=== PATIENT | male | born 1965 | race Caucasian/White ===

== ENCOUNTER 2021-12-15 07:32 | Outpatient (REF) | payer OTHER, SELFPAY ==
[2021-12-15 11:31] LABS: MANUAL DIFF FLAG NO
[2021-12-15 11:46] LABS: Basophils Absolute Auto 0.1 X10*3/uL (0.0-0.2); Eosinophils Absolute Auto 0.3 X10*3/uL (0.0-0.4); Eosinophils Percent Auto 4.2 % (0-4); Hematocrit 42.1 % (42.0-52.0); Hemoglobin 13.8 g/dl (14.0-18.0); Imm Gran Abs Auto 0.07 X10*3/uL (0.00-0.03); Lymphocytes Absolute Auto 1.3 X10*3/uL (1.2-4.9); Lymphocytes Percent Auto 19.3 % (20-40); Mean Corpuscular HGB Conc 32.8 g/dl (31.0-36.0); Mean Corpuscular Hemoglobin 32.1 pg (27.0-33.0); Mean Corpuscular Volume 97.9 fL (80.0-98.0); Mean Platelet Volume 10.5 fL (9.4-12.4); Monocytes Absolute Auto 0.6 X10*3/uL (0.1-1.2); Monocytes Percent Auto 8.4 % (2-11); Neutrophils Absolute Auto 4.5 x10*3/uL (2.0-8.3); Neutrophils Percent Auto 66.1 % (45-73); Platelet Count 187 X10*3/uL (160-400); White Blood Count 6.9 X10*3/uL (4.8-10.8)
[2021-12-15 12:06] LABS: Appearance Urine TURBID; Color Urine YELLOW; Glucose Urine UA NEG (NEG); Leukocyte Esterase Urine NEG (NEG); Nitrite Urine NEG (NEG); PH 5.5 (5.0-8.0); Specific Gravity - Urine >= 1.030 (1.005-1.025); Urine Blood NEG (NEG); Urine Ketones NEG (NEG); Urine Protein NEG (NEG-TRACE)
[2021-12-15 12:07] LABS: Cholesterol 152 mg/dL; HDL Cholesterol 33 mg/dL; LDL Cholesterol Calculated 88 mg/dl; Rheumatoid Factor < 15.0 IU/mL (<15.0); Triglycerides 159 mg/dL; Uric Acid 6.5 mg/dL (3.4-7.0)
[2021-12-15 12:24] LABS: Prostate Specific Antigen Scr 0.15 ng/mL (<0.05-4.0)
[2021-12-15 12:39] LABS: Creatinine Urine 136.04 mg/dL; Microalbum/Creatinine Ratio Ur 7.3 ug/mg cr
[2021-12-15 12:47] LABS: Erythrocyte Sedimentation Rate 17 MM/HR (0-15)
[2021-12-15 17:08] LABS: Alanine Aminotransferase 15 U/L (0-40); Alkaline Phosphatase 58 U/L (39-117); Anion Gap 15 (12-20); Aspartate Amino Transferase 15 U/L (5-37); Bilirubin Total 0.4 mg/dL (0.0-1.0); Blood Urea Nitrogen 16 mg/dL (9-16); Calcium 8.9 mg/dL (8.4-10.2); Carbon Dioxide 22 mmol/L (22-29); Chloride 110 mmol/L (96-108); Estimated Glomerular Filt Rate > 60; Glucose Fasting 100 mg/dL (60-99); Potassium 4.5 mmol/L (3.3-5.1); Sodium 142 mmol/L (135-145); Total Protein 6.4 g/dL (6.5-8.0)
[2021-12-17 13:03] LABS: Cyclic Citrullinated Peptide <16 UNITS
[2021-12-17 14:22] LABS: CRP High Sensitivity 8.2 mg/L
[2021-12-18 21:57] LABS: Anti Nuclear Antibody Screen POSITIVE (NEGATIVE)
== END 2021-12-15 07:33 | disposition home or self-care (01) ==
LOC: HO.WFDLDS 07:32
PROVIDERS: Visit Provider Family Medicine
DX: Z00.00 Encounter for general adult medical examination without abnormal findings (principal); Z12.5 Encounter for screening for malignant neoplasm of prostate; M19.90 Unspecified osteoarthritis, unspecified site; I10 Essential (primary) hypertension
CPT/HCPCS: 36415; 80053; 80061; 81003; 82043; 84153; 84443; 84550; 85025; 85652; 86038; 86039; 86141; 86200; 86431

== ENCOUNTER 2022-01-26 09:08 | Outpatient (REF) | payer OTHER, SELFPAY ==
--- NOTE | ~2022-01-26 | XR_ITS ---
EXAMINATION: XR ANKLE, RIGHT XR FOOT, RIGHT CLINICAL INFORMATION: Pain. COMPARISON: None TECHNIQUE: AP, lateral, and mortise views of the right ankle. AP, lateral, and oblique views of the right foot. FINDINGS: Bony alignment and mineralization are normal. No fracture, dislocation or right ankle joint effusion is seen. Boehler's angle is normal. There is a moderately large plantar calcaneal spur. No abnormal bony erosive change is seen. There is no focal soft tissue swelling, gas or foreign body noted. XR/XR ankle RT 2V IMPRESSION: 1. No right ankle fracture, dislocation or joint effusion is seen. 2. There is a moderately large right calcaneal plantar spur.
--- NOTE | ~2022-01-26 | XR_ITS ---
EXAMINATION: XR ANKLE, LEFT XR FOOT, LEFT CLINICAL INFORMATION: Pain. COMPARISON: None TECHNIQUE: AP, lateral, and mortise views of the left ankle. AP, lateral, and oblique views of the left foot. FINDINGS: Bony alignment and mineralization are normal. No acute fracture or dislocation is seen. There is an old, healed fracture with bony remodeling noted of the distal left fibular shaft.. Alignment is anatomic. Joint spaces are maintained. There is no right ankle joint effusion. Boehler's angle is normal. There is a small plantar calcaneal spur. No focal soft tissue swelling, gas or foreign body is seen. XR/XR ankle LT 2V IMPRESSION: 1. No fracture, dislocation or left ankle joint effusion is seen. 2. There is a small left calcaneal plantar spur.
--- NOTE | ~2022-01-26 | XR_ITS ---
EXAMINATION: XR ANKLE, RIGHT XR FOOT, RIGHT CLINICAL INFORMATION: Pain. COMPARISON: None TECHNIQUE: AP, lateral, and mortise views of the right ankle. AP, lateral, and oblique views of the right foot. FINDINGS: Bony alignment and mineralization are normal. No fracture, dislocation or right ankle joint effusion is seen. Boehler's angle is normal. There is a moderately large plantar calcaneal spur. No abnormal bony erosive change is seen. There is no focal soft tissue swelling, gas or foreign body noted. XR/XR foot RT min 3V IMPRESSION: 1. No right ankle fracture, dislocation or joint effusion is seen. 2. There is a moderately large right calcaneal plantar spur.
--- NOTE | ~2022-01-26 | XR_ITS ---
EXAMINATION: XR WRIST, RIGHT XR HAND, RIGHT CLINICAL INFORMATION: Pain. COMPARISON: None TECHNIQUE: PA, lateral, and oblique views of the right wrist and PA, lateral, and oblique views of the right hand FINDINGS: RIGHT WRIST: There is bony demineralization. The bones and soft tissues are otherwise normal. No fracture. Alignment is anatomic. Joint spaces are maintained. No erosions or soft tissue calcifications. RIGHT HAND: There is bony demineralization. The bones and soft tissues are normal. No acute fracture or dislocation is seen. There is an old, healed, mildly angulated fracture of seen of the proximal shaft of the fourth distal phalanx.. Alignment is anatomic. Joint spaces are maintained. No erosions or soft tissue calcifications. XR/XR hand wrist RT IMPRESSION: There is bony demineralization. Otherwise, unremarkable right hand and wrist, without unusual degenerative change or acute traumatic finding. EXAMINATION: XR WRIST, LEFT XR HAND, LEFT CLINICAL INFORMATION: Pain. COMPARISON: None TECHNIQUE: PA, lateral, and oblique views of the left wrist and PA, lateral, and oblique views of the left hand FINDINGS: LEFT WRIST: There is mild bony demineralization. The bones and soft tissues are otherwise normal. No fracture. Alignment is anatomic. Joint spaces are maintained. No erosions or soft tissue calcifications. LEFT HAND: There is mild bony demineralization. The bones and soft tissues are normal. No fracture. Alignment is anatomic. Joint spaces are maintained. No erosions or soft tissue calcifications. IMPRESSION: There is mild bony demineralization. Otherwise, unremarkable left hand and wrist.
--- NOTE | ~2022-01-26 | XR_ITS ---
EXAMINATION: XR WRIST, RIGHT XR HAND, RIGHT CLINICAL INFORMATION: Pain. COMPARISON: None TECHNIQUE: PA, lateral, and oblique views of the right wrist and PA, lateral, and oblique views of the right hand FINDINGS: RIGHT WRIST: There is bony demineralization. The bones and soft tissues are otherwise normal. No fracture. Alignment is anatomic. Joint spaces are maintained. No erosions or soft tissue calcifications. RIGHT HAND: There is bony demineralization. The bones and soft tissues are normal. No acute fracture or dislocation is seen. There is an old, healed, mildly angulated fracture of seen of the proximal shaft of the fourth distal phalanx.. Alignment is anatomic. Joint spaces are maintained. No erosions or soft tissue calcifications. XR/XR hand wrist LT IMPRESSION: There is bony demineralization. Otherwise, unremarkable right hand and wrist, without unusual degenerative change or acute traumatic finding. EXAMINATION: XR WRIST, LEFT XR HAND, LEFT CLINICAL INFORMATION: Pain. COMPARISON: None TECHNIQUE: PA, lateral, and oblique views of the left wrist and PA, lateral, and oblique views of the left hand FINDINGS: LEFT WRIST: There is mild bony demineralization. The bones and soft tissues are otherwise normal. No fracture. Alignment is anatomic. Joint spaces are maintained. No erosions or soft tissue calcifications. LEFT HAND: There is mild bony demineralization. The bones and soft tissues are normal. No fracture. Alignment is anatomic. Joint spaces are maintained. No erosions or soft tissue calcifications. IMPRESSION: There is mild bony demineralization. Otherwise, unremarkable left hand and wrist.
--- NOTE | ~2022-01-26 | XR_ITS ---
EXAMINATION: XR ANKLE, LEFT XR FOOT, LEFT CLINICAL INFORMATION: Pain. COMPARISON: None TECHNIQUE: AP, lateral, and mortise views of the left ankle. AP, lateral, and oblique views of the left foot. FINDINGS: Bony alignment and mineralization are normal. No acute fracture or dislocation is seen. There is an old, healed fracture with bony remodeling noted of the distal left fibular shaft.. Alignment is anatomic. Joint spaces are maintained. There is no right ankle joint effusion. Boehler's angle is normal. There is a small plantar calcaneal spur. No focal soft tissue swelling, gas or foreign body is seen. XR/XR foot LT min 3V IMPRESSION: 1. No fracture, dislocation or left ankle joint effusion is seen. 2. There is a small left calcaneal plantar spur.
== END 2022-01-26 09:09 | disposition home or self-care (01) ==
LOC: HO.XRAY 09:08
PROVIDERS: PCP Family Medicine; Visit Provider Student in an Organized Health Care Education/Training Program
DX: M25.541 Pain in joints of right hand (principal); M25.542 Pain in joints of left hand; M25.572 Pain in left ankle and joints of left foot; M25.571 Pain in right ankle and joints of right foot; M10.9 Gout, unspecified; R76.8 Other specified abnormal immunological findings in serum; R73.9 Hyperglycemia, unspecified; E66.01 Morbid (severe) obesity due to excess calories; Z79.899 Other long term (current) drug therapy; Z79.52 Long term (current) use of systemic steroids
CPT/HCPCS: 73110; 73130; 73600; 73630; 99202

== ENCOUNTER 2022-01-26 10:27 | Outpatient (REF) | payer OTHER, SELFPAY ==
[2022-01-26 14:15] LABS: MANUAL DIFF FLAG NO
[2022-01-26 14:23] LABS: Basophils Absolute Auto 0.1 X10*3/uL (0.0-0.2); Basophils Percent Auto 1.2 % (0-2); Eosinophils Absolute Auto 0.2 X10*3/uL (0.0-0.4); Hematocrit 44.8 % (42.0-52.0); Hemoglobin 15.1 g/dl (14.0-18.0); Imm Gran Abs Auto 0.18 X10*3/uL (0.00-0.03); Imm Gran Pct Auto 1.7 % (0.0-0.4); Lymphocytes Absolute Auto 1.8 X10*3/uL (1.2-4.9); Lymphocytes Percent Auto 16.6 % (20-40); Mean Corpuscular HGB Conc 33.7 g/dl (31.0-36.0); Mean Corpuscular Hemoglobin 32.7 pg (27.0-33.0); Mean Platelet Volume 10.1 fL (9.4-12.4); Monocytes Percent Auto 9.1 % (2-11); Neutrophils Absolute Auto 7.4 x10*3/uL (2.0-8.3); Neutrophils Percent Auto 69.4 % (45-73); Platelet Count 223 X10*3/uL (160-400); Red Blood Count 4.62 X10*6/uL (4.60-5.80); Red Cell Distribution Width 15.2 % (11.0-16.0); White Blood Count 10.7 X10*3/uL (4.8-10.8)
[2022-01-26 14:51] LABS: Alanine Aminotransferase 57 U/L (0-40); Albumin Level 4.1 g/dL (3.5-5.0); Alkaline Phosphatase 61 U/L (39-117); Anion Gap 15 (12-20); Aspartate Amino Transferase 46 U/L (5-37); Bilirubin Total 0.4 mg/dL (0.0-1.0); Blood Urea Nitrogen 21 mg/dL (9-16); C Reactive Protein 0.14 mg/dL (< or = 0.50); Calcium 9.1 mg/dL (8.4-10.2); Carbon Dioxide 22 mmol/L (22-29); Chloride 108 mmol/L (96-108); Estimated Glomerular Filt Rate > 60; Glucose Random 116 mg/dL (60-115); Potassium 4.2 mmol/L (3.3-5.1); Sodium 141 mmol/L (135-145); Total Protein 6.9 g/dL (6.5-8.0); Uric Acid 6.1 mg/dL (3.4-7.0)
[2022-01-26 15:00] LABS: Erythrocyte Sedimentation Rate 4 MM/HR (0-15)
[2022-01-26 16:54] LABS: Estimated Average Glucose 111 mg/dL; Hemoglobin A1c % 5.5 %
[2022-01-27 12:47] LABS: Anti-Centromere B Antibodies <1.0 NEG AI (<1.0 NEG); Scleroderma 70 Antibody <1.0 NEG AI (<1.0 NEG)
[2022-01-30 21:27] LABS: HLA B27 Negative (Negative)
== END 2022-01-26 10:28 | disposition home or self-care (01) ==
LOC: HO.WFDLDS 10:27
PROVIDERS: Visit Provider Student in an Organized Health Care Education/Training Program
DX: M10.9 Gout, unspecified (principal); M25.541 Pain in joints of right hand; R76.8 Other specified abnormal immunological findings in serum; R73.9 Hyperglycemia, unspecified
CPT/HCPCS: 36415; 80053; 83036; 84550; 85025; 85652; 86038; 86140; 86235; 86812

== ENCOUNTER 2022-01-29 08:07 | Outpatient (REF) | payer OTHER, SELFPAY ==
[2022-01-29 11:32] LABS: MANUAL DIFF FLAG NO
[2022-01-29 11:45] LABS: Basophils Absolute Auto 0.2 X10*3/uL (0.0-0.2); Basophils Percent Auto 1.1 % (0-2); Eosinophils Absolute Auto 0.4 X10*3/uL (0.0-0.4); Eosinophils Percent Auto 2.6 % (0-4); Hematocrit 44.7 % (42.0-52.0); Hemoglobin 14.8 g/dl (14.0-18.0); Imm Gran Abs Auto 0.17 X10*3/uL (0.00-0.03); Imm Gran Pct Auto 1.3 % (0.0-0.4); Lymphocytes Absolute Auto 2.2 X10*3/uL (1.2-4.9); Lymphocytes Percent Auto 16.4 % (20-40); Mean Corpuscular HGB Conc 33.1 g/dl (31.0-36.0); Mean Corpuscular Hemoglobin 32.3 pg (27.0-33.0); Mean Corpuscular Volume 97.6 fL (80.0-98.0); Mean Platelet Volume 10.1 fL (9.4-12.4); Monocytes Absolute Auto 1.2 X10*3/uL (0.1-1.2); Monocytes Percent Auto 9.2 % (2-11); Neutrophils Absolute Auto 9.3 x10*3/uL (2.0-8.3); Neutrophils Percent Auto 69.4 % (45-73); Platelet Count 239 X10*3/uL (160-400); Red Blood Count 4.58 X10*6/uL (4.60-5.80); Red Cell Distribution Width 15.7 % (11.0-16.0); White Blood Count 13.5 X10*3/uL (4.8-10.8)
== END 2022-01-29 08:08 | disposition home or self-care (01) ==
LOC: HO.WFDLDS 08:07
PROVIDERS: Visit Provider Nurse Practitioner Family
DX: Z01.818 Encounter for other preprocedural examination (principal); I48.91 Unspecified atrial fibrillation; I42.9 Cardiomyopathy, unspecified
CPT/HCPCS: 36415; 85025

== ENCOUNTER 2022-03-08 08:04 | Outpatient (REF) | payer OTHER, SELFPAY ==
[2022-03-08 11:25] LABS: MANUAL DIFF FLAG NO
[2022-03-08 11:50] LABS: Basophils Absolute Auto 0.1 X10*3/uL (0.0-0.2); Basophils Percent Auto 1.2 % (0-2); Eosinophils Absolute Auto 0.2 X10*3/uL (0.0-0.4); Hematocrit 42.9 % (42.0-52.0); Hemoglobin 14.3 g/dl (14.0-18.0); Imm Gran Abs Auto 0.04 X10*3/uL (0.00-0.03); Imm Gran Pct Auto 0.6 % (0.0-0.4); Lymphocytes Absolute Auto 1.2 X10*3/uL (1.2-4.9); Lymphocytes Percent Auto 18.4 % (20-40); Mean Corpuscular HGB Conc 33.3 g/dl (31.0-36.0); Mean Corpuscular Hemoglobin 32.9 pg (27.0-33.0); Mean Corpuscular Volume 98.8 fL (80.0-98.0); Mean Platelet Volume 10.1 fL (9.4-12.4); Monocytes Absolute Auto 0.8 X10*3/uL (0.1-1.2); Monocytes Percent Auto 12.4 % (2-11); Neutrophils Absolute Auto 4.3 x10*3/uL (2.0-8.3); Neutrophils Percent Auto 64.4 % (45-73); Platelet Count 163 X10*3/uL (160-400); Red Blood Count 4.34 X10*6/uL (4.60-5.80); Red Cell Distribution Width 15.1 % (11.0-16.0); White Blood Count 6.6 X10*3/uL (4.8-10.8)
[2022-03-08 12:25] LABS: Erythrocyte Sedimentation Rate 7 MM/HR (0-15)
[2022-03-08 12:30] LABS: Alanine Aminotransferase 22 U/L (0-40); Albumin Level 4.3 g/dL (3.5-5.0); Alkaline Phosphatase 58 U/L (39-117); Anion Gap 17 (12-20); Aspartate Amino Transferase 22 U/L (5-37); Bilirubin Total 0.7 mg/dL (0.0-1.0); Blood Urea Nitrogen 17 mg/dL (9-16); C Reactive Protein 0.51 mg/dL (< or = 0.50); Calcium 9.2 mg/dL (8.4-10.2); Carbon Dioxide 23 mmol/L (22-29); Chloride 107 mmol/L (96-108); Estimated Glomerular Filt Rate > 60; Glucose Random 92 mg/dL (60-115); Potassium 4.3 mmol/L (3.3-5.1); Sodium 143 mmol/L (135-145); Total Protein 6.8 g/dL (6.5-8.0); Uric Acid 6.4 mg/dL (3.4-7.0)
[2022-03-12 13:51] LABS: Liver Kidney Microsomal Ab <=20.0 U (<=20.0); Smooth Muscle Antibody 27 U (<20)
[2022-03-12 14:32] LABS: Mitochondrial Antibodies NEGATIVE (NEGATIVE)
== END 2022-03-08 08:05 | disposition home or self-care (01) ==
LOC: HO.WFDLDS 08:04
PROVIDERS: Visit Provider Student in an Organized Health Care Education/Training Program
DX: M25.571 Pain in right ankle and joints of right foot (principal); R76.8 Other specified abnormal immunological findings in serum
CPT/HCPCS: 36415; 80053; 84550; 85025; 85652; 86015; 86140; 86255; 86256; 86376

== ENCOUNTER → 2022-03-09 07:44 | Outpatient (BNVA) | payer OTHER, SELFPAY | PROVIDERS: PCP Family Medicine; Visit Provider Student in an Organized Health Care Education/Training Program | DX: M1A.09X0 Idiopathic chronic gout, multiple sites, without tophus (tophi) (principal); R76.8 Other specified abnormal immunological findings in serum | CPT/HCPCS: 99212 ==

== ENCOUNTER → 2022-03-17 08:00 | Outpatient (BNVA) | payer OTHER, SELFPAY | PROVIDERS: PCP Family Medicine; Visit Provider Physician Assistant | DX: M1A.09X0 Idiopathic chronic gout, multiple sites, without tophus (tophi) (principal) | CPT/HCPCS: 99202 ==

== ENCOUNTER 2022-03-24 09:13 | Outpatient (REF) | payer OTHER, SELFPAY ==
[2022-03-24 12:38] LABS: Estimated Average Glucose 111 mg/dL; Hemoglobin A1c % 5.5 %
[2022-03-24 12:47] LABS: Lipase 40 U/L (8-78)
[2022-03-25 10:22] LABS: HBS Num1 2.18 mIU/mL (0-7.99); HBc Num1 0.06 S/CO (0.00-0.79); HBsAGNum1 0.19 S/CO (0.00-0.99); Hepatitis B Core Antibody Nonreactive (Nonreactive); Hepatitis B Surface Antigen Negative (Negative); ~Hepatitis B Surface Antibody NONREACTIVE (Nonreactive); ~Hepatitis C Antibody Nonreactive (Nonreactive)
[2022-03-26 07:30] LABS: Hepatitis A Antibody IgM 0.47 Index (0-0.79); ~Hepatitis A Antibody IgM Nonreactive (Nonreactive)
[2022-03-30 22:57] LABS: Soluble Liver Ag Autoantibody <20.1 U (0.0-20.0)
[2022-03-31 17:03] LABS: FIB-ALT 21 U/L (9-46); FIB-Alpha-2-Macroglobulin 168 mg/dL (106-279); FIB-Apolipoprotein A1 156 mg/dL (94-176); FIB-GGT 33 U/L (3-85); FIB-Haptoglobin 86 mg/dL (43-212); FIB-Total Bilirubin 0.5 mg/dL (0.2-1.2); Liver Fibrosis Score 0.23; Liver Fibrosis Stage F0-F1; Nec Inflam Act Grade A0; Nec Inflam Act Score 0.08
== END 2022-03-24 09:14 | disposition home or self-care (01) ==
LOC: HO.WFDLDS 09:13
PROVIDERS: Visit Provider Physician Assistant
DX: R79.89 Other specified abnormal findings of blood chemistry (principal); B19.20 Unspecified viral hepatitis C without hepatic coma; M10.9 Gout, unspecified; R74.01 Elevation of levels of liver transaminase levels; R76.8 Other specified abnormal immunological findings in serum; E66.9 Obesity, unspecified
CPT/HCPCS: 36415; 81596; 83036; 83520; 83690; 86704; 86706; 86709; 86803; 87340; 99202

== ENCOUNTER 2022-03-31 08:03 | Outpatient (REF) | payer OTHER, SELFPAY ==
--- NOTE | ~2022-03-31 | US_ITS ---
EXAMINATION: US ABDOMEN LIMITED CLINICAL INFORMATION: Elevation of levels of liver transaminase levels. COMPARISON: None TECHNIQUE: Real-time imaging of the right upper quadrant abdominal viscera. FINDINGS: PANCREAS: Largely obscured by overlapping bowel gas. LIVER: Normal. The liver is normal in size. The liver contour is normal. Parenchymal echogenicity is normal. No focal hepatic lesion. There is no intrahepatic biliary duct dilatation seen. GALLBLADDER: There is ringdown artifact, consistent adenomyosis. The gallbladder is physiologically distended without evidence of stones, sludge, polyps, wall thickening or pericholecystic fluid. COMMON BILE DUCT: Normal in caliber measuring 0.3 cm in diameter. RIGHT KIDNEY: Normal. No hydronephrosis. No renal calculi or focal parenchymal lesions. The kidney measures 11.4 cm in maximum dimension. FREE FLUID: None. US/US abdomen limited IMPRESSION: 1. Unremarkable ultrasound appearance of the liver. 2. There is gallbladder ringdown artifact, consistent with adenomyosis. 3. Technically limited ultrasound examination of the pancreas.
== END 2022-03-31 08:04 | disposition home or self-care (01) ==
LOC: HO.US 08:03
PROVIDERS: Visit Provider Student in an Organized Health Care Education/Training Program
DX: R74.01 Elevation of levels of liver transaminase levels (principal); R76.8 Other specified abnormal immunological findings in serum
CPT/HCPCS: 76705

== ENCOUNTER → 2022-04-06 08:13 | Outpatient (BNVA) | payer OTHER, SELFPAY | PROVIDERS: PCP Family Medicine; Referring Provider Family Medicine; Visit Provider Physician Assistant | DX: R74.01 Elevation of levels of liver transaminase levels (principal); I48.91 Unspecified atrial fibrillation | CPT/HCPCS: 99212 ==

== ENCOUNTER 2022-04-29 14:28 | Outpatient (REF) | payer OTHER, SELFPAY ==
[2022-04-29 15:06] LABS: MANUAL DIFF FLAG NO
[2022-04-29 15:11] LABS: Basophils Absolute Auto 0.1 X10*3/uL (0.0-0.2); Basophils Percent Auto 1.6 % (0-2); Eosinophils Absolute Auto 0.3 X10*3/uL (0.0-0.4); Eosinophils Percent Auto 3.5 % (0-4); Hematocrit 47.9 % (42.0-52.0); Hemoglobin 16.1 g/dl (14.0-18.0); Imm Gran Abs Auto 0.05 X10*3/uL (0.00-0.03); Imm Gran Pct Auto 0.6 % (0.0-0.4); Lymphocytes Absolute Auto 1.9 X10*3/uL (1.2-4.9); Lymphocytes Percent Auto 22.9 % (20-40); Mean Corpuscular HGB Conc 33.6 g/dl (31.0-36.0); Mean Corpuscular Hemoglobin 33.2 pg (27.0-33.0); Mean Corpuscular Volume 98.8 fL (80.0-98.0); Mean Platelet Volume 10.4 fL (9.4-12.4); Monocytes Absolute Auto 0.8 X10*3/uL (0.1-1.2); Neutrophils Percent Auto 61.4 % (45-73); Platelet Count 189 X10*3/uL (160-400); Red Blood Count 4.85 X10*6/uL (4.60-5.80); Red Cell Distribution Width 13.9 % (11.0-16.0); White Blood Count 8.2 X10*3/uL (4.8-10.8)
[2022-04-29 15:49] LABS: Erythrocyte Sedimentation Rate 5 MM/HR (0-15)
[2022-04-29 16:25] LABS: Appearance Urine Clear; Color Urine Yellow; Glucose Urine UA >=1000 mg/dL (Negative); Leukocyte Esterase Urine Negative (Negative); Nitrite Urine Negative (Negative); Specific Gravity - Urine >= 1.030 (1.005-1.025); UMIC TRIGGER UA YES; Urine Blood Negative (Negative); Urine Ketones Negative (Negative); Urine Protein Negative (Neg-Trace)
[2022-04-29 16:33] LABS: Bacteria Urine None Seen (None Seen); Hyaline Casts Urine 0-2 /LPF (0-2); RBC Urine 0-2 /HPF (0-2); Squamous Epithelial Cell Urine 0-2 /HPF (0-2); WBC Urine 0-5 /HPF (0-5)
[2022-04-29 16:38] LABS: Alanine Aminotransferase 24 U/L (0-40); Albumin Level 4.7 g/dL (3.5-5.0); Alkaline Phosphatase 68 U/L (39-117); Anion Gap 13 (12-20); Aspartate Amino Transferase 23 U/L (5-37); Bilirubin Total 0.5 mg/dL (0.0-1.0); Blood Urea Nitrogen 19 mg/dL (9-16); Calcium 9.8 mg/dL (8.4-10.2); Carbon Dioxide 27 mmol/L (22-29); Chloride 108 mmol/L (96-108); Estimated Glomerular Filt Rate > 60; Glucose Random 84 mg/dL (60-115); Potassium 4.1 mmol/L (3.3-5.1); Sodium 144 mmol/L (135-145); Total Protein 7.5 g/dL (6.5-8.0); Uric Acid 4.9 mg/dL (3.4-7.0)
[2022-04-29 18:26] LABS: Creatinine Urine 132.08 mg/dL; Total Protein Urine Random < 7 mg/dL (<12)
[2022-04-30 10:59] LABS: Complement C3 139 mg/dL (82-185)
[2022-05-01 01:49] LABS: Thyroglobulin Antibodies <1 IU/mL (< or = 1); Thyroid Peroxidase Antibodies 1 IU/mL (<9)
[2022-05-03 13:38] LABS: Anti DNA DS Antibody 1 IU/mL; Antibody to SS-A Antigen <1.0 NEG AI (<1.0 NEG); Antibody to SS-B Antigen <1.0 NEG AI (<1.0 NEG); SM/Ribonucleoprotein Ab <1.0 NEG AI (<1.0 NEG); Smith Protein <1.0 NEG AI (<1.0 NEG)
[2022-05-03 15:09] LABS: Anti Nuclear Antibody Screen POSITIVE (NEGATIVE)
[2022-05-04 22:58] LABS: Angiotensin Converting Enzyme 34 U/L (9-67)
== END 2022-04-29 14:29 | disposition home or self-care (01) ==
LOC: HO.LAB 14:28
PROVIDERS: Visit Provider Student in an Organized Health Care Education/Training Program
DX: I48.91 Unspecified atrial fibrillation (principal); I50.9 Heart failure, unspecified; M10.9 Gout, unspecified; R76.8 Other specified abnormal immunological findings in serum
CPT/HCPCS: 36415; 80053; 81001; 82164; 84156; 84550; 85025; 85652; 86038; 86039; 86140; 86160; 86225; 86235; 86376; 86800; 93005; 99202

== ENCOUNTER 2022-05-04 08:48 | Outpatient (REF) | payer OTHER, SELFPAY ==
--- NOTE | ~2022-05-04 | XR_ITS ---
EXAMINATION: XR SHOULDER, LEFT CLINICAL INFORMATION: Pain left shoulder. COMPARISON: None TECHNIQUE: Left shoulder is imaged in 3 views. FINDINGS: No fracture, dislocation, or destructive process. There are mild degenerative changes glenohumeral joint with mild joint narrowing and small spur inferior medial humeral head. There is mild spurring at the greater tuberosity. The acromioclavicular alignment is normal. Axial view suggests some small calcification adjacent to anterior greater tuberosity, possibly related to the subscapularis. No visible calcific tendinosis superior lateral rotator cuff. XR/XR shoulder LT min 2V IMPRESSION: 1. Mild degenerative changes glenohumeral joint. 2. Small calcification adjacent to anterior greater tuberosity, possibly related to subscapularis.
== END 2022-05-04 08:49 | disposition home or self-care (01) ==
LOC: HO.HOSX 08:48
PROVIDERS: Visit Provider Physician Assistant
DX: S43.005D Unspecified dislocation of left shoulder joint, subsequent encounter (principal); M19.012 Primary osteoarthritis, left shoulder; M25.312 Other instability, left shoulder; Z79.01 Long term (current) use of anticoagulants; X58.XXXD Exposure to other specified factors, subsequent encounter
CPT/HCPCS: 73030; 99202

== ENCOUNTER → 2022-05-07 07:42 | Outpatient (BNVA) | payer OTHER, SELFPAY | PROVIDERS: PCP Family Medicine; Visit Provider Student in an Organized Health Care Education/Training Program | DX: M1A.09X0 Idiopathic chronic gout, multiple sites, without tophus (tophi) (principal); R76.8 Other specified abnormal immunological findings in serum; Z79.899 Other long term (current) drug therapy | CPT/HCPCS: 99212 ==

== ENCOUNTER → 2022-05-14 07:08 | Outpatient (REF) | payer OTHER, SELFPAY | LOC: HO.CARD 07:08 | PROVIDERS: PCP Family Medicine; Visit Provider Internal Medicine Cardiovascular Disease | DX: I48.19 Other persistent atrial fibrillation (principal) | CPT/HCPCS: 93306; Q9957 ==

== ENCOUNTER 2022-05-21 14:09 | Outpatient (REF) | payer OTHER, SELFPAY ==
--- NOTE | ~2022-05-21 | FL_ITS ---
EXAMINATION: XR ARTHROGRAM SHOULDER, LEFT CLINICAL INFORMATION: Left shoulder injury COMPARISON: Previous x-ray 05/04/2022 TECHNIQUE: Procedure and risks and benefits including bleeding and infection were discussed with the patient and informed consent was obtained. The left shoulder was prepped and draped in the usual sterile fashion. The skin and soft tissues were anesthetized with 1% lidocaine plain. Using fluoroscopic guidance and a 22-gauge needle, access to the left shoulder joint was obtained. 1 to 2 mL of Omnipaque 300 was injected fluoroscopically confirming adequate placement in the joint space. Subsequently, a mixture of dilute gadolinium was injected pre-MRI. FINDINGS: Contrast is seen in the joint space. FLUOROSCOPY TIME: 0.7 minutes DOSE AREA PRODUCT: 5.4 lozano per centimeter squared. 1 saved fluoroscopic image. FL/FL arthrogram shoulder LT IMPRESSION: Left shoulder pre-MRI arthrogram.
--- NOTE | ~2022-05-21 | MR_ITS ---
EXAMINATION: MR SHOULDER WITH CONTRAST, LEFT CLINICAL INFORMATION: Left shoulder pain. COMPARISON: Radiographs 05/04/2022. TECHNIQUE: MRI of the shoulder was performed following the intra-articular administration of a dilute gadolinium-containing solution (arthrogram) on a high-field scanner. FINDINGS: ROTATOR CUFF: Chronic-appearing complete supraspinatus tendon tear with retraction to the level of the humeral head apex. Partial tearing of the anteriormost infraspinatus tendon insertion. There is subscapularis tendinopathy with ill-defined tearing at the superiormost tendon insertion. Mild supraspinatus muscle atrophy. BICEPS: Ill-defined longitudinal partial tearing of the biceps tendon which is slightly subluxed out of the bicipital groove, draped over the lesser tuberosity superficial to the torn subscapularis insertion. CORACOACROMIAL ARCH: The undersurface of the acromion is curved with prominent subacromial spurring. Mild acromioclavicular osteoarthritis. Contrast extends from the joint, through the supraspinatus tendon tear, and into the acromioclavicular joint. LABRUM/CAPSULE: Probable ill-defined undersurface tearing of the posterior glenoid labral junction. Probable remote, partially healed osseous Bankart at the anterior inferior glenoid rim with chronic labral tear. GLENOHUMERAL JOINT/MARROW: Chronic Hill-Sachs deformity of the posterolateral humeral head with secondary degenerative change. Osteophytes along the humeral head and neck junction and the greater tuberosity anteriorly. The humeral head is slightly subluxed posteriorly with cartilage thinning and osteophyte formation of the posterior glenoid rim. MR/MR shoulder LT w con IMPRESSION: 1. Chronic-appearing complete supraspinatus tendon tear with retraction and mild muscle atrophy. 2. Partial tearing of the anteriormost infraspinatus tendon insertion. 3. Subscapularis tendinopathy with ill-defined partial tearing at the superiormost tendon insertion. 4. Ill-defined longitudinal partial tearing of the biceps tendon which is slightly subluxed out of the bicipital groove. 5. Prominent subacromial spur. 6. Suspect remote anterior inferior shoulder dislocation with Hill-Sachs deformity and partially healed osseous Bankart. Mild acromioclavicular and glenohumeral osteoarthritis.
== END 2022-05-21 14:10 | disposition home or self-care (01) ==
LOC: HO.XRAY 14:09
PROVIDERS: PCP Family Medicine; Visit Provider Physician Assistant
DX: S43.005A Unspecified dislocation of left shoulder joint, initial encounter (principal); X58.XXXA Exposure to other specified factors, initial encounter; Y93.9 Activity, unspecified; Y92.9 Unspecified place or not applicable; Y99.9 Unspecified external cause status
CPT/HCPCS: 23350; 73040; 73222

== ENCOUNTER → 2022-06-01 08:01 | Outpatient (BNVA) | payer OTHER, SELFPAY | PROVIDERS: PCP Family Medicine; Visit Provider Physician Assistant | DX: M25.312 Other instability, left shoulder (principal); M19.012 Primary osteoarthritis, left shoulder | CPT/HCPCS: 99212 ==

== ENCOUNTER → 2022-06-14 10:11 | Outpatient (BNVA) | payer OTHER, SELFPAY | PROVIDERS: PCP Family Medicine; Visit Provider Orthopaedic Surgery | DX: I48.91 Unspecified atrial fibrillation (principal); I50.20 Unspecified systolic (congestive) heart failure; M19.012 Primary osteoarthritis, left shoulder; M25.312 Other instability, left shoulder; Z79.01 Long term (current) use of anticoagulants; Z79.899 Other long term (current) drug therapy | CPT/HCPCS: 93005; 99212 ==

== ENCOUNTER 2022-06-16 12:41 | Day surgery (SDC) | payer OTHER, SELFPAY ==
[2022-06-09 20:08] VITALS: BMI 41.3
--- NOTE | 2022-06-15 08:21 | P.CONAN_ITS ---
HPI - Anesthesia Eval Consult details Narrative: 57yo M for Cardioversion Xarelto for afib [facility] Active Problems Active Problems: All Active Problems (Updated 05/07/22 @ 08:20 by Gail Noyola MD) Gout (Acute) Arthritis of left glenohumeral joint (Acute) Instability of left shoulder joint (Acute) CHF (congestive heart failure) (Acute) Obesity (Acute) Transaminitis (Acute) Hyperglycemia (Acute) KATHERINE positive (Acute) Normal routine physical examination (Acute) Dyspnea (Acute) Dislocation of left shoulder joint (Acute) Hypertension (Acute) Atrial fibrillation (Acute) Arthritis (Acute) Laboratory exam ordered as part of routine general medical examination (Acute) Past Medical History Medical History CHF (congestive heart failure) Elevated liver enzymes Gout Persistent atrial fibrillation Sleep apnea Testicular cancer Family History Family History Mother CVD (cardiovascular disease) Father CVD (cardiovascular disease) Surgical History Surgical History History of orchiectomy, unilateral Hx of colonoscopy Social History Social History Household Members Other:: Same partner- 17 years- Housing: House Alcohol intake: current Alcohol intake frequency: a few times a month Alcohol type: hard liquor Patient Tobacco Use Status: Former Tobacco user e-Cigarette/Vaping Use: Never Used Second Hand Smoke Exposure: No service: No Current occupational status: unemployed and disabled 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 Current occupational exposures/hazards: No Cognitive needs: No Hearing needs: No Vision needs: No Meds Allergies Allergy/AdvReac Type Severity Reaction Status Date / Time No Known Allergies Allergy Verified 06/14/22 13:45 Home Medications Medication Instructions Recorded Confirmed Last Taken Type rivaroxaban 20 mg tablet (Xarelto) 20 mg PO DAILY 12/11/21 06/14/22 Unknown History rosuvastatin 10 mg tablet 10 mg PO DAILY 12/11/21 06/14/22 Unknown History dapagliflozin 10 mg tablet 10 mg PO DAILY 01/22/22 06/14/22 Unknown History (Farxiga) amiodarone 200 mg tablet 400 mg PO DAILY 06/09/22 06/14/22 Unknown History torsemide 20 mg tablet 20 mg PO DAILY Systemic Signs And 06/14/22 06/14/22 Unknown History Symptoms Exam Exam Date and Time: June 15, 2022 0821 Height,Weight and Vital Signs: Height 5 ft 9 in Weight 127.006 kg Pertinent Lab Results Pertinent Lab Results: Laboratory Tests 04/29/22 04/29/22 15:02 15:02 WBC 8.2 Hgb 16.1 Hct 47.9 Plt Count 189 Sodium 144 Potassium 4.1 Chloride 108 Carbon Dioxide 27 BUN 19 H Creatinine 0.97 Narrative Narrative: EKG 05/2022 atrial fibrillation with incomplete right bundle-branch block with nonspecific ST T wave changes with mild QTC prolongation ECHO 04/2022 Conclusions: - Normal left ventricular cavity size.? There is mildly increased left ventricular wall thickness.? The left ventricular systolic? function is moderately decreased.? The visually estimated? ejection fraction is between 30-35%. ? - Mildly increased right ventricular cavity size.? There is mild to moderately decreased right ventricular systolic function. ? ? - Moderately elevated right atrial pressure. ? - There is mild dilatation of the ascending aorta measuring 3.90 cm.? ? Assessment and Plan Assessment Anesthesia Assessment: Chart Reviewed
[2022-06-16] VITALS (9 sets, daily range): BP systolic 101–156; BP diastolic 62–110; PULSE 53–99; RESP 18–99; TEMP 36.1–36.6; O2SAT 94–98
--- NOTE | 2022-06-16 12:40 | MHC.SHP ---
Pre-Procedural Eval Section A Date of Service: 06/16/22 The patient is an INPATIENT: No Changes since office visit: Yes Patient answered all questions; No Cold of Flu in the past 2 weeks, No New Medical Problems and No Changes in Medication The History & Physical has been completed within 30 days and I have reviewed it.: Yes Section B Chief Complaint: afib Allergies: Allergies Allergy/AdvReac Type Severity Reaction Status Date / Time No Known Allergies Allergy Verified 06/14/22 13:45 Plan I have reviewed the history and physical and performed a pertinent physical examination on my patient. No changes have occurred unless specified. Time Spent With Patient Time: Total time managing care of this patient today ____ minutes.
[2022-06-16] MEDS: Lactated Ringers 1,000 ML 50 ML IVCONT (13:16)
--- NOTE | 2022-06-16 14:34 | P.CONAN_ITS ---
[facility] Active Problems Active Problems: All Active Problems (Updated 05/07/22 @ 08:20 by Gail Noyola MD) Gout (Acute) Arthritis of left glenohumeral joint (Acute) Instability of left shoulder joint (Acute) CHF (congestive heart failure) (Acute) Obesity (Acute) Transaminitis (Acute) Hyperglycemia (Acute) KATHERINE positive (Acute) Normal routine physical examination (Acute) Dyspnea (Acute) Dislocation of left shoulder joint (Acute) Hypertension (Acute) Atrial fibrillation (Acute) Arthritis (Acute) Laboratory exam ordered as part of routine general medical examination (Acute) Past Medical History Medical History CHF (congestive heart failure) Elevated liver enzymes Gout Persistent atrial fibrillation Sleep apnea Testicular cancer Family History Family History Mother CVD (cardiovascular disease) Father CVD (cardiovascular disease) Family history of problems with anesthesia: No Surgical History Surgical History History of orchiectomy, unilateral Hx of colonoscopy History of Problems with Anesthesia: No Social History Social History Household Members Other:: Same partner- 17 years- Housing: House Alcohol intake: current Alcohol intake frequency: a few times a month Alcohol type: hard liquor Patient Tobacco Use Status: Former Tobacco user Smoked in Last 30 Days: No e-Cigarette/Vaping Use: Never Used Second Hand Smoke Exposure: No Use of substances other than those prescribed or required for medical reasons: Yes Substance Use Frequency: Monthly Are you DNR?: No Advance Directives: No Advance Directives Information Provided: Yes Advance Directives on File: No Recently lost weight without trying: No Nutrition Risks: No Nutritional Risk Poor oral hygiene: No service: No Current occupational status: unemployed and disabled 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 Current occupational exposures/hazards: No Cognitive needs: No Hearing needs: No Vision needs: No Meds Allergies Allergy/AdvReac Type Severity Reaction Status Date / Time No Known Allergies Allergy Verified 06/14/22 13:45 Active Medications: Current Medications Lactated Ringer's (Lr) 1,000 mls @ 50 mls/hr IVCONT .Q20H NORA Last Admin: 06/16/22 13:16 Dose: 50 mls/hr Sodium Chloride (0.9 % Sodium Chloride Flush 3 Ml Syringe) 3 ml IVFLUSH QSHIFT [facility] Home Medications Medication Instructions Recorded Confirmed Last Taken Type rivaroxaban 20 mg tablet (Xarelto) 20 mg PO DAILY 12/11/21 06/14/22 06/16/22 History rosuvastatin 10 mg tablet 10 mg PO DAILY 12/11/21 06/14/22 06/15/22 History dapagliflozin 10 mg tablet 10 mg PO DAILY 01/22/22 06/14/22 06/15/22 History (Farxiga) amiodarone 200 mg tablet 400 mg PO DAILY 06/09/22 06/14/22 06/16/22 History torsemide 20 mg tablet 20 mg PO DAILY Systemic Signs And 06/14/22 06/16/22 06/15/22 History Symptoms Exam Exam Date and Time: June 16, 2022 1434 Height,Weight and Vital Signs: Height 5 ft 9 in Weight 127.006 kg Last Vital Signs Temp 97 F 06/16/22 12:53 Pulse 99 06/16/22 12:53 Resp 99 H 06/16/22 12:53 BP 132/81 06/16/22 14:32 Pulse Ox 95 06/16/22 12:53 O2 Del Method 06/16/22 12:53 Airway Mallampati Class: IV TM Dist: >3cm Neck ROM: Full Assessment and Plan Assessment Anesthesia Assessment: Anesthesia Plan Discussed and Chart Reviewed Final Anesthetic Review Family History of Problems with Anesthesia: No History of Problems with Anesthesia: No NPO: Yes ASA Class: III and Emergency Final Preanesthetic Review: No Changes in Pt Med Stat, Meds/Allgs Chart Reviewed, Consent Obtained/Reviewed and Anes Risks/Benef Reviewed Patient Risk: Intermediate Procedure Risk: Intermediate Anesthetic Plan Anesthetic Plan: GA Disposition: Standard PACU
--- NOTE | 2022-06-16 14:48 | ECG_ITS ---
Test Reason : s/p cardioversion Blood Pressure : / mmHG Vent. Rate : 060 BPM Atrial Rate : 060 BPM P-R Int : 214 ms QRS Dur : 120 ms QT Int : 476 ms P-R-T Axes : 025 -18 024 degrees QTc Int : 476 ms Sinus rhythm with 1st degree A-V block Right bundle branch block Inferior infarct , age undetermined T wave abnormality, consider lateral ischemia Abnormal ECG No previous ECGs available Referred By: Erik Molina Electronically Signed By:JASON RYDER
--- NOTE | 2022-06-16 14:48 | HO.CARDIVERS ---
Cardioversion Procedure Note Cardioversion Date of Procedure: Today Ordering Provider: Myself Performing Provider: Myself Indication for Procedure: Symptomatic persistent atrial fibrillation with cardiomyopathy Pre-Op Diagnosis: Same Post-Op Diagnosis: Sinus rhythm Consent: Verbal and Written consent was obtained from the patient before starting and after confirming oral anticoagulation use. The patient was made aware of the risk of synchronized cardioversion including benefits and alternatives Procedure: After consent obtained, cardioversion pads were attached in AP configuration and the patient was sedated by the anesthesia team. Once adequate sedation achieved, patient was delivered 200 joules of biphasic synchronized energy x2. After 1st attempt patient remained in atrial fibrillation. Complications: None Impression: Successful conversion to sinus rhythm Recommendations: 1. 12 lead EKG 2. Continue amiodarone and full oral anticoagulation 3. Follow up in the clinic after Holter monitor and limited echocardiogram
== END 2022-06-16 16:01 | disposition home or self-care (01) ==
PROVIDERS: PCP Family Medicine; Visit Provider Internal Medicine Cardiovascular Disease
PROC: 5A2204Z Restoration of Cardiac Rhythm, Single (ICD-10-PCS; principal; 2022-06-16 14:30)
DX: I48.19 Other persistent atrial fibrillation (principal); I42.9 Cardiomyopathy, unspecified; I50.9 Heart failure, unspecified; Z79.51 Long term (current) use of inhaled steroids; Z79.899 Other long term (current) drug therapy
CPT/HCPCS: 92960; 93005

== ENCOUNTER → 2022-06-28 10:29 | Outpatient (REF) | payer OTHER, SELFPAY ==
--- NOTE | 2022-06-28 10:33 | HM_ITS ---
Conclusion: 1. Patient was monitored for total period of 2 days and 20 hours 2. Baseline was normal sinus with average heart of 53 beats per minute with frequent sinus bradycardia 75% time heart rate below 60 beats per minute 3. No significant pauses noted 4. Very rare PACs noted 5. No episodes of atrial fibrillation 6. No patient reported symptoms MTDD
--- NOTE | 2022-06-28 10:33 | CA_ITS ---
Transthoracic Echocardiogram Limited w Contrast Patient (Last, First, Middle): Inder Roberts, Gender: Male Date of : 1965 Age: 57 Procedure Date: 06/28/2022 Procedure Type: Transthoracic Echocardiogram Limited w Contrast Location: OP Height: 175.26 cm Weight: 127.01 kg BSA: 2.38 m2 Heart Rate: bpm BP: 133 / 80 mmHg Hotel Breakfast Attendant: MARIIA Referring MD: Erik Molina MD Hematologist Oncologist: Erik Molina MD Symptoms: I42.9 - Cardiomyopathy, unspecified Study Quality: Adequate ECG Rhythm: Sinus Conclusions: - Low normal LV systolic function with LVEF of 50-55% with grade 1 diastolic dysfunction Findings Left Ventricle Normal left ventricular cavity size. There is mildly increased left ventricular wall thickness. The left ventricular systolic function is low normal. The visually estimated ejection fraction is between 50-55%. Spectral Doppler is indicative of an impaired relaxation filling pattern. E/E prime ratio is <8, consistent with normal filling pressures. Right Ventricle There is normal right ventricular systolic function. Prior Study Comparison Significant changes compared to prior study. LV systolic function is improved it is Measurements 2D Linear Measurements IVSd: 1.21 0.6-0.9/0.6-1.0 cm LVIDd: 5.12 3.9-5.3/4.2-5.9 cm LVIDd Index: 2.15 2.4-3.2/2.2-3.1 cm/m2 LVIDs: 3.76 2.0-3.6 cm LVPWd: 1.21 0.7-1.1 cm LV Mass: 306.22 67-162/88-224 g LV Mass Index: 128.66 43-95/49-115 g/m2 LVOT Diam: 2.10 3.0+(-)1.3 cm 2D Systolic Function EF 4C: 52.80 >55% EF 2C: 55.70 >55% EF BiP: 54.80 >55% Mitral Valve MV Pk E: 0.51 MV PK A: 0.64 MV Decel Time: 348.00 E/A: 0.80 E'Lateral: 8.27 E'Medial: 6.31 E/E' Med: 8.00 E/E' Lat: 6.10 PHT: 102.00 MVA PHT: 2.16 Decel [place]: 1.45 LVOT LVOT Pk Eduardo: 0.91 LVOT Mn Eduardo: 0.62 LVOT VTI: 0.22 LVOT Pk Grad: 3.00 LVOT Mn Grad: 2.00 LVOT Diam: 2.10 LVOT Area: 3.46 Diastolic Function MV Pk E: 0.51 MV Pk A: 0.64 E/A: 0.80 E'Medial: 6.31 E/E' Med: 8.00 E' Laterial: 8.27 E/E' Lat: 6.10 Tricuspid Valve TR Pk Eduardo: 2.47 TR Pk Grad: 24.00 Updated in Other Vendor System with Status of Final Erik Molina MD electronically signed on 06/28/2022 3:02:07 PM with status of Final
== END ==
LOC: HO.CARD 10:29
PROVIDERS: PCP Family Medicine; Visit Provider Internal Medicine Cardiovascular Disease
DX: I48.91 Unspecified atrial fibrillation (principal); I42.9 Cardiomyopathy, unspecified; I50.9 Heart failure, unspecified
CPT/HCPCS: 93242; 93308; Q9957

== ENCOUNTER 2022-08-02 11:24 | Outpatient (REF) | payer OTHER, SELFPAY ==
[2022-08-02 13:45] LABS: MANUAL DIFF FLAG NO
[2022-08-02 14:05] LABS: Basophils Absolute Auto 0.1 X10*3/uL (0.0-0.2); Basophils Percent Auto 1.5 % (0-2); Eosinophils Absolute Auto 0.3 X10*3/uL (0.0-0.4); Eosinophils Percent Auto 3.7 % (0-4); Hemoglobin 15.4 g/dl (14.0-18.0); Imm Gran Abs Auto 0.05 X10*3/uL (0.00-0.03); Imm Gran Pct Auto 0.7 % (0.0-0.4); Lymphocytes Absolute Auto 1.7 X10*3/uL (1.2-4.9); Lymphocytes Percent Auto 23.6 % (20-40); Mean Corpuscular HGB Conc 33.5 g/dl (31.0-36.0); Mean Corpuscular Hemoglobin 32.7 pg (27.0-33.0); Mean Corpuscular Volume 97.7 fL (80.0-98.0); Mean Platelet Volume 10.6 fL (9.4-12.4); Monocytes Absolute Auto 0.9 X10*3/uL (0.1-1.2); Monocytes Percent Auto 12.8 % (2-11); Neutrophils Absolute Auto 4.2 x10*3/uL (2.0-8.3); Neutrophils Percent Auto 57.7 % (45-73); Platelet Count 192 X10*3/uL (160-400); Red Blood Count 4.71 X10*6/uL (4.60-5.80); Red Cell Distribution Width 14.4 % (11.0-16.0); White Blood Count 7.3 X10*3/uL (4.8-10.8)
[2022-08-02 14:32] LABS: Alanine Aminotransferase 23 U/L (0-40); Albumin Level 4.2 g/dL (3.5-5.0); Alkaline Phosphatase 61 U/L (39-117); Anion Gap 12 (12-20); Aspartate Amino Transferase 19 U/L (5-37); Bilirubin Total 0.6 mg/dL (0.0-1.0); Blood Urea Nitrogen 20 mg/dL (9-16); Calcium 9.2 mg/dL (8.4-10.2); Carbon Dioxide 26 mmol/L (22-29); Chloride 109 mmol/L (96-108); Cholesterol 173 mg/dL; Estimated Glomerular Filt Rate > 60; Glucose Fasting 88 mg/dL (60-99); Glucose Random 89 mg/dL (60-115); HDL Cholesterol 50 mg/dL; LDL Cholesterol Calculated 90 mg/dl; Potassium 4.4 mmol/L (3.3-5.1); Sodium 143 mmol/L (135-145); Total Protein 6.8 g/dL (6.5-8.0); Triglycerides 166 mg/dL; Uric Acid 4.2 mg/dL (3.4-7.0)
[2022-08-02 14:35] LABS: B Type Natriuretic Peptide 61 pg/mL (<100)
[2022-08-02 14:53] LABS: TSH reflex Free T4 8.68 uIU/mL (0.32-4.0)
[2022-08-02 15:31] LABS: Free T4 (Free Thyroxine) 0.74 ng/dL (0.71-1.85)
== END 2022-08-02 11:25 | disposition home or self-care (01) ==
LOC: HO.WFDLDS 11:24
PROVIDERS: Family Medicine; Visit Provider Student in an Organized Health Care Education/Training Program
DX: Z00.00 Encounter for general adult medical examination without abnormal findings (principal); M10.9 Gout, unspecified; I50.9 Heart failure, unspecified
CPT/HCPCS: 36415; 80053; 80061; 83880; 84439; 84443; 84550; 85025

== ENCOUNTER → 2022-08-05 07:42 | Outpatient (BNVA) | payer OTHER, SELFPAY | PROVIDERS: PCP Family Medicine; Visit Provider Student in an Organized Health Care Education/Training Program | DX: M1A.09X0 Idiopathic chronic gout, multiple sites, without tophus (tophi) (principal); R76.8 Other specified abnormal immunological findings in serum | CPT/HCPCS: 99212 ==

== ENCOUNTER 2022-08-27 07:20 | Outpatient (REF) | payer OTHER, SELFPAY ==
[2022-08-27 11:47] LABS: MANUAL DIFF FLAG NO
[2022-08-27 11:57] LABS: Basophils Absolute Auto 0.1 X10*3/uL (0.0-0.2); Basophils Percent Auto 1.3 % (0-2); Eosinophils Absolute Auto 0.3 X10*3/uL (0.0-0.4); Eosinophils Percent Auto 4.1 % (0-4); Hematocrit 46.2 % (42.0-52.0); Hemoglobin 15.4 g/dl (14.0-18.0); Imm Gran Abs Auto 0.03 X10*3/uL (0.00-0.03); Imm Gran Pct Auto 0.5 % (0.0-0.4); Lymphocytes Absolute Auto 1.5 X10*3/uL (1.2-4.9); Lymphocytes Percent Auto 23.7 % (20-40); Mean Corpuscular HGB Conc 33.3 g/dl (31.0-36.0); Mean Corpuscular Hemoglobin 32.9 pg (27.0-33.0); Mean Corpuscular Volume 98.7 fL (80.0-98.0); Mean Platelet Volume 9.7 fL (9.4-12.4); Monocytes Absolute Auto 0.7 X10*3/uL (0.1-1.2); Monocytes Percent Auto 11.3 % (2-11); Neutrophils Absolute Auto 3.7 x10*3/uL (2.0-8.3); Neutrophils Percent Auto 59.1 % (45-73); Platelet Count 156 X10*3/uL (160-400); Red Blood Count 4.68 X10*6/uL (4.60-5.80); Red Cell Distribution Width 14.7 % (11.0-16.0); White Blood Count 6.2 X10*3/uL (4.8-10.8)
[2022-08-27 12:34] LABS: Alanine Aminotransferase 24 U/L (0-40); Albumin Level 4.3 g/dL (3.5-5.0); Alkaline Phosphatase 61 U/L (39-117); Anion Gap 14 (12-20); Aspartate Amino Transferase 19 U/L (5-37); Bilirubin Total 0.7 mg/dL (0.0-1.0); Blood Urea Nitrogen 15 mg/dL (9-16); Calcium 9.2 mg/dL (8.4-10.2); Carbon Dioxide 26 mmol/L (22-29); Chloride 106 mmol/L (96-108); Estimated Glomerular Filt Rate > 60; Glucose Random 85 mg/dL (60-115); Potassium 4.2 mmol/L (3.3-5.1); Sodium 142 mmol/L (135-145); Total Protein 6.8 g/dL (6.5-8.0)
[2022-08-27 12:39] LABS: Free T4 (Free Thyroxine) 0.78 ng/dL (0.71-1.85); Thyroid Stimulating Hormone 8.62 uIU/mL (0.32-4.0)
[2022-08-29 10:14] LABS: Triiodothyronine T3 Total 94 ng/dL (76-181)
== END 2022-08-27 07:21 | disposition home or self-care (01) ==
LOC: HO.WFDLDS 07:20
PROVIDERS: Visit Provider Family Medicine
DX: Z00.00 Encounter for general adult medical examination without abnormal findings (principal); R74.01 Elevation of levels of liver transaminase levels; E03.9 Hypothyroidism, unspecified
CPT/HCPCS: 36415; 80053; 84439; 84443; 84480; 85025

== ENCOUNTER → 2022-09-13 09:59 | Outpatient (BNVA) | payer OTHER, SELFPAY | PROVIDERS: PCP Family Medicine; Visit Provider Orthopaedic Surgery | DX: M19.012 Primary osteoarthritis, left shoulder (principal); M25.312 Other instability, left shoulder | CPT/HCPCS: 99212 ==

== ENCOUNTER → 2022-10-05 08:09 | Outpatient (BNVA) | payer OTHER, SELFPAY | PROVIDERS: PCP Family Medicine; Visit Provider Physician Assistant | DX: R74.01 Elevation of levels of liver transaminase levels (principal) | CPT/HCPCS: 99212 ==

== ENCOUNTER 2022-10-13 09:00 | Outpatient (RCR) | payer OTHER, SELFPAY ==
--- NOTE | 2022-09-15 10:25 | MHC.PT.EP ---
[facility] [place] Office [place] Office [place] Office [address] Lauren Brewer [address] [phone] F: [phone] F: [phone] F: [phone] F: [phone] Physical Therapy Plan of Care Date of Evaluation: Date of Surgery: NA Diagnosis: Assessment: Pt IS 57 YO M REFERRED TO PT FROM DR ENCISO WITH L SHOULDER INSTABILITY. Pt WITH SIGNIF MRI FINDINGS (SEE REPORT) WITH TEARS SUPRASPINATUS, INFRASPINATUS, SUBSCAPULARIS, HILL SACH'S LESION, PARTIALLY HEALED [place], BICEPS TEAR WITH SUBLUXATION FROM GROOVE. SURPRISINGLY, THIS Pt PRESENTS WITHOUT SIGNIF PAIN AT REST (SOME DISCOMFORT END RANGES OF SHLDER MOTION) HAS LIMITED END RANGES OF SHOULDER MOTION (BUT MOTION HE HAS IS FUNCTIONAL). Pt WITH LIMITED RC STRENGTH BUT HAS BEEN FUNCTIONAL WITH HIS SHLDER. HAS BEEN REFERRED FOR STABILIZATION PER DR ENCISO. WILL START WITH GENTLE ISOMETRICS AND PROGRESS WITH SCAPULAR STABILIZATION ALSO. SIGNIF ED TO Pt TO WORK IN PANFREE RANGES AND STOP IF GETS SENSATION OF DISLOCATION. WILL BENEFIT FROM PT 1X/WK FOR HOME PROGRAM BEING MINDFUL TO NOT AGGRAVATE SHLDER ISSUES Frequency and Duration: The patient will be seen 1X/WK X 4 WKS Short Term Goals: 1. INCREASED AWARENESS POSTURE AND SHLDER CARE 2. NO EPISODES OF SHLDER DISLOCATION Fdc Goals: 1. I HEP WITH DC EX PLAN 2. I KT KNOWLEDGE (TO BE DONE WITH ASSIST) Treatment Plan: Modalities to reduce pain, spasms and effusion. Manual therapy to restore motion and function. Therapeutic exercise to improve strength and flexibility. Neuromuscular re-education for posture and balance. Therapeutic activities to return to functional activities of daily living. Electronically signed by: FRANSISCO NICHOLS PT Please sign and return to therapist. Thank you for your referral.
--- NOTE | 2022-12-08 10:33 | MHC.PT.DC ---
[facility] [place] Office [place] Office [place] Office [address] Lauren Brewer [address] [phone] F: [phone] F: [phone] F: [phone] F: [phone] Physical Therapy Discharge Report Diagnosis: L SHOULDER INSTABILITY (SEE MRI REPORT..MULTIPLE TEARS) Date of Surgery: NA Date of Evaluation: 09/15/22 Date of Discharge: 12/08/22 Treatments to Date: 5 Cancellations to Date: No Shows to Date: Discharge Status: Achieved Goals Improved Function Independent with HEP Discharge Summary: GOOD PERF EXS AND STRETCHES. HAS MET PT GOALS (ALTHOUGH NOT USING KT) Electronically signed by: FRANSISCO NICHOLS PT Please sign and return to therapist. Thank you for your referral.
== END 2022-12-08 10:33 | disposition home or self-care (01) ==
LOC: HO.PTWFD 09:00
PROVIDERS: PCP Family Medicine; Visit Provider Orthopaedic Surgery
DX: M25.312 Other instability, left shoulder (principal)
CPT/HCPCS: 97110; 97140; 97162; 97535

== ENCOUNTER 2022-10-14 15:46 | Emergency (ER) | payer OTHER, SELFPAY ==
--- NOTE | ~2022-10-14 | XR_ITS ---
EXAMINATION: XR LUMBOSACRAL SPINE CLINICAL INFORMATION: Rule out fracture. COMPARISON: None available. TECHNIQUE: Three views of the lumbosacral spine. FINDINGS: No evidence of acute compression deformity or traumatic subluxation. Moderate intervertebral disc height loss and facet arthropathy at L4-S1 leading to some degree of neural foraminal encroachment. SI joints are symmetric. Scattered atherosclerotic disease of the abdominal aorta that measures up to 3.8 cm on AP dimensions in the sagittal plane. Moderate amount of stool in the rectum. XR/XR lumbar spine 2-3V IMPRESSION: 1. No acute compression deformity or traumatic subluxation. 2. Moderate lumbar spondylosis at L4-S1. If indicated, correlation with an MR of the lumbar spine could be obtained. 3. Fusiform aneurysm of the abdominal aorta measuring up to 3.8 cm. Based on published guidelines in J Am Elvis Radiol 2013; 10(10):789-794 and J Vasc Surg. 2018; 67:2-77, the recommendation for an abdominal aortic aneurysm with diameter 3.5-3.9 cm is follow-up every 2 years.
[2022-10-14 15:54] VITALS: BP 125/70; PULSE 55; O2SAT 99
[2022-10-14 16:00] VITALS: BP 139/76; PULSE 52; RESP 16; TEMP 36; O2SAT 98; BMI 41.9
--- NOTE | 2022-10-14 17:27 | ED_ITS ---
HPI - Back Pain/Injury General Chief Complaint: Back Pain/Injury Stated Complaint: lower back pain Time Seen by Provider: 10/14/22 16:09 History of Present Illness HPI Narrative: Patient complains of pain to both sides of the back which is severe with movement comfortable laying at rest which began when he lifted a heavy trailer hitch this morning and immediately felt a clicking in sharp pain, pain does not radiate there is no numbness weakness or tingling there is no muscle weakness no loss of sensation no change to bowel or bladder no incontinence no dysuria Related Data Home Medications Medication Instructions Recorded Confirmed rivaroxaban 20 mg tablet (Xarelto) 20 mg PO DAILY 12/11/21 10/07/22 rosuvastatin 10 mg tablet 10 mg PO DAILY 12/11/21 10/07/22 dapagliflozin 10 mg tablet 10 mg PO DAILY 01/22/22 10/07/22 (Farxiga) torsemide 20 mg tablet 20 mg PO DAILY Systemic Signs And 06/14/22 10/07/22 Symptoms amiodarone 200 mg tablet 200 mg PO DAILY 07/05/22 10/07/22 allopurinol 100 mg tablet 100 mg PO DAILY 08/05/22 10/07/22 Previous Rx's Medication Instructions Recorded metoprolol tartrate 100 mg tablet 100 mg PO BID 90 days #180 tabs 05/10/22 colchicine 0.6 mg tablet 0.6 mg PO DAILY #120 tabs 08/05/22 levothyroxine 50 mcg tablet 50 mcg PO DAILY 30 days #30 tabs 09/01/22 acetaminophen 500 mg tablet 1,000 mg PO QID PRN pain #30 tabs 10/14/22 cyclobenzaprine 10 mg tablet 10 mg PO TID PRN muscle spasm #10 10/14/22 tabs oxycodone 5 mg tablet 5 mg PO Q6H PRN pain #20 tabs 10/14/22 Allergies Allergy/AdvReac Type Severity Reaction Status Date / Time No Known Allergies Allergy Verified 10/05/22 08:10 PENDING SALE TO [facility] Past Medical History Source: nursing notes reviewed Medical History CHF (congestive heart failure) Elevated liver enzymes Gout Persistent atrial fibrillation Sleep apnea Testicular cancer Surgical History History of orchiectomy, unilateral Hx of colonoscopy Family History Family History Mother CVD (cardiovascular disease) Father CVD (cardiovascular disease) Social History Social History Household Members Other:: Same partner- 17 years- Housing: House Alcohol intake: current Alcohol intake frequency: a few times a month Alcohol type: hard liquor Patient Tobacco Use Status: Former Tobacco user e-Cigarette/Vaping Use: Never Used Second Hand Smoke Exposure: No service: No Current occupational status: unemployed and disabled 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 Current occupational exposures/hazards: No Cognitive needs: No Hearing needs: No Vision needs: No Physical Exam Vital Signs: Vital Signs: Last Vital Signs Temp 96.8 F 10/14/22 16:00 Pulse 52 10/14/22 16:00 Resp 16 10/14/22 16:00 BP 139/76 10/14/22 16:00 Pulse Ox 98 10/14/22 16:00 O2 Del Method Room Air 10/14/22 16:00 BMI result Body Mass Index 41.9 general appearance uncomfortable but no acute distress Head normocephalic atraumatic Neck is supple nontender Chest wall nontender Respiratory no distress Abdomen soft nontender The back had bilateral lower lumbar tenderness included midline, there is no focal bony tenderness, skin of the back is normal no deformities Extremities full range of motion x4 Skin no rash Neuro no focal motor sensory deficits, motor is 5/5 x4, sensation in extremities intact and symmetrical Course Course Course Narrative: patient responded well to pain medicine was easily able to ambulate with minimal discomfort and was discharged Incidental finding on lumbar spine x-ray showed an aneurysm of the abdominal aorta measuring 3.8 cm which he is advised needs to be followed with his doctor for monitoring for growth He is also advised x-ray may not be the best measurement of this aneurysm so he may need other imaging from his doctor to make sure they have an accurate size of the aneurysm Patient with musculoskeletal back pain no abdominal pain, no chest pain no tearing pain no weakness no incontinence was discharged Medications Administered Discontinued Medications Generic Name Dose Route Start Last Admin Trade Name Freq PRN Reason Stop Dose Admin Acetaminophen 975 mg 10/14/22 17:12 10/14/22 17:49 Acetaminophen 325 Mg Tablet PO 10/14/22 17:13 975 mg ONCE ONE Administration Cyclobenzaprine HCl 10 mg 10/14/22 17:12 10/14/22 17:50 Cyclobenzaprine Hcl 10 Mg Tablet PO 10/14/22 17:13 10 mg ONCE ONE Administration Oxycodone HCl 10 mg 10/14/22 17:12 10/14/22 17:49 Oxycodone Hcl Immed Release 5 Mg Tablet PO 10/14/22 17:13 10 mg ONCE ONE Administration Oxycodone HCl 5 mg 10/14/22 18:14 10/14/22 18:25 Oxycodone Hcl Immed Release 5 Mg Tablet PO 10/14/22 18:15 5 mg ONCE ONE Administration Discharge Plan Discharge Clinical Impression: Low back strain, Abdominal aneurysm Patient Disposition: Home, Self-Care Additional Instructions: x-ray did not show any broken bone and no acute emergency, but it did show an enlarged aneurysm of the abdomen which will need to be monitored and more cor rectly measured so follow with her doctor who may order ultrasound or CT or other imaging to get an accurate measurements, and then decide on intervals for monitoring for growth of the aneurysm Use medications as directed for the pain Return any time for weakness incontinence chest pain abdominal pain any worse condition or any concerns Follow with primary doctor for further evaluation of back pain if needed or possible physical therapy Prescriptions: New acetaminophen 500 mg tablet 1,000 mg PO QID PRN (Reason: pain) Qty: 30 0RF cyclobenzaprine 10 mg tablet 10 mg PO TID PRN (Reason: muscle spasm) Qty: 10 0RF oxycodone 5 mg tablet 5 mg PO Q6H PRN (Reason: pain) Qty: 20 0RF Rx Instructions: Partial Fill upon patient request. No Action amiodarone 200 mg tablet 200 mg PO DAILY Xarelto 20 mg tablet 20 mg PO DAILY Rx Instructions: must administer with evening meal rosuvastatin 10 mg tablet 10 mg PO DAILY Farxiga 10 mg tablet 10 mg PO DAILY levothyroxine 50 mcg tablet 50 mcg PO DAILY 30 Days Qty: 30 2RF metoprolol tartrate 100 mg tablet 100 mg PO BID 90 Days Qty: 180 3RF allopurinol 100 mg tablet 100 mg PO DAILY colchicine 0.6 mg tablet 0.6 mg PO DAILY Qty: 120 0RF torsemide 20 mg tablet 20 mg PO DAILY Interventions: ED Discharge Assessment Last Done: 10/14/22 20:04 Discharge Date/Time: 10/14/22 20:04
[2022-10-14] MEDS: Acetaminophen 325 MG TABLET 975 MG PO (17:49)
[2022-10-14] MEDS: oxyCODONE HCl Immed Release 5 MG TABLET 10 MG PO (17:49)
[2022-10-14] MEDS: Cyclobenzaprine HCl 10 MG TABLET PO (17:50)
[2022-10-14] MEDS: oxyCODONE HCl Immed Release 5 MG TABLET PO (18:25)
== END 2022-10-14 20:04 | disposition home or self-care (01) ==
PROVIDERS: Emergency Provider Emergency Medicine Emergency Medical Services
DX: M54.50 Low back pain, unspecified (principal); I71.40 Abdominal aortic aneurysm, without rupture, unspecified; Z79.899 Other long term (current) drug therapy
CPT/HCPCS: 72100; 99283

== ENCOUNTER 2022-10-19 08:53 | Outpatient (REF) | payer OTHER, SELFPAY ==
[2022-10-19 11:10] LABS: MANUAL DIFF FLAG NO
[2022-10-19 11:40] LABS: Basophils Absolute Auto 0.1 X10*3/uL (0.0-0.2); Basophils Percent Auto 1.3 % (0-2); Eosinophils Percent Auto 12.4 % (0-4); Hematocrit 48.1 % (42.0-52.0); Hemoglobin 16.1 g/dl (14.0-18.0); Imm Gran Abs Auto 0.05 X10*3/uL (0.00-0.03); Imm Gran Pct Auto 0.6 % (0.0-0.4); Lymphocytes Absolute Auto 1.2 X10*3/uL (1.2-4.9); Lymphocytes Percent Auto 14.8 % (20-40); Mean Corpuscular HGB Conc 33.5 g/dl (31.0-36.0); Mean Corpuscular Hemoglobin 32.9 pg (27.0-33.0); Mean Corpuscular Volume 98.4 fL (80.0-98.0); Mean Platelet Volume 10.3 fL (9.4-12.4); Monocytes Absolute Auto 0.7 X10*3/uL (0.1-1.2); Monocytes Percent Auto 8.1 % (2-11); Neutrophils Absolute Auto 5.2 x10*3/uL (2.0-8.3); Neutrophils Percent Auto 62.8 % (45-73); Platelet Count 183 X10*3/uL (160-400); Red Blood Count 4.89 X10*6/uL (4.60-5.80); Red Cell Distribution Width 14.6 % (11.0-16.0); White Blood Count 8.3 X10*3/uL (4.8-10.8)
[2022-10-19 12:29] LABS: Free T4 (Free Thyroxine) 0.95 ng/dL (0.71-1.85); Thyroid Stimulating Hormone 5.66 uIU/mL (0.32-4.0)
[2022-10-19 12:42] LABS: Anion Gap 18 (12-20); Blood Urea Nitrogen 21 mg/dL (9-16); Calcium 9.5 mg/dL (8.4-10.2); Carbon Dioxide 20 mmol/L (22-29); Chloride 107 mmol/L (96-108); Estimated Glomerular Filt Rate > 60; Glucose Random 148 mg/dL (60-115); Potassium 4.1 mmol/L (3.3-5.1); Sodium 141 mmol/L (135-145)
[2022-10-21 05:13] LABS: Triiodothyronine T3 Total 92 ng/dL (76-181)
== END 2022-10-19 08:54 | disposition home or self-care (01) ==
LOC: HO.WFDLDS 08:53
PROVIDERS: Physician Assistant; Visit Provider Family Medicine
DX: Z00.00 Encounter for general adult medical examination without abnormal findings (principal); E03.9 Hypothyroidism, unspecified; R74.01 Elevation of levels of liver transaminase levels
CPT/HCPCS: 36415; 80048; 84439; 84443; 84480; 85025

== ENCOUNTER 2022-10-25 09:02 | Outpatient (REF) | payer OTHER, SELFPAY ==
--- NOTE | ~2022-10-25 | US_ITS ---
EXAMINATION: US RETROPERITONEAL LIMITED (AORTA) CLINICAL INFORMATION: Abdominal aortic aneurysm, without rupture, unspecified. Incidental finding on lumbar plain film. COMPARISON: X-ray lumbar spine 10/14/2022. TECHNIQUE: [place]-scale, color Doppler and spectral Doppler evaluation of the abdominal aorta. Technically difficult study secondary to body habitus. FINDINGS: Visualization is not optimal. The measurements of the aorta in maximum AP and transverse dimensions respectively are as follows: Proximal: Unable to see because of shadowing bowel gas. Mid: 2.3 x 2.6 cm as measured by the technologist. I believe the diameter could be larger closer to 4 cm. Distal: 2.5 x 2.4 cm. PSV: 69.5 cm/s. The measurements of the common iliac arteries in maximum AP and TRV dimensions are as follows: Right: AP: 1.9 cm. TRV: 1.6 cm. Left: AP: 1.5 cm. TRV: 1.8 cm. US/US aorta IMPRESSION: The proximal abdominal aorta is not seen because of shadowing bowel gas. The mid abdominal aorta may be dilated close to 4 cm however visualization is not optimal and CT scan of the abdomen and pelvis is recommended for further evaluation. A noncontrast scan would suffice to simply obtain the diameter of the aorta. If more detail is desired, recommend contrast enhancement.
== END 2022-10-25 09:03 | disposition home or self-care (01) ==
LOC: HO.US 09:02
PROVIDERS: PCP Family Medicine; Visit Provider Family Medicine
DX: I71.40 Abdominal aortic aneurysm, without rupture, unspecified (principal)
CPT/HCPCS: 76775

== ENCOUNTER 2022-11-30 09:45 | Outpatient (REF) | payer MEDICARE, MEDICAID, OTHER, SELFPAY ==
--- NOTE | ~2022-11-30 | CT_ITS ---
EXAMINATION: CT ABDOMEN WITHOUT CONTRAST CLINICAL INFORMATION: Abdominal aortic aneurysm COMPARISON: 10/25/2022 TECHNIQUE: Contiguous axial thin section helical images of the abdomen were performed without contrast. The data set was reformatted in the coronal and sagittal planes and reviewed on an independent workstation. This CT examination was performed using dose optimization techniques as appropriate, variously including the following: *Automated exposure control *Adjustment of mA and/or kV according to patient size (this includes techniques or standardized protocols for targeted exams where dose is matched to indication/reason for exam; i.e. extremities or head) *Use of iterative reconstruction technique DLP: 660 mGy-cm FINDINGS: LUNG BASES: Within normal limits LIVER, GALLBLADDER, BILIARY TREE: Changes of diffuse hepatic steatosis. No gross abnormality. No biliary ductal dilatation. No gallstones or acute inflammatory changes. PANCREAS: Within normal limits SPLEEN: Within normal limits ADRENAL GLANDS AND KIDNEYS: No hydronephrosis. Minor perinephric stranding. There is a subtle proximal 12 mm decreased attenuation within the right midpole cortex parapelvic location uncertain significance on this nonenhanced study. No adrenal lesion. BOWEL LOOPS: No gross abnormality. No mesenteric lesion. Normal appendix. LYMPH NODES: Normal. VASCULAR: There is generalized atherosclerotic changes. There is a focal eccentric aneurysm possibly saccular subtype measuring up to 3.2 cm infrarenal aorta. No other focal abnormality. BONES: Mild compression fracture of the superior endplate of L3 of uncertain chronicity. CT/CT abdomen wo IV con IMPRESSION: 3.2 cm infrarenal abdominal aortic aneurysm. This patient has an AAA which is, or may be in the future, at risk for rupture. [facility] has a program to monitor these patients, following them yearly. When and if the AAA reaches 5 cm, these can be electively treated by an interventional radiologist with a stent graft. To arrange for a consultation please call . Nonspecific low-attenuation focus right kidney which warrants elective ultrasound for further assessment. Fleischner guidelines were followed.
== END 2022-11-30 09:46 | disposition home or self-care (01) ==
LOC: HO.CT 09:45
PROVIDERS: PCP Family Medicine; Visit Provider Family Medicine
DX: I71.40 Abdominal aortic aneurysm, without rupture, unspecified (principal)
CPT/HCPCS: 74150

== ENCOUNTER 2023-01-18 10:09 | Outpatient (REF) | payer MEDICARE, MEDICAID, OTHER, SELFPAY ==
--- NOTE | ~2023-01-18 | US_ITS ---
EXAMINATION: US RETROPERITONEAL LIMITED (RENAL ONLY) CLINICAL INFORMATION: Abnormal radiologic findings on diagnostic imaging. Proximal 12 mm decreased attenuation lesion within the right kidney mid pole cortex, parapelvic location, uncertain significance, seen on CT scan incidentally. COMPARISON: CT of abdomen 11/30/2022. Limited abdominal ultrasound 03/31/2022. TECHNIQUE: Real-time imaging of the kidneys. FINDINGS: RIGHT KIDNEY: 11.9 x 6.5 x 6.4 cm (SAG x AP x TRV). The kidney is normal in size, contour, and echogenicity. Renal cortical thickness is normal. No renal calculi or hydronephrosis. Medial midpole cyst with thin septations measures 1.8 x 1.4 x 1.4 cm. LEFT KIDNEY: 12.9 x 6.0 x 5.7 cm (SAG x AP x TRV). The kidney is normal in size, contour, and echogenicity. Renal cortical thickness is normal. No calculi or focal parenchymal lesions. No hydronephrosis. US/US renal BI IMPRESSION: Complex midpole right renal cyst. Bosniak type II.
== END 2023-01-18 10:10 | disposition home or self-care (01) ==
LOC: HO.US 10:09
PROVIDERS: Visit Provider Family Medicine
DX: R93.429 Abnormal radiologic findings on diagnostic imaging of unspecified kidney (principal)
CPT/HCPCS: 76775

== ENCOUNTER 2023-01-21 10:34 | Outpatient (AMB) | payer MEDICARE, OTHER, SELFPAY ==
[2023-01-21 10:36] VITALS: BP 128/70; PULSE 54; O2SAT 98; BMI 41.9
--- NOTE | 2023-01-21 10:36 | A.OFFPC_ITS ---
Vital Signs 01/21/23 10:36 Height 5 ft 9 in Weight 284 lb BMI 41.9 BP 128/70 Blood Pressure Location Lt brachial Position Sitting Pulse 54 Pulse Source Pulse Oximeter Pulse Oximetry (%) 98 Oxygen Delivery Method Room Air Intake Visit Reasons: f/u HLD Intake Note: Patient is here to follow up regarding HLD. He is also here to follow up on ultrasound. Residential Pest Control Technician Required: No Accompanied by: Self / Same As Patient Allergies No Known Allergies Allergy (Verified 01/21/23 10:42) Medication List - Last Reconciled 01/21/23 by Gatito Magdaleno MD acetaminophen 1,000 mg (2 x 500 mg) PO QID PRN allopurinol 200 mg (2 x 100 mg) PO DAILY amiodarone 200 mg PO DAILY cetirizine (All Day Allergy (cetirizine)) 10 mg PO DAILY PRN 90 days colchicine (gout) 0.6 mg PO DAILY cyclobenzaprine 10 mg PO TID PRN dapagliflozin propanediol (Farxiga) 10 mg PO DAILY levothyroxine 75 mcg PO DAILY 30 days metoprolol tartrate 100 mg PO BID 90 days oxycodone 5 mg PO Q6H PRN rivaroxaban (Xarelto) 20 mg PO QPM rosuvastatin 10 mg PO DAILY torsemide 20 mg PO DAILY Tobacco use date assessed: 01/21/23 HPI f/u HLD HPI Details 57 y/o male presents to f/u HLD, elevated fasting blood sugars, hypothyroidism and AAA. No recent labs to review. Aorta Ultrasound 10/25/22 mentioned proximal abdominal aorta was not seen due to shadowing bowel gas. CT scan of abdomen/pelvis recommended for further evaluation. CT scan 11/30/22 showed a 3.2 cm infrarenal AAA. Also showed nonspecific low-attenuation focus R kidney which warrants elective ultrasound. Renal ultrasound 01/18/23 showed a complex midpole R renal cyst bosniak type II. HPI Comments History of Present Illness Details Documentation assistance for Gatito Magdaleno MD, was provided by Cayden Green,? It Trainer on 01/21/2023 11:12 AM RHODA. Gurvinder, Dr. Magdaleno, have read, observed, and verified documentation.? [facility] Medical History CHF (congestive heart failure) Elevated liver enzymes Gout Persistent atrial fibrillation Sleep apnea Testicular cancer Surgical History History of orchiectomy, unilateral Hx of colonoscopy Family History Mother CVD (cardiovascular disease) Father CVD (cardiovascular disease) Social History Household Members Other:: Same partner- 17 years- Housing: House Alcohol intake: current Alcohol intake frequency: a few times a month Alcohol type: hard liquor Patient Tobacco Use Status: Former Tobacco user e-Cigarette/Vaping Use: Never Used Second Hand Smoke Exposure: No service: No Current occupational status: unemployed and disabled 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 Al Hassan, Marlys Crocker, Jose Black and colleagues, with an educational craig from [employer]. Review of Systems Const Denies chills, Denies fatigue, Denies fever(s), Denies headache(s) and Denies weakness ENT Denies dizziness and Denies headache(s) Card Denies dyspnea Resp Denies cough, Denies dyspnea, Denies wheezing and Denies other (shortness of breath) Musc Denies numbness and Denies tingling Neuro Denies dizziness, Denies headache(s), Denies numbness, Denies tingling and Denies weakness Psych Denies anxiety and Denies depression Endo Denies fatigue Aller/Immun Denies wheezing Physical exam (Primary Care) Vital Signs: Last Vital Signs Pulse 54 01/21/23 10:36 BP 128/70 01/21/23 10:36 Pulse Ox 98 01/21/23 10:36 Oxygen Delivery Method Room Air 01/21/23 10:36 BMI result Body Mass Index 41.9 Tobacco/Smoking Status: Tobacco use Status Tobacco use date assessed 01/21/23 01/21/23 10:43 Patient Tobacco Use Status Former Tobacco user 09/01/23 10:36 e-Cigarette/Vaping Use Never Used 01/21/23 10:36 Thrive Assessment: Date of Thrive Assessment Date Thrive assessed 12/11/21 01/21/23 10:36 Const General: well developed; No acute distress Nutritional Appearance: well nourished and obese morbidly obese Orientation/consciousness: patient oriented x3 HENNC Head: Yes normocephalic and Yes atraumatic Eyes General: appearance normal, both eyes and all related structures Pupils: Equal, round and reactive pupils present EOM: EOMs intact bilaterally Resp Effort & Inspection: normal respiratory effort Auscultation: clear to auscultation bilaterally Cardio Rate: regular rate Rhythm: abnormal rhythm and abnormal rhythm irregularly irregular Heart sounds: S1 normal heart sound present, S2 normal heart sound present, no gallops, no murmurs and no rubs Neuro General: patient oriented x3 and gait normal Cranial nerves: Yes Equal, round and reactive pupils present Psych Affect: normal affect Assessment and Plan Assessment & Plan (1) AAA (abdominal aortic aneurysm): Code(s): I71.40 - Abdominal aortic aneurysm, without rupture, unspecified Plan: CT scan shows aortic diameter at 3.5 cm Will repeat this in 6-12 months If he has significant expansion will refer (2) Renal cyst: Code(s): N28.1 - Cyst of kidney, acquired Plan: Read as Bosniak II cyst No follow-up required (3) Hyperlipidemia: Code(s): E78.5 - Hyperlipidemia, unspecified Plan: Patient will get lipids drawn today with direct LDL (4) Atrial fibrillation: Code(s): I48.91 - Unspecified atrial fibrillation Plan: Follow-up with Cardiology as recommended Orders: Orders LDL Cholesterol Direct Today E78.5 - Hyperlipidemia, unspecified Coding Level of Care Code Est Pt Level 4 (31497) Diagnoses AAA (abdominal aortic aneurysm) I71.40 Renal cyst N28.1 Hyperlipidemia E78.5 Atrial fibrillation I48.91
== END 2023-01-21 11:27 | disposition home or self-care (01) ==
PROVIDERS: Visit Provider Family Medicine
DX: I71.40 Abdominal aortic aneurysm, without rupture, unspecified (principal); N28.1 Cyst of kidney, acquired; E78.5 Hyperlipidemia, unspecified; I48.91 Unspecified atrial fibrillation
CPT/HCPCS: 99214

== ENCOUNTER 2023-01-21 11:29 | Outpatient (REF) | payer MEDICARE, MEDICAID, OTHER, SELFPAY ==
[2023-01-21 14:53] LABS: Alanine Aminotransferase 30 U/L (0-40); Albumin Level 4.4 g/dL (3.5-5.0); Alkaline Phosphatase 68 U/L (39-117); Anion Gap 15 (12-20); Aspartate Amino Transferase 26 U/L (5-37); Bilirubin Total 0.5 mg/dL (0.0-1.0); Blood Urea Nitrogen 17 mg/dL (9-16); Calcium 10.1 mg/dL (8.4-10.2); Carbon Dioxide 22 mmol/L (22-29); Chloride 107 mmol/L (96-108); Cholesterol 182 mg/dL (<200); Estimated Glomerular Filt Rate > 60; Glucose Random 91 mg/dL (60-115); HDL Cholesterol 51 mg/dL (>40); LDL Cholesterol Calculated 90 mg/dL (<100); Potassium 4.2 mmol/L (3.3-5.1); Sodium 140 mmol/L (135-145); Total Protein 7.6 g/dL (6.5-8.0); Triglycerides 205 mg/dL (<150)
[2023-01-21 15:01] LABS: Prostate Specific Antigen Scr 0.12 ng/mL (<0.05-4.0)
[2023-01-21 15:09] LABS: Estimated Average Glucose 103 mg/dL; Hemoglobin A1c % 5.2 % (<6.0)
[2023-01-23 02:38] LABS: LDL Cholesterol Direct 109 mg/dL (<100)
== END 2023-01-21 11:30 | disposition home or self-care (01) ==
LOC: HO.WFDLDS 11:29
PROVIDERS: Visit Provider Family Medicine
DX: Z00.00 Encounter for general adult medical examination without abnormal findings (principal); Z12.5 Encounter for screening for malignant neoplasm of prostate; E78.5 Hyperlipidemia, unspecified; R73.9 Hyperglycemia, unspecified
CPT/HCPCS: 36415; 80053; 80061; 83036; 83721; 84153

== ENCOUNTER 2023-02-03 07:34 | Outpatient (AMB) | payer MEDICARE, MEDICAID, SELFPAY ==
[2023-02-03 07:35] VITALS: BP 140/80; PULSE 59; TEMP 36.2; O2SAT 98; BMI 42.5
--- NOTE | 2023-02-03 07:35 | A.OFFVIS_ITS ---
Intake Vital Signs 02/03/23 07:35 Height 5 ft 9 in Weight 288 lb 2.307 oz BMI 42.5 BP 140/80 H Blood Pressure Location Rt brachial Position Sitting Pulse 59 Pulse Source Pulse Oximeter Temp 97.2 F Temp Source Skin Pulse Oximetry (%) 98 Oxygen Delivery Method Room Air Intake Visit Reasons: Gout Intake Note: Patient here for gout follow up. Courseware Developer Required: No Accompanied by: Self / Same As Patient Allergies No Known Allergies Allergy (Verified 02/03/23 07:42) Medication List - Last Reconciled 02/03/23 by Gail Noyola MD acetaminophen 1,000 mg (2 x 500 mg) PO QID PRN allopurinol 200 mg (2 x 100 mg) PO DAILY amiodarone 200 mg PO DAILY cetirizine (All Day Allergy (cetirizine)) 10 mg PO DAILY PRN 90 days colchicine (gout) 0.6 mg PO DAILY dapagliflozin propanediol (Farxiga) 10 mg PO DAILY levothyroxine 75 mcg PO DAILY 30 days metoprolol tartrate 100 mg PO BID 90 days rivaroxaban (Xarelto) 20 mg PO QPM rosuvastatin 10 mg PO DAILY torsemide 20 mg PO DAILY HPI HPI Comments History of Present Illness Details 57-year-old male with gout presents for follow-up. Doing well overall. No gout flares. He is taking the allopurinol 200 mg daily and colchicine 0.6 mg daily. States that he is feeling very well overall with no gout flare. Denies any swollen or tender joints. Except for 2 months ago when he injured his back when he was lifting something heavy onto the back of his truck. Initial history: 56-year-old male with hypertension, morbid obesity, obstructive sleep apnea, dyslipidemia, AFib on Xarelto comes for evaluation of multiple swollen and painful joints. The Condition started about 8 weeks ago when he woke up with severe pain and swelling of his right elbow, right wrist, left wrist, both ankles and both feet. He went to the emergency room and received steroid taper with some improvement however the pain persistent so he went to see his PCP who prescribed a prednisone taper starting at 30 mg a day. He states that the pain and swelling has significantly improved now. He mentions having a similar episode about a year ago with bilateral ankle and feet swelling and pain, he could not walk. He had to use crutches. Patient states that over the last few years he has had similar episodes usually affecting his right foot, that he would attribute it to gout and it would respond to ibuprofen in a few days. he cut down beer drinking and now those episodes are not as frequent. He was never formally diagnosed with gout and was never started on any gout treatment. Denies kidney stones, denies family histo ry of gout. He denies blood or frothy urine. Denies Raynaud's. [facility] Medical History Persistent atrial fibrillation Elevated liver enzymes Gout Testicular cancer CHF (congestive heart failure) Sleep apnea Surgical History History of orchiectomy, unilateral Hx of colonoscopy Family History Mother CVD (cardiovascular disease) Father CVD (cardiovascular disease) Social History Household Members Other:: Same partner- 17 years- Housing: House Alcohol intake: current Alcohol intake frequency: a few times a month Alcohol type: hard liquor Patient Tobacco Use Status: Former Tobacco user e-Cigarette/Vaping Use: Never Used Second Hand Smoke Exposure: No service: No Current occupational status: unemployed and disabled 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 Current occupational exposures/hazards: No Cognitive needs: No Hearing needs: No Vision needs: No Review of Systems Musc Denies arthralgias and Denies joint swelling Physical Exam Vital Signs: Last Vital Signs Temp 97.2 F 02/03/23 07:35 Pulse 59 02/03/23 07:35 BP 140/80 H 02/03/23 07:35 Pulse Ox 98 02/03/23 07:35 Oxygen Delivery Method Room Air 02/03/23 07:35 BMI result Body Mass Index 42.5 Const General: cooperative, healthy appearing and comfortable Nutritional Appearance: obese morbidly obese Orientation/consciousness: patient oriented x3 Limitations: no limitations HEENT Other: Moist, no oral ulcers Head: Yes normocephalic and Yes atraumatic Resp Effort & Inspection: normal respiratory effort and able to speak in complete sentences Auscultation: clear to auscultation bilaterally GI Inspection: No distended Palpation (GI): Soft to palpation and nontender Auscultation: normal bowel sounds Skin General skin exam: no rashes or lesions noted Neuro General: patient oriented x3 Extrem Other: Normal nailfold capillaroscopy No synovitis today Assessment & Plan Assessment & Plan (1) Gout: Comment: Allopurinol 200 mg qd started 02/2022 Colchicine 0.6 mg bid started 02/2022, reduced to 0.6 qd 08/12, DC 01/2023 Code(s): M10.9 - Gout, unspecified Qualifiers: Gout site: multiple sites Gout etiology: idiopathic Chronicity: chronic Presence of tophus: without tophus Qualified Code(s): M1A.09X0 - Idiopathic chronic gout, multiple sites, without tophus (tophi) Plan: 57-year-old male with gout presents for follow-up. ? Gout diagnosis was based on ( episodic severe inflammatory arthritis symptoms usually affecting his feet, hands that would respond to ibuprofen or prednisone) uric acid level during flare was 6.4.? Unfortunately he never had any joint arthrocentesis when in a flare. Patient is on torsemide for his CHF. Which can also be a precipitating medication however, I am unable to discontinue would at this point due to history of CHF. Patient has no gout flares on allopurinol 200 mg daily and colchicine 0.6 mg daily. He has had no gout flare for the last 9 months or so. Will DC colchicine Continue allopurinol 200 mg daily. Repeat uric acid level before next visit in 6 months (2) KATHERINE positive: Code(s): R76.8 - Other specified abnormal immunological findings in serum Plan: Low titer positive ASMA, patient was evaluated by Gastroenterology and deemed to have mild fatty liver. Plan I spent 26 minutes reviewing patient's chart, evaluating patient, ordering diagnostic workup, counseling patient and documenting in the chart Orders: Orders Basic Metabolic Panel 6 Months M10.9 - Gout, unspecified Uric Acid 6 Months M10.9 - Gout, unspecified Medications: Discontinued colchicine (gout) Discontinued Reason: Duplicate 0.6 mg PO DAILY 120 tabs 0RF Coding Level of Care Code Est Pt Level 4 (67817) Diagnoses Idiopathic chronic gout of multiple sites without tophus M1A.09X0 Gout site: multiple sites Gout etiology: idiopathic Chronicity: chronic Presence of tophus: without tophus KATHERINE positive R76.8
== END 2023-02-03 07:55 | disposition home or self-care (01) ==
PROVIDERS: PCP Family Medicine; Visit Provider Student in an Organized Health Care Education/Training Program
DX: M1A.09X0 Idiopathic chronic gout, multiple sites, without tophus (tophi) (principal); R76.8 Other specified abnormal immunological findings in serum
CPT/HCPCS: 99214

== ENCOUNTER → 2023-02-03 07:34 | Outpatient (BNVA) | payer MEDICARE, OTHER, SELFPAY | PROVIDERS: PCP Family Medicine; Visit Provider Student in an Organized Health Care Education/Training Program | DX: M1A.09X0 Idiopathic chronic gout, multiple sites, without tophus (tophi) (principal); R76.8 Other specified abnormal immunological findings in serum | CPT/HCPCS: 99212 ==

== ENCOUNTER 2023-03-25 13:24 | Outpatient (AMB) | payer MEDICARE, MEDICAID, SELFPAY ==
--- NOTE | 2023-03-25 13:19 | A.OFFPC_ITS ---
Intake Visit Reasons: f/u hyperlipidemia and labs, Immigration Services Officer Required: No Allergies No Known Allergies Allergy (Verified 03/25/23 13:22) Tobacco use date assessed: 01/21/23 HPI f/u hyperlipidemia and labs, HPI Details 57 y/o male presents to f/u HLD and labs . Labs were drawn 01/21/23. Reviewed labs with pt. Triglycerides 205. TC 182. LDL direct 109. HDL 51. He is on rosuvastatin 10mg daily. [facility] Medical History Persistent atrial fibrillation Elevated liver enzymes Gout Testicular cancer CHF (congestive heart failure) Sleep apnea Surgical History History of orchiectomy, unilateral Hx of colonoscopy Family History Mother CVD (cardiovascular disease) Father CVD (cardiovascular disease) Social History Household Members Other:: Same partner- 17 years- Housing: House Alcohol intake: current Alcohol intake frequency: a few times a month Alcohol type: hard liquor Patient Tobacco Use Status: Former Tobacco user e-Cigarette/Vaping Use: Never Used Second Hand Smoke Exposure: No service: No Current occupational status: unemployed and disabled 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 Al Hassan, Marlys Crocker, Jose Black and colleagues, with an educational craig from [employer]. Review of Systems Const Denies chills, Denies fatigue, Denies fever(s), Denies headache(s) and Denies weakness ENT Denies dizziness and Denies headache(s) Card Denies dyspnea Resp Denies cough, Denies dyspnea, Denies wheezing and Denies other (shortness of breath) Musc Denies numbness and Denies tingling Neuro Denies dizziness, Denies headache(s), Denies numbness, Denies tingling and Denies weakness Psych Denies anxiety and Denies depression Endo Denies fatigue Aller/Immun Denies wheezing Physical exam (Primary Care) Tobacco/Smoking Status: Tobacco use Status Tobacco use date assessed 01/21/23 03/25/23 13:23 Patient Tobacco Use Status Former Tobacco user 03/25/23 13:23 e-Cigarette/Vaping Use Never Used 03/25/23 13:23 Thrive Assessment: Date of Thrive Assessment Date Thrive assessed 12/11/21 03/25/23 13:23 Telehealth Telehealth Location of provider rendering services: practice address Location of patient: address on file Patient Identification confirmed using: Name, : Yes Telehealth method: voice only Patient verbally consented to treatment: Yes Patient verbally consented to billing insurance company: Yes Patient informed of any privacy concerns related to visit: Yes Minutes spent on Phone/Video with Pt.: 7 Assessment and Plan Assessment & Plan (1) Hyperlipidemia: Code(s): E78.5 - Hyperlipidemia, unspecified Plan: LDL?cholesterol?109. Patient?has?a?history?of?cardiomyopathy Will?try?to?get?his?LDL?closer?to?70 Increasing?rosuvastatin?which?he?has?been?tolerating?well (2) Screening for prostate cancer: Code(s): Z12.5 - Encounter for screening for malignant neoplasm of prostate Plan: PSA?is?within?normal?limits (3) Hypothyroidism: Code(s): E03.9 - Hypothyroidism, unspecified Plan: TSH?had?been?elevated?and?has?been?trending?towards?normal Will?recheck?this. Orders: Orders Comprehensive [place]. Panel Fast Today E78.5 - Hyperlipidemia, unspecified, Z00.00 - Encounter for general adult medical examination without abnormal findings Free T4 (Free Thyroxine) Today E03.9 - Hypothyroidism, unspecified Lipid Panel Today E78.5 - Hyperlipidemia, unspecified, Z00.00 - Encounter for general adult medical examination without abnormal findings Triiodothyronine T3 Total Today E03.9 - Hypothyroidism, unspecified Thyroid Stimulating Hormone Today E03.9 - Hypothyroidism, unspecified Medications: Changed From rosuvastatin 10 mg PO DAILY 90 days 90 tabs 2RF To rosuvastatin 20 mg PO DAILY 90 tabs 2RF 90 days Coding Level of Care Code Tele Est Pt Level 2 (40733) Diagnoses Hyperlipidemia E78.5 Screening for prostate cancer Z12.5 Hypothyroidism E03.9
== END 2023-03-29 16:36 | disposition home or self-care (01) ==
LOC: HO.HMGFM 13:24
PROVIDERS: PCP Family Medicine; Visit Provider Family Medicine
DX: E78.5 Hyperlipidemia, unspecified (principal); Z12.5 Encounter for screening for malignant neoplasm of prostate; E03.9 Hypothyroidism, unspecified
CPT/HCPCS: 99212

== ENCOUNTER 2023-06-17 08:15 | Outpatient (REF) | payer MEDICARE, MEDICAID, SELFPAY ==
[2023-06-17 12:33] LABS: Uric Acid 4.2 mg/dL (3.4-7.0)
[2023-06-17 12:50] LABS: Alanine Aminotransferase 30 U/L (0-40); Albumin Level 4.3 g/dL (3.5-5.0); Alkaline Phosphatase 59 U/L (39-117); Anion Gap 13 (12-20); Aspartate Amino Transferase 24 U/L (5-37); Bilirubin Total 0.6 mg/dL (0.0-1.0); Blood Urea Nitrogen 14 mg/dL (9-16); Calcium 9.5 mg/dL (8.4-10.2); Carbon Dioxide 27 mmol/L (22-29); Chloride 107 mmol/L (96-108); Cholesterol 157 mg/dL (<200); Estimated Glomerular Filt Rate > 60; Glucose Fasting 102 mg/dL (60-99); Glucose Random 101 mg/dL (60-115); HDL Cholesterol 51 mg/dL (>40); LDL Cholesterol Calculated 79 mg/dL (<100); Potassium 4.1 mmol/L (3.3-5.1); Sodium 143 mmol/L (135-145); Total Protein 7.5 g/dL (6.5-8.0); Triglycerides 139 mg/dL (<150)
[2023-06-17 12:57] LABS: Free T4 (Free Thyroxine) 0.99 ng/dL (0.71-1.85); Thyroid Stimulating Hormone 3.26 uIU/mL (0.32-4.0)
[2023-06-18 18:19] LABS: Triiodothyronine T3 Total 81 ng/dL (76-181)
== END 2023-06-17 08:16 | disposition home or self-care (01) ==
LOC: HO.WFDLDS 08:15
PROVIDERS: Referring Provider Student in an Organized Health Care Education/Training Program; Visit Provider Family Medicine
DX: Z00.00 Encounter for general adult medical examination without abnormal findings (principal); E03.9 Hypothyroidism, unspecified; E78.5 Hyperlipidemia, unspecified; M10.9 Gout, unspecified
CPT/HCPCS: 36415; 80048; 80053; 80061; 84439; 84443; 84480; 84550

== ENCOUNTER 2023-06-24 08:34 | Outpatient (AMB) | payer MEDICARE, MEDICAID, SELFPAY ==
[2023-06-24 08:43] VITALS: BP 130/78; PULSE 52; O2SAT 96; BMI 42.2
--- NOTE | 2023-06-24 08:43 | MHC.PC.OV ---
Vital Signs 06/24/23 08:43 Height 5 ft 9 in Weight 286 lb BMI 42.2 BP 130/78 Blood Pressure Location Lt brachial Position Sitting Pulse 52 Pulse Source Pulse Oximeter Pulse Oximetry (%) 96 Oxygen Delivery Method Room Air Intake Visit Reasons: follow-up hyperlipidemia and hypothyroidism Intake Note: Patient is here to follow up on hyperlipidemia and hypothyroidism. Allergies No Known Allergies Allergy (Verified 06/24/23 08:46) Tobacco use date assessed: 06/24/23 Dental Screening Dental Screen Date: 06/24/23 Did you have a dental visit in the last 12 months?: No Did you have a dental problem in the last 6 months where you did not have access to dental care?: No Was dental information given to patient?: Patient has dentist HPI follow-up hyperlipidemia and hypothyroidism HPI Details 58 y/o male presents to f/u hyperlipidemia and hypothyroidism. Increased his rosuvastatin from 10mg daily to 20mg daily. Pt has hx of cardiomyopathy. Labs were drawn 06/17/23. Reviewed labs with pt. Triglycerides improved from 205 to 139. TC 157. LDL improved from 90 to 79. HDL 51. TSH 3.26. He is on levothyroxine 75mcg daily. [facility] Medical History Persistent atrial fibrillation Elevated liver enzymes Gout Testicular cancer CHF (congestive heart failure) Sleep apnea Surgical History History of orchiectomy, unilateral Hx of colonoscopy Family History Mother CVD (cardiovascular disease) Father CVD (cardiovascular disease) Social History Household Members Other:: Same partner- 17 years- Housing: House Alcohol intake: current Alcohol intake frequency: a few times a month Alcohol type: hard liquor Patient Tobacco Use Status: Former Tobacco user e-Cigarette/Vaping Use: Never Used Second Hand Smoke Exposure: No service: No Current occupational status: unemployed and disabled 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 Al Hassan, Marlys Crocker, Jose Black and colleagues, with an educational craig from [employer]. Physical exam (Primary Care) Vital Signs: Last Vital Signs Pulse 52 06/24/23 08:43 BP 130/78 06/24/23 08:43 Pulse Ox 96 06/24/23 08:43 Oxygen Delivery Method Room Air 06/24/23 08:43 BMI result Body Mass Index 42.2 Tobacco/Smoking Status: Tobacco use Status Tobacco use date assessed 06/24/23 06/24/23 08:50 Patient Tobacco Use Status Former Tobacco user 06/24/23 08:50 e-Cigarette/Vaping Use Never Used 06/24/23 08:50 Thrive Assessment: Date of Thrive Assessment Date Thrive assessed 12/11/21 06/24/23 08:50 Assessment and Plan Assessment & Plan (1) Hyperlipidemia: Code(s): E78.5 - Hyperlipidemia, unspecified Plan: LDL?cholesterol?much?improved?and?nearly?at?70?which?is?goal?for?patient?with?coronary?artery?disease. Continue?rosuvastatin?20?mg?daily?and?work?at?a?diet?low?in?saturated?fats?and?cholesterol Strongly?encouraged?patient?to?lose?weight?via?diet?as?he?has?difficulty?exercising?at?present (2) Hypertension: Code(s): I10 - Essential (primary) hypertension Plan: Blood?pressure?is?essentially?at?goal?of?less?than?130/80?for?patient?with?CAD Continue?current?medication?regimen Encouraged?weight?loss (3) Chest pain: Code(s): R07.9 - Chest pain, unspecified Plan: Patient?had?an?episode?of?substernal?chest?pain?about?3?weeks?ago,?which?began?when?he?woke?up?and?lasted?most?of?the?day. EKG?shows?sinus?bradycardia?with?an?incomplete?right?bundle?branch?block,?appears?to?have?an?old?inferior?infarct?and?has?anterolateral?T-wave?changes/ischemia. He?has?had?no?chest?pain?since?that?episode. Encouraged?him?to?go?to?the?emergency?department?if?he?is?having?chest?pain?lasting?longer?than?few?minutes. Referred?him?back?to?Cardiology (4) CAD (coronary artery disease): Code(s): I25.10 - Atherosclerotic heart disease of [place] coronary artery without angina pectoris Plan: As?above (5) Sleep apnea: Code(s): G47.30 - Sleep apnea, unspecified Plan: Patient?uses?his?CPAP. Encouraged?CPAP?use?and?to?stay?off?of?his?back?pain Orders: Orders AMB EKG-In Office Today R07.9 - Chest pain, unspecified Referrals Cardiology Referral I25.10 - Atherosclerotic heart disease of [place] coronary artery without angina pectoris, I42.9 - Cardiomyopathy, unspecified, I48.91 - Unspecified atrial fibrillation, I50.9 - Heart failure, unspecified Coding Level of Care Code Est Pt Level 4 (72944) Diagnoses Hyperlipidemia E78.5 Hypertension I10 Chest pain R07.9 CAD (coronary artery disease) I25.10 Sleep apnea G47.30
== END 2023-06-24 09:54 | disposition home or self-care (01) ==
PROVIDERS: PCP Family Medicine; Visit Provider Family Medicine
DX: E78.5 Hyperlipidemia, unspecified (principal); I10 Essential (primary) hypertension; R07.9 Chest pain, unspecified; I25.10 Atherosclerotic heart disease of native coronary artery without angina pectoris; G47.30 Sleep apnea, unspecified
CPT/HCPCS: 93000; 99214

== ENCOUNTER 2023-07-22 07:40 | Outpatient (REF) | payer MEDICARE, MEDICAID, SELFPAY ==
--- NOTE | ~2023-07-22 | US_ITS ---
EXAMINATION: US RETROPERITONEAL LIMITED (AORTA) CLINICAL INFORMATION: Abdominal aortic aneurysm, without rupture, unspecified. COMPARISON: Ultrasound aorta 10/25/2022. CT scan of the abdomen dated November 30, 2022. TECHNIQUE: [place]-scale, color Doppler and spectral Doppler evaluation of the abdominal aorta. FINDINGS: The study is limited by patient body habitus. The measurements of the aorta in maximum AP and transverse dimensions respectively are as follows: Proximal: 3.4 x 3.0 cm. Mid: 3.3 x 2.7 cm. Distal: Possibly measures 5.2 x 2.0 cm, according to the technologist. On CT scan from November 30, 2022 the distal abdominal aorta measured approximately 3.6 x 2.9 cm, by my measurements. PSV: 99 cm/s. The measurements of the common iliac arteries in maximum AP and TRV dimensions are as follows: Right Common Iliac Artery: 1.6 x 2.2 cm. Left Common Iliac Artery: 1.7 x 1.5 cm. US/US aorta IMPRESSION: Limited by patient body habitus. The distal abdominal aorta may possibly measure 5.2 x 2.0 cm, according to the technologist. On CT scan from November 30, 2022 the distal abdominal aorta measured approximately 3.6 x 2.9 cm. If the current finding is accurate, it would represent a significant increase in size over the prior [address] scan and possible vascular surgical consultation.
== END 2023-07-22 07:41 | disposition home or self-care (01) ==
LOC: HO.US 07:40
PROVIDERS: PCP Family Medicine; Visit Provider Family Medicine
DX: I71.40 Abdominal aortic aneurysm, without rupture, unspecified (principal)
CPT/HCPCS: 76775

== ENCOUNTER 2023-07-28 12:26 | Outpatient (AMB) | payer MEDICARE, MEDICAID, SELFPAY ==
[2023-07-28 12:31] VITALS: BP 120/80; PULSE 53; BMI 43.3
--- NOTE | 2023-07-28 12:31 | MHC.OFFVIS ---
Intake Vital Signs 07/28/23 12:31 Height 5 ft 9 in Weight 293 lb 3.437 oz BMI 43.3 BP 120/80 Blood Pressure Location Lt brachial Position Sitting Pulse 53 Intake Visit Reasons: ref pcp/ Intake Note: Overdue follow-up with ekg feeling ok did having some heart burn for about a week in [employer] Rep[employer]r Required: No Allergies No Known Allergies Allergy (Verified 06/24/23 08:46) Medication List - Last Reconciled 07/28/23 by Erik Molina MD allopurinol 200 mg (2 x 100 mg) PO DAILY amiodarone 200 mg PO DAILY cetirizine (All Day Allergy (cetirizine)) 10 mg PO DAILY PRN 90 days colchicine 0.6 mg PO DAILY levothyroxine 75 mcg PO DAILY 30 days metoprolol tartrate 100 mg PO BID 90 days rivaroxaban (Xarelto) 20 mg PO QPM rosuvastatin 20 mg PO DAILY 90 days HPI HPI Comments History of Present Illness Details Inder comes for follow-up after a long gap. He had a cardioversion last year and then subsequently had a follow-up Holter and an echocardiogram but did not have any clinical follow-up. He was referred here again for follow-up of his cardiovascular disease. He continues to have exertional shortness of breath. However over the last month or so he has also had some retrosternal chest tightness usually on waking up in the morning. Symptoms then subsided after some time. He has not had any significant exertional chest pain. Uses CPAP regularly. Denies any orthopnea, PND, leg edema. No lightheadedness, syncope. No bleeding issues or neurologic events. Remains on amiodarone at this point time. [facility] Medical History (Updated 07/28/23 @ 12:55 by Erik Molina MD) Paroxysmal atrial fibrillation Atrial fibrillation Sleep apnea Persistent atrial fibrillation Elevated liver enzymes Gout Testicular cancer CHF (congestive heart failure) Surgical History History of orchiectomy, unilateral Hx of colonoscopy Family History Mother CVD (cardiovascular disease) Father CVD (cardiovascular disease) Social History Household Members Other:: Same partner- 17 years- Housing: House Alcohol intake: current Alcohol intake frequency: a few times a month Alcohol type: hard liquor Patient Tobacco Use Status: Former Tobacco user e-Cigarette/Vaping Use: Never Used Second Hand Smoke Exposure: No service: No Current occupational status: unemployed and disabled 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 Current occupational exposures/hazards: No Cognitive needs: No Hearing needs: No Vision needs: No Review of Systems Const Denies chills, Denies fatigue, Denies fever(s), Denies frequent falls, Denies weakness, Denies weight gain and Denies weight loss ENT Denies dizziness Card Denies chest pain, Denies leg edema, Denies lightheadedness, Denies palpitations, Denies dyspnea, Denies dyspnea on exertion, Denies orthopnea and Denies other (loss of consciousness) Resp Denies cough, Denies dyspnea and Denies dyspnea on exertion GI Denies hematochezia and Denies change in stool character Musc Denies abnormal gait, Denies muscle weakness, Denies numbness, Denies radiating pain into limb and Denies tingling Neuro Denies Abnormal speech present, Denies abnormal gait, Denies dizziness, Denies frequent falls, Denies numbness, Denies tingling and Denies weakness Endo Denies fatigue and Denies palpitations Physical Exam Vital Signs: Last Vital Signs Pulse 53 07/28/23 12:31 BP 120/80 07/28/23 12:31 BMI result Body Mass Index 43.3 Const General: cooperative, comfortable, no acute distress, alert and awake Nutritional Appearance: obese morbidly obese Orientation/consciousness: patient oriented x3 Limitations: no limitations HEENT Head: Yes normocephalic and Yes atraumatic Neck Neck: Yes trachea midline, Yes supple and Yes no JVD Chest Chest palpation & inspection: normal inspection of the chest Resp Effort & Inspection: normal respiratory effort Auscultation: clear to auscultation bilaterally Cardio Jugular venous distension: no JVD Palpation: normal PMI Rate: bradycardic Rhythm: regular rhythm Heart sounds: S1 normal heart sound present, S2 normal heart sound present, no click, no gallops, no murmurs and no rubs GI Inspection: Yes obesity Auscultation: normal bowel sounds Skin General skin exam: no rashes or lesions noted Neuro General: patient oriented x3 and no focal motor deficits Speech: No Abnormal speech present Extrem General: Yes no clubbing, cyanosis or edema Office Procedures EKG Details: EKG shows sinus bradycardia with mild QT prolongation with incomplete right bundle-branch block with T-wave inversion anterior leads [id number], Complete Assessment & Plan Assessment & Plan (1) Paroxysmal atrial fibrillation: Code(s): I48.0 - Paroxysmal atrial fibrillation Plan: Patient with atrial fibrillation status post cardioversion and remains on amiodarone therapy since last year with no follow-up. Holter monitor last year had shown normal sinus rhythm. His LV systolic function improved. He is definitely benefitting from rhythm control approach will continue pursue rhythm control approach. Continue amiodarone therapy for now. Will check for amiodarone toxicity. Will follow up with Holter monitor as he is having some mild intermittent symptoms. I think he will benefit if he remains in sinus rhythm from ablated therapy. Will obtain echocardiogram to assess LV systolic and diastolic function biatrial chamber size. Continue CPAP therapy. Continue aggressive management of hypertension which is currently well optimized. He is strongly encouraged to continue to participate in aggressive weight loss program which should help with reduction in recurrence of atrial fibrillation. He is having recent episodes of chest tightness which are atypical for myocardial ischemia although he has diffuse atherosclerotic disease. Will suggest exercise myocardial perfusion imaging to evaluate as this may guide further antiarrhythmic drug therapy as well. Given his sinus bradycardia will reduce his metoprolol to 50 mg b.i.d.. (2) CHF (congestive heart failure): Code(s): I50.9 - Heart failure, unspecified Plan: Prior history of congestive heart failure, clinically appears to be euvolemic and well compensated with improved LV systolic function. Currently not on diuretic regimen. Continue aggressive rhythm control approach. He is clinically appearing to be euvolemic and well compensated does not require any further diuretic therapy. Continue CPAP therapy. Continue aggressive blood pressure control and current neurohormonal modulation metoprolol. Follow-up echocardiogram in near future. Avoidance of cardiotoxic agent such as alcohol was discussed. Will follow up in the clinic in 6 weeks time, sooner p.r.n.. Thank you for allowing me to partake in his care Orders: Orders Basic Metabolic Panel Today I48.0 - Paroxysmal atrial fibrillation Complete Blood Count no Diff Today I48.0 - Paroxysmal atrial fibrillation Liver Panel Today I48.0 - Paroxysmal atrial fibrillation TSH reflex Free T4 Today I48.0 - Paroxysmal atrial fibrillation XR chest 2V Today I48.0 - Paroxysmal atrial fibrillation CA stress test Today I25.10 - Atherosclerotic heart disease of [place] coronary artery without angina pectoris NM cardiolite stress test 2 Weeks I25.10 - Atherosclerotic heart disease of [place] coronary artery without angina pectoris, R07.9 - Chest pain, unspecified B Type Natriuretic Peptide Today I48.0 - Paroxysmal atrial fibrillation CA echo transthoracic complete Today I50.9 - Heart failure, unspecified Coding Level of Care Code Est Pt Level 4 (15277) Diagnoses Paroxysmal atrial fibrillation I48.0 CHF (congestive heart failure) I50.9 CPT Codes EKG - CPT: 37781-[id number], Complete ([id number])
== END 2023-07-28 12:56 | disposition home or self-care (01) ==
PROVIDERS: PCP Family Medicine; Visit Provider Internal Medicine Cardiovascular Disease
DX: I48.0 Paroxysmal atrial fibrillation (principal); I50.9 Heart failure, unspecified
CPT/HCPCS: 93010; 99214

== ENCOUNTER 2023-07-28 12:26 | Outpatient (REF) | payer MEDICARE, MEDICAID, SELFPAY ==
--- NOTE | ~2023-07-28 | XR_ITS ---
EXAMINATION: XR CHEST CLINICAL INFORMATION: Paroxysmal atrial fibrillation. COMPARISON: None available. TECHNIQUE: 2 views of the chest were obtained. FINDINGS: The lungs are well expanded. Linear atelectasis versus scarring in the lower lobes. No pleural effusion. Cardiac silhouette is prominent. XR/XR chest 2V IMPRESSION: No acute abnormality.
[2023-07-28 14:25] LABS: Hematocrit 44.6 % (42.0-52.0); Hemoglobin 15.3 g/dl (14.0-18.0); Mean Corpuscular HGB Conc 34.3 g/dl (31.0-36.0); Mean Corpuscular Volume 99.1 fL (80.0-98.0); Mean Platelet Volume 10.6 fL (9.4-12.4); Platelet Count 173 X10*3/uL (160-400); Red Cell Distribution Width 15.2 % (11.0-16.0); White Blood Count 6.8 X10*3/uL (4.8-10.8)
[2023-07-28 15:03] LABS: B Type Natriuretic Peptide 50 pg/mL (<100)
[2023-07-28 15:13] LABS: Alanine Aminotransferase 29 U/L (0-40); Albumin Level 4.4 g/dL (3.5-5.0); Alkaline Phosphatase 59 U/L (39-117); Anion Gap 12 (12-20); Aspartate Amino Transferase 22 U/L (5-37); Bilirubin Direct 0.2 mg/dL (0.0-0.5); Bilirubin Total 0.5 mg/dL (0.0-1.0); Blood Urea Nitrogen 18 mg/dL (9-16); Calcium 9.5 mg/dL (8.4-10.2); Carbon Dioxide 25 mmol/L (22-29); Chloride 108 mmol/L (96-108); Estimated Glomerular Filt Rate > 60; Glucose Random 86 mg/dL (60-115); Potassium 3.9 mmol/L (3.3-5.1); Sodium 141 mmol/L (135-145); Total Protein 7.4 g/dL (6.5-8.0)
[2023-07-28 15:20] LABS: TSH reflex Free T4 4.33 uIU/mL (0.32-4.0)
[2023-07-28 16:50] LABS: Free T4 (Free Thyroxine) 0.91 ng/dL (0.71-1.85)
== END 2023-07-28 12:27 | disposition home or self-care (01) ==
LOC: HO.XRAY 12:26
PROVIDERS: PCP Family Medicine; Visit Provider Internal Medicine Cardiovascular Disease
DX: I11.0 Hypertensive heart disease with heart failure (principal); I48.0 Paroxysmal atrial fibrillation; I50.9 Heart failure, unspecified; I25.10 Atherosclerotic heart disease of native coronary artery without angina pectoris; I45.19 Other right bundle-branch block; R94.31 Abnormal electrocardiogram [ECG] [EKG]; Z98.890 Other specified postprocedural states
CPT/HCPCS: 36415; 71046; 80048; 80076; 83880; 84439; 84443; 85027; 93005; 99212

== ENCOUNTER 2023-08-04 07:55 | Outpatient (AMB) | payer MEDICARE, MEDICAID, SELFPAY ==
[2023-08-04 08:11] VITALS: BP 134/68; PULSE 60; O2SAT 96; BMI 43.4
--- NOTE | 2023-08-04 08:11 | A.OFFVIS_ITS ---
Intake Vital Signs 08/04/23 08:11 Height 5 ft 9 in Weight 293 lb 10.491 oz BMI 43.4 BP 134/68 Blood Pressure Location Rt brachial Position Sitting Pulse 60 Pulse Source Pulse Oximeter Pulse Oximetry (%) 96 Oxygen Delivery Method Room Air Intake Visit Reasons: Gout Intake Note: Patient last seen 02/03/23 presents today for follow up and test results. Reports joint pain in different areas, most bothersome is his knees. Pain is worse since stopping colchicine. 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: No Accompanied by: Self / Same As Patient Allergies No Known Allergies Allergy (Verified 08/04/23 08:15) Medication List - Last Reconciled 08/04/23 by Gail Noyola MD allopurinol 200 mg (2 x 100 mg) PO DAILY amiodarone 200 mg PO DAILY cetirizine (All Day Allergy (cetirizine)) 10 mg PO DAILY PRN 90 days colchicine 0.6 mg PO DAILY dapagliflozin propanediol 10 mg PO DAILY levothyroxine 75 mcg PO DAILY 30 days metoprolol tartrate 50 mg (1/2 x 100 mg) PO BID 90 days rivaroxaban (Xarelto) 20 mg PO QPM rosuvastatin 20 mg PO DAILY 90 days HPI HPI Comments History of Present Illness Details 58-year-old male with gout presents for follow-up. On allopurinol 200 mg daily. Last visit, colchicine was discontinued. A few weeks after, he started having pain in multiple joints including toes, ankles, knees, he had plenty of colchicine left at home, he started taking it once daily. With resolution of his joint pains. Still he ran out 2 weeks ago. He is now having bilateral knee pain, worse on the right. Initial history: 56-year-old male with hypertension, morbid obesity, obstructive sleep apnea, dyslipidemia, AFib on Xarelto comes for evaluation of multiple swollen and painful joints. The Condition started about 8 weeks ago when he woke up with severe pain and swelling of his right elbow, right wrist, left wrist, both ankles and both feet. He went to the emergency room and received steroid taper with some improvement however the pain persistent so he went to see his PCP who prescribed a prednisone taper starting at 30 mg a day. He states that the pain and swelling has significantly improved now. He mentions having a similar episode about a year ago with bilateral ankle and feet swelling and pain, he could not walk. He had to use crutches. Patient states that over the last few years he has had similar episodes usually affecting his right foot, that he would attribute it to gout and it would respond to ibuprofen in a few days. he cut down beer drinking and now those episodes are not as frequent. He was never formally diagnosed with gout and was never started on any gout treatment. Denies kidney stones, denies family history of gout. He denies blood or frothy urine. Denies Raynaud's. [facility] Medical History Paroxysmal atrial fibrillation Atrial fibrillation Sleep apnea Persistent atrial fibrillation Elevated liver enzymes Gout Testicular cancer CHF (congestive heart failure) Surgical History History of orchiectomy, unilateral Hx of colonoscopy Family History Mother CVD (cardiovascular disease) Father CVD (cardiovascular disease) Social History Household Members Other:: Same partner- 17 years- Housing: House Alcohol intake: current Alcohol intake frequency: a few times a month Alcohol type: hard liquor Patient Tobacco Use Status: Former Tobacco user e-Cigarette/Vaping Use: Never Used Second Hand Smoke Exposure: No service: No Current occupational status: unemployed and disabled 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 Current occupational exposures/hazards: No Cognitive needs: No Hearing needs: No Vision needs: No Review of Systems Musc Reports arthralgias, Reports joint swelling and Reports stiffness Physical Exam Vital Signs: Last Vital Signs Pulse 60 08/04/23 08:11 BP 134/68 08/04/23 08:11 Pulse Ox 96 08/04/23 08:11 Oxygen Delivery Method Room Air 08/04/23 08:11 BMI result Body Mass Index 43.4 Const General: cooperative, healthy appearing and comfortable Nutritional Appearance: obese morbidly obese Orientation/consciousness: patient oriented x3 Limitations: no limitations HEENT Other: Moist, no oral ulcers Head: Yes normocephalic and Yes atraumatic Resp Effort & Inspection: normal respiratory effort and able to speak in complete sentences Skin General skin exam: no rashes or lesions noted Neuro General: patient oriented x3 Extrem Other: Right knee swelling, warmth and pain with flexion and extension Assessment & Plan Assessment & Plan (1) Gout: Comment: Allopurinol 200 mg qd started 02/2022 Colchicine 0.6 mg bid started 02/2022, reduced to 0.6 qd 08/12, DC 01/2023, recurrent joint swelling, restarted 07/2023 Code(s): M10.9 - Gout, unspecified Qualifiers: Gout site: multiple sites Gout etiology: idiopathic Chronicity: chronic Presence of tophus: without tophus Qualified Code(s): M1A.09X0 - Idiopathic chronic gout, multiple sites, without tophus (tophi) Plan: 58-year-old male with gout presents for follow-up. ? Gout diagnosis was based on ( episodic severe inflammatory arthritis symptoms usually affecting his feet, hands that would respond to ibuprofen or prednisone) uric acid level during flare was 6.4.? Colchicine was discontinued last visit, with resultant multiple joint pain and swelling. Patient has been taking colchicine 0.6 mg daily since then. With resolution of joint pain and swelling. He ran out of colchicine for the last 2- 3 weeks. On exam today he has right knee swelling. Restart colchicine. Take 2 tabs daily for 1 week then remain on 1 tab daily. Continue with allopurinol 200 mg daily Labs before next visit in 4 months (2) KATHERINE positive: Code(s): R76.8 - Other specified abnormal immunological findings in serum Plan: Low titer positive ASMA, patient was evaluated by Gastroenterology and deemed to have mild fatty liver. Plan I spent 26 minutes reviewing patient's chart, evaluating patient, ordering diagnostic workup, counseling patient and documenting in the chart Orders: Orders Comprehensive Met. Panel 4 Months M10.9 - Gout, unspecified Complete Blood Count Auto Diff 4 Months M10.9 - Gout, unspecified Uric Acid 4 Months M10.9 - Gout, unspecified Medications: Changed From colchicine 0.6 mg PO DAILY To colchicine Take 2 tabs daily for 1 week then remain on 1 tab daily 97 caps 1RF Refilled allopurinol 200 mg (2 x 100 mg) PO DAILY 180 tabs 1RF M1A.09X0 - Idiopathic chronic gout, multiple sites, without tophus (tophi) Coding Level of Care Code Est Pt Level 4 (03094) Diagnoses Idiopathic chronic gout of multiple sites without tophus M1A.09X0 Gout site: multiple sites Gout etiology: idiopathic Chronicity: chronic Presence of tophus: without tophus KATHERINE positive R76.8
== END 2023-08-04 09:18 | disposition home or self-care (01) ==
PROVIDERS: PCP Family Medicine; Visit Provider Student in an Organized Health Care Education/Training Program
DX: M1A.09X0 Idiopathic chronic gout, multiple sites, without tophus (tophi) (principal); R76.8 Other specified abnormal immunological findings in serum
CPT/HCPCS: 99214

== ENCOUNTER → 2023-08-04 07:55 | Outpatient (BNVA) | payer MEDICARE, MEDICAID, SELFPAY | PROVIDERS: PCP Family Medicine; Visit Provider Student in an Organized Health Care Education/Training Program | DX: M1A.09X0 Idiopathic chronic gout, multiple sites, without tophus (tophi) (principal); R76.8 Other specified abnormal immunological findings in serum; M25.562 Pain in left knee; M25.561 Pain in right knee; Z79.899 Other long term (current) drug therapy | CPT/HCPCS: 99212 ==

== ENCOUNTER 2023-08-12 08:34 | Outpatient (AMB) | payer MEDICARE, MEDICAID, SELFPAY ==
--- NOTE | 2023-08-12 08:49 | A.OFFPC_ITS ---
Vital Signs 08/12/23 08:50 Height 5 ft 9 in Weight 245 lb BMI 36.2 BP 130/74 Blood Pressure Location Lt brachial Position Sitting Pulse 54 Pulse Source Pulse Oximeter Pulse Oximetry (%) 95 Oxygen Delivery Method Room Air Intake Visit Reasons: f/u hypertension Intake Note: Patient is here to follow up on hypertension today. Allergies No Known Allergies Allergy (Verified 08/12/23 08:51) Tobacco use date assessed: 08/12/23 HPI f/u hypertension 2 HPI Details 58 y/o male presents to f/u hypertension . Blood pressure today 130/74. He is on metoprolol 50mg b.i.d. Hx of AAA, paroxysmal AFib, CAD. [facility] Medical History Paroxysmal atrial fibrillation Atrial fibrillation Sleep apnea Persistent atrial fibrillation Elevated liver enzymes Gout Testicular cancer CHF (congestive heart failure) Surgical History History of orchiectomy, unilateral Hx of colonoscopy Family History Mother CVD (cardiovascular disease) Father CVD (cardiovascular disease) Social History Household Members Other:: Same partner- 17 years- Housing: House Alcohol intake: current Alcohol intake frequency: a few times a month Alcohol type: hard liquor Patient Tobacco Use Status: Former Tobacco user e-Cigarette/Vaping Use: Never Used Second Hand Smoke Exposure: No service: No Current occupational status: unemployed and disabled 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 1. Little interest or pleasure in doing things: not at all 2. Feeling down, depressed, or hopeless: not at all 3. Trouble falling or staying asleep, or sleeping too much: not at all 4. Feeling tired or having little energy: not at all 5. Poor appetite or overeating: not at all 6. Feeling bad about yourself - or that you are a failure or have let yourself or your family down: not at all 7. Trouble concentrating on things, such as reading the newspaper or watching television: not at all 8. Moving or speaking so slowly that other people could have noticed. Or the opposite - being so fidgety or restless that you have been moving around a lot more than usual: not at all 9. Thoughts that you would be better off or of hurting yourself in some way: not at all Total score: 0 Depression Screening Interpretation: Negative Depression Screening Done: Yes Source: Developed by Drs. Al Hassan, Marlys Crocker, Jose Black and colleagues, with an educational craig from [employer]. Thrive Questionnaire Date Thrive assessed: 08/12/23 I am a: Patient What is your living situation today?: I have a steady place to live Within the past 12 months, did the food you bought not last and you didn't have the money to get more?: Never true Within the past 12 months, did you worry whether your food would run out before you got money to buy more?: Never true Do you have trouble paying for medicines?: No Do you have trouble getting transportation to medical appointments?: No Do you have trouble paying your heating and electricity bill?: No Do you have trouble taking care of your child, family member or friend?: No Do you have trouble with day-to-day activities such as bathing, preparing meals, shopping, managing finances, etc.?: No Are you currently unemployed and looking for a job?: No Are you interested in more education?: No THRIVE Score: 0 AUDIT C Alcohol Use Questionnaire (AUDIT-C) 1. How often do you have a drink containing alcohol?: 2-3 times a week 2. How many drinks containing alcohol do you have on a typical day when you are drinking?: 1 or 2 3. How often do you have six or more drinks on one occasion?: Never Total Score: 3 PASQUALE-7 AMB Questionnaire PASQUALE-7 Date PASQUALE - 7 assessed: 08/12/23 Feeling nervous, anxious, or on edge: 0 = Not at all Not being able to stop or control worryin = Not at all Worrying too much about different things: 0 = Not at all Trouble relaxin = Not at all Being so restless that it is hard to sit still: 0 = Not at all Becoming easily annoyed or irritable: 0 = Not at all Feeling afraid as if something awful might happen: 0 = Not at all Total PASQUALE-7 score (0-4 normal; 5-9 mild; 10-14 moderate; 15-21 severe): 0 Source: Developed by Drs. Al Hassan, Marlys Crocker, Jose Black and colleagues, with an educational craig from [employer]. Review of Systems Const Denies chills, Denies fatigue, Denies fever(s), Denies headache(s) and Denies weakness ENT Denies dizziness and Denies headache(s) Card Denies chest pain, Denies lightheadedness, Denies dyspnea and Denies other (Palpitations) Resp Denies cough, Denies dyspnea, Denies wheezing and Denies other ( shortness of breath) Musc Denies numbness and Denies tingling Neuro Denies dizziness, Denies headache(s), Denies numbness, Denies tingling, Denies paresthesias and Denies weakness Psych Denies anxiety and Denies depression Endo Denies fatigue Aller/Immun Denies wheezing Physical exam (Primary Care) Vital Signs: Last Vital Signs Pulse 54 08/12/23 08:50 BP 130/74 08/12/23 08:50 Pulse Ox 95 08/12/23 08:50 Oxygen Delivery Method Room Air 08/12/23 08:50 BMI result Body Mass Index 36.2 Tobacco/Smoking Status: Tobacco use Status Tobacco use date assessed 08/12/23 08/12/23 08:51 Patient Tobacco Use Status Former Tobacco user 08/12/23 08:51 e-Cigarette/Vaping Use Never Used 08/12/23 08:51 PHQ-9: PHQ-9 Score PHQ-9: Total score 0 08/12/23 09:31 Depression Screening Interpretation: Negative Thrive Assessment: Date of Thrive Assessment Date Thrive assessed 08/12/23 08/12/23 08:56 Const General: no acute distress and well developed Nutritional Appearance: well nourished Orientation/consciousness: patient oriented x3 HENMT Head: Yes normocephalic and Yes atraumatic Eyes General: appearance normal, both eyes and all related structures Pupils: Equal, round and reactive pupils present EOM: EOMs intact bilaterally Resp Effort & Inspection: normal respiratory effort Auscultation: clear to auscultation bilaterally Cardio Rate: regular rate Rhythm: regular rhythm Heart sounds: S1 normal heart sound present, S2 normal heart sound present, no gallops, no murmurs and no rubs Neuro General: patient oriented x3 and gait normal Cranial nerves: Yes Equal, round and reactive pupils present Psych Affect: normal affect Assessment and Plan Assessment & Plan (1) Hypertension: Code(s): I10 - Essential (primary) hypertension Plan: Blood?pressure?shows?fair?control; goal?is?less?than?130/80. Patient?has?significantly?large?distal?aorta?and?is?referred?to?vascular?surgery . Adding?a?small?dose?of?lisinopril?to?keep?blood?pressures?well?controlled Encouraged?weight?loss?through?diet?and?exercise?as?tolerated Watch?salt?and?sodium (2) AAA (abdominal aortic aneurysm): Code(s): I71.40 - Abdominal aortic aneurysm, without rupture, unspecified Plan: Significantly?enlarged?aortic?aneurysm?and?he?has?been?referred?to?vascular?surg ian.??Appointment in?a?few?weeks. (3) Paroxysmal atrial fibrillation: Code(s): I48.0 - Paroxysmal atrial fibrillation Plan: Stable Continue?Xarelto Follow-up?with?Cardiology?as?recommended (4) Coronary artery disease: Code(s): I25.10 - Atherosclerotic heart disease of [place] coronary artery without angina pectoris Plan: Stable Follow-up?with?Cardiology?as?recommended Has?upcoming?echocardiogram?and?nuclear?stress?test Medications: New lisinopril 5 mg PO DAILY 90 tabs 1RF 90 days Coding Level of Care Code Est Pt Level 4 (62733) Diagnoses Hypertension I10 AAA (abdominal aortic aneurysm) I71.40 Paroxysmal atrial fibrillation I48.0 Coronary artery disease I25.10
[2023-08-12 08:50] VITALS: BP 130/74; PULSE 54; O2SAT 95; BMI 36.2
== END 2023-08-12 09:42 | disposition home or self-care (01) ==
PROVIDERS: PCP Family Medicine; Visit Provider Family Medicine
DX: I10 Essential (primary) hypertension (principal); I71.40 Abdominal aortic aneurysm, without rupture, unspecified; I48.0 Paroxysmal atrial fibrillation; I25.10 Atherosclerotic heart disease of native coronary artery without angina pectoris
CPT/HCPCS: 99214

== ENCOUNTER 2023-08-30 14:47 | Outpatient (AMB) | payer MEDICARE, MEDICAID, SELFPAY ==
--- NOTE | 2023-08-30 14:48 | A.OFFVIS_ITS ---
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 Pt states he is feeling okay. He states he will get sore and have some abdominal pressure occasionally. 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 Is a morbidly obese gentleman with a BMI of nearly 42.1 and he is a nonsmoker nondiabetic. This was incidentally originally found upon workup for some back pain. At that time he had a CT scan back in November of 2022 where it was 3.6 cm. On repeat ultrasound office in on 07/22/2023 was discovered to be 5.2 cm. There was concern as this was a significant jump up in size. Now presents to us for vascular evaluation. Of note he is completely asymptomatic and denies any significant abdominal pain. [facility], [facility] Medical History Paroxysmal atrial fibrillation Atrial fibrillation Sleep apnea Persistent atrial fibrillation Elevated liver enzymes Gout Testicular cancer CHF (congestive heart failure) Surgical History History of orchiectomy, unilateral Hx of colonoscopy Family History Mother CVD (cardiovascular disease) Father CVD (cardiovascular disease) Social History Household Members Other:: Same partner- 17 years- Housing: House Alcohol intake: current Alcohol intake frequency: a few times a month Alcohol type: hard liquor Patient Tobacco Use Status: Former Tobacco user e-Cigarette/Vaping Use: Never Used Second Hand Smoke Exposure: No service: No Current occupational status: unemployed and disabled 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 Current occupational exposures/hazards: No Cognitive needs: No Hearing needs: No Vision needs: No Review of Systems Const All systems reviewed & are unremarkable except as noted in HPI and below Reports no additional complaints ENT Reports Normal hearing present Card Denies chest pain, Denies chest pain at rest, Denies chest pain with activity and Denies pedal edema Resp Denies cough GI Denies abdominal pain Musc Denies abnormal gait, Denies muscle cramps and Denies radiating pain into limb Skin/Breast Denies skin ulcer and Denies wounds Neuro Reports Normal hearing present and Denies abnormal gait Psych Reports no additional complaints Physical Exam Vital Signs: BMI result Body Mass Index 42.1 Const General: cooperative, healthy appearing and comfortable Orientation/consciousness: oriented to person, oriented to place and oriented to time HEENT Head: Yes normal to inspection Neck Neck: Yes normal visual inspection Carotids: no bruits Chest Chest palpation & inspection: normal inspection of the chest Resp Effort & Inspection: normal respiratory effort and able to speak in complete sentences Auscultation: clear to auscultation bilaterally, no crackles, no rales, no r honchi and no wheezes Cardio Rate: regular rate Rhythm: regular rhythm Heart sounds: S1 normal heart sound present and S2 normal heart sound present Bruits: no carotid bruits Peripheral pulses: Peripheral pulses 2+ throughout GI Inspection: Yes normal to inspection Skin Wounds: no wounds Hair: normal Neuro General: oriented to person, oriented to place and oriented to time Cranial nerves: Yes CN's II-XII intact bilaterally and Yes Normal hearing present Cognition (Neuro): normal cognition Motor exam (neuro): 5/5 motor strength present throughout Extrem Other: venous exam: No significant superficial varicosities or spider telangiectasias, minimal edema General: No clubbing, No cyanosis and No edema Psych Appearance: grossly normal Mental Status: mental status grossly normal Speech and movement: Normal speech and movement present Results Reviewed Results Reviewed: Ultrasound dated 07/22/2023 demonstrates 5.2 cm distal aortic aneurysm. Assessment & Plan Assessment & Plan (1) AAA (abdominal aortic aneurysm): Code(s): I71.40 - Abdominal aortic aneurysm, without rupture, unspecified Qualifiers: Abdominal aorta location: infrarenal aorta Presence of rupture: without rupture Qualified Code(s): I71.43 - Infrarenal abdominal aortic aneurysm, without rupture Plan: In short patient has abdominal no aortic aneurysm. The concern here is the sudden increase in size. Unfortunately it is too different modalities of study from a CT scan to an ultrasound. The ultrasound may be difficult as the the patient is quite obese and has a fair amount of truncal obesity. I have taken the liberty of ordering a CT scan noncontrast to elucidate the true size of this aneurysm. We did discuss routine risk factor modification and the patient will follow up with us after testing. Thank you for allowing us to assist in this patient's care. If there are any questions or concerns please do not hesitate to contact us. Orders: Orders CT abdomen pelvis wo IV con 1 Week I71.43 - Infrarenal abdominal aortic aneurysm, without rupture Coding Level of Care Code Est Pt Level 4 (26323) Diagnoses Infrarenal abdominal aortic aneurysm (AAA) without rupture I71.43 Abdominal aorta location: infrarenal aorta Presence of rupture: without rupture
[2023-08-30 14:50] VITALS: BMI 42.1
== END 2023-08-30 15:14 | disposition home or self-care (01) ==
PROVIDERS: PCP Family Medicine; Visit Provider Surgery Vascular Surgery
DX: I71.43 Infrarenal abdominal aortic aneurysm, without rupture (principal)
CPT/HCPCS: 99214

== ENCOUNTER → 2023-08-30 14:47 | Outpatient (BNVA) | payer MEDICARE, MEDICAID, SELFPAY | PROVIDERS: PCP Family Medicine; Visit Provider Surgery Vascular Surgery | DX: I71.43 Infrarenal abdominal aortic aneurysm, without rupture (principal) | CPT/HCPCS: 99212 ==

== ENCOUNTER → 2023-09-08 08:38 | Outpatient (REF) | payer MEDICARE, MEDICAID, SELFPAY ==
--- NOTE | ~2023-09-08 | NM_ITS ---
Lexiscan Myocardial perfusion study Indication: Chest pain, shortness of breath Technique: The patient was brought in for a Lexiscan perfusion study on 09/08/2023 and was injected 0.4 mg of Lexiscan intravenously. Within a minute of this injection 40 mCi of sestamibi was given intravenously. Images were obtained using the SPECT gamma camera interlaced with the gating device. Images were obtained in supine position. Resting perfusion study was performed on 09/09/2023. Patient was administered 40 mCi of sestamibi intravenously at rest. Images were then obtained in supine position. Images were processed with the software and compared side to side in short axis, horizontal long axis and vertical long axis views. Total DLP 208mGy-cm. Findings: Raw acquisition reviewed. The stress perfusion study showed diminished tracer uptake along the inferior wall including the apex. There is improvement with CT attenuation correction is a distal of diaphragmatic attenuation artifact. Small apical defect still persists. The gated study shows normal LV systolic function with calculated LVEF of 57%. LV cavity is normal in size. The gated study shows normal wall thickening and contraction of segments. Resting study shows diminished tracer uptake along the mildly diminished tracer uptake at the apex and apical part of inferior wall. No significant change with CT attenuation correction. Gating at rest reveals normal wall motion with ejection fraction at 57%. The findings are consistent with reversible; partially reversible inferior perfusion defect, probably from diaphragmatic attenuation artifact. Fixed appearing apical defect which could again be artifactual. NM/NM cardiolite stress test Impression: 1. Myocardial perfusion imaging study shows no definitive evidence of any ischemia or infarction. Suspect artifactual defects along the inferior wall as well as at the apex. 2. Gated LVEF is 57% during stress and rest. 3. Transient ischemic dilatation not present. EKG component of the test reported separately.
--- NOTE | 2023-09-08 08:41 | CA_ITS ---
Acquisition Time: 2023-09-08 09:46:59 Total Exercise Time: 00:04:15 Test Indications: CHEST PAIN, SOB Medications: Protocol: SANJEEV Max HR: 107 BPM 66% of Pred: 161 BPM Max BP: 182/074 mmHG Max Work Load: 6.0 METS Exercise stress test exercise 4 min 15 sec of Sanjeev protocol achieivng 66% MPHR, withmoderate to severe SOB, no chest discomfort, with need to stop due to shortness of breath, with isolated PVCs and ventricular bigeminy, with normotensive response to exercise, without EKG changes from baseline downsloping in leads V5-V6. Test changed to pharmacological stress test with Lexiscan once breathing returned to baseline. Pharmacoligical stress test with Lexiscan injection while sitting and kicking his legs without anginal symptoms, without arrhthymias, with normotensive response to injection, with downsloping in leads 2, 3, and aVF. Nuclear images pending. Test reviewed with Dr. Jewell. . Referred By: Erik Molina Overread By: Charito Martinez
--- NOTE | 2023-09-08 08:41 | CA_ITS ---
Transthoracic Echocardiogram Patient (Last, First, Middle): Inder Roberts, Gender: Male Date of : 1965 Age: 58 Procedure Date: 09/08/2023 Procedure Type: Transthoracic Echocardiogram Location: OP Height: 172.72 cm Weight: 131.54 kg BSA: 2.39 m2 Heart Rate: 53 bpm Leadership Development Manager: MARKUS Referring MD: Erik Molina MD Symptoms: I50.9 - Heart failure, unspecified Study Quality: Adequate w contrast ECG Rhythm: Bradycardia Conclusions: - The left ventricular systolic function is normal. The visually estimated ejection fraction is between 55-60%. - No obvious valvular pathology seen on this study. - There is mild dilatation of the ascending aorta measuring 4.00 cm. Findings Procedure Information Contrast agent, definity, is being given per protocol without apparent complications. The quality of the study was technically difficult. The study quality is limited by patients body habitus. Left Ventricle Normal left ventricular cavity size. There is normal left ventricular wall thickness. The left ventricular systolic function is normal. The visually estimated ejection fraction is between 55-60%. There is no evidence of regional wall motion abnormalities. Evidence suggests grade I (mild) diastolic dysfunction. Right Ventricle Mildly increased right ventricular cavity size. There is normal right ventricular systolic function. Atria Both atria are normal in size. Aortic Valve The aortic valve structure and function is likely normal. There is no aortic valve stenosis. There is no aortic valve regurgitation. Mitral Valve There is mild mitral annular calcification. There is no mitral valve regurgitation. There is no mitral valve stenosis. Pulmonic Valve The pulmonic valve is likely normal. Tricuspid Valve There is no tricuspid valve regurgitation. Tricuspid regurgitation envelope is inadequate for calculation of right ventricular systolic pressure. Great Vessels There is mild dilatation of the ascending aorta measuring 4.00 cm. Venous The inferior vena cava was not well visualized. Pericardium/Pleural There is no evidence of pericardial effusion. Recommendations, Care & Conclusions No obvious valvular pathology seen on this study. Measurements 2D Linear Measurements IVSd: 0.76 0.6-0.9/0.6-1.0 cm LVIDd: 5.89 3.9-5.3/4.2-5.9 cm LVIDd Index: 2.46 2.4-3.2/2.2-3.1 cm/m2 LVIDs: 4.02 2.0-3.6 cm LVPWd: 0.86 0.7-1.1 cm LA Diam: 4.50 2.7-3.8/3.0-4.0 cm LAIDs Index: 1.88 1.5-2.3 cm/m2 LV Mass: 229.41 67-162/88-224 g LV Mass Index: 95.99 43-95/49-115 g/m2 LVOT Diam: 2.50 3.0+(-)1.3 cm 2D Systolic Function EF 4C: 66.90 >55% EF 2C: 59.90 >55% Mitral Valve MV Pk E: 0.49 MV PK A: 0.77 MV Decel Time: 229.00 E/A: 0.60 E'Lateral: 7.94 E'Medial: 4.79 E/E' Med: 10.20 E/E' Lat: 6.10 PHT: 67.00 MVA PHT: 3.28 Decel Williams: 2.13 Aortic Valve AoV Pk Eduardo: 1.37 AoV Pk Grad: 8.00 PIPPA: 4.12 LVOT LVOT Pk Eduardo: 1.19 LVOT Mn Eduardo: 0.72 LVOT VTI: 0.23 LVOT Pk Grad: 6.00 LVOT Mn Grad: 2.00 LVOT Diam: 2.50 LVOT Area: 4.91 Diastolic Function MV Pk E: 0.49 MV Pk A: 0.77 E/A: 0.60 E'Medial: 4.79 E/E' Med: 10.20 E' Laterial: 7.94 E/E' Lat: 6.10 Right Ventricle TAPSE (mm): 23.20 TVS' Eduardo: 12.30 Great Vessels Aorta Sinus of Valsalva: 3.40 2.0-3.5 cm Ao Asc: 4.00 2.1-3.4 cm Pulmonary Veins Pulm Vein S/D 1.80 Pulmonary Valve PV Pk Eduardo: 1.36 Peak PV Grad: 7.00 Updated in Other Vendor System with Status of Final Teddy Jewell MD electronically signed on 09/10/2023 12:05:31 PM with status of Final
== END ==
LOC: HO.CARD 08:38
PROVIDERS: PCP Family Medicine; Visit Provider Internal Medicine Cardiovascular Disease
DX: R07.9 Chest pain, unspecified (principal); I25.10 Atherosclerotic heart disease of native coronary artery without angina pectoris; I50.9 Heart failure, unspecified
CPT/HCPCS: 78452; 93017; 93306; A9500; J0280; J2785; Q9957

== ENCOUNTER → 2023-09-08 08:41 | Outpatient (BNV) | payer MEDICARE, MEDICAID, SELFPAY | PROVIDERS: PCP Family Medicine; Visit Provider Nurse Practitioner | DX: I71.21 Aneurysm of the ascending aorta, without rupture (principal); I34.81 Nonrheumatic mitral (valve) annulus calcification; I50.30 Unspecified diastolic (congestive) heart failure | CPT/HCPCS: 78452; 93016; 93018; 93350; 93352 ==

== ENCOUNTER 2023-09-16 08:33 | Outpatient (AMB) | payer MEDICARE, MEDICAID, SELFPAY ==
--- NOTE | 2023-09-16 08:36 | A.OFFVIS_ITS ---
Vital Signs 09/16/23 08:37 Height 5 ft 9 in Weight 289 lb 3.944 oz BMI 42.7 BP 124/72 Blood Pressure Location Lt brachial Position Sitting Pulse 55 Pulse Source Monitor Intake Visit Reasons: f/u after testing Italian Teacher Required: No Allergies No Known Allergies Allergy (Verified 09/16/23 08:38) Medication List - Last Reconciled 09/16/23 by ADARSH Clark allopurinol 200 mg (2 x 100 mg) PO DAILY amiodarone 200 mg PO DAILY cetirizine (All Day Allergy (cetirizine)) 10 mg PO DAILY PRN 90 days colchicine 0.6 mg PO DAILY colchicine mg PO dapagliflozin propanediol 10 mg PO DAILY levothyroxine 75 mcg PO DAILY 30 days lisinopril 5 mg PO DAILY 90 days metoprolol tartrate 50 mg (1/2 x 100 mg) PO BID 90 days rivaroxaban (Xarelto) 20 mg PO QPM rosuvastatin 20 mg PO DAILY 90 days HPI HPI f/u after testing: Details: Inder is a 58-year-old male with past medical history of morbid obesity, hypertension, hyperlipidemia, mild nonobstructive coronary disease, paroxysmal atrial fibrillation, currently suppressed with amiodarone who reported some chest discomfort last visit and underwent an echocardiogram and nuclear stress test and now presents for follow-up. Today he reports that he recalls having an episode of chest tightness about a week ago that lasted several minutes before resolving. He has no clear exertional symptoms. He does have shortness of breath with activity which is not new. Admits to being mostly sedentary due to orthopedic issues. No concerning heart palpitations, lightheadedness, presyncope, syncope, falls. No PND, orthopnea or edema. No bleeding issues reported. Taking meds as directed. Reports he is on disability but has been able to do his yard work recently. [facility] Medical History Paroxysmal atrial fibrillation Atrial fibrillation Sleep apnea Persistent atrial fibrillation Elevated liver enzymes Gout Testicular cancer CHF (congestive heart failure) Surgical History History of orchiectomy, unilateral Hx of colonoscopy Family History Mother CVD (cardiovascular disease) Father CVD (cardiovascular disease) Social History Household Members Other:: Same partner- 17 years- Housing: House Alcohol intake: current Alcohol intake frequency: a few times a month Alcohol type: hard liquor Patient Tobacco Use Status: Former Tobacco user e-Cigarette/Vaping Use: Never Used Second Hand Smoke Exposure: No service: No Current occupational status: unemployed and disabled 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 Current occupational exposures/hazards: No Cognitive needs: No Hearing needs: No Vision needs: No Review of Systems Const All systems reviewed & are unremarkable except as noted in HPI and below ENT Denies dizziness Card Denies chest pain, Denies chest pain at rest, Denies chest pain with activity, Denies rapid heart rate, Denies pedal edema, Denies edema, Denies leg edema, Denies lightheadedness, Denies palpitations, Denies dyspnea, Denies dyspnea on exertion and Denies orthopnea Resp Denies cough, Denies dyspnea and Denies dyspnea on exertion GI Denies hematochezia and Denies change in stool character Musc Denies abnormal gait, Denies limited range of motion, Denies muscle cramps, Denies muscle weakness, Denies numbness, Denies radiating pain into limb, Denies stiffness and Denies tingling Neuro Denies abnormal gait, Denies dizziness, Denies numbness and Denies tingling Endo Denies palpitations Physical Exam Vital Signs: Last Vital Signs Pulse 55 09/16/23 08:37 BP 124/72 09/16/23 08:37 BMI result Body Mass Index 42.7 Const Other: morbidly obese General: cooperative, healthy appearing, comfortable and no acute distress Orientation/consciousness: patient oriented x3 Neck Neck: Yes normal visual inspection Resp Effort & Inspection: normal respiratory effort Auscultation: clear to auscultation bilaterally, no crackles, no rales, no rhonchi and no wheezes Cardio Jugular venous distension: no JVD Rate: regular rate Rhythm: regular rhythm Heart sounds: S1 normal heart sound present, S2 normal heart sound present, no murmurs and no rubs Neuro General: patient oriented x3 Extrem General: Yes normal to inspection, No no pedal edema and No calf tenderness Psych Appearance: grossly normal Mental Status: mental status grossly normal Speech and movement: Normal speech and movement present Office Procedures EKG Details: Today, read by me, sinus bradycardia, low-voltage QRS, incomplete right bundle branch block, can not exclude possible inferior and anterior infarct, rate 55, QTC 476 milliseconds [id number], Complete Assessment & Plan Assessment & Plan (1) Paroxysmal atrial fibrillation: Code(s): I48.0 - Paroxysmal atrial fibrillation Category: Medical Plan: History of paroxysmal atrial fibrillation. AFib currently suppressed with a miodarone use and on metoprolol for heart rate control. EKG done today showing sinus bradycardia, heart rate 55 QTC 476 millisecond. He has no concerning heart palpitations. It seems he feels something briefly on occasion. He has been on Xarelto for anticoagulation. No bleeding issues reported. Labs done 07/28/2023 showed normal LFTs, TSH 4.33 with normal free T4 0.91. Chest x-ray showed no active disease. Echocardiogram done 09/08/2023 shows EF 55-60%, no valve abnormalities, both atria are normal size. AFib is currently controlled however would like to avoid prolonged use of amiodarone. Will refer him to electrophysiology to evaluate for possible AFib ablation. He is morbidly obese but states that he has not been able to lose weight. He does have known obstructive sleep apnea and reports compliance with his CPAP. Cardiology follow-up in this office 6 months, sooner if needed. (2) Hypertension: Code(s): I10 - Essential (primary) hypertension Category: Medical Plan: Well controlled at present time. No med changes made. (3) Chest discomfort: Code(s): R07.89 - Other chest pain Category: Medical Plan: On last visit he did report some chest discomfort that seem to occur with physical activity. He had previously undergone cardiac catheterization in 2020 showing only minimal luminal irregularities. A nuclear stress test was done on 09/08/2023 showing significant decrease in activity tolerance with exercise only 4 minutes 15 seconds then requiring the use of regadenoson to finish stress portion of test. With nuclear imaging showing no ischemia or infarct. Today he reports having chest tightness about a week ago which occurred randomly and resolved without treatment. He does have chronic shortness of breath with activity which is likely related to his obesity and deconditioning. Reviewed the need for weight loss and he states understanding. He will continue to work on dietary control. He has not on aspirin as he is on Xarelto. He is on rosuvastatin. (4) CHF (congestive heart failure): Code(s): I50.9 - Heart failure, unspecified Category: Medical Plan: Has had Congestive heart failure in the past. No clinical signs of heart failure on examination today recent echo showing normal EF, grade 1 diastolic dysfunction. (5) Coronary artery disease: Code(s): I25.10 - Atherosclerotic heart disease of [place] coronary artery without angina pectoris Category: Medical Plan: As above (6) S/P cardiac cath: Comment: 11/06/2020, left main, lad, left circumflex, RCA, ramus each with minimal luminal irregularities Code(s): Z98.890 - Other specified postprocedural states Category: Medical Plan: Minimal nonobstructive coronary artery disease (7) Sleep apnea: Code(s): G47.30 - Sleep apnea, unspecified Category: Medical Plan: Compliant with CPAP (8) Obesity: Code(s): E66.9 - Obesity, unspecified Category: Medical Plan: As above Plan Time spent on chart review, documentation, interview and assessment Orders: Referrals Cardiac Electrophysiology Referral I48.0 - Paroxysmal atrial fibrillation Coding Level of Care Code Est Pt Level 4 (71778) Diagnoses Paroxysmal atrial fibrillation I48.0 Hypertension I10 Chest discomfort R07.89 CHF (congestive heart failure) I50.9 Coronary artery disease I25.10 S/P cardiac cath Z98.890 Sleep apnea G47.30 Obesity E66.9 CPT Codes EKG - CPT: [id number], Complete ([id number]) Time Spent (min) 30
[2023-09-16 08:37] VITALS: BP 124/72; PULSE 55; BMI 42.7
== END 2023-09-16 09:18 | disposition home or self-care (01) ==
PROVIDERS: PCP Family Medicine; Visit Provider Nurse Practitioner Family
DX: I48.0 Paroxysmal atrial fibrillation (principal); I10 Essential (primary) hypertension; R07.89 Other chest pain; I50.9 Heart failure, unspecified; I25.10 Atherosclerotic heart disease of native coronary artery without angina pectoris; Z98.890 Other specified postprocedural states; G47.30 Sleep apnea, unspecified; E66.9 Obesity, unspecified
CPT/HCPCS: 93010; 99214

== ENCOUNTER → 2023-09-16 08:33 | Outpatient (BNVA) | payer MEDICARE, MEDICAID, SELFPAY | PROVIDERS: PCP Family Medicine; Visit Provider Nurse Practitioner Family | DX: I48.0 Paroxysmal atrial fibrillation (principal); R07.89 Other chest pain; I11.0 Hypertensive heart disease with heart failure; I50.9 Heart failure, unspecified; I25.10 Atherosclerotic heart disease of native coronary artery without angina pectoris; G47.30 Sleep apnea, unspecified; E66.9 Obesity, unspecified; Z79.01 Long term (current) use of anticoagulants; Z79.899 Other long term (current) drug therapy; Z99.89 Dependence on other enabling machines and devices | CPT/HCPCS: 93005; 99212 ==

== ENCOUNTER 2023-10-13 08:56 | Outpatient (REF) | payer MEDICARE, MEDICAID, SELFPAY ==
--- NOTE | ~2023-10-13 | CT_ITS ---
EXAMINATION: CT ABDOMEN AND PELVIS WITHOUT CONTRAST CLINICAL INFORMATION: Infrarenal abdominal aortic aneurysm COMPARISON: 11/30/2025 TECHNIQUE: Multidetector volumetric imaging was performed from the superior aspect of the liver through the pubic symphysis. Sagittal and coronal reformatted images were obtained on the technologist's workstation. This CT examination was performed using dose optimization techniques as appropriate, variously including the following: *Automated exposure control *Adjustment of mA and/or kV according to patient size (this includes techniques or standardized protocols for targeted exams where dose is matched to indication/reason for exam; i.e. extremities or head) *Use of iterative reconstruction technique DLP: 912 mGy-cm FINDINGS: LUNG BASES: There is pleural thickening seen bibasilar. No evidence of nodules or pleural effusion.. LIVER, GALLBLADDER, AND BILIARY TREE: Liver is of low attenuation due to hepatic steatosis. The gallbladder is unremarkable with no evidence of radiopaque gallstones, gallbladder wall thickening, or obvious pericholecystic inflammatory changes. PANCREAS: Unremarkable. SPLEEN: Unremarkable. ADRENAL GLANDS: Unremarkable. KIDNEYS AND URETERS: The kidneys are normal in size, shape, and attenuation. No hydronephrosis, hydroureter, or calculi seen. No perinephric stranding. BLADDER: Unremarkable. GASTROINTESTINAL TRACT: The small and large bowel are unremarkable. The appendix is unremarkable. ABDOMINAL WALL: No significant hernia is appreciated. LYMPH NODES: Normal. VASCULAR: Perirenal abdominal aorta measured 3.0 x 2.8 cm mildly prominent PELVIC VISCERA: Unremarkable. OSSEOUS STRUCTURES: There is compression deformity of L3 vertebral body, without retropulsion of fragments. CT/CT abdomen pelvis wo IV con IMPRESSION: 1. Mild dilatation of infrarenal abdominal aorta. 2. Hepatic steatosis. 3. Compression deformity of L3 vertebral body. Fleischner guidelines were followed.
== END 2023-10-13 08:57 | disposition home or self-care (01) ==
LOC: HO.CT 08:56
PROVIDERS: PCP Family Medicine; Visit Provider Surgery Vascular Surgery
DX: I71.43 Infrarenal abdominal aortic aneurysm, without rupture (principal)
CPT/HCPCS: 74176

== ENCOUNTER 2023-10-28 10:50 | Outpatient (AMB) | payer MEDICARE, MEDICAID, SELFPAY ==
[2023-10-28 10:55] VITALS: BP 120/64; PULSE 70; O2SAT 94; BMI 41.9
--- NOTE | 2023-10-28 10:55 | A.OFFPC_ITS ---
Vital Signs 10/28/23 10:55 Height 5 ft 9 in Weight 284 lb BMI 41.9 BP 120/64 Blood Pressure Location Lt brachial Position Sitting Pulse 70 Pulse Source Pulse Oximeter Pulse Oximetry (%) 94 Oxygen Delivery Method Room Air Intake Visit Reasons: Extended exam Intake Note: Patient is here for extended exam today. He states his specialists appointments were moved, but will see vascular surgery in a nweek and half. Allergies No Known Allergies Allergy (Verified 10/28/23 10:58) Medication List - Last Reconciled 10/28/23 by Gatito Magdaleno MD allopurinol 200 mg (2 x 100 mg) PO DAILY amiodarone 200 mg PO DAILY cetirizine (All Day Allergy (cetirizine)) 10 mg PO DAILY PRN 90 days colchicine 0.6 mg PO DAILY colchicine mg PO dapagliflozin propanediol 10 mg PO DAILY levothyroxine 75 mcg PO DAILY 30 days lisinopril 5 mg PO DAILY 90 days metoprolol tartrate 50 mg (1/2 x 100 mg) PO BID 90 days rivaroxaban (Xarelto) 20 mg PO QPM rosuvastatin 20 mg PO DAILY 90 days Tobacco use date assessed: 10/28/23 Dental Screening Dental Screen Date: 06/24/23 HPI Extended exam HPI Details Patient?presents?for?CPE Feels?well.??No?new?complaints. Had?CT?to?evaluate?AAA?as?ultrasound?suggested?there?might?be?significant?i ncrease?in?size. Had?added?lisinopril?for?better?blood?pressure?control?and?blood?pressure?today? is?120/64 [facility] Medical History Paroxysmal atrial fibrillation Atrial fibrillation Sleep apnea Persistent atrial fibrillation Elevated liver enzymes Gout Testicular cancer CHF (congestive heart failure) Surgical History History of orchiectomy, unilateral Hx of colonoscopy Family History Mother CVD (cardiovascular disease) Father CVD (cardiovascular disease) Social History Household Members Other:: Same partner- 17 years- Housing: House Alcohol intake: current Alcohol intake frequency: a few times a month Alcohol type: hard liquor Patient Tobacco Use Status: Former Tobacco user e-Cigarette/Vaping Use: Never Used Second Hand Smoke Exposure: No service: No Current occupational status: unemployed and disabled 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 Al Hassan, Marlys Crocker, Jose Black and colleagues, with an educational craig from [employer]. Review of Systems Const Denies chills, Denies fatigue, Denies fever(s), Denies headache(s) and Denies weakness Eyes Denies change in vision ENT Denies dizziness, Denies headache(s), Denies hearing loss, Denies nasal congestion, Denies sinus pain, Denies sinus pressure and Denies sore throat Card Denies chest pain, Denies lightheadedness, Denies dyspnea and Denies other (palpitations) Resp Denies cough, Denies dyspnea and Denies wheezing GI Denies abdominal pain, Denies melena, Denies hematochezia, Denies change in bowel habits, Denies dyspepsia and Denies nausea Denies hematuria and Denies dysuria Musc Denies abnormal gait, Denies myalgias, Denies arthralgias, Denies numbness and Denies tingling Skin/Breast Denies rash, Denies unusual bruising and Denies wounds Neuro Denies abnormal gait, Denies dizziness, Denies headache(s), Denies memory loss, Denies numbness, Denies Sensory deficit (Neuro), Denies tingling and Denies weakness Psych Denies anxiety, Denies depression and Denies memory loss Endo Denies cold intolerance, Denies fatigue, Denies heat intolerance, Denies polydipsia and Denies polyuria Reji/Lymph Denies easy bleeding and Denies easy bruising Aller/Immun Denies wheezing Physical exam (Primary Care) Vital Signs: Last Vital Signs Pulse 70 10/28/23 10:55 BP 120/64 10/28/23 10:55 Pulse Ox 94 10/28/23 10:55 Oxygen Delivery Method Room Air 10/28/23 10:55 BMI result Body Mass Index 41.9 Tobacco/Smoking Status: Tobacco use Status Tobacco use date assessed 10/28/23 10/28/23 11:01 Patient Tobacco Use Status Former Tobacco user 10/28/23 10:56 e-Cigarette/Vaping Use Never Used 10/28/23 10:56 Thrive Assessment: Date of Thrive Assessment Date Thrive assessed 08/12/23 10/28/23 10:56 Const General: no acute distress, well developed, alert and awake Nutritional Appearance: well nourished and obese Orientation/consciousness: patient oriented x3 HENMT Head: Yes normocephalic and Yes atraumatic Ears: hearing grossly normal bilaterally and TM's normal bilaterally General nose exam: Normal external nose present and Normal nares present Mouth: Normal oral and palatal mucosa present and moist mucous membranes Teeth and gingiva: dentition normal Throat: Yes posterior oropharynx normal Eyes Pupils: Equal, round and reactive pupils present and Pupil accommodation reflex normal EOM: EOMs intact bilaterally Neck Neck: Yes normal visual inspection, Yes no lymphadenopathy and Yes trachea midline Thyroid: Thyroid normal Carotids: no bruits Lymphatic: no lymphadenopathy noted Chest Chest palpation & inspection: normal inspection of the chest Resp Effort & Inspection: normal respiratory effort Auscultation: clear to auscultation bilaterally Cardio Rate: regular rate Rhythm: abnormal rhythm irregularly irregular Heart sounds: S1 normal heart sound present, S2 normal heart sound present, no gallops, no murmurs and no rubs Bruits: no abdominal aortic bruits and no carotid bruits GI Palpation (GI): No Abdominal aortic bruit present, Soft to palpation, nontender, No hepatosplenomegaly present and No Rebound tenderness present Auscultation: normal bowel sounds General: Yes no CVA tenderness Back/Spine/Pelvis Back: no CVA tenderness Cervical Spine: cervical ROM normal and No Cervical spine tenderness Thoracic/Lumbar Spine: thoraco-lumbar ROM normal, No pain with thoraco-lumbar ROM, No thoracic spinal tenderness and No lumbar spinal tenderness Skin Lesions: no lesions Rashes: no rashes Trauma: no lacerations or abrasions Wounds: no wounds Nails: normal Neuro General: patient oriented x3, gait normal and CN's II-XI intact bilaterally Cranial nerves: Yes Equal, round and reactive pupils present Cognition (Neuro): normal cognition Gait exam (Neuro): Normal gait present Motor exam (neuro): 5/5 motor strength present throughout Sensory Exam: No Sensory deficit (Neuro) Deep tendon reflexes (DTR's): Right patellar reflex intensity grade: 2+ and Left patellar reflex intensity grade: 2+ Extrem General: Yes normal to inspection and No edema Psych Appearance: grossly normal Affect: normal affect Attitude: cooperative Thought process: Normal thought process present Assessment and Plan Assessment & Plan (1) Normal routine physical examination: Code(s): Z00.00 - Encounter for general adult medical examination without abnormal findings Plan: 58-year-old?male?presents?for?complete?physical?exam Encouraged?healthy?diet?with?active?lifestyle?and?plenty?of?exercise Encouraged?weight?loss (2) Hypertension: Code(s): I10 - Essential (primary) hypertension Plan: Blood?pressure?shows?good?control.??Goal?is?less?than?130/80 Continue?lisinopril (3) AAA (abdominal aortic aneurysm): Code(s): I71.40 - Abdominal aortic aneurysm, without rupture, unspecified Qualifiers: Abdominal aorta location: infrarenal aorta Presence of rupture: without rupture Qualified Code(s): I71.43 - Infrarenal abdominal aortic aneurysm, without rupture Plan: Had?had?some?concern?for?worsening?AAA?based?on?ultrasound?but?his?CT?scan?from? 10/10/2023?does?not?show?any?significant?change?compared?with?CT?scan?from? 023 He?has?follow-up?with?vascular?surgery (4) Hypothyroidism: Code(s): E03.9 - Hypothyroidism, unspecified Plan: He?is?on?levothyroxine?75?mcg Will?recheck?hormone?levels?at?next?visit (5) Paroxysmal atrial fibrillation: Code(s): I48.0 - Paroxysmal atrial fibrillation Plan: He?is?on?Xarelto Stable Follow-up?with?Cardiology?as?recommended (6) Screening for prostate cancer: Code(s): Z12.5 - Encounter for screening for malignant neoplasm of prostate Plan: PSA?was?within?normal?range?at?last?Check?in?2022 (7) Screening for colon cancer: Code(s): Z12.11 - Encounter for screening for malignant neoplasm of colon Plan: Patient?says?he?had?a?colonoscopy?at[facility]about?4?years?ago ?and?was?told?to?follow-up?in?10?years Up-to-date Orders: Orders Lipid Panel Today Z00.00 - Encounter for general adult medical examination without abnormal findings Comprehensive Met. Panel Today Z00.00 - Encounter for general adult medical examination without abnormal findings Free T4 (Free Thyroxine) Today E03.9 - Hypothyroidism, unspecified Thyroid Stimulating Hormone Today E03.9 - Hypothyroidism, unspecified Triiodothyronine T3 Total Today E03.9 - Hypothyroidism, unspecified Coding Level of Care Code Est Pt Prev Care 40-64y(14634) Diagnoses Normal routine physical examination Z00.00 Hypertension I10 Infrarenal abdominal aortic aneurysm (AAA) without rupture I71.43 Abdominal aorta location: infrarenal aorta Presence of rupture: without rupture Hypothyroidism E03.9 Paroxysmal atrial fibrillation I48.0 Screening for prostate cancer Z12.5 Screening for colon cancer Z12.11
== END 2023-10-28 11:26 | disposition home or self-care (01) ==
PROVIDERS: PCP Family Medicine; Visit Provider Family Medicine
DX: Z00.00 Encounter for general adult medical examination without abnormal findings (principal); I71.43 Infrarenal abdominal aortic aneurysm, without rupture; I48.0 Paroxysmal atrial fibrillation; I10 Essential (primary) hypertension; E03.9 Hypothyroidism, unspecified; Z12.5 Encounter for screening for malignant neoplasm of prostate; Z12.11 Encounter for screening for malignant neoplasm of colon
CPT/HCPCS: 99396

== ENCOUNTER 2023-11-08 08:40 | Outpatient (AMB) | payer MEDICARE, MEDICAID, SELFPAY ==
--- NOTE | 2023-11-08 08:54 | A.OFFVIS_ITS ---
Intake Visit Reasons: f/u s/p CTA Abd/pelvis 10/13/23 Intake Note: Patient presents for follow up CTA abd/pelvis performed on 10/13/23. Patient has no complaints. Allergies No Known Allergies Allergy (Verified 11/08/23 08:56) HPI HPI f/u s/p CTA Abd/pelvis 10/13/23: Details: Very pleasant 58-year-old gentleman presents for follow-up regarding abdominal aortic aneurysm. He had a follow-up ultrasound on 07/22/2019 for any reported that it had increased in size. Has had no interval changes. He now presents for CT angiogram confirmation [facility] Medical History Paroxysmal atrial fibrillation Atrial fibrillation Sleep apnea Persistent atrial fibrillation Elevated liver enzymes Gout Testicular cancer CHF (congestive heart failure) Surgical History History of orchiectomy, unilateral Hx of colonoscopy Family History Mother CVD (cardiovascular disease) Father CVD (cardiovascular disease) Social History Household Members Other:: Same partner- 17 years- Housing: House Alcohol intake: current Alcohol intake frequency: a few times a month Alcohol type: hard liquor Patient Tobacco Use Status: Former Tobacco user e-Cigarette/Vaping Use: Never Used Second Hand Smoke Exposure: No service: No Current occupational status: unemployed and disabled 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 Current occupational exposures/hazards: No Cognitive needs: No Hearing needs: No Vision needs: No Review of Systems Const All systems reviewed & are unremarkable except as noted in HPI and below Reports no additional complaints ENT Reports Normal hearing present Card Denies chest pain, Denies chest pain at rest, Denies chest pain with activity and Denies pedal edema Resp Denies cough GI Denies abdominal pain Musc Denies abnormal gait, Denies muscle cramps and Denies radiating pain into limb Skin/Breast Denies skin ulcer and Denies wounds Neuro Reports Normal hearing present and Denies abnormal gait Psych Reports no additional complaints Physical Exam Const General: cooperative, healthy appearing and comfortable Orientation/consciousness: oriented to person, oriented to place and oriented to time HEENT Head: Yes normal to inspection Neck Neck: Yes normal visual inspection Carotids: no bruits Chest Chest palpation & inspection: normal inspection of the chest Resp Effort & Inspection: normal respiratory effort and able to speak in complete sentences Auscultation: clear to auscultation bilaterally, no crackles, no rales, no rhonchi and no wheezes Cardio Rate: regular rate Rhythm: regular rhythm Heart sounds: S1 normal heart sound present and S2 normal heart sound present Bruits: no carotid bruits Peripheral pulses: Peripheral pulses 2+ throughout GI Inspection: Yes normal to inspection Skin Wounds: no wounds Hair: normal Neuro General: oriented to person, oriented to place and oriented to time Cranial nerves: Yes CN's II-XII intact bilaterally and Yes Normal hearing present Cognition (Neuro): normal cognition Motor exam (neuro): 5/5 motor strength present throughout Extrem Other: venous exam: No significant superficial varicosities or spider telangiectasias, minimal edema General: No clubbing, No cyanosis and No edema Psych Appearance: grossly normal Mental Status: mental status grossly normal Speech and movement: Normal speech and movement present Results Reviewed Results Reviewed: CT angiogram dated 10/13/2023 demonstrates aorta measuring 3 cm Assessment & Plan Assessment & Plan (1) AAA (abdominal aortic aneurysm): Code(s): I71.40 - Abdominal aortic aneurysm, without rupture, unspecified Category: Medical Qualifiers: Abdominal aorta location: infrarenal aorta Presence of rupture: without rupture Qualified Code(s): I71.43 - Infrarenal abdominal aortic aneurysm, without rupture Plan: In short his aorta appears to be stable at 3 cm. I do believe that ultrasound was an artifactual read. Would continue routine annual surveillance. Risk factor modification discussed. Orders: Orders US abdominal aortic aneurysm 1 Year I71.43 - Infrarenal abdominal aortic aneurysm, without rupture Coding Level of Care Code Est Pt Level 4 (03860) Diagnoses Infrarenal abdominal aortic aneurysm (AAA) without rupture I71.43 Abdominal aorta location: infrarenal aorta Presence of rupture: without rupture
== END 2023-11-08 09:31 | disposition home or self-care (01) ==
PROVIDERS: PCP Family Medicine; Visit Provider Surgery Vascular Surgery
DX: I71.43 Infrarenal abdominal aortic aneurysm, without rupture (principal)
CPT/HCPCS: 99213

== ENCOUNTER → 2023-11-08 08:40 | Outpatient (BNVA) | payer MEDICARE, MEDICAID, SELFPAY | PROVIDERS: PCP Family Medicine; Visit Provider Surgery Vascular Surgery | DX: I71.43 Infrarenal abdominal aortic aneurysm, without rupture (principal) | CPT/HCPCS: 99212 ==

== ENCOUNTER 2023-11-30 07:41 | Outpatient (REF) | payer MEDICARE, MEDICAID, SELFPAY ==
[2023-11-30 10:52] LABS: MANUAL DIFF FLAG NO
[2023-11-30 11:11] LABS: Basophils Absolute Auto 0.1 X10*3/uL (0.0-0.2); Basophils Percent Auto 1.1 % (0-2); Eosinophils Absolute Auto 0.3 X10*3/uL (0.0-0.4); Eosinophils Percent Auto 4.9 % (0-4); Hematocrit 42.4 % (42.0-52.0); Imm Gran Abs Auto 0.04 X10*3/uL (0.00-0.03); Imm Gran Pct Auto 0.7 % (0.0-0.4); Lymphocytes Absolute Auto 1.1 X10*3/uL (1.2-4.9); Lymphocytes Percent Auto 17.6 % (20-40); Mean Corpuscular Hemoglobin 33.2 pg (27.0-33.0); Mean Corpuscular Volume 100.5 fL (80.0-98.0); Mean Platelet Volume 10.6 fL (9.4-12.4); Monocytes Absolute Auto 0.7 X10*3/uL (0.1-1.2); Monocytes Percent Auto 11.3 % (2-11); Neutrophils Absolute Auto 3.9 x10*3/uL (2.0-8.3); Neutrophils Percent Auto 64.4 % (45-73); Platelet Count 170 X10*3/uL (160-400); Red Blood Count 4.22 X10*6/uL (4.60-5.80); Red Cell Distribution Width 15.6 % (11.0-16.0); White Blood Count 6.1 X10*3/uL (4.8-10.8)
[2023-11-30 11:32] LABS: Alanine Aminotransferase 29 U/L (0-40); Albumin Level 4.1 g/dL (3.5-5.0); Alkaline Phosphatase 59 U/L (39-117); Anion Gap 12 (12-20); Aspartate Amino Transferase 24 U/L (5-37); Bilirubin Total 0.5 mg/dL (0.0-1.0); Blood Urea Nitrogen 13 mg/dL (9-16); Calcium 9.1 mg/dL (8.4-10.2); Carbon Dioxide 25 mmol/L (22-29); Chloride 109 mmol/L (96-108); Estimated Glomerular Filt Rate > 60; Glucose Random 89 mg/dL (60-115); Potassium 3.8 mmol/L (3.3-5.1); Sodium 142 mmol/L (135-145); Total Protein 6.9 g/dL (6.5-8.0); Uric Acid 3.7 mg/dL (3.4-7.0)
[2023-11-30 11:46] LABS: Alanine Aminotransferase 29 U/L (0-40); Albumin Level 4.1 g/dL (3.5-5.0); Alkaline Phosphatase 60 U/L (39-117); Anion Gap 15 (12-20); Aspartate Amino Transferase 24 U/L (5-37); Bilirubin Total 0.5 mg/dL (0.0-1.0); Blood Urea Nitrogen 13 mg/dL (9-16); Calcium 9.2 mg/dL (8.4-10.2); Carbon Dioxide 23 mmol/L (22-29); Chloride 109 mmol/L (96-108); Cholesterol 136 mg/dL (<200); Estimated Glomerular Filt Rate > 60; Free T4 (Free Thyroxine) 1.01 ng/dL (0.71-1.85); Glucose Random 89 mg/dL (60-115); HDL Cholesterol 44 mg/dL (>40); LDL Cholesterol Calculated 71 mg/dL (<100); Potassium 3.7 mmol/L (3.3-5.1); Sodium 143 mmol/L (135-145); Thyroid Stimulating Hormone 2.97 uIU/mL (0.32-4.0); Total Protein 6.9 g/dL (6.5-8.0); Triglycerides 107 mg/dL (<150)
[2023-12-01 20:53] LABS: Triiodothyronine T3 Total 83 ng/dL (76-181)
== END 2023-11-30 07:42 | disposition home or self-care (01) ==
LOC: HO.WFDLDS 07:41
PROVIDERS: Student in an Organized Health Care Education/Training Program; Visit Provider Family Medicine
DX: Z00.00 Encounter for general adult medical examination without abnormal findings (principal); M10.9 Gout, unspecified; E03.9 Hypothyroidism, unspecified
CPT/HCPCS: 36415; 80053; 80061; 84439; 84443; 84480; 84550; 85025

== ENCOUNTER 2023-12-01 07:47 | Outpatient (AMB) | payer MEDICARE, MEDICAID, SELFPAY ==
--- NOTE | 2023-12-01 08:03 | A.OFFVIS_ITS ---
Vital Signs 12/01/23 08:06 Height 5 ft 9 in Weight 276 lb 3.827 oz BMI 40.8 BP 132/80 Blood Pressure Location Lt brachial Position Sitting Pulse 57 Pulse Source Pulse Oximeter Pulse Oximetry (%) 93 Oxygen Delivery Method Room Air Intake Visit Reasons: Gout/CM Intake Note: Patient presents for Gout. Allergies No Known Allergies Allergy (Verified 12/01/23 08:05) Medication List - Last Reconciled 12/01/23 by Gail Noyola MD allopurinol 200 mg (2 x 100 mg) PO DAILY amiodarone 200 mg PO DAILY cetirizine (All Day Allergy (cetirizine)) 10 mg PO DAILY PRN 90 days colchicine 0.6 mg PO DAILY colchicine mg PO dapagliflozin propanediol 10 mg PO DAILY levothyroxine 75 mcg PO DAILY 30 days lisinopril 5 mg PO DAILY 90 days metoprolol tartrate 50 mg (1/2 x 100 mg) PO BID 90 days rivaroxaban (Xarelto) 20 mg PO QPM rosuvastatin 20 mg PO DAILY 90 days HPI Comments Details: 58-year-old male with gout presents for follow-up. On allopurinol 200 mg daily and colchicine 0.6 mg daily. Has been doing quite well overall. No swollen or tender joints. Is able to have full range of motion of his left shoulder. No complaints today Initial history: 56-year-old male with hypertension, morbid obesity, obstructive sleep apnea, dyslipidemia, AFib on Xarelto comes for evaluation of multiple swollen and painful joints. The Condition started about 8 weeks ago when he woke up with severe pain and swelling of his right elbow, right wrist, left wrist, both ankles and both feet. He went to the emergency room and received steroid taper with some improvement however the pain persistent so he went to see his PCP who prescribed a prednisone taper starting at 30 mg a day. He states that the pain and swelling has significantly improved now. He mentions having a similar episode about a year ago with bilateral ankle and feet swelling and pain, he could not walk. He had to use crutches. Patient states that over the last few years he has had similar episodes usually affecting his right foot, that he would attribute it to gout and it would respond to ibuprofen in a few days. he cut down beer drinking and now those episodes are not as frequent. He was never formally diagnosed with gout and was never started on any gout treatment. Denies kidney stones, denies family history of gout. He denies blood or frothy urine. Denies Raynaud's. [facility] Medical History Paroxysmal atrial fibrillation Atrial fibrillation Sleep apnea Persistent atrial fibrillation Elevated liver enzymes Gout Testicular cancer CHF (congestive heart failure) Surgical History History of orchiectomy, unilateral Hx of colonoscopy Family History Mother CVD (cardiovascular disease) Father CVD (cardiovascular disease) Social History Household Members Other:: Same partner- 17 years- Housing: House Alcohol intake: current Alcohol intake frequency: a few times a month Alcohol type: hard liquor Patient Tobacco Use Status: Former Tobacco user e-Cigarette/Vaping Use: Never Used Second Hand Smoke Exposure: No service: No Current occupational status: unemployed and disabled 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 Current occupational exposures/hazards: No Cognitive needs: No Hearing needs: No Vision needs: No Review of Systems Musc Denies arthralgias, Denies joint swelling and Denies stiffness Physical Exam Vital Signs: Last Vital Signs Pulse 57 12/01/23 08:06 BP 132/80 12/01/23 08:06 Pulse Ox 93 12/01/23 08:06 Oxygen Delivery Method Room Air 12/01/23 08:06 BMI result Body Mass Index 40.8 Const General: cooperative, healthy appearing and comfortable Nutritional Appearance: obese morbidly obese Orientation/consciousness: patient oriented x3 Limitations: no limitations HEENT Other: Moist, no oral ulcers Head: Yes normocephalic and Yes atraumatic Resp Effort & Inspection: normal respiratory effort and able to speak in complete sentences Auscultation: rhonchi Skin General skin exam: no rashes or lesions noted Neuro General: patient oriented x3 Extrem Other: No active synovitis today No tophi noted Normal range of motion of shoulders without pain Assessment & Plan Assessment & Plan (1) Gout: Comment: Allopurinol 200 mg qd started 02/2022 Colchicine 0.6 mg bid started 02/2022, reduced to 0.6 qd 08/12, DC 01/2023, recurrent joint swelling, restarted 07/2023( possible mild gout flare-ups triggered by alcohol consumption) Code(s): M10.9 - Gout, unspecified Category: Medical Qualifiers: Gout site: multiple sites Gout etiology: idiopathic Chronicity: chronic Presence of tophus: without tophus Qualified Code(s): M1A.09X0 - Idiopathic chronic gout, multiple sites, without tophus (tophi) Plan: 58-year-old male with gout presents for follow-up. ? Gout diagnosis was based on ( episodic severe inflammatory arthritis symptoms usually affecting his feet, hands that would respond to ibuprofen or prednisone) uric acid level during flare was 6.4.? Today patient is doing quite well with no active synovitis. Uric acid level at target 3.7 mg/dL Continue allopurinol 200 mg daily and colchicine 0.6 mg daily Labs before next visit in 6 months (2) KATHERINE positive: Code(s): R76.8 - Other specified abnormal immunological findings in serum Category: Medical Plan: Low titer positive ASMA, patient was evaluated by Gastroenterology and deemed to have mild fatty liver. Plan I spent 26 minutes reviewing patient's chart, evaluating patient, ordering diagnostic workup, counseling patient and documenting in the chart Orders: Orders Comprehensive Met. Panel 6 Months M1A.09X0 - Idiopathic chronic gout, multiple sites, without tophus (tophi) Uric Acid 6 Months M1A.09X0 - Idiopathic chronic gout, multiple sites, without tophus (tophi) Medications: New colchicine 0.6 mg PO DAILY 90 caps 1RF Coding Level of Care Code Est Pt Level 4 (64932) Diagnoses Idiopathic chronic gout of multiple sites without tophus M1A.09X0 Gout site: multiple sites Gout etiology: idiopathic Chronicity: chronic Presence of tophus: without tophus KATHERINE positive R76.8
[2023-12-01 08:06] VITALS: BP 132/80; PULSE 57; O2SAT 93; BMI 40.8
== END 2023-12-01 08:27 | disposition home or self-care (01) ==
PROVIDERS: PCP Family Medicine; Visit Provider Student in an Organized Health Care Education/Training Program
DX: M1A.09X0 Idiopathic chronic gout, multiple sites, without tophus (tophi) (principal); R76.8 Other specified abnormal immunological findings in serum
CPT/HCPCS: 99214

== ENCOUNTER → 2023-12-01 07:47 | Outpatient (BNVA) | payer MEDICARE, MEDICAID, SELFPAY | PROVIDERS: PCP Family Medicine; Visit Provider Student in an Organized Health Care Education/Training Program | DX: M1A.09X0 Idiopathic chronic gout, multiple sites, without tophus (tophi) (principal); R76.8 Other specified abnormal immunological findings in serum | CPT/HCPCS: 99212 ==

== ENCOUNTER 2024-02-21 07:39 | Outpatient (REF) | payer MEDICARE, MEDICAID, SELFPAY ==
[2024-02-21 11:32] LABS: Alanine Aminotransferase 28 U/L (0-40); Albumin Level 4.5 g/dL (3.5-5.0); Alkaline Phosphatase 58 U/L (39-117); Anion Gap 14 (12-20); Aspartate Amino Transferase 25 U/L (5-37); Bilirubin Total 0.6 mg/dL (0.0-1.0); Blood Urea Nitrogen 21 mg/dL (9-16); Calcium 9.9 mg/dL (8.4-10.2); Carbon Dioxide 26 mmol/L (22-29); Chloride 104 mmol/L (96-108); Estimated Glomerular Filt Rate > 60; Glucose Random 98 mg/dL (60-115); Potassium 3.8 mmol/L (3.3-5.1); Sodium 140 mmol/L (135-145); Total Protein 7.4 g/dL (6.5-8.0)
== END 2024-02-21 07:40 | disposition home or self-care (01) ==
LOC: HO.WFDLDS 07:39
PROVIDERS: Visit Provider Student in an Organized Health Care Education/Training Program
DX: M1A.09X0 Idiopathic chronic gout, multiple sites, without tophus (tophi) (principal)
CPT/HCPCS: 36415; 80053; 84550

== ENCOUNTER 2024-02-24 09:32 | Outpatient (AMB) | payer MEDICARE, MEDICAID, SELFPAY ==
--- NOTE | 2024-02-24 09:50 | A.OFFPC_ITS ---
Vital Signs 02/24/24 09:52 Height 5 ft 9 in Weight 268 lb 4 oz BMI 39.6 BP 110/60 Blood Pressure Location Lt brachial Position Sitting Respiration 12 Pulse 53 Pulse Source Pulse Oximeter Temp 98.0 F Temp Source Oral Pulse Oximetry (%) 97 Oxygen Delivery Method Room Air Intake Visit Reasons: Following up heart issues/abdomen Intake Note: f/u for heart and abd issues Allergies No Known Allergies Allergy (Verified 02/24/24 09:51) Tobacco use date assessed: 10/28/23 Dental Screening Dental Screen Date: 06/24/23 HPI Following up heart issues/abdomen HPI Details 58 y/o male presents to f/u hypertension , hypothyroidism, chronic conditions. Last TSH level checked 11/30/23. TSH had improved from 4.33 to 2.97. He is on levothyroxine 75mcg daily. Blood pressure today 110/60, 53p. He is on lisinopril 5mg, metoprolol 50mg b.i.d. Hx of CAD, paroxysmal AFib, AAA. Notes he plans to see Cardiology at [facility] in March. States he does not feel like he is a good candidate for an ablation for his AFib. Continues taking xarelto, amiodarone 200mg daily as prescribed. AAA and f/u with Dr. Mclain. Appeared to be stable at 3cm and they plan to continue routine annual surveillance. HPI Comments History of Present Illness Details Documentation assistance for Gatito Magdaleno MD, was provided by Cayden Green,? Kiln Placer on 02/24/2024 at 10:38 AM EST. I, Dr. Magdaleno, have read, observed, and verified documentation. [facility] Medical History Paroxysmal atrial fibrillation Atrial fibrillation Sleep apnea Persistent atrial fibrillation Elevated liver enzymes Gout Testicular cancer CHF (congestive heart failure) Surgical History History of orchiectomy, unilateral Hx of colonoscopy Family History Mother CVD (cardiovascular disease) Father CVD (cardiovascular disease) Social History Household Members Other:: Same partner- 17 years- Housing: House Alcohol intake: current Alcohol intake frequency: a few times a month Alcohol t ype: hard liquor Patient Tobacco Use Status: Former Tobacco user e-Cigarette/Vaping Use: Never Used Second Hand Smoke Exposure: No service: No Current occupational status: unemployed and disabled 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 Al Hassan, Marlys Crocker, Jose Black and colleagues, with an educational craig from [employer]. Review of Systems Const Denies chills, Denies fatigue, Denies fever(s), Denies headache(s) and Denies weakness ENT Denies dizziness and Denies headache(s) Card Denies chest pain, Denies lightheadedness, Denies dyspnea and Denies other (Palpitations) Resp Denies cough, Denies dyspnea, Denies wheezing and Denies other ( shortness of breath) Musc Denies numbness and Denies tingling Neuro Denies dizziness, Denies headache(s), Denies numbness, Denies tingling, Denies paresthesias and Denies weakness Psych Denies anxiety and Denies depression Endo Denies fatigue Aller/Immun Denies wheezing Physical exam (Primary Care) Vital Signs: Last Vital Signs Temp 98.0 F 02/24/24 09:52 Pulse 53 02/24/24 09:52 Resp 12 02/24/24 09:52 BP 110/60 02/24/24 09:52 Pulse Ox 97 02/24/24 09:52 Oxygen Delivery Method Room Air 02/24/24 09:52 BMI result Body Mass Index 39.6 Tobacco/Smoking Status: Tobacco use Status Tobacco use date assessed 10/28/23 02/24/24 09:55 Patient Tobacco Use Status Former Tobacco user 02/24/24 09:55 e-Cigarette/Vaping Use Never Used 02/24/24 09:55 Thrive Assessment: Date of Thrive Assessment Date Thrive assessed 08/12/23 02/24/24 09:55 Const General: no acute distress and well developed Nutritional Appearance: well nourished Orientation/consciousness: patient oriented x3 HENMT Head: Yes normocephalic and Yes atraumatic Eyes General: appearance normal, both eyes and all related structures Pupils: Equal, round and reactive pupils present EOM: EOMs intact bilaterally Resp Effort & Inspection: normal respiratory effort Auscultation: clear to auscultation bilaterally Cardio Rate: regular rate Rhythm: regular rhythm Heart sounds: S1 normal heart sound present, S2 normal heart sound present, no gallops, no murmurs and no rubs Neuro General: patient oriented x3 and gait normal Cranial nerves: Yes Equal, round and reactive pupils present Psych Affect: normal affect Coding Level of Care Code Est Pt Level 4 (72519) Diagnoses Hypertension I10 Coronary artery disease I25.10 Hypothyroidism E03.9 Paroxysmal atrial fibrillation I48.0 Infrarenal abdominal aortic aneurysm (AAA) without rupture I71.43 Abdominal aorta location: infrarenal aorta Presence of rupture: without rupture Assessment & Plan Assessment & Plan (1) Hypertension: Code(s): I10 - Essential (primary) hypertension Category: Medical Plan: Blood?pressure?is?well?controlled.??Goal?is?less?than?130/80 Continue?current?medications (2) Coronary artery disease: Code(s): I25.10 - Atherosclerotic heart disease of [place] coronary artery without angina pectoris Category: Medical Plan: Stable Continue?rosuvastatin Maintain?good?blood?pressure?control?as?above Follow-up?with?Cardiology?as?recommended (3) Hypothyroidism: Code(s): E03.9 - Hypothyroidism, unspecified Category: Medical Plan: Last?thyroid?hormone?levels?were?within?normal?range Continue?current?medication He?will?recheck?his?thyroid?hormone?levels?prior?to?next?visit (4) Paroxysmal atrial fibrillation: Code(s): I48.0 - Paroxysmal atrial fibrillation Category: Medical Plan: P atient?is?on?amiodarone?for?rhythm?control?and?metoprolol?for?rate?control.??He? is?on?Xarelto?as?well Currently?appears?in?regular?rhythm?and?rate?is?well?controlled?also. Patient?had?been?sent?to?[facility] ectrophysiology?for?consideration?of?an?ablation?but?he?has?declined?this?and?do es?not?want?to?go?back?to?EP Continue?rhythm?and?rate?control?for?now.??Continue?Xarelto Stable Follow-up?with?Cardiology?as?recommended (5) AAA (abdominal aortic aneurysm): Code(s): I71.40 - Abdominal aortic aneurysm, without rupture, unspecified Category: Medical Qualifiers: Abdominal aorta location: infrarenal aorta Presence of rupture: without rupture Qualified Code(s): I71.43 - Infrarenal abdominal aortic aneurysm, without rupture Plan: AAA?is?stable?at?3?cm?and?he?saw?his?vascular?surgeon,??Rayne Annual?screening Follow-up?with?vascular?surgery?as?recommended Orders: Orders Prostate Specific Antigen Scr Today Z12.5 - Encounter for screening for malignant neoplasm of prostate Comprehensive [place] Log. Panel Fast Today E03.9 - Hypothyroidism, unspecified, Z00.00 - Encounter for general adult medical examination without abnormal findings Thyroid Stimulating Hormone Today E03.9 - Hypothyroidism, unspecified Triiodothyronine T3 Total Today E03.9 - Hypothyroidism, unspecified Free T4 (Free Thyroxine) Today E03.9 - Hypothyroidism, unspecified
[2024-02-24 09:52] VITALS: BP 110/60; PULSE 53; RESP 12; TEMP 36.7; O2SAT 97; BMI 39.6
== END 2024-02-24 10:48 | disposition home or self-care (01) ==
PROVIDERS: PCP Family Medicine; Visit Provider Family Medicine
DX: I10 Essential (primary) hypertension (principal); I48.0 Paroxysmal atrial fibrillation; I71.43 Infrarenal abdominal aortic aneurysm, without rupture; I25.10 Atherosclerotic heart disease of native coronary artery without angina pectoris; E03.9 Hypothyroidism, unspecified

== ENCOUNTER → 2024-02-24 09:32 | Outpatient (BNVA) | payer MEDICARE, MEDICAID, SELFPAY | PROVIDERS: PCP Family Medicine; Visit Provider Family Medicine | DX: I10 Essential (primary) hypertension (principal); I25.10 Atherosclerotic heart disease of native coronary artery without angina pectoris; E03.9 Hypothyroidism, unspecified; I48.0 Paroxysmal atrial fibrillation; I71.43 Infrarenal abdominal aortic aneurysm, without rupture | CPT/HCPCS: 99212 ==

== ENCOUNTER 2024-04-04 08:43 | Outpatient (AMB) | payer MEDICARE, MEDICAID, SELFPAY ==
[2024-04-04 09:03] VITALS: BP 118/60; PULSE 53; BMI 39.4
--- NOTE | 2024-04-04 09:03 | A.OFFVIS_ITS ---
Vital Signs 04/04/24 09:03 Height 5 ft 9 in Weight 266 lb 12.149 oz BMI 39.4 BP 118/60 Blood Pressure Location Lt brachial Position Sitting Pulse 53 Pulse Source Monitor Intake Visit Reasons: 6m follow up Allergies No Known Allergies Allergy (Verified 02/24/24 09:51) Medication List - Last Reconciled 04/04/24 by Erik Molina MD allopurinol 200 mg (2 x 100 mg) PO DAILY amiodarone 200 mg PO DAILY cetirizine (All Day Allergy (cetirizine)) 10 mg PO DAILY PRN 90 days colchicine 0.6 mg PO DAILY colchicine 0.6 mg PO DAILY dapagliflozin propanediol 10 mg PO DAILY 90 days levothyroxine 75 mcg PO DAILY 30 days lisinopril 5 mg PO DAILY 90 days metoprolol tartrate 50 mg (1/2 x 100 mg) PO BID 90 days rivaroxaban (Xarelto) 20 mg PO QPM rosuvastatin 20 mg PO DAILY 90 days HPI Comments Details: Inder comes for follow-up. He did have a EP consultation but said he did not like his consultation. He has not undergone ablation. He remains on amiodarone therapy and comes after a longer gap. His echocardiogram in spring at shown preserved LV ejection fraction with mildly dilated ascending aorta. He also had a myocardial perfusion imaging due to chest tightness which was within normal limits. Uses CPAP regularly. He said he had the best summer more recently. 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 He was working 3 hours a day. He has not had any heart failure symptoms. No bleeding issues or neurologic events. No lightheadedness, syncope. Denies any exertional chest pain. He has lost weight. [facility] Medical History Paroxysmal atrial fibrillation Atrial fibrillation Sleep apnea Persistent atrial fibrillation Elevated liver enzymes Gout Testicular cancer CHF (congestive heart failure) Surgical History History of orchiectomy, unilateral Hx of colonoscopy Family History Mother CVD (cardiovascular disease) Father CVD (cardiovascular disease) Social History Household Members Other:: Same partner- 17 years- Housing: House Alcohol intake: current Alcohol intake frequency: a few times a month Alcohol type: hard liquor Patient Tobacco Use Status: Former Tobacco user e-Cigarette/Vaping Use: Never Used Second Hand Smoke Exposure: No service: No Current occupational status: unemployed and disabled 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 Current occupational exposures/hazards: No Cognitive needs: No Hearing needs: No Vision needs: No Review of Systems Const Denies weakness ENT Denies dizziness Card Denies chest pain, Denies chest pain with activity, Denies syncope, Denies rapid heart rate, Denies pedal edema, Denies edema, Denies leg edema, Denies lightheadedness, Denies palpitations, Denies dyspnea, Denies dyspnea on exertion and Denies orthopnea Resp Denies cough, Denies dyspnea and Denies dyspnea on exertion GI Denies hematochezia and Denies change in stool character Musc Denies abnormal gait, Denies muscle cramps, Denies muscle weakness, Denies numbness, Denies radiating pain into limb and Denies tingling Neuro Denies Abnormal speech present, Denies abnormal gait, Denies dizziness, Denies syncope, Denies numbness, Denies tingling and Denies weakness Endo Denies palpitations Physical Exam Vital Signs: Last Vital Signs Pulse 53 04/04/24 09:03 BP 118/60 04/04/24 09:03 BMI result Body Mass Index 39.4 Const General: cooperative, comfortable, no acute distress, alert and awake Nutritional Appearance: obese morbidly obese Orientation/consciousness: patient oriented x3 Limitations: no limitations HEENT Head: Yes normocephalic and Yes atraumatic Neck Neck: Yes trachea midline, Yes supple and Yes no JVD Chest Chest palpation & inspection: normal inspection of the chest Resp Effort & Inspection: normal respiratory effort Auscultation: clear to auscultation bilaterally Cardio Jugular venous distension: no JVD Palpation: normal PMI Rate: bradycardic Rhythm: regular rhythm Heart sounds: S1 normal heart sound present, S2 normal heart sound present, no click, no gallops, no murmurs and no rubs GI Inspection: Yes obesity Auscultation: normal bowel sounds Skin General skin exam: no rashes or lesions noted Neuro General: patient oriented x3 and no focal motor deficits Speech: No Abnormal speech present Extrem General: Yes no clubbing, cyanosis or edema Office Procedures EKG Details: EKG shows sinus bradycardia with ST T wave changes in the V1 to V3 probably suggestive of RV strain [id number], Complete Assessment & Plan Assessment & Plan (1) Paroxysmal atrial fibrillation: Code(s): I48.0 - Paroxysmal atrial fibrillation Category: Medical Plan: Paroxysmal atrial fibrillation which has remained suppressed on amiodarone therapy. Discussed with him that amiodarone is not a good long-term therapy for him given his age. I strongly recommended him to consider ablation but he wants to defer it at this point time. However at this point time given that he has maintain rhythm and has done well will switch his amiodarone to an alternative agent, class 1 C agent given that he has no significant obstructive CAD or cardiomyopathy at this point time. Will start him on flecainide 150 mg b.i.d. to be started 2 days after stopping his amiodarone. Will follow up with EKG in 1 week's time. Follow up in the clinic in 3 months time. Continue CPAP th erapy. Continue participate in aggressive weight loss program. Consider GLP 1 antagonist in him to help him with weight loss as well as given that he has underlying atherosclerotic disease will help him with reducing atherosclerotic risks. See below. Recommend to continue to participate in regular physical activity. Continue full oral anticoagulation, currently on Xarelto 20 mg daily. Semi annual renal function test should be pursued. (2) CHF (congestive heart failure): Code(s): I50.9 - Heart failure, unspecified Category: Medical Plan: Prior history of congestive heart failure in the setting of atrial fibrillation. Since maintaining rhythm he has done extremely well. Continue rhythm control approach aggressively. See above as management. Continue aggressive blood pressure control which is currently well optimized. Continue metoprolol lisinopril therapy for neurohormonal modulation. Continue Jardiance therapy as well. His overall done well. She needs CPAP therapy. (3) Coronary artery disease: Code(s): I25.10 - Atherosclerotic heart disease of [place] coronary artery without angina pectoris Category: Medical Plan: Nonobstructive CAD as well as abdominal aortic aneurysm. Consider GLP 1 antagonist to help with atherosclerotic disease as well as weight loss. This s hould also help with his overall borderline diabetes status. Continue high- intensity statin therapy. Target goal LDL closer to 60 mg/dL. Continue to participate in physical activity as tolerated. Will follow up in the clinic in 3 months time, sooner p.r.n.. Thank you for allowing me to partake in his care Orders: Orders ECG 3 day holter monitor 6 Weeks I48.0 - Paroxysmal atrial fibrillation Medications: New flecainide Start on 04/07/2024 150 mg PO Q12H 60 tabs 5RF Discontinued amiodarone Discontinued Reason: Doctor's Order 200 mg PO DAILY 90 tabs 1RF Coding Level of Care Code Est Pt Level 4 (95661) Complex EM visit Add On G2211 Diagnoses Paroxysmal atrial fibrillation I48.0 CHF (congestive heart failure) I50.9 Coronary artery disease I25.10 CPT Codes EKG - CPT: [id number]-[id number], Complete ([id number])
== END 2024-04-04 09:26 | disposition home or self-care (01) ==
PROVIDERS: PCP Family Medicine; Visit Provider Internal Medicine Cardiovascular Disease
DX: I48.0 Paroxysmal atrial fibrillation (principal); I50.9 Heart failure, unspecified; I25.10 Atherosclerotic heart disease of native coronary artery without angina pectoris
CPT/HCPCS: 93010; 99214; G2211

== ENCOUNTER → 2024-04-04 08:43 | Outpatient (BNVA) | payer MEDICARE, MEDICAID, SELFPAY | PROVIDERS: PCP Family Medicine; Visit Provider Internal Medicine Cardiovascular Disease | DX: I48.0 Paroxysmal atrial fibrillation (principal); I11.0 Hypertensive heart disease with heart failure; I50.9 Heart failure, unspecified; I25.10 Atherosclerotic heart disease of native coronary artery without angina pectoris | CPT/HCPCS: 93005; 99212 ==

== ENCOUNTER 2024-04-13 09:11 | Outpatient (AMB) | payer MEDICARE, MEDICAID, SELFPAY ==
--- NOTE | 2024-04-13 09:25 | AM.OFFVISNUR ---
Intake Visit Reasons: EKG Allergies No Known Allergies Allergy (Verified 02/24/24 09:51) Nursing Note pt is here for nurse visit with ekg ekg left on providers desk pt has no sysmptoms pt is taking flecainide 150 mg PO 12H Office Procedures EKG [id number], Complete
== END 2024-04-13 10:10 | disposition home or self-care (01) ==
PROVIDERS: PCP Family Medicine; Visit Provider Internal Medicine Cardiovascular Disease
DX: I44.0 Atrioventricular block, first degree (principal); R94.31 Abnormal electrocardiogram [ECG] [EKG]
CPT/HCPCS: 93010

== ENCOUNTER → 2024-04-13 09:11 | Outpatient (BNVA) | payer MEDICARE, MEDICAID, SELFPAY | PROVIDERS: PCP Family Medicine; Visit Provider Internal Medicine Cardiovascular Disease | DX: I44.0 Atrioventricular block, first degree (principal); R94.31 Abnormal electrocardiogram [ECG] [EKG] | CPT/HCPCS: 93005 ==

== ENCOUNTER → 2024-05-11 08:45 | Outpatient (REF) | payer MEDICARE, MEDICAID, SELFPAY | LOC: HO.CARD 08:45 | PROVIDERS: PCP Family Medicine; Visit Provider Internal Medicine Cardiovascular Disease | DX: I48.0 Paroxysmal atrial fibrillation (principal) | CPT/HCPCS: 93242 ==

== ENCOUNTER → 2024-05-11 08:50 | Outpatient (BNV) | payer MEDICARE, MEDICAID, SELFPAY | PROVIDERS: PCP Family Medicine; Visit Provider Internal Medicine Cardiovascular Disease | DX: R00.1 Bradycardia, unspecified (principal) | CPT/HCPCS: 93244 ==

== ENCOUNTER 2024-05-31 09:24 | Outpatient (AMB) | payer MEDICARE, MEDICAID, SELFPAY ==
--- NOTE | 2024-05-31 09:33 | MHC.PC.OV ---
Vital Signs 05/31/24 10:04 Height 5 ft 9 in Weight 168 lb 3 oz BMI 24.8 BP 116/69 Blood Pressure Location Rt brachial Position Sitting Respiration 16 Pulse 59 Pulse Source Pulse Oximeter Temp 98.4 F Temp Source Oral Pulse Oximetry (%) 95 Oxygen Delivery Method Room Air Intake Visit Reasons: 3 month f/u hypertension, chronic conditions Intake Note: patient here for HTN and chronic conditions and c/o shingles Distance Learning Unit Leader Required: No Allergies No Known Allergies Allergy (Verified 05/31/24 10:01) Medication List - Last Reconciled 05/31/24 by Gatito Magdaleno MD allopurinol 200 mg (2 x 100 mg) PO DAILY amiodarone 200 mg PO DAILY colchicine 0.6 mg PO DAILY dapagliflozin propanediol 10 mg PO DAILY 90 days gabapentin 300 mg PO BID 30 days levothyroxine 75 mcg PO DAILY 30 days lidocaine 5% 1 patch topical DAILY 30 days lisinopril 5 mg PO DAILY 90 days metoprolol tartrate 50 mg (1/2 x 100 mg) PO BID 90 days rivaroxaban (Xarelto) 20 mg PO QPM rosuvastatin 20 mg PO DAILY 90 days valacyclovir 500 mg PO Q12H 14 days Tobacco use date assessed: 05/31/24 Dental Screening Dental Screen Date: 05/31/24 Did you have a dental visit in the last 12 months?: Yes Did you have a dental problem in the last 6 months where you did not have access to dental care?: No Was dental information given to patient?: Patient has dentist HPI 3 month f/u hypertension, chronic conditions HPI Details 58 y/o male presents to /[facility] with AAA, chronic conditions. Had followed up with Dr. Molina Cardiology for paroxysmal AFib, CHF, CAD. They had discontinued amiodarone. Started him on flecainide. He continues to / with them. Aortic aneurysm stable at 3cm, followed by Dr. Mclain. Has complaints of ?shingles. Notes he has first noticed symptoms over the weekend. Denies any recent illnesses. HPI Comments History of Present Illness Details Documentation assistance for Gatito Magdaleno MD, was provided by Cayden Green,? Hotel Engineer on 05/31/2024 at 10:36 AM EST. I, Dr. Magdaleno, have read, observed, and verified documentation. ?? PFSH Medical History Paroxysmal atrial fibrillation Atrial fibrillation Sleep apnea Persistent atrial fibrillation Elevated liver enzymes Gout Testicular cancer CHF (congestive heart failure) Surgical History History of orchiectomy, unilateral Hx of colonoscopy Family History Mother CVD (cardiovascular disease) Father CVD (cardiovascular disease) Social History Household Members Other:: Same partner- 17 years- Housing: House Alcohol intake: current Alcohol intake frequency: a few times a month Alcohol type: hard liquor Patient Tobacco Use Status: Former Tobacco user e-Cigarette/Vaping Use: Never Used Second Hand Smoke Exposure: No service: No Current occupational status: unemployed and disabled 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 Al Hassan, Marlys Crocker, Jose Black and colleagues, with an educational craig from [employer]. Review of Systems Const Denies chills, Denies fatigue, Denies fever(s), Denies headache(s) and Denies weakness ENT Denies dizziness and Denies headache(s) Card Denies dyspnea Resp Denies cough, Denies dyspnea, Denies wheezing and Denies other (shortness of breath) Musc Denies numbness and Denies tingling Skin/Breast Reports rash Neuro Denies dizziness, Denies headache(s), Denies numbness, Denies tingling and Denies weakness Psych Denies anxiety and Denies depression Endo Denies fatigue Aller/Immun Denies wheezing Physical exam (Primary Care) Vital Signs: Last Vital Signs Temp 98.4 F 05/31/24 10:04 Pulse 59 05/31/24 10:04 Resp 16 05/31/24 10:04 BP 116/69 05/31/24 10:04 Pulse Ox 95 05/31/24 10:04 Oxygen Delivery Method Room Air 05/31/24 10:04 BMI result Body Mass Index 24.8 Tobacco/Smoking Status: Tobacco use Status Tobacco use date assessed 05/31/24 05/31/24 10:07 Patient Tobacco Use Status Former Tobacco user 05/31/24 09:35 e-Cigarette/Vaping Use Never Used 05/31/24 09:35 Thrive Assessment: Date of Thrive Assessment Date Thrive assessed 08/12/23 05/31/24 09:35 Const General: well developed; No acute distress Nutritional Appearance: well nourished Orientation/consciousness: patient oriented x3 HENMT Head: Yes normocephalic and Yes atraumatic Eyes General: appearance normal, both eyes and all related structures Pupils: Equal, round and reactive pupils present EOM: EOMs intact bilaterally Resp Effort & Inspection: normal respiratory effort Neuro General: patient oriented x3 and gait normal Cranial nerves: Yes Equal, round and reactive pupils present Psych Affect: normal affect Coding Level of Care Code Est Pt Level 4 (54782) Diagnoses Hypertension I10 Coronary artery disease I25.10 Infrarenal abdominal aortic aneurysm (AAA) without rupture I71.43 Abdominal aorta location: infrarenal aorta Presence of rupture: without rupture Hypothyroidism E03.9 Shingles B02.9 Immunization counseling Z71.85 Assessment & Plan Assessment & Plan (1) Hypertension: Code(s): I10 - Essential (primary) hypertension Category: Medical Plan: Blood?pressure?is?controlled.??Goal?is Less?than?130/80 Continue?current?medication?regimen (2) Coronary artery disease: Code(s): I25.10 - Atherosclerotic heart disease of [place] coronary artery without angina pectoris Category: Medical Plan: Stable Follow-up?with?Cardiology?as?recommended (3) AAA (abdominal aortic aneurysm): Code(s): I71.40 - Abdominal aortic aneurysm, without rupture, unspecified Category: Medical Qualifiers: Abdominal aorta location: infrarenal aorta Presence of rupture: without rupture Qualified Code(s): I71.43 - Infrarenal abdominal aortic aneurysm, without rupture Plan: Stable Vascular?surgery?has?ordered?a?follow-up?ultrasound Follow-up?with?vascular?surgery?as?recommended (4) Hypothyroidism: Code(s): E03.9 - Hypothyroidism, unspecified Category: Medical Plan: He?is?taking?levothyroxine?75?mcg?daily?as?prescribed He?will?get?labs?drawn?in?will?follow-up?on?this?at?visit (5) Shingles: Code(s): B02.9 - Zoster without complications Category: Medical Plan: Shingles?eruption?with?vesicular?rash?and?pain?at?left?ribs Will?give?him?a?script?for?valacyclovir,?gabapentin?and?lidocaine?patches. When?rash?completely?resolved,?I?recommended?he?get?his?Shingrix?shots (6) Immunization counseling: Code(s): Z71.85 - Encounter for immunization safety counseling Category: Medical Plan: As?above,?get?his?Shingrix?shot?after?shingles?rash?resolved. Medications: New lidocaine 5% leave on most painful area for up to 12 hrs 1 patch topical DAILY 30 ea 0RF 30 days B02.9 - Zoster without complications valacyclovir 500 mg PO Q12H 28 tabs 0RF 14 days gabapentin 300 mg PO BID 60 caps 0RF 30 days
[2024-05-31 10:04] VITALS: BP 116/69; PULSE 59; RESP 16; TEMP 36.9; O2SAT 95; BMI 24.8
== END 2024-05-31 10:37 | disposition home or self-care (01) ==
LOC: HO.HMCFM 09:24
PROVIDERS: PCP Family Medicine; Visit Provider Family Medicine
DX: I10 Essential (primary) hypertension (principal); I25.10 Atherosclerotic heart disease of native coronary artery without angina pectoris; I71.43 Infrarenal abdominal aortic aneurysm, without rupture; E03.9 Hypothyroidism, unspecified; B02.9 Zoster without complications; Z71.85 Encounter for immunization safety counseling

== ENCOUNTER → 2024-05-31 09:24 | Outpatient (BNVA) | payer MEDICARE, MEDICAID, SELFPAY | PROVIDERS: PCP Family Medicine; Visit Provider Family Medicine | DX: I10 Essential (primary) hypertension (principal); I25.10 Atherosclerotic heart disease of native coronary artery without angina pectoris; I71.43 Infrarenal abdominal aortic aneurysm, without rupture; E03.9 Hypothyroidism, unspecified; B02.9 Zoster without complications; Z71.85 Encounter for immunization safety counseling | CPT/HCPCS: 99212 ==

== ENCOUNTER 2024-07-10 08:58 | Outpatient (AMB) | payer MEDICARE, MEDICAID, SELFPAY ==
--- NOTE | 2024-07-10 09:02 | MHC.OFFVIS ---
Vital Signs 07/10/24 09:03 Height 5 ft 9 in Weight 271 lb 2.697 oz BMI 40.0 BP 140/78 H Blood Pressure Location Lt brachial Position Sitting Pulse 56 Intake Visit Reasons: 3m/holter Intake Note: 3 month follow-up with ekg feeling good Cardiothoracic Physiotherapist Required: No Hydraulic Mechanic: Hydraulic Mechanic Present Accompanied by: Spouse Allergies No Known Allergies Allergy (Verified 05/31/24 10:01) Medication List - Last Reconciled 07/10/24 by Eirk Molina MD allopurinol 200 mg (2 x 100 mg) PO DAILY amiodarone 200 mg PO DAILY colchicine 0.6 mg PO DAILY dapagliflozin propanediol 10 mg PO DAILY 90 days levothyroxine 75 mcg PO DAILY 30 days lidocaine 5% 1 patch topical DAILY 30 days lisinopril 5 mg PO DAILY 90 days metoprolol tartrate 50 mg (1/2 x 100 mg) PO BID 90 days rivaroxaban (Xarelto) 20 mg PO QPM rosuvastatin 20 mg PO DAILY 90 days HPI Comments Details: Inder comes for follow-up. He was switched to flecainide but developed significant dizziness for which the flecainide had to be then stopped. He went back on amiodarone therapy. Has done well on it. Holter monitor done on amiodarone shows predominantly normal sinus rhythm. Patient says breathing has been well. He has been taking all his medications. Denies any prolonged palpitation irregular heartbeat. No bleeding issues or neurologic events. No heart failure symptoms of orthopnea, PND, leg edema. Blood pressures been well controlled. [facility] Medical History Paroxysmal atrial fibrillation Atrial fibrillation Sleep apnea Persistent atrial fibrillation Elevated liver enzymes Gout Testicular cancer CHF (congestive heart failure) Surgical History History of orchiectomy, unilateral Hx of colonoscopy Family History Mother CVD (cardiovascular disease) Father CVD (cardiovascular disease) Social History Household Members Other:: Same partner- 17 years- Housing: House Alcohol intake: current Alcohol intake frequency: a few times a month Alcohol type: hard liquor Patient Tobacco Use Status: Former Tobacco user e-Cigarette/Vaping Use: Never Used Second Hand Smoke Exposure: No service: No Current occupational status: unemployed and disabled 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 Current occupational exposures/hazards: No Cognitive needs: No Hearing needs: No Vision needs: No Review of Systems Const Denies chills, Denies fatigue, Denies fever(s), Denies frequent falls, Denies weakness, Denies weight gain and Denies weight loss ENT Denies dizziness Card Denies chest pain, Denies leg edema, Denies lightheadedness, Denies palpitations, Denies dyspnea, Denies dyspnea on exertion, Denies orthopnea and Denies other (loss of consciousness) Resp Denies cough, Denies dyspnea and Denies dyspnea on exertion GI Denies hematochezia and Denies change in stool character Musc Denies abnormal gait, Denies muscle weakness, Denies numbness, Denies radiating pain into limb and Denies tingling Neuro Denies Abnormal speech present, Denies abnormal gait, Denies dizziness, Denies frequent falls, Denies numbness, Denies tingling and Denies weakness Endo Denies fatigue and Denies palpitations Physical Exam Vital Signs: Last Vital Signs Pulse 56 07/10/24 09:03 BP 140/78 H 07/10/24 09:03 BMI result Body Mass Index 40.0 Const General: cooperative, comfortable, no acute distress, alert and awake Nutritional Appearance: obese morbidly obese Orientation/consciousness: patient oriented x3 Limitations: no limitations HEENT Head: Yes normocephalic and Yes atraumatic Neck Neck: Yes trachea midline, Yes supple and Yes no JVD Chest Chest palpation & inspection: normal inspection of the chest Resp Effort & Inspection: normal respiratory effort Auscultation: clear to auscultation bilaterally Cardio Jugular venous distension: no JVD Palpation: normal PMI Rate: bradycardic Rhythm: regular rhythm Heart sounds: S1 normal heart sound present, S2 normal heart sound present, no click, no gallops, no murmurs and no rubs GI Inspection: Yes obesity Auscultation: normal bowel sounds Skin General skin exam: no rashes or lesions noted Neuro General: patient oriented x3 and no focal motor deficits Speech: No Abnormal speech present Extrem General: Yes no clubbing, cyanosis or edema Office Procedures EKG Details: EKG shows normal sinus rhythm at 56 beats per minute with first-degree AV block with incomplete right bundle-branch block with nonspecific anterior T-wave changes [id number], Complete Assessment & Plan Assessment & Plan (1) Paroxysmal atrial fibrillation: Code(s): I48.0 - Paroxysmal atrial fibrillation Category: Medical Plan: Paroxysmal atrial fibrillation has done extremely well with rhythm control approach. Could not tolerate alternative therapy with flecainide. Discussed about long-term risk of amiodarone and he said he is willing to take that risk of long-term amiodarone therapy. Discussed again the ablation as an option to prevent recurrent atrial fibrillation. However he does not want to consider this at this point in time. Will switch him to Multaq 400 mg b.i.d.. Continue full oral anticoagulation with Xarelto 20 mg daily. Continue CPAP therapy. Continue aggressive blood pressure control. Continue participate in weight loss therapy. Avoidance of stimulants was discussed. Continue with rhythm control approach. (2) Coronary artery disease: Code(s): I25.10 - Atherosclerotic heart disease of [place] coronary artery without angina pectoris Category: Medical Plan: Nonobstructive CAD with vascular disease as well as abdominal aortic aneurysm. Continue aggressive risk factor modification. Continue aggressive risk factor modification. Continue statin therapy with target goal LDL less than 70 mg/dL. Continue full oral anticoagulation with Xarelto and avoid aspirin therapy to reduce bleeding risk. (3) CHF (congestive heart failure): Code(s): I50.9 - Heart failure, unspecified Category: Medical Plan: CHF in the setting of atrial fibrillation. The LV ejection fraction has normalized. Clinically he has done very well with no current diuretic requirement. No signs or symptoms of heart failure. Continue dapagliflozin therapy. Continue aggressive blood pressure control. Continue pursue rhythm control approach as above. Low-salt diet was discussed. Target goal blood pressure less than 130/84. Follow up in the clinic in 3 months time for EKG in 6 months with me. Thank you for allowing me to partake in his care Orders: Orders CA echo transthoracic complete 3 Months I48.0 - Paroxysmal atrial fibrillation Medications: New dronedarone (Multaq) must administer with a meal/food 400 mg PO BID 60 tabs 5RF Coding Level of Care Code Est Pt Level 4 (28244) Complex EM visit Add On G2211 Diagnoses Paroxysmal atrial fibrillation I48.0 Coronary artery disease I25.10 CHF (congestive heart failure) I50.9 CPT Codes EKG - CPT: 31804-[id number], Complete ([id number])
[2024-07-10 09:03] VITALS: BP 140/78; PULSE 56; BMI 40.0
--- OUTSIDE RECORDS SUMMARY | 2024-07-10 09:29 | XMS_ITS | Data Portability ---
Author Organization [facility], , [facility] Address [address] [place] [address] Care Team Providers Care Crew Person Name Role Phone WALDO PANDYA Primary Care Provider SINTIA MARCANO Dry Cleaner Helper [phone] Assessment Encounter Date Assessment Date Assessment LastModified by Organization Details LastModified Time 05/06/2021 05/06/2021 Patient agreed t o this visit via a secure telehealth platform due to the COVID -19 pandemic. Patient understands this is a scheduled visit and the usual procedures with regard to billing and confidentiality apply. Patient was notified that the provider location is [facility] Patient location: home During the visit the patient? s medical history and medical record were reviewed. The patient was notified to call our office for worsening or urgent symptoms. Not available 05/06/2021 15:09:26 Plan of Treatment Reminders Order Date Submit Date Provider Last Modified By Organization Details Last Modified Time Details Appointments None recorded. Lab TSH, serum or plasma 2020 [facility], [address] [place] [address], [address], 12:19:10 BMP, serum or plasma 2020 [facility], [address] [place] [address], [address], 14:13:16 lipid panel, serum 2020 [facility], [address] [place] [address], [address], 14:13:16 CBC 2020 [facility], [address] [facility], [place], [address], 12:48:40 Referral nutritionis t/dietitian referral - A1c 6 2021 [email or web address] Not available 11:36:53 orthopedic surgeon referral 2020 [email or web address] Not available 12:55:17 sleep medicine referral 2020 [facility], [address] [place], [address], 16:06:[address] referral - Worsening SOB. Episodes of apnea during the day. In care w/ cardiology, Dr. Garza. Unable to complete tasks d/t SOB. 2020 CLIVE Hernandez MD, [address] [place], [address], 11:02:56 neurologist referral - Episodes of apnea during day and night. Has [place] and wears CPAP. Daytime episodes occur while patient is focused on tasks, I forget to breath. Hx of childhood epilepsy. 2020 [email or web address] Alondra Valenzuela MD, [address] [place] [address] , [address], [address], 11:32:25 Procedures None recorded. Surgeries None recorded. Imaging None recorded. Medication Orders None recorded. Patient TargetsNo targets recorded. Patient Instructions Encounter Date Encounter Id Patient Instructions Last Modified By Organization Details Last Modified Time 02/26/2021 [id number] complete PFT* - with ABG's [email or web address] Not available 02/26/2021 11:32:20 08/21/2021 [id number] Prostate Cancer Screening using PSA was discussed. The U.S. Preventive Services Task Force advises not to make a PSA test a part of the standard exam for men ages 55-69. Instead they recommend the uncertainties about the test be discussed and ordered only if a patient still wants it. Over their lifetimes as many as 50% or more of men will develop prostate cancer but only 2% of men will of prostate cancer. For men who chose to be screened for prostate cancer if 1000 men are screened with a psa test over a 15 year period there might be 1-2 deaths prevented however 235 men will have a biopsy with risk of infection, bleeding and Pain, 100 men will have their prostate removed by surgery or radiation treatments and 60-70 of those will suffer incontinence or impotence. There is also the risk of anesthesia or radiation complications. For men over 70 prostate cancer screening offered no benefit and risked pain, worry, expense and possibly shorter life expectancy. Not available 08/21/2021 08:31:06 Reason for Referral Sleep Medicine Referral for Obstructive sleep apnea syndrome Referring Physician: Nury Wallace [facility], Encounter Date: 02/26/2021 Weigh Tank Operator Referral for D yspnea Worsening SOB. Episodes of apnea during the day. In care w/ cardiology, Dr. Garza. Unable to complete tasks d/t SOB. Referring Physician: Nury Wallace [facility], Encounter Date: 02/26/2021 Neurologist Referral for Dys pnea Episodes of apnea during day and night. Has [place] and wears CPAP. Daytime episodes occur while patient is focused on tasks, I forget to breath. Hx of childhood epilepsy. Referring Physician: Nury Wallace [facility], Encounter Date: 02/26/2021 Orthopedic Surgeon Referral for Swelling of knee joint Referring Physician: Nury Wallace [facility], Encounter Date: 03/04/2021 Newspaper Deliverer/dietitian Refer ral for Prediabetes A1c 6 Referring Physician: Nury Wallace [facility], Encounter Date: 08/21/2021 Results Created Date Observation Date Name Description Value Unit Range Abnormal Flag Note LastModifiedBy Organization Detail LastModifiedTime 02/27/20 21 02/26/2021 CBC WBC 12.62 K/? ? ?L 4.23-9 .07 high Not Available [address], [address], 02/26/2021 12:48:40 02/27/20 21 02/26/2021 CBC RBC 4.77 M/? ? ?L 4.63-6 .08 Not Available [address], [address], 02/26/2021 12:48:40 02/27/20 21 02/26/2021 CBC HGB 15.0 g/dL 13.7-1 7.5 Not Available [address], [address], 02/26/2021 12:48:40 02/27/20 21 02/26/2021 CBC HCT 46.5 % 40.1-5 1.0 Not Available [address], [address], 02/26/2021 12:48:40 02/27/20 21 02/26/2021 CBC MCV 97.5 fL 79.0-9 2.2 high Not Available [address], [address], 02/26/2021 12:48:40 02/27/20 21 02/26/2021 CBC MCH 31.4 pg 25.7-3 2.2 Not Available [address], [address], 02/26/2021 12:48:40 02/27/20 21 02/26/2021 CBC MCHC 32.3 g/dL 32.3-3 6.5 Not Available [address], [address], 02/26/2021 12:48:40 02/27/20 21 02/26/2021 CBC plt 217 K/? ? ?L 163-33 7 Not Available [address], [address], 02/26/2021 12:48:40 02/27/20 21 02/26/2021 CBC MPV 10.3 fL 9.4-12 .4 Not Available [address], [address], 02/26/2021 12:48:40 02/27/2002/26/2021 CBC neut% 72.1 % 34.0-6 7.9 high Not Available [address], [address], 02/26/2021 12:48:40 02/27/2002/26/2021 CBC neut# 9.10 1.78-5 .38 high Not Available [address], [address], 02/26/2021 12:48:40 02/27/2002/26/2021 CBC lymph % 13.8 % 21.8-5 3.1 low Not Available [address], [address], 02/26/2021 12:48:40 02/27/2002/26/2021 CBC lymph # 1.74 K/? ? ?L 1.32-3 .57 Not Available [address], [address], 02/26/2021 12:48:40 02/27/2002/26/2021 CBC mono% 10.5 % 5.3-12 .2 Not Available [address], [address], 02/26/2021 12:48:40 02/27/2002/26/2021 CBC mono# 1.33 0.30-0 .82 high Not Available [address], [address], 02/26/2021 12:48:40 02/27/20 21 02/26/2021 CBC eo% 2.3 % 0.8-7. 0 Not Available [address], [address], 02/26/2021 12:48:40 02/27/20 21 02/26/2021 CBC eo# 0.29 0.04-0 .54 Not Available [address], [address], 02/26/2021 12:48:40 02/27/20 21 02/26/2021 CBC baso% 0.9 % 0.2-1. 2 Not Available [address], [address], 02/26/2021 12:48:40 02/27/20 21 02/26/2021 CBC baso# 0.11 0.00-0 .08 high Not Available [address], [address], 02/26/2021 12:48:40 02/27/20 21 02/26/2021 CBC RDW-CV 14.4 % 11.6-1 4.4 Not Available [address], [address], 02/26/2021 12:48:40 02/27/20 21 02/26/2021 CBC Ig% 0.400 % 0.000- 1.500 Ig % >0.5 Indic ates possi ble Left Shift Not Available [address], [address], 02/26/2021 12:48:40 02/27/20 21 02/26/2021 CBC Ig# 0.050 0.000- 0.093 Not Available [address], [address], 02/26/2021 12:48:40 02/27/20 21 02/26/2021 CBC NRBC% 0.0 % 0.0-0. 2 Not Available [address], [address], 02/26/2021 12:48:40 02/27/20 21 02/26/2021 CBC NRBC# 0.000 0.000- 0.012 Not Available [address], [address], 02/26/2021 12:48:40 02/27/20 21 02/26/2021 BASIC METAB OLIC PANEL glucose 92 mg/dL 70-100 Not Available [address], [address], 02/26/2021 14:13:16 02/27/20 21 02/26/2021 BASIC METAB OLIC PANEL BUN 16 mg/dL 7-18 Not Available [address], [address], 02/26/2021 14:13:16 02/27/20 21 02/26/2021 BASIC METAB OLIC PANEL creatinine 0.9 mg/dL 0.8-1. 3 Not Available [address], [address], 02/26/2021 14:13:16 02/27/20 21 02/26/2021 BASIC METAB OLIC PANEL B/C 17.8 ratio Not Available [address], [address], 02/26/2021 14:13:16 02/27/20 21 02/26/2021 BASIC METAB OLIC PANEL GFR 92.8 mL/mi n Recom merrill d GFR by the Natio nal Kidne y Found ation >60 mL/mi n/1.7 3m2 - Toshia l <60 mL/mi n/1.7 3m2 - Chron ic Kidne y Disea se <15 mL/mi n/1.7 3m2 - Kidne y Failu re Not Available [address], [address], 02/26/2021 14:13:16 02/27/20 21 02/26/2021 BASIC METAB OLIC PANEL sodium 139 mmol/ L 136-14 5 Not Available [address], [address], 02/26/2021 14:13:16 02/27/20 21 02/26/2021 BASIC METAB OLIC PANEL potassium 4.4 mmol/ L 3.5-5. 1 Not Available [address], [address], 02/26/2021 14:13:16 02/27/2002/26/2021 BASIC METAB OLIC PANEL chloride 102 mmol/ L 96-107 Not Available [address], [address], 02/26/2021 14:13:16 02/27/20 21 02/26/2021 BASIC METAB OLIC PANEL anion gap 12.7 5.0-15 .0 Not Available [address], [address], 02/26/2021 14:13:16 02/27/20 21 02/26/2021 BASIC METAB OLIC PANEL CO2 24 mmol/ L 21-32 Not Available [address], [address], 02/26/2021 14:13:16 02/27/20 21 02/26/2021 BASIC METAB OLIC PANEL calcium 9.3 mg/dL 8.5-10 .3 Not Available [address], [address], 02/26/2021 14:13:16 02/27/20 21 02/26/2021 LIPID PANEL cholesterol 149 mg/dL <200 mg/dl Nilda able 200-2 39 mg/dl Borde rline High >240 mg/dl High Not Available [address], [address], 02/26/2021 14:13:16 02/27/20 21 02/26/2021 LIPID PANEL triglyceride s 126 mg/dL <150 mg/dL Toshia l 150-1 99 mg/dL Borde rline High 200-4 99 mg/dL High >500 mg/dL Very High Not Available [address], [address], 02/26/2021 14:13:16 10/07/02/26/2021 LIPID PANEL direct HDL 40 mg/dL <40 mg/dl - Major Risk for CHD >60 mg/dl - Negat bella Risk for CHD Not Available [address], [address], 02/26/2021 14:13:16 02/27/20 21 02/26/2021 DIREC T LDL direct LDL 86 mg/dL RISK CATEG ORY LDL GOAL _ CHD or CHD Risk Equiv alent s <100 mg/dl (10-y ear risk >20%) 2+ Risk Facto rs <130 mg/dl (10-y ear risk <= 20%) 0-1 Risk Facto r? <160 mg/dl ? Almos t all peopl e with 0-1 risk facto r have a 10 year risk <10%, thus 10 year risk asses ment in peopl e with 0-1 risk facto r is not johnnie jimenez. Not Available [address], [address], 02/26/2021 14:13:17 03/11/20 21 03/11/2021 ARTER IAL BLOOD GAS pH, arterial 7.43 7.35-7 .45 Not Available [facility] [address] [place] [address], [address], 03/11/2021 07:46:45 03/11/20 21 03/11/2021 ARTER IAL BLOOD GAS pCO2, arterial 35.00 mmHg 35.00- 45.00 Not Available [facility] [address] [place] [address], [address], 03/11/2021 07:46:45 03/11/20 21 03/11/2021 ARTER IAL BLOOD GAS pO2, arterial 83.70 mmHg 80.00- 105.00 Not Available [facility] [address] [place], [address], 03/11/2021 07:46:45 03/11/20 21 03/11/2021 ARTER IAL BLOOD GAS HCO3, unspecified 23 mmol/ L 22-26 Not Available [facility] [address] [place] [address], [address], 03/11/2021 07:46:45 03/11/20 21 03/11/2021 ARTER IAL BLOOD GAS base deficit 1.2 mmol/ L 0.0-2. 0 Not Available [facility] [address] [place] [address], [address], 03/11/2021 07:46:45 03/11/20 21 03/11/2021 ARTER IAL BLOOD GAS so2, unspecified 96.40 % 95.00- 98.00 Not Available [facility] [address] [place] [address], [address], 03/11/2021 07:46:45 03/11/20 21 03/11/2021 ARTER IAL BLOOD GAS fo2hb blood gas 95.40 % 94.00- 100.00 Not Available [facility] [address] [place] [address], [address], 03/11/2021 07:46:45 03/11/20 21 03/11/2021 ARTER IAL BLOOD GAS carboxy HGB 0.90 % 0-1.50 Not Available [facility] [address] [place] [address], [address], 03/11/2021 07:46:45 03/11/20 21 03/11/2021 ARTER IAL BLOOD GAS methgb % 0.10 % 0-1.50 Not Available [facility] [address] [place] [address], [address], 03/11/2021 07:46:45 03/11/20 21 03/11/2021 ARTER IAL BLOOD GAS carin's test POSITI VE Not Available [facility] [address] [place], [address], 03/11/2021 07:46:45 03/11/20 21 03/11/2021 ARTER IAL BLOOD GAS ABG site RIGHT RADIAL ARTERY Not Available [facility] [address] [place], [address], 03/11/2021 07:46:45 03/11/20 21 03/11/2021 ARTER IAL BLOOD GAS FiO2 21% FiO2/ L_min Not Available [facility] [address] [place], [address], 03/11/2021 07:46:45 03/11/20 21 03/11/2021 ARTER IAL BLOOD GAS oxygen liters/min RA Not Available [facility] [address] [place], [address], 03/11/2021 07:46:45 03/16/20 21 03/16/2021 TSH TSH 0.98 uIU/m L 0.50-6 .00 The Ameri can Colle ge of Endoc rinol ogy and Ameri can Thyro id Assoc iatio n recom mend goal TSH value s betwe en 0.4-4 .0 mIU/m L. Not Available [address], [address], 03/16/2021 12:19:10 05/07/20 21 05/07/2021 SARS- COV-2 RNA (COVI D-19) , QUALI TATIV E NAAT sarscov2 POSITI VE negati ve abnormal This test has been autho rized by the FDA under an Emerg ency Use Autho rizat ion(E UA) for you by autho rized labs. Not Available [address], [address], 05/07/2021 14:23:28 07/30/19 22 07/29/2021 CBC WBC 7.65 K/? ? ?L 4.23-9 .07 Not Available [address], [address], 07/29/2021 11:16:50 07/30/19 22 07/29/2021 CBC RBC 4.83 M/? ? ?L 4.63-6 .08 Not Available [address], [address], 07/29/2021 11:16:50 07/30/19 22 07/29/2021 CBC HGB 15.1 g/dL 13.7-1 7.5 Not Available [address], [address], 07/29/2021 11:16:50 07/30/19 22 07/29/2021 CBC HCT 45.7 % 40.1-5 1.0 Not Available [address], [address], 07/29/2021 11:16:50 07/30/19 22 07/29/2021 CBC MCV 94.6 fL 79.0-9 2.2 high Not Available [address], [address], 07/29/2021 11:16:50 07/30/19 22 07/29/2021 CBC MCH 31.3 pg 25.7-3 2.2 Not Available [address], [address], 07/29/2021 11:16:50 07/30/19 22 07/29/2021 CBC MCHC 33.0 g/dL 32.3-3 6.5 Not Available [address], [address], 07/29/2021 11:16:50 07/30/19 22 07/29/2021 CBC plt 182 K/? ? ?L 163-33 7 Not Available [address], [address], 07/29/2021 11:16:50 07/30/19 22 07/29/2021 CBC MPV 10.1 fL 9.4-12 .4 Not Available [address], [address], 07/29/2021 11:16:50 07/30/19 22 07/29/2021 CBC neut% 61.5 % 34.0-6 7.9 Not Available [address], [address], 07/29/2021 11:16:50 07/30/19 22 07/29/2021 CBC neut# 4.70 1.78-5 .38 Not Available [address], [address], 07/29/2021 11:16:50 07/30/19 22 07/29/2021 CBC lymph % 22.6 % 21.8-5 3.1 Not Available [address], [address], 07/29/2021 11:16:50 07/30/19 22 07/29/2021 CBC lymph # 1.73 K/? ? ?L 1.32-3 .57 Not Available [address], [address], 07/29/2021 11:16:50 07/30/19 22 07/29/2021 CBC mono% 9.5 % 5.3-12 .2 Not Available [address], [address], 07/29/2021 11:16:50 07/30/19 22 07/29/2021 CBC mono# 0.73 0.30-0 .82 Not Available [address], [address], 07/29/2021 11:16:50 07/30/19 22 07/29/2021 CBC eo% 4.3 % 0.8-7. 0 Not Available [address], [address], 07/29/2021 11:16:50 07/30/19 22 07/29/2021 CBC eo# 0.33 0.04-0 .54 Not Available [address], [address], 07/29/2021 11:16:50 07/30/19 22 07/29/2021 CBC baso% 1.4 % 0.2-1. 2 high Not Available [address], [address], 07/29/2021 11:16:50 07/30/19 22 07/29/2021 CBC baso# 0.11 0.00-0 .08 high Not Available [address], [address], 07/29/2021 11:16:50 07/30/19 22 07/29/2021 CBC RDW-CV 14.4 % 11.6-1 4.4 Not Available [address], [address], 07/29/2021 11:16:50 07/30/19 22 07/29/2021 CBC Ig% 0.700 % 0.000- 1.500 Ig % >0.5 Indic ates possi ble Left Shift Not Available [address], [address], 07/29/2021 11:16:50 07/30/19 22 07/29/2021 CBC Ig# 0.050 0.000- 0.093 Not Available [address], [address], 07/29/2021 11:16:50 07/30/19 22 07/29/2021 CBC NRBC% 0.0 % 0.0-0. 2 Not Available [address], [address], 07/29/2021 11:16:50 07/30/19 22 07/29/2021 CBC NRBC# 0.000 0.000- 0.012 Not Available [address], [address], 07/29/2021 11:16:50 07/30/19 22 07/29/2021 HGB A1C hemoglobin A1C 6.0 % 4.8-6. 0 Goal: <7% in Patie nts with Diabe matt An A1c betwe en 5.7-6 .4% is ident ified as pre-d iabet es and sugge sts risk for progr essio n to diabe matt Two a1c value s of 6.5% or highe r is consi stent with a diagn osis of diabe matt but may need furth er confi rmati on Not Available [address], [address], 07/29/2021 11:52:09 07/30/19 22 07/29/2021 HGB A1C estimated average glucose 125.5 mg/dL Not Available [address], [address], 07/29/2021 11:52:09 07/30/19 22 07/29/2021 LIPID PANEL cholesterol 159 mg/dL <200 mg/dl Nilda able 200-2 39 mg/dl Borde rline High >240 mg/dl High Not Available [address], [address], 07/29/2021 14:35:40 07/30/19 22 07/29/2021 LIPID PANEL triglyceride s 164 mg/dL <150 mg/dL Toshia l 150-1 99 mg/dL Borde rline High 200-4 99 mg/dL High >500 mg/dL Very High Not Available [address], [address], 07/29/2021 14:35:40 07/30/19 22 07/29/2021 LIPID PANEL direct HDL 43 mg/dL <40 mg/dl - Major Risk for CHD >60 mg/dl - Negat bella Risk for CHD Not Available [address] [place], [address], 07/29/2021 14:35:40 07/30/19 22 07/29/2021 LDL - CALCU LATED LDL - calculated 83.2 RISK CATEG ORY LDL GOAL _ CHD or CHD Risk Equiv alent s <100 mg/dl (10-y ear risk >20%) 2+ Risk Facto rs <130 mg/dl (10-y ear risk <= 20%) 0-1 Risk Facto r? <160 mg/dl ? Almos t all peopl e with 0-1 risk facto r have a 10 year risk <10%, thus 10 year risk asses ment in peopl e with 0-1 risk facto r is not neces barbara. Not Available [address], [address], 07/29/2021 14:35:40 07/30/19 22 07/31/2021 NT PROBN P nt probnp 880 pg/mL high For Heart Failu re (HF) diagn osis, refer ence range s in patie nts with dyspn ea are based on You SOLORIO, et al., J Am Elvis Cardi ol. 2018; 71:11 91-12 00. 18-49 years : < or = 300 pg/mL Toshia l, HF unlik rosa > or = 450 pg/mL High proba bilit y of HF 50-75 years : < or = 300 pg/mL Toshia l, HF unlik rosa > or = 900 pg/mL High proba bilit y of HF >75 years : < or = 300 pg/mL Toshia l, HF unlik rosa > or = 1800 pg/mL High proba bilit y of HF For patie nts with coron zaida heart disea se, the optim al risk categ ory cut point s for incid ent HF or CVD (<253 pg/mL men, <372 pg/mL women ) are based on Roxana Choi et al., J Am Elvis Cardi ol. 2007; 50:20 5-14. For patie nts with exist ing HF, the optim al risk categ ory cut point for HF progr essio n (<300 pg/mL ) is based on Lilian HERNANDEZ, et al., Clin Bioch em. 2010; 43:14 05-10 . For addit ional infor prieto carney e refer to http: //[facility] alo elam.que stdia gnost ics.c om/fa q/FAQ (This link is being provi ded for infor demetrice barton/ educuche shultz purpo ses only. ) Not Available [facility] [address], [address], 07/31/2021 01:40:20 07/30/19 22 07/31/2021 COMP. METAB OLIC PANEL glucose 92 mg/dL 70-100 Not Available [address], [address], 07/31/2021 11:38:22 07/30/19 22 07/31/2021 COMP. METAB OLIC PANEL BUN 16 mg/dL 7-18 Not Available [address], [address], 07/31/2021 11:38:22 07/30/19 22 07/31/2021 COMP. METAB OLIC PANEL creatinine 0.9 mg/dL 0.8-1. 3 Not Available [address], [address], 07/31/2021 11:38:22 07/30/19 22 07/31/2021 COMP. METAB OLIC PANEL B/C 17.8 ratio Not Available [address], [address], 07/31/2021 11:38:22 07/30/19 22 07/31/2021 COMP. METAB OLIC PANEL GFR >=60ML /MIN mL/mi n normal >=60m L/min - Toshia l or midly reduc ed <60mL /min- Decre ased kidne y funct ion <15mL /min - Kidne y failu re [facility] calcu lates estim ated Glome rular Filtr ation Rate (eGFR ) using the Chron ic Kidne y Disea se Epide miolo gy Colla borat ion (CKD- EPI) Equat ion (Isai hartmann et. al 2020) as recom merrill d by the Natio nal Kidne y Found ation . eGFR is based on age, serum creat inine , and sex. CKD-E PI does not calcu late eGFR by race, does not apply to child ev (age <18 years ), and shoul d not be used in pregn trevor. Not Available [address], [address], 07/31/2021 11:38:22 07/30/19 22 07/31/2021 COMP. METAB OLIC PANEL sodium 142 mmol/ L 136-14 5 Not Available [address], [address], 07/31/2021 11:38:22 07/30/19 22 07/31/2021 COMP. METAB OLIC PANEL potassium 4.5 mmol/ L 3.5-5. 1 HEMS= Speci men Sligh tly Hemol yzed. Chem Resul ts may be effec mercy. Not Available [address], [address], 07/31/2021 11:38:22 07/30/19 22 07/31/2021 COMP. METAB OLIC PANEL chloride 106 mmol/ L 96-107 Not Available [address], [address], 07/31/2021 11:38:22 07/30/19 22 07/31/2021 COMP. METAB OLIC PANEL anion gap 10.2 5.0-15 .0 Not Available [address], [address], 07/31/2021 11:38:22 07/30/19 22 07/31/2021 COMP. METAB OLIC PANEL CO2 26 mmol/ L 21-32 Not Available [address], [address], 07/31/2021 11:38:22 07/30/19 22 07/31/2021 COMP. METAB OLIC PANEL calcium 9.0 mg/dL 8.5-10 .3 Not Available [address], [address], 07/31/2021 11:38:22 07/30/19 22 07/31/2021 COMP. METAB OLIC PANEL total protein 7.0 g/dL 6.4-8. 2 Not Available [address], [address], 07/31/2021 11:38:22 07/30/19 22 07/31/2021 COMP. METAB OLIC PANEL albumin 3.7 g/dL 3.4-5. 0 Not Available [address], [address], 07/31/2021 11:38:22 07/30/19 22 07/31/2021 COMP. METAB OLIC PANEL globulin 3.3 g/dL Not Available [address], [address], 07/31/2021 11:38:22 07/30/19 22 07/31/2021 COMP. METAB OLIC PANEL A/G 1.1 ratio 0.8-2. 0 Not Available [address], [address], 07/31/2021 11:38:22 07/30/19 22 07/31/2021 COMP. METAB OLIC PANEL total bilirubin 0.60 mg/dL 0.00-1 .00 Not Available [address], [address], 07/31/2021 11:38:22 07/30/19 22 07/31/2021 COMP. METAB OLIC PANEL AST 18 U/L 0-37 Not Available [address], [address], 07/31/2021 11:38:22 07/30/19 22 07/31/2021 COMP. METAB OLIC PANEL ALT 29 U/L 6-63 Not Available [address], [place], [address], 07/31/2021 11:38:22 07/30/19 22 07/31/2021 COMP. METAB OLIC PANEL alk. phos. 71 U/L 50-136 Not Available [address], [place], [address], 07/31/2021 11:38:22 03/04/20 21 03/04/2021 xr knee 4 or more views (left ) This image report has been auto-f inaliz ed and has not been read by a Radiol ogist. Interp retati on has been includ ed in the [facility] er encoun ter note for this date of johanne bender. Final result NURY WALLACE [email or web address] [facility] [address] [facility], [place], [address], 03/04/2021 13:26:08 03/11/20 21 03/11/2021 PFT No observ ation record ed. [email or web address] Not Available 2020 10:23:38 03/11/20 21 03/11/2021 xr chest Pa and later al 2 views HISTOR Y: Shortn ess breath . COMPAR KIT: CT chest 009. FINDIN GS: PA and latera l views of the chest obtain ed. The lungs appear clear. No eviden ce of pleura l effusi ons or pneumo thorax . Great vessel and cardio medias tinal contou rs are stable . Heart size within normal limits . Loss of height of the body of T9 is stable . IMPRES DARRIN: No eviden ce of acute cardio pulmon zaida diseas e. Electr onical ly Signed by: Shaggy Avitia on 2020 8:24 AM Interp reted by: Shaggy Avitia MD Signed by: Shaggy vAitia MD Final result Pt states shortn ess of breath NURY WALLACE [facility] [address], [place], [address], 04/22/2021 12:21:24 03/11/2003/11/2021 pulmo nary funct ion test* No observ ation record ed. [email or web address] Not Available 2020 12:08:50 03/11/2002/26/2021 pulmo nary funct ion test* No observ ation record ed. [email or web address] Not Available 2020 12:08:51 03/12/20 elect rocar diogr am No observ ation record ed. [email or web address] Not Available 2020 12:04:45 05/01/2004/29/2021 trans -thor acic echoc ardio gram (TTE) (PROC ) No observ ation record ed. miguelDarin [facility] [address], [place], [address], 05/03/2021 16:57:11 05/13/20 21 04/29/2021 trans -thor acic echoc ardio gram (TTE) (PROC ) No observ ation record ed. jacqui Amie [facility] Cardiovasla r [facility] [address], [place], [address], 05/14/2021 09:06:00 Result Notes None recorded. Problems Name Problem SNOMED Code Status Onset Date Resolution Date Notes Provider Name and Address Organization Details Recorded Time Obstruct bella sleep apnea syndrome 03196538 Active 2017 severe; AHI 40.5 2017 Aakash Awan MD [address] [place] [address], [address] , [facility] 8 19:02:02 Chronic atrial fibrilla tion 853587505 Active 2018 Aakash Awan MD [address] [place] [address], [address] , [facility] 9 16:33:35 Hyperten sive disorder 14331054 Active 2019 Nury Wallace, [address], [address] , [facility] 0 09:19:05 Diastoli c heart failure 626968352 Active 2019 Nury Wallace, [address], [address] , [facility] 0 09:20:40 Epilepsy 40843121 Active 2020 childhoo d Nury Wallace, [address], [address] , [facility] 1 10:24:46 COVID-19 290676241 Active 202005/05/21 Nury Wallace, [address], [address] , [facility] 1 15:06:45 Prediabe matt 436952107 Active 2021 A1c = 6.[address], LDN [address] [place], [address] , [facility] 2 10:01:32 Body mass index 40+ - severely obese 339360877 Active [address], LDN [address] [place], [address] , [facility] 2 10:01:44 Seminal vesiculi tis 13241368 Active 2008 Not Available [facility] 3 03:10:06 Disorder of male genital organ 52293214 Completed 04/11/2013 Not Available [facility] 3 02:03:54 Cellulit is and abscess of face 375201884 Completed 200604/11/2013 Not Available [facility] 3 02:03:46 Osteoart hritis of knee 283125688 Active 2002 Not Available [facility] 3 03:10:06 Primary malignan t neoplasm of testis 79354507 Active 2002 Not Available [facility] 3 03:10:06 Sensorin eural hearing loss 27056804 Active 2006 Not Available [facility] 3 03:10:06 Impacted cerumen 56667428 Completed 200104/11/2013 Not Available [facility] 3 02:02:11 Acute suppurat bella otitis media without spontane ous rupture of ear drum 96280672 Completed 200104/11/2013 Not Available [facility] 3 02:02:40 Joint pain in ankle and foot Completed 200704/11/2013 Not Available [facility] 3 02:01:25 Localize d, primary osteoart hritis 655111744 Active 2002 Not Available [facility] 3 03:10:06 Psychose xual dysfunct ion associat ed with inhibite d libido 573186322 Active 2005 Not Available [facility] 3 03:10:06 Knee pain Completed 200204/11/2013 Not Available [facility] 3 02:00:41 Acute conjunct ivitis 88500693 Completed 200504/11/2013 Not Available [facility] 3 02:02:28 Elevated blood-pr essure reading without diagnosi s of hyperten darrin 874469734 Completed 200506/21/2019 STANFORD Beavers [address] [place] [address], [address] , [facility] 0 09:18:58 Low back pain 935879747 Active Not Available [facility] 3 03:10:06 Pain in limb 14671991 Completed 200704/11/2013 Not Available [facility] 3 02:00:55 Torsion of testis 27615589 Active Not Available [facility] 3 03:10:06 Problem Notes None recorded. Procedures Surgical History Date Name Laterality Status Provider Name and Address Organization Details Recorded Time prevention-card iovascular risk reduction counseling completed SHAYLA Choudhury [facility] 08/13/2020 11:04:40 1 prevention-sendy al alcohol misuse screening completed SHAYLA Choudhury [facility] 08/13/2020 11:04:40 0 prevention-card iovascular risk reduction counseling completed Lizbeth Richter [facility] 07/11/2019 11:20:40 0 prevention-sendy al alcohol misuse screening completed Lizbeth Richter [facility] 07/11/2019 11:20:40 9 [address]: Therapeutic Exercise completed Sheng Mccarthy, PT [address] [place], [address], [facility] 11/14/2018 07:23:17 9 Treatment and Advice completed Sheng Mccarthy, PT [address] [place], [address], [facility] 11/14/2018 07:06:14 9 81634: Therapeutic Exercise completed Sheng Mccarthy, PT [address] [place], [address], [facility] 11/09/2018 11:06:20 9 Treatment and Advice completed Sheng Mccarthy, PT [address] [place], [address], [facility] 11/09/2018 11:05:58 9 25685: Therapeutic Exercise completed Sheng Mccarthy, PT [address] [place], [address], [facility] 11/02/2018 11:07:46 9 Treatment and Advice completed Sheng Mccarthy, PT [address] [place], [address], [facility] 11/02/2018 11:01:20 9 Physical Activity Counselling completed Sheng Mccarthy, PT [address] [place], [address], [facility] 10/26/2018 10:31:25 9 47089: PT Eval Low Complexity completed Sheng Mccarthy, PT [address] [place], [address], [facility] 10/26/2018 10:31:25 9 Treatment and Advice completed Sheng Mccarthy, PT [address] [place], [address], [facility] 10/26/2018 10:54:22 8 Post hospital/SNF follow-up/Trans itional Care completed Mary Lou Redd [facility] 10/13/2017 15:54:56 Imaging Results Imaging Date Name Status LastModified by Organization Details LastModified Time 03/04/2021 xr knee 4 or more views (left) completed [address] [facility] [address] [place] [address], [address], 03/04/2021 13:26:08 03/11/2021 PFT completed Information no t available 03/11/2021 10:23:38 03/11/2021 xr chest Pa and lateral 2 views completed [email or web address] [facility] [address] [place], [address], 04/22/2021 12:21:24 03/11/2021 pulmonary function test* completed Information not available 03/12/2021 12:08:50 02/26/2021 pulmonary function test* completed Information not available 03/12/2021 12:08:51 03/12/2021 electrocardiogram completed Informa tion not available 03/12/2021 12:04:45 04/29/2021 trans-thoracic echocardiogram (TTE) (PROC) completed [email or web address] [address], [place], [address], 05/03/2021 16:57:11 04/29/2021 trans-thoracic echocardiogram (TTE) (PROC) completed [facility] [address], [place], [address], 05/14/2021 09:06:00 Procedure Notes None recorded. Medical Equipment None Reported. Allergies No known drug allergies Medications Name Sig Start Date Stop Date Status Note LastModified by Organization Details LastModified Time amoxicill in 500 mg capsule 06/29 completed Not Available Not Available Not Available furosemid e 40 mg tablet TAKE 1 TABLET BY MOUTH EVERY DAY 11/15 completed Not Available Not Available Not Available prednison e 10 mg tablet 12/08 completed Not Available Not Available Not Available torsemide 20 mg tablet TAKE 1 TABLET BY MOUTH EVERY DAY 12/08 completed Not Available Not Available Not Available cetirizin e 10 mg tablet TAKE 1 TABLET BY MOUTH EVERY DAY 04/08 completed Not Available Not Available Not Available metoprolo l tartrate 100 mg tablet TAKE 1 TABLET BY MOUTH TWICE DAILY 12/08 completed Not Available Not Available Not Available prednison e 20 mg tablet TAKE 2 TABLETS BY MOUTH EVERY DAY FOR 5 DAYS 02/26 completed Not Available Not Available Not Available acetamino phen 500 mg tablet TAKE 2 TABLETS BY MOUTH 3 TIMES A DAY FOR 10 DAYS NEEDED MODERATE PAIN 02/26 completed Not Available Not Available Not Available amiodaron e 400 mg tablet TAKE 1 TABLET TWICE DAILY FOR 1 WEEK. THEN TAKE 1 DAILY 06/29 completed PATIENT HAS STOPPED Not Available Not Available Not Available cephalexi n 500 mg capsule 06/26 completed Not Available Not Available Not Available metoprolo l tartrate 50 mg tablet take 2 tablets by mouth every 12 hours 09/29 completed Not Available Not Available Not Available Cortispor in 3.5 mg/mL-10, 000 unit/mL-1 % ear solution 07/25 completed Take 3.00 drops 4 times a day Not Available Not Available Not Available Cartia XT 240 mg capsule,e xtended release TK 1 C PO QD 06/29 completed PATIENT HAS STOPPED Not Available Not Available Not Available bisacodyl 5 mg tablet,de layed release TK 4 TS PO 1 TIME THE DAY B PRO WITH 8 OUNCES OF WATER FOR 1 DAY 06/21 completed Not Available Not Available Not Available azelastin e 137 mcg (0.1 %) nasal spray USE 2 SPRAYS IN EACH NOSTRIL DAILY 04/08 completed did not help much - 02/26/21 S Not Available Not Available Not Available albuterol sulfate HFA 90 mcg/actua tion aerosol inhaler INHALE 2 PUFFS BY MOUTH EVERY 4 HOURS 04/08 completed did not help much - 02/26/21 S Not Available Not Available Not Available colchicin e 0.6 mg tablet TK 1 T PO BID FOR 14 DAYS 06/26 completed Not Available Not Available Not Available Percocet 5 mg-325 mg tablet Take 1 tablet every 8 hours by oral route as needed for 7 days. 12/22 completed Not Available Not Available Not Available indometha ricardo ER 75 mg capsule,e xtended release TAKE 1 CAPSULE BY MOUTH ONCE DAILY AFTER A MEAL 02/26 completed Not Available Not Available Not Available cyclobenz aprine 5 mg tablet 10/05 completed PRN- has not taken this in a while Not Available Not Available Not Available rosuvasta tin 10 mg tablet TAKE 1 TABLET BY MOUTH EVERY DAY active Not Available Not Available No t Available Aspir-81 take one tablet daily 09/29 completed Not Available Not Available Not Available GaviLyte- G 236 gram-22.7 4 gram-6.74 gram-5.86 gram oral solution 06/21 completed Not Available Not Available Not Available Xarelto 20 mg tablet TAKE 1 TABLET BY MOUTH EVERY DAY AT 5 PM WITH FOOD 12/08 completed Not Available Not Available Not Available Anoro Ellipta 62.5 mcg-25 mcg/actua tion powder for inhalatio n 08/21 completed Not Available Not Available Not Available Vitals Date Recorded Body height Body mass index (BMI) Body weight Heart rate Systolic blood pressure Diastolic blood pressure Provider Name and Address Organization Details Last Updated DateTime 1 177.8 cm 40.4 kg/m2 817888. 56 g 80 /min 102 mm[Hg] 74 mm[Hg] SHAYLA Choudhury [facility] 09:59:33 Date Recorded Oxygen saturation Oxygen saturation in Arterial blood by Pulse oximetry Provider Name and Address Organization Details Last Updated DateTime 02/26/2021 99 % 99 % STANFORD Beavers [address] [place] [address], [address], [facility] 02/26/2021 10:29:02 Date Recorded Body height Body mass index (BMI) Body weight Heart rate Systolic blood pressure Diastolic blood pressure Provider Name and Address Organization Details Last Updated DateTime 1 177.8 cm 39 kg/m2 839857. 12 g 72 /min 108 mm[Hg] 78 mm[Hg] Mili Buckley [facility] 1 12:04:48 Date Recorded Body height Body mass index (BMI) Body weight Heart rate Systolic blood pressure Diastolic blood pressure Provider Name and Address Organization Details Last Updated DateTime 1 177.8 cm 40.9 kg/m2 990913. 83 g 64 /min 106 mm[Hg] 78 mm[Hg] Miil Buckley [facility] 1 09:00:02 Date Recorded Body height Body temperature Provider N yoli and Address Organization Details Last Updated DateTime 05/06/2021 177.8 cm 98.9 [degF] Mili Buckley [facility] 05/06/2021 14:39:38 Date Recorded Body height Body mass index (BMI) Body weight Heart rate Systolic blood pressure Diastolic blood pressure Provider Name and Address Organization Details Last Updated DateTime 2 177.17 cm 41.5 kg/m2 733476. 01 g 72 /min 122 mm[Hg] 84 mm[Hg] Mili Buckley [facility] 2 10:24:50 Social History Question Answer Notes LastModified by Organization Details LastModified Time Tobacco Smoking Status Never Smoker Rare marijuana Not Available [facility] 10/15/2010 02:07:33 What Is Your Level Of Alcohol Consumption? Moderate 2 Drink 3 Timeds A Week Information not available 08/21/2021 Do You Wear A Helmet When Biking? No Information not available 08/13/2020 What Is Your Level Of Caffeine Consumption? Moderate 2 Cups Daily Information not available 08/21/2021 What Type Of Diet Are You Following? REGULAR Information not available 06/29/2018 Which Illicit Or Recreational Drugs Have You Used? Every Day MJ Information not available 08/21/2021 Do You Or Have You Ever Used E-cigarettes Or Vape? 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 4 [email or web address] Information not available 07/11/2019 Are There Any Guns Present In Your Home? No Information not available 06/29/2018 Do You Use Insect Repellent Routinely? Yes Information not available 08/21/2021 Live Alone Or With Others? With Others Girlfriend Information not available 06/29/2018 Marital Status Single Information not available 04/08/2011 Mosquito Repellent Used Routinely Yes Information not available 06/29/2018 What Was The Date Of Your Most Recent Tobacco Screening? 08/21/2021 Information not available 08/21/2021 How Many Children Do You Have? 0 [email or web address] Information not available 07/11/2019 Do You Use Your Seat Belt Or Car Seat Routinely? Yes Information not available 08/21/2021 Seat Belts Used Routinely No Not [email or web address] Information not available 08/13/2020 Are You Sexually Active? Yes Monogamous evy Information not available 07/25/2008 Smoke Alarm In Home Yes Information not available 06/29/2018 Do You Have Smoke And Carbon Monoxide Detectors In Your Home? Yes Information not available 08/21/2021 Are You Passively Exposed To Smoke? No Information not available 08/21/2021 Do You Or Have You Ever Used Smokeless Tobacco? Never Used Smokeless Tobacco [email or web address] Information not available 07/11/2019 How Much Tobacco Do You Smoke? No [email or web address] Information not available 07/11/2019 What Types Of Sporting Activities Do You Participate In? None Information not available 06/29/2018 General Stress Level Medium Information not available 08/13/2020 Do You Use Any Illicit Or Recreational Drugs? No Information not available 08/21/2021 Do You Use Sunscreen Routinely? Yes Information not available 06/29/2018 How Many Years Have You Smoked Tobacco? 0 Information not available 07/11/2019 Do You Or Have You Ever Used Any Other Forms Of Tobacco Or Nicotine? No Information not available 08/21/2021 How Many Days In The Past Year Have You Consumed 5 Or More Drinks? 0 Information not available 08/21/2021 Sex: Unknown Functional Status Question Answer Note LastModified by Organizat ion Details LastModified Time What is your exercise level? Occasional try to walk and move aroun Information not available 08/21/2021 Mental Status None recorded. Family History Relationship Description Onset Age of this Age Resolved Age Notes LastModified by Organization Details LastModified Time Father Heart disease two mI's and stent in his 60's; 2017 [email or web address] Not available 09/29/2017 15:23:08 Notes:mother-sudden cardiac Father- sudden cardiac Medical History No medical history recorded. Immunizations Vaccine Type Date Status Note Provider Nam e and Address Organization Details Recorded Time Td(adult) unspecified formulation 6 completed Not Available [facility] 04/07/2011 05:21:29 Tdap 9 completed Not Available [facility] 06/09/2019 02:37:59 Td(adult) unspecified formulation 9 completed Marlys weber [facility] 10/05/2018 08:12:21 COVID-19, mRNA, LNP-S, PF, 30 mcg/0.3 mL dose 1 completed SHAYLA Choudhury [facility] 02/26/2021 09:55:38 COVID-19, mRNA, LNP-S, PF, 30 mcg/0.3 mL dose 1 completed HSAYLA Choudhury [facility] 02/26/2021 09:56:01 Past Encounters Encounter ID Performer Location Encounter Start Date Encounter Closed Date Diagnosis/Indication Diagnosis SNOMED-CT Code Diagnosis ICD10 Code Diagnosis Note [id number] [facility] [address] [place] [address] 04/16/2002 10:58:35 06/12/2008 02:02:29 [id number] FP, [facility], [address]ICE [address] [place] [address] 01/15/2003 09:59:23 06/12/2008 02:02:29 [id number] Radiology , [facility] [address] [place] [address] 01/15/2003 10:29:01 06/12/2008 02:02:29 [id number] Radiology , [facility] [address] [place] [address] 01/15/2003 00:00:00 06/12/2008 02:02:29 [id number] FP, [facility], [address] [place] [address] 02/05/2003 13:27:50 02/06/2003 08:08:26 [id number] LAB - [facility] [address] [place] [address] 02/11/2003 08:27:33 02/11/2003 08:27:36 [id number] , [facility], [address] [place] [address] 10/07/2005 14:47:01 06/12/2008 02:02:29 [id number] LAB - [facility] [address] [place] [address] 10/07/2005 15:39:32 10/07/2005 15:39:44 [id number] FP, [facility], [address] [place] [address] 02/03/2006 09:00:30 02/03/2006 13:59:06 [id number] FP, [facility], [address] [place] [address] 02/09/2006 10:00:36 02/10/2006 08:46:13 [id number] FP, [facility], [address] [place] [address] 02/09/2006 10:00:36 02/10/2006 08:46:13 [id number] FP, [facility], [address] [place] [address] 08/10/2006 09:01:47 08/11/2006 12:17:05 [id number] FP, [facility], [address]ICE [address] [place] [address] 04/25/2007 08:43:18 06/12/2008 02:02:29 [id number] FP, [facility], [address] [place] [address] 05/09/2007 14:18:55 06/12/2008 02:02:29 [id number] [facility], OFFICE [address] [facility] [place] [address] 06/28/2007 09:17:18 06/12/2008 02:02:29 [id number] [facility] 70 [facility] BOY [id number] 06/28/2007 09:44:31 06/29/2007 09:24:43 [id number] [facility], OFFICE [address] [facility] [address] 07/25/2008 14:42:45 07/29/2008 15:05:32 [id number] LAB - [facility] 70 [facility] BOY [id number] 07/25/2008 15:46:39 07/25/2008 15:46:47 [id number] [facility], OFFICE [address] [facility] [address] 12/15/2010 11:02:39 12/16/2010 08:57:36 [id number] [facility], OFFICE [address] [facility] [address] 12/21/2010 14:11:01 12/22/2010 13:19:46 [id number] Physical Therapy, [facility] [address] [place] [address] 12/23/2010 11:20:27 12/25/2010 08:01:42 [id number] Physical Therapy, [facility] [address] [place] [address] 12/25/2010 08:14:07 12/25/2010 09:34:56 [id number] Aakash Awan MD [facility], OFFICE [address] [facility] [address] 09/29/2017 14:11:10 09/29/2017 15:30:09 Atrial fibrillation 37894847 I48.91 [id number] MD MARY Pitt [facility], OFFICE [address] [facility] [address] 10/13/2017 15:35:32 10/14/2017 09:10:50 Atrial fibrillation 38458973 I48.91 [id number] MD MARY Pitt [facility], OFFICE [address] [facility] [place] [address] 11/15/2017 14:17:18 11/16/2017 16:35:37 Snoring 13791637 R06.83 Atrial fibrillation 4943 6004 I48.91 [id number] Aakash Awan MD , [facility], [address] [place] [address] 06/29/2018 15:32:22 06/29/2018 17:02:06 Adult health examination 370932071 Z00.00 see Risk Assessment and Lifestyle Change Counseling section above Counseling 603404474 Z71 .9 Depression screening 171 035047 Z13.89 depression screening tool administer ed, entered into emr, scored and discussed, time greater than 7.5 minutes Active or passive immunization 093595780 Z23 Obstructiv e sleep apnea syndrome 78224681 G47.33 Localized, primary osteoarthritis 846972249 M19.91 Primary ma lignant neoplasm of testis 09113264 C62.90 Chronic at rial fibrillation 511436904 I48.2 Osteoarthr itis of knee 316262452 M17.9 [id number] MARU Waldron , [facility], [address] [place] [address] 10/05/2018 07:42:52 10/05/2018 08:26:47 Chronic atrial fibrillation 850044026 I48.2 continue on Xarelto, not missing doses Dislocatio n of shoulder joint 083912557 S43.005A [id number] Sheng Mccarthy , PT Physical Therapy, [facility] [address] [place] [address] 10/26/2018 10:18:22 10/27/2018 08:18:10 Dislocation of shoulder joint 859573586 S43.005D 53 year old {{female m kyara*}} with findings most consistent with {{acute* c hronic rec urrent}} left shoulder dislocatio n on 09/28/2018 . He has appropriat e shoulder stiffness and apprehensi on. He's had 2 subsequent episodes of subluxatio n. He's had one prior dislocatio n in the recent past. X-rays indicate no bony injury to the glenoid with a questionab le Hill-Sachs deformity. We will progress his rehabilita tion slowly and encourage caution over the next few weeks. Patient has significan t functional limitation in their {{activiti es of daily living act ivities of daily living and work capacity* activities of daily living and exercise capacity a ctivities of daily living and recreation }}. Skilled physical therapy is needed to safely and progressiv rosa address impairment s and functional limitation s as outlined below. Patient Goals: Be able to avoid subsequent non-trauma tic dislocatio n. Be able to reach, push, pull, lift and carry with his left arm for ADLs and work without limitation s due to shoulder pain, stiffness or recurrent instabilit y.. Clinical Goals: 1. Demonstrat e symmetric pain free active, passive and resisted motions of the {{neck and upper extremitie s shoulder * elbow, forearm and wrist trun k and lower extremitie s hip knee ankle}}. 2. Demonstrat e sufficient muscular endurance to meet functional demands. Treatment Plan: Patient to return for {{4 6 8* 1 0}} visits over {{4 8 12*} } weeks. We expect significan t change in pain, impairment and function in this time frame. Treatment to Include: Therapeuti c exercise and manual therapy [id number] Sheng Mccarthy , PT Physical Therapy, [facility] [address] [place] [address] 11/02/2018 10:20:32 11/03/2018 08:25:19 Dislocation of shoulder joint 575347799 S43.005D Patient Goals: Be able to avoid subsequent non-trauma tic dislocatio n. Be able to reach, push, pull, lift and carry with his left arm for ADLs and work without limitation s due to shoulder pain, stiffness or recurrent instabilit y.. Clinical Goals: 1. Demonstrat e symmetric pain free active, passive and resisted motions of the {{neck and upper extremitie s shoulder * elbow, forearm and wrist trun k and lower extremitie s hip knee ankle}}. 2. Demonstrat e sufficient muscular endurance to meet functional demands. [id number] MARU Waldron FP, [facility], [address] [place] [address] 11/09/2018 07:50:07 11/09/2018 08:31:02 Dislocation of shoulder joint 544513285 S43.005A resolving- continue PT Screening for malignant neoplasm of colon 479896634 Z12.11 will consult PCP [id number] Sheng Mccarthy , PT Physical Therapy, [facility] [address] [place] [address] 11/09/2018 10:13:22 11/09/2018 11:29:33 Dislocation of shoulder joint 570404354 S43.005D Patient Goals: Be able to avoid subsequent non-trauma tic dislocatio n. Be able to reach, push, pull, lift and carry with his left arm for ADLs and work without limitation s due to shoulder pain, stiffness or recurrent instabilit y.. Clinical Goals: 1. Demonstrat e symmetric pain free active, passive and resisted motions of the {{neck and upper extremitie s shoulder * elbow, forearm and wrist trun k and lower extremitie s hip knee ankle}}. 2. Demonstrat e sufficient muscular endurance to meet functional demands. [id number] Sheng Mccarthy , PT Physical Therapy, [facility] [address] [place] [address] 11/14/2018 06:58:27 11/14/2018 11:41:07 Dislocation of shoulder joint 020656472 S43.005D Patient Goals: Be able to avoid subsequent non-trauma tic dislocatio n. Be able to reach, push, pull, lift and carry with his left arm for ADLs and work without limitation s due to shoulder pain, stiffness or recurrent instabilit y.. Clinical Goals: 1. Demonstrat e symmetric pain free active, passive and resisted motions of the {{neck and upper extremitie s shoulder * elbow, forearm and wrist trun k and lower extremitie s hip knee ankle}}. 2. Demonstrat e sufficient muscular endurance to meet functional demands. [id number] MARU Waldron , [facility], [place] [place] [address] 12/18/2018 16:12:19 12/19/2018 08:07:39 Screening for disorder [id number] Z11.59 Screening for malignant neoplasm of colon 155046322 Z12.11 Referral for a DIRECT booked colonoscop y. This patient is a healthy ASA Class 1 or 2 patient (only mild systemic disease), or a STABLE, well controlled insulin dependent diabetic. They do not have serious cardiac disease ie [place]/angiopl asty within 1 year, symptomati c CHF; renal failure with CKD 4 or 5; take Coumadin, Plavix, Aggrenox, etc. Chronic at rial fibrillation 978241099 I48.2 F/U w/ cardiology Sleep apnea 49670427 G47 .30 Pt to contact insurance company re coverage for cpap machine. Discussed nutrition. Consider nutritioni in future. [id number] STANFORD Beavers, [facility], [address] [place] [address] 06/21/2019 08:50:11 06/21/2019 09:16:12 Chronic atrial fibrillation 956488622 I48.20 Taking Xarelto 20 mg 1 tablet daily. In care with with Amie Carvajal and [facility] , next appt. 10/2019. F/u at upcoming wellness exam. Diastolic heart failure 717595523 I50.30 Recent ECHO on 05/01 showed intact right and left systolic function. EF 60-65%. Right atrial dilation and right ventricle enlargemen t. Grade 1 diastolic dysfunctio n with trace MR. Hypertensive disorder 38 475333 I10 at goal , BP <140/90. Will continue taking Metoprolol Tartrate 100 mg tablet BID. F/u at upcoming wellness exam. Obstructiv e sleep apnea syndrome 98241899 G47.33 Has not picked up CPAP machine yet. In care with [facility]. Advised to f/u wit them VALERY. F/u at upcoming wellness exam. [id number] STANFORD Beavers , [facility], [address] [place] [address] 07/11/2019 10:39:58 07/11/2019 12:07:24 Adult health examination 476059050 Z00.00 Colonoscop y 2018, repeat in 10 yrs. Counseling 033819421 Z71 .9 including cardiovasc ular risk reduction counseling Depression screening 171 829125 Z13.89 depression screening tool administer ed, entered into emr, scored and discussed, time greater than 7.5 minutes Screening for alcohol abuse 129359953 Z13.39 Scored 4. Screening for disorder 550774469 Z11.59 Gout 95789080 M10.9 R big toe. Will switch from NSAID to colchicine 1 tablet twice a day until sxs resolve. Will f/u if sxs persist or worsen. Chronic at rial fibrillation 532218149 I48.20 Taking Xarelto 20 mg 1 tablet daily. In care with with Amie Carvajal [facility] , next appt. 10/2019. F/u at upcoming wellness exam. Diastolic heart failure 722700573 I50.30 Recent ECHO on 05/01 showed intact right and left systolic function. EF 60-65%. Right atrial dilation and right ventricle enlargemen t. Grade 1 diastolic dysfunctio n with trace MR. Hypertensive disorder 38 301459 I10 at goal, BP <140/90. Will continue taking Metoprolol Tartrate 100 mg tablet BID. F/u at upcoming wellness exam. Obstructiv e sleep apnea syndrome 16509789 G47.33 Has not picked up CPAP machine yet. In care with [facility]. Advised to f/u wit them VALERY. 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 CT yealy for 10 yrs - no f/u needed. 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 In care with with Amie Carvajal and [facility] , recent appt. 04/2020 w/ ECHO. next appt. 10/2019. F/u at upcoming wellness exam. Obstructiv e sleep apnea syndrome 17904289 G47.33 Wearing CPAP machine nightly with improvemen t. Active or passive immunization 979985915 Z23 Diastolic heart failure 903371305 I50.30 Recent ECHO on 04/2020 showed minimal change from previous ECHO. EF 55-60%. Mild concentric hypertroph y left ventricula r , mild mitral regurgitat ion, and mild trace tricuspid regurgitat ion. BNP on 06/19 is 989. Hypertensive disorder 38 788346 I10 at goal, BP <130/80. Will continue taking Metoprolol Tartrate 100 mg tablet BID. Rx to pharmacy for BP kit. Advised to check BP 1-2 times a week and record readings to review at upcoming wellness. F/u at upcoming wellness exam. Mixed hyperlipidemia 267 550058 E78.2 ASCVD risk 9.7%, recommenda tion is moderate intensity statin. Patient agrees to plan - will start Rosuvastat in 10 mg 1 tablet daily. Dyspnea 246039339 R06.00 On exertion. Denies chest pain associated . Denies hx of asthma or COPD. Never Smoker. [facility] This PCP left VM at [facility], Dr. Garza's office r/t ordering stress test. This PCP has not heard back. Would also consider PFT. Cough 96930197 R05 At night. Describes PND. PND vs GERD vs CHF. Flonase has not helped in past. Will try OTC allergy medication to see if sxs improve. If no improvemen t would consider treating for GERD. [id number] STANFORD Beavers , [facility], [address] [place] [address] 08/13/2020 11:00:24 08/14/2020 09:27:58 Adult health examination 798270006 Z00.00 Colonoscop y 2018, repeat in 10 yrs. UTD on Td. Counseling 811914314 Z71 .9 including cardivascu lar risk reduction counseling Depression screening 171 719281 Z13.31 depression screening tool administer ed, entered into emr, scored and discussed, time greater than 7.5 minutes Screening for alcohol abuse 608568696 Z13.39 Scored 4. Hypertensive disorder 38 326690 I10 at goal, BP <130/80. Will continue taking Metoprolol Tartrate 100 mg tablet BID. Rx to pharmacy for BP kit. Advised to check BP 1-2 times a week. Agreed to BP clinic w/ f/u. Obstructiv e sleep apnea syndrome 67166676 G47.33 Wearing CPAP machine nightly with improvemen t. Chronic at rial fibrillation 627845234 I48.20 Taking Xarelto 20 mg 1 tablet daily and Metoprolol 100 mg 1 tablet BID. In care with with Amie Carvajal and [facility] , recent appt. 04/2020 w/ ECHO. next appt. 10/2019. F/u at upcoming wellness exam. Active or passive immunization 439021655 Z23 Diastolic heart failure 708019551 I50.30 Recent ECHO on 04/2020 showed minimal change from previous ECHO. EF 55-60%. Mild concentric hypertroph y left ventricula r , mild mitral regurgitat ion, and mild trace tricuspid regurgitat ion. BNP on 06/19 is 989. Mixed hyperlipidemia 267 975674 E78.2 ASCVD risk 9.7%, recommenda tion is moderate intensity statin. Patient agrees to plan - will start Rosuvastat in 10 mg 1 tablet daily. Dyspnea 971589148 R06.00 On exertion. Denies chest pain associated . Denies hx of asthma or COPD. Never Smoker. Will order [facility]. This PCP left VM at [facility], Dr. Garza's office r/t ordering stress test. This PCP has not heard back. Would also consider PFT. Consulted with SE. Cough 27316207 R05 At night. Describes PND. PND vs GERD vs CHF. Flonase has not helped in past. Limited improvemen t from antihistam ine. Will try antihistam ine nasal spreay. If no improvemen t would consider treating for GERD. Dyspnea on exertion 6084 5006 R06.09 Obstructiv e dz va cardiac. In care w/ cardiology - recent stress test abnormal d/t exertional dyspnea, angina equivalent and non-dx ST-T change. This PCP will f/u with cardiology regarding f/u care - cardiac cath or nuclear stress test? Does endorse some cough and wheeze. Will try albuterol and order for PFT. F/u in 4-6 weeks or sooner if sxs worsen. [id number] Marya Diaz , [facility], [address] [place] [address] 02/26/2021 09:39:16 02/27/2021 09:47:54 Obstructive sleep apnea syndrome 64157961 G47.33 Wearing CPAP machine nightly with improvemen t. Dyspnea 372031505 R06.00 Dyspnea/ap neaIn care w/ cardio, Dr. Garza, who recommende d decrease of ETOH and PFTstress test abnormal d/t exertional dyspnea, angina equivalent and non-dx ST-T change.ECH O done 04/2020Had appt. on 10/28, angiogram and right heart catheter plannedDo not have records - patient reports procedures were reassuring No chest pain, arm pain on exertion, palpitatio ns I just forget to breathe. O ccurs 2-3 times a day when focusing on something else.Robyn green often reminds him to breathe. He becomes dizzy. Will order PFT, and STAT referrals to pulm. and neurology. Advised pt. to call 911 if unable to catch breath or if sxs increase in frequency, duration, or severity.F /u in 1 mos. Chronic at rial fibrillation 351707659 I48.20 Taking Xarelto 20 mg 1 tablet daily and Metoprolol 100 mg 1 tablet BID. Still in A fib. In care with with Amie Carvajal and [facility] , recent appt. 04/2020 w/ ECHO. next appt. F/u at upcoming wellness exam. Diastolic heart failure 848976543 I50.30 Recent ECHO on 04/2020 showed minimal change from previous ECHO. EF 55-60%. Mild concentric hypertroph y left ventricula r , mild mitral regurgitat ion, and mild trace tricuspid regurgitat ion. Hypertensive disorder 38 470480 I10 at goal, BP <130/80. Will continue taking Metoprolol Tartrate 100 mg tablet BID. Rx to pharmacy for BP kit. Advised to check BP 1-2 times a week. Agreed to BP clinic w/ f/u. Localized, primary osteoarthritis 096003751 M19.91 Treated for arthritic gout at [facility] in early ight foot.Treat ment for 10 days. 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 CT yearly for 10 yrs - no f/u needed. [id number] [facility]ANF[facility] Beavers [facility] [address] [place] [address] 03/04/2021 11:47:57 03/05/2021 09:09:[address] Hernandez requesting TSH. Central sl eep apnea syndrome 49710689 G47.[address] Hernandez. In care w/ David. PFT ordered. Has f/u in 4-6 weeks. Swelling o f knee joint 015258684 M25.469 Edema and tenderness in lower medial knee. occurred after kneeling to fix car on Tuesday. Worsening. Using crutches. Advised to seek care at [facility] walk-in clinic to expedite and consolidat e care. Patient agrees with plan. [id number] STANFORD Beavers [facility], [address] [place] [address] 04/08/2021 08:44:30 04/23/2021 14:49:13 Obstructive sleep apnea syndrome 62615158 G47.33 Wearing CPAP machine nightly with joeymen t. Recently titrated up. Has f/u w/ sleep medicine in 2021. Central sl eep apnea syndrome 13364377 G47.31 CPAP machine was titrated up, feeling better. Has f/u w/ sleep medicine - May.In care w/ Dr. Clark, EKG showed incomplete bundle branch block. Chest x-ray normal. PFT showed moderate obstructio n.TSH normal.F/u w/ pulm. in April for possible neuromuscu lar testing, sniff test, and chest CT. Hypertensive disorder 38 631473 I10 at goal, BP <130/80. Will continue taking Metoprolol Tartrate 100 mg tablet BID. F/u at wellness.s Diastolic heart failure 140575648 I50.30 Recent ECHO on 04/2020 showed minimal change from previous ECHO. EF 55-60%. Mild concentric hypertroph y left ventricula r , mild mitral regurgitat ion, and mild trace tricuspid regurgitat ion. Chronic at rial fibrillation 601211049 I48.20 Taking Xarelto 20 mg 1 tablet daily and Metoprolol 100 mg 1 tablet BID. Still in A fib. In care with with Amie Carvajal and [facility] , recent appt. 04/2020 w/ ECHO. next appt. F/u at upcoming wellness exam. [id number] STANFORD Beavers, [facility], [address] [place] [address] 05/06/2021 14:35:02 05/18/2021 10:05:53 COVID-19 808279845 U07.1 Rapid test positive on 05/05. Known exposure 1 week ago. Onset of sxs 05/02.Red estion, BLACK, fever, SOB. Known COVID exposure. Advised PCR COVID testing and staying home for 10 days from the onset of sxs and until 24 hours of improved sxs and no fever without use of antipyreti c (regardles s of test result). Reviewed supportive therapy - rest, hydration, eating well, steaming face. Can try Mucinex. OK to use Ibuprofen or Tylenol for pain/fever . F/u if sxs worsen or persist. Pt. agrees to plan. Patient interested in pursuing monoclonal antibody treatment. Patient case sent to nurse triage. Diastolic heart failure 691107825 I50.30 Recent ECHO on 04/2020 showed minimal change from previous ECHO. EF 55-60%. Mild concentric hypertroph y left ventricula r , mild mitral regurgitat ion, and mild trace tricuspid regurgitat ion. Hypertensive disorder 38 298210 I10 at goal, BP <130/80. Will continue taking Metoprolol Tartrate 100 mg tablet BID. F/u at wellness.s Obstructiv e sleep apnea syndrome 20075058 G47.33 Wearing CPAP machine nightly with improvemen t. Recently titrated up. Has f/u w/ sleep medicine in 2021. [id number] STANFORD Beavers, [facility], [address] [place] [address] 08/21/2021 10:08:56 09/01/2021 11:26:52 Adult health examination 253880299 Z00.00 Colonoscop y 2018, repeat in 10 yrs. UTD on Td. Counseling 263097560 Z71 .9 including cardiovasc ular risk reduction counseling Depression screening 171 181100 Z13.31 depression screening tool administer ed, entered into emr, scored and discussed, time greater than 7.5 minutes Screening for alcohol abuse 588369359 Z13.39 Scored 4. Obstructiv e sleep apnea syndrome 79120550 G47.33 Wearing CPAP machine nightly with improvemen t. Recently titrated up. Has f/u w/ sleep medicine soon. Chronic at rial fibrillation 197797960 I48.20 Taking Xarelto 20 mg 1 tablet daily and Metoprolol 100 mg 1 tablet BID. Still in A fib. In care with with Dr. Garza, Amie and [facility] , recent appt. 07/14/2021. COVID-19 888025853 U07.1 Rapid test positive on 05/05/21 Diastolic heart failure 657672438 I50.30 In care w/ / Greg. EF 45-50%. Mild concentric hypertroph y left ventricula r , mild mitral regurgitat ion, and mild trace tricuspid regurgitat ion. Has upcoming ECHO and visit. Epilepsy 91368956 G40.90 9 Childhood. Hypertensive disorder 38 708527 I10 at goal, BP <130/80. Will continue taking Metoprolol Tartrate 100 mg tablet BID. F/u in 3 mos Localized, primary osteoarthritis 309755063 M19.91 Treated for arthritic gout at [facility] in early JanuaryR ight foot. 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 CT yearly for 10 yrs - no f/u needed. Prediabetes 780255514 R7 3.03 A1c 6. Central sl eep apnea syndrome 43642962 G47.31 CPAP machine was titrated up, feeling better. Has f/u w/ sleep medicine - May.In care w/ Dr. Clark, EKG showed incomplete bundle branch block. Chest x-ray normal. PFT showed moderate obstructio n.TSH normal.Had reccent F/u w/ pulm, neuromuscu lar testing, sniff test, and chest CT. Health Concerns Section Related Observation LastModified by Organization Detai ls LastModified Time None Recorded Concern Status LastModified by Organization Details LastModified Time None Recorded Advance Directives Directive None Recorded Payers Encounter Date Sequence Insurance Name Policy Number Policy Bradford Covered Member ID Bradford Member ID Guarantor Name 02/26/2021 1 FORMERLY [facility] - DIRECT CONNECTORCARE TYPE I (HMO) [id number] Inder Aste [id number] Inder Aste 03/04/2021 1 FORMERLY [facility] - DIRECT CONNECTORCARE TYPE I (HMO) [id number] Inder Aste [id number] 1 Inder Aste 04/08/2021 1 FORMERLY [facility] - DIRECT CONNECTORCARE TYPE I (HMO) [id number] Inder Aste [id number] 1 Inder Aste 05/06/2021 1 FORMERLY [facility] - DIRECT CONNECTORCARE TYPE I (HMO) [id number] Inder Aste [id number] 1 Inder Aste 08/21/2021 1 FORMERLY [facility] - DIRECT CONNECTORCARE TYPE I (HMO) [id number] Inder Aste [id number] 1 Inder Aste Notes Date Note Type Note Provider Name and Address Organization Details Recorded Time text/html Patient filed Social security disability on 01/23/21, would like pcp to send a record to [facility].Pt reports his breathing issue is restricting his from getting works done. Hx of epilepsy grew out of it at age 17 or 18 y/o.Does not believe he has had sxs since. Dyspnea/apneaIn care w/ cardio, Dr. Garza, who recommended decrease of ETOH and PFTstress test abnormal d/t exertional dyspnea, angina equivalent and non-dx ST-T change.ECHO done 04/2020Had appt. on 10/28, angiogram and right heart catheter plannedDo not have records - patient reports procedures were reassuringNo chest pain, arm pain on exertion, palpitations I just forget to breathe. Occurs 2-3 times a day when focusing on something else.Girlfriend often reminds him to breathe. He becomes dizzy. Reducing alcohol1-2 shots every few days. Treated for arthritic gout at [facility] in early JanuaryRight foot.Treatment for 10 days. A FibCardioversion in 2018.Taking Xarelto 20 mg 1 tablet daily.In care with with Dr. Garza, Amie and [facility], last appt. 10/28, and recent stress test. Has f/u in 6 mos and in 1 year.Recent ECHO, no real changes.F/u in 6 mos.Denies chest/arm pain on exertion or palpitations. HyperlipidemiaRecently starting Rosuvastatin 10 mg 1 tablet daily.Tolerating medication well. 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 Diastolic CHFRecent ECHO on 04/2020 shows minimal changes from previous ECHO.showed intact right and left systolic function. EF 55-60%. Right atrial dilation and right ventricle enlargement. Mild trace tricuspid regurgitation. has a past medical history of testicular cancer with right radical orchiectomy 1999 for seminoma, and he has been free of that since. CT yearly for 10 yrs - no f/u needed. 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 STANFORD Beavers [address] [place] [address], [phone], [facility] 02/26/2021 10:31:57 1 text/html kneeling under car - TuesdayW up and knee was swollenWorseningPain is moderate.Taking Ibuprofen.Moving worsens sxsUsing crutchesUnstable without crutchesDenies numbness or tingling. STANFORD Beavers [address] [place] [address], [phone], [facility] 03/04/2021 13:08:24 1 text/html F/u today on knee pain and central sleep apnea ETOH: 1 shot every couple of days.CPAP machine was titrated up, feeling better. Has f/u w/ sleep medicine - May.In care w/ Dr. Clark, EKG showed incomplete bundle branch block. Chest x-ray normal. PFT showed moderate obstruction.TSH normal.F/u w/ pulm. in April for possible neuromuscular testing, sniff test, and chest CT. Knee pain has resolved. Suspected gout. Per previous visit:Patient filed Social security disability on 01/23/21, would like pcp to send a record to [facility].Pt reports his breathing issue is restricting his from getting works done. Hx of epilepsy grew out of it at age 17 or 18 y/o.Does not believe he has had sxs since. Dyspnea/apneaIn care w/ cardio, Dr. Garza, who recommended decrease of ETOH and PFTstress test abnormal d/t exertional dyspnea, angina equivalent and non-dx ST-T change.ECHO done 04/2020Had appt. on 10/28, angiogram and right heart catheter plannedDo not have records - patient reports procedures were reassuringNo chest pain, arm pain on exertion, palpitations I just forget to breathe. Occurs 2-3 times a day when focusing on something else.Girlfriend often reminds him to breathe. He becomes dizzy. Reducing alcohol1-2 shots every few days. Treated for arthritic gout at [facility] in early JanuaryRight foot.Treatment for 10 days. A FibCardioversion in 2018.Taking Xarelto 20 mg 1 tablet daily.In care with with Alton Carvajalpden and [facility], last appt. 10/28, and recent stress test. Has f/u in 6 mos and in 1 year.Recent ECHO, no real changes.F/u in 6 mos.Denies chest/arm pain on exertion or palpitations. HyperlipidemiaRecently starting Rosuvastatin 10 mg 1 tablet daily.Tolerating medication well. 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 Diastolic CHFRecent ECHO on 04/2020 shows minimal changes from previous ECHO.showed intact right and left systolic function. EF 55-60%. Right atrial dilation and right ventricle enlargement. Mild trace tricuspid regurgitation. has a past medical history of testicular cancer with right radical orchiectomy 1999 for seminoma, and he has been free of that since. CT yearly for 10 yrs - no f/u needed. 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 STANFORD Beavers [address] [place] [address], [place], [address], [facility] 04/08/2021 09:19:15 1 text/html tested positive for covid yesterday. pt reports he has off and on cough. pt reports he has fever, highest 101 *f yesterday. girlfriend tested neg. Tested positive for COVID by rapid test.Onset of sxs 05/02Mild BLACK, fever on and off, congestion.Fever of 100.1 FBaseline of SOB, may be worsening.CPAP machineDenies cough and chest pain.Eating and drinking OK.Picked up inhaler this morning, has not used STANFORD Beavers [address] [place], [address], [facility] 05/06/2021 15:09:30 2 text/html Risk Assessment and Lifestyle Change Counseling 50-64Reported bypatient.Coronary Artery Disease Risk Assessment:Family History of Coronary Artery Disease;Personal history coronary artery disease Breast Cancer Risk Assessment:No family history of breast cancer; No history of breast cancer or dcis Colon Cancer Risk Assessment:No family history of colon polyps or cancer; No history of adenomatous colon polyps Lung Cancer Risk Assessment:Never smoked; No asbestos exposure Fracture Risk Assessment:No unexplained fracture Cognitive/Behavioral Risk Assessment:No personal history of mental illness; No family history of mental illness Safety Risk Assessment:No evidence of abuse/neglect Diet:Counseled about eating a diet low in trans and saturated fats and high in fiber, fruits and vegetables; Discussed the value of a Mediterranean diet , and eating more fruits and vegetables Exercise counseling:Discussed the importance of daily physical activity; Discussed the importance of weight bearing exercise Safety:Counseled about home safety including use of smoke detectors, CO detectors, keeping home water temperature less than 120; Counseled about use of seat belts 56 y/o male presents for wellness exam. Patient filed Social security disability on 01/23/21, would like pcp to send a record to [facility].Pt reports his breathing issue is restricting his from getting works done. Hx of epilepsy grew out of it at age 17 or 18 y/o.Does not believe he has had sxs since. Reducing alcohol1-2 shots every few days. A FibCardioversion in 2018.Taking Xarelto 20 mg 1 tablet daily.In care with with Amie Carvajal and [facility], last appt. 10/28, and recent stress test. Has f/u in 6 mos and in 1 year.Recent ECHO, no real changes.F/u in 6 mos.Denies chest/arm pain on exertion or palpitations. [id number] 6 [place]/central apneaRecently dx with severe [place] by [facility].Started CPAP machine last year.Improving sleep at night - no longer waking up SOB.Has upcoming appointment for adjustments.In care w/ Dr. Clark, EKG showed incomplete bundle branch block. Chest x-ray normal. PFT showed moderate obstruction. A FibCardioversion in 2018.Taking Xarelto 20 mg 1 tablet daily.In care with with Amei Carvajal and [facility], last appt. 07/14/2021, recent stress test. Has f/u in 6 mos and in 1 year.Recent ECHO, no real changes.F/u in 6 mos.Denies chest/arm pain on exertion or palpitations. HyperlipidemiaRecently starting Rosuvastatin 10 mg 1 tablet daily.Tolerating medication well. 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 Diastolic CHFHas upcoming ECHO. cardiology 07/14 and has f/u visit post ECHO.showed intact right and left systolic function. EF 55-60%. Right atrial dilation and right ventricle enlargement. Mild trace tricuspid regurgitation.F/u in 6 mos. Hx of gout - current flare up.First episode over 10 yrs ago - worsened by ETOH - stopped drinking beerNo flare ups since last summer.Taking ibuprofen 600 mg BID. has a past medical history of testicular cancer with right radical orchiectomy 1999 for seminoma, and he has been free of that since. CT yearly for 10 yrs - no f/u needed. 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 Likes to hike and walk 2-3 times per week.Diet: steaks, hamburgers, fish, chicken, veggies.ETOH: hard alcohol 2-3 times a week. 3 drinks.EOTH: marijuana.Sexual partner: no changeDenies urinary sxs - wakes 1 x at night, no difficulty, pain.Colonoscopy 2018, repeat in 2028. [facility] Beavers [address] [place] [address], [id number], [facility] 08/21/2021 10:55:25
== END 2024-07-10 09:34 | disposition home or self-care (01) ==
PROVIDERS: PCP Family Medicine; Visit Provider Internal Medicine Cardiovascular Disease
DX: I48.0 Paroxysmal atrial fibrillation (principal); I25.10 Atherosclerotic heart disease of native coronary artery without angina pectoris; I50.9 Heart failure, unspecified
CPT/HCPCS: 93010; 99214; G2211

== ENCOUNTER → 2024-07-10 08:58 | Outpatient (BNVA) | payer MEDICARE, MEDICAID, SELFPAY | PROVIDERS: PCP Family Medicine; Visit Provider Internal Medicine Cardiovascular Disease | DX: I48.0 Paroxysmal atrial fibrillation (principal); I50.9 Heart failure, unspecified; I25.10 Atherosclerotic heart disease of native coronary artery without angina pectoris | CPT/HCPCS: 93005; 99212 ==

== ENCOUNTER 2024-08-23 09:03 | Outpatient (AMB) | payer MEDICARE, MEDICAID, SELFPAY ==
--- NOTE | 2024-08-23 09:07 | MHC.OFFVIS ---
Vital Signs 08/23/24 09:16 Height 5 ft 9 in Weight 275 lb 5.718 oz BMI 40.7 BP 130/82 Blood Pressure Location Lt brachial Position Sitting Pulse 51 Pulse Source Pulse Oximeter Pulse Oximetry (%) 98 Oxygen Delivery Method Room Air Intake Visit Reasons: Gout Intake Note: Patient presents today for Gout. Allergies No Known Allergies Allergy (Verified 08/23/24 09:12) Medication List - Last Reconciled 08/23/24 by Kasia Aleman MD allopurinol 200 mg (2 x 100 mg) PO DAILY colchicine 0.6 mg PO DAILY dapagliflozin propanediol 10 mg PO DAILY 90 days dronedarone (Multaq) 400 mg PO BID levothyroxine 75 mcg PO DAILY 30 days lisinopril 5 mg PO DAILY 90 days metoprolol tartrate 50 mg (1/2 x 100 mg) PO BID 90 days rivaroxaban (Xarelto) 20 mg PO QPM rosuvastatin 20 mg PO DAILY 90 days HPI Comments Details: Patient is a 59-year-old male with hypothyroidism, hypertension complicated by coronary artery disease and CHF, hyperlipidemia complicated by AAA, paroxysmal AFib on Eliquis, polyarticular osteoarthritis (especially 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 Noyola. At that time he was following up for his gout. No flares and tolerating his medication well Today patient is here for follow up No flare since last visit Rheumatologic History: Gout Diagnosis was based on episodic severe inflammatory arthritis symptoms usually affecting his feet, hands that would respond to ibuprofen or prednisone. uric acid level during flare was 6.4.? Allopurinol 200 mg qd started 02/2022 Colchicine 0.6 mg bid started 02/2022, reduced to 0.6 qd 08/12, DC 01/2023, recurrent joint swelling, restarted 07/2023( possible mild gout flare-ups triggered by alcohol consumption) His flares usually involve his knees, ankles and feet. Current Rheumatology Medication(s): Allopurinol 200 mg daily Colchicine 0.6 mg daily [facility] Medical History Paroxysmal atrial fibrillation Atrial fibrillation Sleep apnea Persistent atrial fibrillation Elevated liver enzymes Gout Testicular cancer CHF (congestive heart failure) Surgical History History of orchiectomy, unilateral Hx of colonoscopy Family History Mother CVD (cardiovascular disease) Father CVD (cardiovascular disease) Social History Household Members Other:: Same partner- 17 years- Housing: House Alcohol intake: current Alcohol intake frequency: a few times a month Alcohol type: hard liquor Patient Tobacco Use Status: Former Tobacco user e-Cigarette/Vaping Use: Never Used Second Hand Smoke Exposure: No service: No Current occupational status: unemployed and disabled 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 Current occupational exposures/hazards: No Cognitive needs: No Hearing needs: No Vision needs: No Review of Systems Const Details: Review of Systems Constitutional: Denies fever, chills, weight loss ENT: Denies vision changes, eye pain or eye redness, dental caries, dry mouth GI: Denies nausea, vomiting, diarrhea, abdominal pain, change in BM Pulm: Denies SOB, KELLEY, hemoptysis, wheezing Cards: Denies chest pain, palpitations Skin: Denies Raynaud's, rash, nail changes, photosensitivity, CHEMISTRY INTERN: Denies headaches, weakness, paresthesias, recurrent falls MSK: as per HPI All other systems reviewed and are unremarkable except noted above Physical Exam Vital Signs: Last Vital Signs Pulse 51 08/23/24 09:16 BP 130/82 08/23/24 09:16 Pulse Ox 98 08/23/24 09:16 Oxygen Delivery Method Room Air 08/23/24 09:16 BMI result Body Mass Index 40.7 Vital signs reviewed Physical Examination CONSTITUITIONAL Patient alert and cooperative. Well appearing and in no apparent painful distress HEENT Conjunctiva and sclera clear. ?Pupils equal round and reactive to light. ?No lymphadenopathy. ? CHEST/RESPIRATORY SYSTEM Normal respiratory effort and able to speak in complete sentences. ?Clear to auscultation bilaterally. ?No crackles, rales, rhonchi, wheezes heard. CARDIAC SYSTEM Regular rate and rhythm. ?S1 and S2 heard no murmurs. 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 No deformities noted. ?No synovitis noted to the MCPs, PIPs or DIPs. ?No tenderness to palpation of these joints. Wrists: ?Full range of motion at the wrists without pain. ?No tenderness to palpation or synovitis noted to the wrists. Elbows: Full range of motion without pain. No tenderness, weakness, swelling, increased warmth or erythema. Shoulders: Full range of motion without pain. No tenderness, weakness, swelling, increased warmth or erythema. Hips: Full range of motion without pain. Hip bursa: No tenderness to palpation Knees: ?Full range of motion. ?No tenderness, swelling, increased warmth or erythema.?No effusion or crepitations Ankles: Full range of motion. ?No tenderness, swelling, increased warmth or erythema.? Feet: ?Negative squeeze test. ?No tenderness to palpation or swelling of the MTPs. Tender points:?No tenderness to palpation of the bilateral trapezius, supraspinatus, greater trochanters, anterior costochondral junctions, bilateral gluteal areas, bilateral suboccipital muscle insertions SKIN Skin intact without rashes. Results Reviewed Results Reviewed: Laboratory Tests 11/30/23 02/21/24 07:43 07:46 WBC 6.1 RBC 4.22 L Hgb 14.0 Hct 42.4 Plt Count 170 Sodium 140 Potassium 3.8 Chloride 104 Carbon Dioxide 26 BUN 21 H Creatinine 0.95 Uric Acid 4.0 Calcium 9.9 D Total Bilirubin 0.6 AST 25 ALT 28 Alkaline Phosphatase 58 Assessment & Plan Assessment & Plan (1) Gout: Comment: Allopurinol 200 mg qd started 02/2022 Colchicine 0.6 mg bid started 02/2022, reduced to 0.6 qd 08/12, DC 01/2023, recurrent joint swelling, restarted 07/2023( possible mild gout flare-ups triggered by alcohol consumption) Code(s): M10.9 - Gout, unspecified Category: Medical Qualifiers: Chronicity: chronic Gout etiology: idiopathic Gout site: multiple sites Presence of tophus: without tophus Qualified Code(s): M1A.09X0 - Idiopathic chronic gout, multiple sites, without tophus (tophi) Plan: #Gout Patient is a 59 y.o. male with gout here today for follow up. Gout currently in remission on allopurinol 200mg and colchicine Attempts to stop colchicine met with recurrent flares UA goal < 6 Last UA 02/2024 at goal Plan - Allopurinol 200mg daily - Colchicine 0.6mg daily - Labs today: CBC, CMP, ESR, CRP, UA - RTC 6 months - Labs before visit: CBC, CMP, ESR, CRP, UA (2) Encounter for monitoring allopurinol therapy: Code(s): Z51.81 - Encounter for therapeutic drug level monitoring; Z79.899 - Other intermediate (current) drug therapy Plan: #Long-term Current Use of Allopurinol Risks and benefits of allopurinol discussed with patient Benefits include decreased gout flares, remission of gout and reduction of tophi Risks include allopurinol hypersensitivity syndrome which is a severe cutaneous adverse reaction associated with allopurinol use particularly in patients who are HLA [id number] positive, increased transaminases, GI upset including diarrhea, nausea and vomiting, and other dermatologic manifestations. Plan I spent 20 minutes reviewing the record and labs, taking a history, examining the patient, discussing the treatment plan, ordering diagnostic work up and documenting in the medical record Orders: Orders Complete Blood Count Auto Diff 6 Months M1A.09X0 - Idiopathic chronic gout, multiple sites, without tophus (tophi) Comprehensive Met. Panel 6 Months M1A.09X0 - Idiopathic chronic gout, multiple sites, without tophus (tophi) Erythrocyte Sedimentation Rate 6 Months M1A.09X0 - Idiopathic chronic gout, multiple sites, without tophus (tophi) Complete Blood Count Auto Diff Today M1A.09X0 - Idiopathic chronic gout, multiple sites, without tophus (tophi) C Reactive Protein 6 Months M1A.09X0 - Idiopathic chronic gout, multiple sites, without tophus (tophi) Uric Acid 6 Months M1A.09X0 - Idiopathic chronic gout, multiple sites, without tophus (tophi) Comprehensive Met. Panel Today M1A.09X0 - Idiopathic chronic gout, multiple sites, without tophus (tophi) C Reactive Protein Today M1A.09X0 - Idiopathic chronic gout, multiple sites, without tophus (tophi) Erythrocyte Sedimentation Rate Today M1A.09X0 - Idiopathic chronic gout, multiple sites, without tophus (tophi) Uric Acid Today M1A.09X0 - Idiopathic chronic gout, multiple sites, without tophus (tophi) Medications: Refilled colchicine 0.6 mg PO DAILY 90 caps 1RF allopurinol 200 mg (2 x 100 mg) PO DAILY 180 tabs 1RF M1A.09X0 - Idiopathic chronic gout, multiple sites, without tophus (tophi) Coding Level of Care Code Est Pt Level 3 (18588) Complex EM visit Add On G2211 Diagnoses Idiopathic chronic gout of multiple sites without tophus M1A.09X0 Chronicity: chronic Gout etiology: idiopathic Gout site: multiple sites Presence of tophus: without tophus Encounter for monitoring allopurinol therapy Z51.81; Z79.899
[2024-08-23 09:16] VITALS: BP 130/82; PULSE 51; O2SAT 98; BMI 40.7
--- OUTSIDE RECORDS SUMMARY | 2024-08-23 09:17 | XMS_ITS | Data Portability ---
Author Organization [facility], , [facility] Address [address] [place] [address] Care Team Providers Care Neurophysiology Tech Name Role Phone WALDO PANDYA Primary Care Provider SINTIA MARCANO [employer] Assessment Encounter Date Assessment Date Assessment LastModified by Organization Details LastModified Time 05/06/2021 05/06/2021 Patient agreed t o this visit via a secure telehealth platform due to the COVID -19 pandemic. Patient understands this is a scheduled visit and the usual procedures with regard to billing and confidentiality apply. Patient was notified that the provider location is [facility] Patient location: home During the visit the patient? s medical history and medical record were reviewed. The patient was notified to call our office for worsening or urgent symptoms. Not available 05/06/2021 15:09:26 Plan of Treatment Reminders Order Date Submit Date Provider Last Modified By Organization Details Last Modified Time Details Appointments None recorded. Lab TSH, serum or plasma 2020 [facility], [address] [place] [address], [address], 12:19:10 BMP, serum or plasma 2020 [facility], [address] [place] [address], [address], 14:13:16 lipid panel, serum 2020 [facility], [address] [place] [address], [address], 14:13:16 CBC 2020 [facility], [address] [facility], [place], [address], 12:48:40 Referral nutritionis t/dietitian referral - A1c 6 2021 [email or web address] Not available 11:36:53 orthopedic surgeon referral 2020 [email or web address] Not available 12:55:17 sleep medicine referral 2020 [facility], [address] [place], [address], 16:06:[address] referral - Worsening SOB. Episodes of apnea during the day. In care w/ cardiology, Dr. Garza. Unable to complete tasks d/t SOB. 2020 CLIVE Hernandez MD, [address] [place], [address], 11:02:56 neurologist referral - Episodes of apnea during day and night. Has [place] and wears CPAP. Daytime episodes occur while patient is focused on tasks, I forget to breath. Hx of childhood epilepsy. 2020 [email or web address] Alondra Valenzuela MD, [address] [place] [address] , [address], [address], 11:32:25 Procedures None recorded. Surgeries None recorded. Imaging None recorded. Medication Orders None recorded. Patient TargetsNo targets recorded. Patient Instructions Encounter Date Encounter Id Patient Instructions Last Modified By Organization Details Last Modified Time 02/26/2021 [id number] complete PFT* - with ABG's [email or web address] Not available 02/26/2021 11:32:20 08/21/2021 [id number] Prostate Cancer Screening using PSA was discussed. [...] [facility], Encounter Date: 02/26/2021 Batter Out Referral for D yspnea Worsening SOB. Episodes [...] [facility], Encounter Date: 03/04/2021 Gold Prospector/dietitian Refer ral for Prediabetes A1c 6 Referring Physician: Nury Wallace [facility], Encounter Date: 08/21/2021 Results Created Date Observation Date Name Description Value Unit Range Abnormal Flag Note LastModifiedBy Organization Detail LastModifiedTime 02/27/20 21 02/26/2021 CBC WBC 12.62 K/? ? ?L 4.23-9 .07 high Not Available [address], [address], 02/26/2021 12:48:40 02/27/20 21 02/26/2021 CBC RBC 4.77 M/? ? ?L 4.63-6 .08 Not Available [address], [address], 02/26/2021 12:48:40 02/27/20 21 02/26/2021 CBC HGB 15.0 g/dL 13.7-1 7.5 Not Available [address], [address], 02/26/2021 12:48:40 02/27/20 21 02/26/2021 CBC HCT 46.5 % 40.1-5 1.0 Not Available [address], [address], 02/26/2021 12:48:40 02/27/20 21 02/26/2021 CBC MCV 97.5 fL 79.0-9 2.2 high Not Available [address], [address], 02/26/2021 12:48:40 02/27/20 21 02/26/2021 CBC MCH 31.4 pg 25.7-3 2.2 Not Available [address], [address], 02/26/2021 12:48:40 02/27/20 21 02/26/2021 CBC MCHC 32.3 g/dL 32.3-3 6.5 Not Available [address], [address], 02/26/2021 12:48:40 02/27/20 21 02/26/2021 CBC plt 217 K/? ? ?L 163-33 7 Not Available [address], [address], 02/26/2021 12:48:40 02/27/20 21 02/26/2021 CBC MPV 10.3 fL 9.4-12 .4 Not Available [address], [address], 02/26/2021 12:48:40 02/27/2002/26/2021 CBC neut% 72.1 % 34.0-6 7.9 high Not Available [address], [address], 02/26/2021 12:48:40 02/27/2002/26/2021 CBC neut# 9.10 1.78-5 .38 high Not Available [address], [address], 02/26/2021 12:48:40 02/27/2002/26/2021 CBC lymph % 13.8 % 21.8-5 3.1 low Not Available [address], [address], 02/26/2021 12:48:40 02/27/2002/26/2021 CBC lymph # 1.74 K/? ? ?L 1.32-3 .57 Not Available [address], [address], 02/26/2021 12:48:40 02/27/2002/26/2021 CBC mono% 10.5 % 5.3-12 .2 Not Available [address], [address], 02/26/2021 12:48:40 02/27/2002/26/2021 CBC mono# 1.33 0.30-0 .82 high Not Available [address], [address], 02/26/2021 12:48:40 02/27/20 21 02/26/2021 CBC eo% 2.3 % 0.8-7. 0 Not Available [address], [address], 02/26/2021 12:48:40 02/27/20 21 02/26/2021 CBC eo# 0.29 0.04-0 .54 Not Available [address], [address], 02/26/2021 12:48:40 02/27/20 21 02/26/2021 CBC baso% 0.9 % 0.2-1. 2 Not Available [address], [address], 02/26/2021 12:48:40 02/27/20 21 02/26/2021 CBC baso# 0.11 0.00-0 .08 high Not Available [address], [address], 02/26/2021 12:48:40 02/27/20 21 02/26/2021 CBC RDW-CV 14.4 % 11.6-1 4.4 Not Available [address], [address], 02/26/2021 12:48:40 02/27/20 21 02/26/2021 CBC Ig% 0.400 % 0.000- 1.500 Ig % >0.5 Indic ates possi ble Left Shift Not Available [address], [address], 02/26/2021 12:48:40 02/27/20 21 02/26/2021 CBC Ig# 0.050 0.000- 0.093 Not Available [address], [address], 02/26/2021 12:48:40 02/27/20 21 02/26/2021 CBC NRBC% 0.0 % 0.0-0. 2 Not Available [address], [address], 02/26/2021 12:48:40 02/27/20 21 02/26/2021 CBC NRBC# 0.000 0.000- 0.012 Not Available [address], [address], 02/26/2021 12:48:40 02/27/20 21 02/26/2021 BASIC METAB OLIC PANEL glucose 92 mg/dL 70-100 Not Available [address], [address], 02/26/2021 14:13:16 02/27/20 21 02/26/2021 BASIC METAB OLIC PANEL BUN 16 mg/dL 7-18 Not Available [address], [address], 02/26/2021 14:13:16 02/27/20 21 02/26/2021 BASIC METAB OLIC PANEL creatinine 0.9 mg/dL 0.8-1. 3 Not Available [address], [address], 02/26/2021 14:13:16 02/27/20 21 02/26/2021 BASIC METAB OLIC PANEL B/C 17.8 ratio Not Available [address], [address], 02/26/2021 14:13:16 02/27/20 21 02/26/2021 BASIC METAB OLIC PANEL GFR 92.8 mL/mi n Recom merrill d GFR by the Natio nal Kidne y Found ation >60 mL/mi n/1.7 3m2 - Toshia l <60 mL/mi n/1.7 3m2 - Chron ic Kidne y Disea se <15 mL/mi n/1.7 3m2 - Kidne y Failu re Not Available [address], [address], 02/26/2021 14:13:16 02/27/20 21 02/26/2021 BASIC METAB OLIC PANEL sodium 139 mmol/ L 136-14 5 Not Available [address], [address], 02/26/2021 14:13:16 02/27/20 21 02/26/2021 BASIC METAB OLIC PANEL potassium 4.4 mmol/ L 3.5-5. 1 Not Available [address], [address], 02/26/2021 14:13:16 02/27/2002/26/2021 BASIC METAB OLIC PANEL chloride 102 mmol/ L 96-107 Not Available [address], [address], 02/26/2021 14:13:16 02/27/20 21 02/26/2021 BASIC METAB OLIC PANEL anion gap 12.7 5.0-15 .0 Not Available [address], [address], 02/26/2021 14:13:16 02/27/20 21 02/26/2021 BASIC METAB OLIC PANEL CO2 24 mmol/ L 21-32 Not Available [address], [address], 02/26/2021 14:13:16 02/27/20 21 02/26/2021 BASIC METAB OLIC PANEL calcium 9.3 mg/dL 8.5-10 .3 Not Available [address], [address], 02/26/2021 14:13:16 02/27/20 21 02/26/2021 LIPID PANEL cholesterol 149 mg/dL <200 mg/dl Nilda able 200-2 39 mg/dl Borde rline High >240 mg/dl High Not Available [address], [address], 02/26/2021 14:13:16 02/27/20 21 02/26/2021 LIPID PANEL triglyceride s 126 mg/dL <150 mg/dL Toshia l 150-1 99 mg/dL Borde rline High 200-4 99 mg/dL High >500 mg/dL Very High Not Available [address], [address], 02/26/2021 14:13:16 10/07/02/26/2021 LIPID PANEL direct HDL 40 mg/dL <40 mg/dl - Major Risk for CHD >60 mg/dl - Negat bella Risk for CHD Not Available [address], [address], 02/26/2021 14:13:16 02/27/20 21 02/26/2021 DIREC T [...] r is not johnnie jimenez. Not Available [address], [address], 02/26/2021 14:13:17 03/11/20 21 03/11/2021 ARTER IAL BLOOD GAS pH, arterial 7.43 7.35-7 .45 Not Available [facility] [address] [place] [address], [address], 03/11/2021 07:46:45 03/11/20 21 03/11/2021 ARTER IAL BLOOD GAS pCO2, arterial 35.00 mmHg 35.00- 45.00 Not Available [facility] [address] [place] [address], [address], 03/11/2021 07:46:45 03/11/20 21 03/11/2021 ARTER IAL BLOOD GAS pO2, arterial 83.70 mmHg 80.00- 105.00 Not Available [facility] [address] [place], [address], 03/11/2021 07:46:45 03/11/20 21 03/11/2021 ARTER IAL BLOOD GAS HCO3, unspecified 23 mmol/ L 22-26 Not Available [facility] [address] [place] [address], [address], 03/11/2021 07:46:45 03/11/20 21 03/11/2021 ARTER IAL BLOOD GAS base deficit 1.2 mmol/ L 0.0-2. 0 Not Available [facility] [address] [place] [address], [address], 03/11/2021 07:46:45 03/11/20 21 03/11/2021 ARTER IAL BLOOD GAS so2, unspecified 96.40 % 95.00- 98.00 Not Available [facility] [address] [place] [address], [address], 03/11/2021 07:46:45 03/11/20 21 03/11/2021 ARTER IAL BLOOD GAS fo2hb blood gas 95.40 % 94.00- 100.00 Not Available [facility] [address] [place] [address], [address], 03/11/2021 07:46:45 03/11/20 21 03/11/2021 ARTER IAL BLOOD GAS carboxy HGB 0.90 % 0-1.50 Not Available [facility] [address] [place] [address], [address], 03/11/2021 07:46:45 03/11/20 21 03/11/2021 ARTER IAL BLOOD GAS methgb % 0.10 % 0-1.50 Not Available [facility] [address] [place] [address], [address], 03/11/2021 07:46:45 03/11/20 21 03/11/2021 ARTER IAL BLOOD GAS carin's test POSITI VE Not Available [facility] [address] [place], [address], 03/11/2021 07:46:45 03/11/20 21 03/11/2021 ARTER IAL BLOOD GAS ABG site RIGHT RADIAL ARTERY Not Available [facility] [address] [place], [address], 03/11/2021 07:46:45 03/11/20 21 03/11/2021 ARTER IAL BLOOD GAS FiO2 21% FiO2/ L_min Not Available [facility] [address] [place], [address], 03/11/2021 07:46:45 03/11/20 21 03/11/2021 ARTER IAL BLOOD GAS oxygen liters/min RA Not Available [facility] [address] [place], [address], 03/11/2021 07:46:45 03/16/20 21 03/16/2021 TSH TSH 0.98 uIU/m L 0.50-6 .00 The Ameri can Colle ge of Endoc rinol ogy and Ameri can Thyro id Assoc iatio n recom mend goal TSH value s betwe en 0.4-4 .0 mIU/m L. Not Available [address], [address], 03/16/2021 12:19:10 05/07/20 21 05/07/2021 SARS- COV-2 RNA (COVI D-19) , QUALI TATIV E NAAT sarscov2 POSITI VE negati ve abnormal This test has been autho rized by the FDA under an Emerg ency Use Autho rizat ion(E UA) for you by autho rized labs. Not Available [address], [address], 05/07/2021 14:23:28 07/30/19 22 07/29/2021 CBC WBC 7.65 K/? ? ?L 4.23-9 .07 Not Available [address], [address], 07/29/2021 11:16:50 07/30/19 22 07/29/2021 CBC RBC 4.83 M/? ? ?L 4.63-6 .08 Not Available [address], [address], 07/29/2021 11:16:50 07/30/19 22 07/29/2021 CBC HGB 15.1 g/dL 13.7-1 7.5 Not Available [address], [address], 07/29/2021 11:16:50 07/30/19 22 07/29/2021 CBC HCT 45.7 % 40.1-5 1.0 Not Available [address], [address], 07/29/2021 11:16:50 07/30/19 22 07/29/2021 CBC MCV 94.6 fL 79.0-9 2.2 high Not Available [address], [address], 07/29/2021 11:16:50 07/30/19 22 07/29/2021 CBC MCH 31.3 pg 25.7-3 2.2 Not Available [address], [address], 07/29/2021 11:16:50 07/30/19 22 07/29/2021 CBC MCHC 33.0 g/dL 32.3-3 6.5 Not Available [address], [address], 07/29/2021 11:16:50 07/30/19 22 07/29/2021 CBC plt 182 K/? ? ?L 163-33 7 Not Available [address], [address], 07/29/2021 11:16:50 07/30/19 22 07/29/2021 CBC MPV 10.1 fL 9.4-12 .4 Not Available [address], [address], 07/29/2021 11:16:50 07/30/19 22 07/29/2021 CBC neut% 61.5 % 34.0-6 7.9 Not Available [address], [address], 07/29/2021 11:16:50 07/30/19 22 07/29/2021 CBC neut# 4.70 1.78-5 .38 Not Available [address], [address], 07/29/2021 11:16:50 07/30/19 22 07/29/2021 CBC lymph % 22.6 % 21.8-5 3.1 Not Available [address], [address], 07/29/2021 11:16:50 07/30/19 22 07/29/2021 CBC lymph # 1.73 K/? ? ?L 1.32-3 .57 Not Available [address], [address], 07/29/2021 11:16:50 07/30/19 22 07/29/2021 CBC mono% 9.5 % 5.3-12 .2 Not Available [address], [address], 07/29/2021 11:16:50 07/30/19 22 07/29/2021 CBC mono# 0.73 0.30-0 .82 Not Available [address], [address], 07/29/2021 11:16:50 07/30/19 22 07/29/2021 CBC eo% 4.3 % 0.8-7. 0 Not Available [address], [address], 07/29/2021 11:16:50 07/30/19 22 07/29/2021 CBC eo# 0.33 0.04-0 .54 Not Available [address], [address], 07/29/2021 11:16:50 07/30/19 22 07/29/2021 CBC baso% 1.4 % 0.2-1. 2 high Not Available [address], [address], 07/29/2021 11:16:50 07/30/19 22 07/29/2021 CBC baso# 0.11 0.00-0 .08 high Not Available [address], [address], 07/29/2021 11:16:50 07/30/19 22 07/29/2021 CBC RDW-CV 14.4 % 11.6-1 4.4 Not Available [address], [address], 07/29/2021 11:16:50 07/30/19 22 07/29/2021 CBC Ig% 0.700 % 0.000- 1.500 Ig % >0.5 Indic ates possi ble Left Shift Not Available [address], [address], 07/29/2021 11:16:50 07/30/19 22 07/29/2021 CBC Ig# 0.050 0.000- 0.093 Not Available [address], [address], 07/29/2021 11:16:50 07/30/19 22 07/29/2021 CBC NRBC% 0.0 % 0.0-0. 2 Not Available [address], [address], 07/29/2021 11:16:50 07/30/19 22 07/29/2021 CBC NRBC# 0.000 0.000- 0.012 Not Available [address], [address], 07/29/2021 11:16:50 07/30/19 22 07/29/2021 HGB A1C [...] furth er confi rmati on Not Available [address], [address], 07/29/2021 11:52:09 07/30/19 22 07/29/2021 HGB A1C estimated average glucose 125.5 mg/dL Not Available [address], [address], 07/29/2021 11:52:09 07/30/19 22 07/29/2021 LIPID PANEL cholesterol 159 mg/dL <200 mg/dl Nilda able 200-2 39 mg/dl Borde rline High >240 mg/dl High Not Available [address], [address], 07/29/2021 14:35:40 07/30/19 22 07/29/2021 LIPID PANEL triglyceride s 164 mg/dL <150 mg/dL Toshia l 150-1 99 mg/dL Borde rline High 200-4 99 mg/dL High >500 mg/dL Very High Not Available [address], [address], 07/29/2021 14:35:40 07/30/19 22 07/29/2021 LIPID PANEL direct HDL 43 mg/dL <40 mg/dl - Major Risk for CHD >60 mg/dl - Negat bella Risk for CHD Not Available [address] [place], [address], 07/29/2021 14:35:40 07/30/19 22 07/29/2021 LDL - [...] r is not neces barbara. Not Available [address], [address], 07/29/2021 14:35:40 07/30/19 22 07/31/2021 NT PROBN [...] years : < or = 300 pg/mL Otshia l, HF unlik rosa > or = [...] infor prieto carney e refer to http: //[facility] stdia gnost ics.c om/fa q/FAQ (This link is being provi ded for infor demetrice barton/ educuche shultz purpo ses only. ) Not Available [facility] [address], [address], 07/31/2021 01:40:20 07/30/19 22 07/31/2021 COMP. METAB OLIC PANEL glucose 92 mg/dL 70-100 Not Available [address], [address], 07/31/2021 11:38:22 07/30/19 22 07/31/2021 COMP. METAB OLIC PANEL BUN 16 mg/dL 7-18 Not Available [address], [address], 07/31/2021 11:38:22 07/30/19 22 07/31/2021 COMP. METAB OLIC PANEL creatinine 0.9 mg/dL 0.8-1. 3 Not Available [address], [address], 07/31/2021 11:38:22 07/30/19 22 07/31/2021 COMP. METAB OLIC PANEL B/C 17.8 ratio Not Available [address], [address], 07/31/2021 11:38:22 07/30/19 22 07/31/2021 COMP. METAB [...] be used in pregn trevor. Not Available [address], [address], 07/31/2021 11:38:22 07/30/19 22 07/31/2021 COMP. METAB OLIC PANEL sodium 142 mmol/ L 136-14 5 Not Available [address], [address], 07/31/2021 11:38:22 07/30/19 22 07/31/2021 COMP. METAB OLIC PANEL potassium 4.5 mmol/ L 3.5-5. 1 HEMS= Speci men Sligh tly Hemol yzed. Chem Resul ts may be effec mercy. Not Available [address], [address], 07/31/2021 11:38:22 07/30/19 22 07/31/2021 COMP. METAB OLIC PANEL chloride 106 mmol/ L 96-107 Not Available [address], [address], 07/31/2021 11:38:22 07/30/19 22 07/31/2021 COMP. METAB OLIC PANEL anion gap 10.2 5.0-15 .0 Not Available [address], [address], 07/31/2021 11:38:22 07/30/19 22 07/31/2021 COMP. METAB OLIC PANEL CO2 26 mmol/ L 21-32 Not Available [address], [address], 07/31/2021 11:38:22 07/30/19 22 07/31/2021 COMP. METAB OLIC PANEL calcium 9.0 mg/dL 8.5-10 .3 Not Available [address], [address], 07/31/2021 11:38:22 07/30/19 22 07/31/2021 COMP. METAB OLIC PANEL total protein 7.0 g/dL 6.4-8. 2 Not Available [address], [address], 07/31/2021 11:38:22 07/30/19 22 07/31/2021 COMP. METAB OLIC PANEL albumin 3.7 g/dL 3.4-5. 0 Not Available [address], [address], 07/31/2021 11:38:22 07/30/19 22 07/31/2021 COMP. METAB OLIC PANEL globulin 3.3 g/dL Not Available [address], [address], 07/31/2021 11:38:22 07/30/19 22 07/31/2021 COMP. METAB OLIC PANEL A/G 1.1 ratio 0.8-2. 0 Not Available [address], [address], 07/31/2021 11:38:22 07/30/19 22 07/31/2021 COMP. METAB OLIC PANEL total bilirubin 0.60 mg/dL 0.00-1 .00 Not Available [address], [address], 07/31/2021 11:38:22 07/30/19 22 07/31/2021 COMP. METAB OLIC PANEL AST 18 U/L 0-37 Not Available [address], [address], 07/31/2021 11:38:22 07/30/19 22 07/31/2021 COMP. METAB OLIC PANEL ALT 29 U/L 6-63 Not Available [address], [place], [address], 07/31/2021 11:38:22 07/30/19 22 07/31/2021 COMP. METAB OLIC PANEL alk. phos. 71 U/L 50-136 Not Available [address], [place], [address], 07/31/2021 11:38:22 03/04/20 21 03/04/2021 xr knee 4 or more views (left ) This image report has been auto-f inaliz ed and has not been read by a Radiol ogist. Interp retati on has been includ ed in the [facility] encoun ter note for this date of johanne bender. Final result NURY WALLACE [email or web address] [facility] [address] [facility], [place], [address], 03/04/2021 13:26:08 03/11/20 21 03/11/2021 PFT No [...] by: Shaggy Avitia MD Signed by: Shaggy Avitia MD Final result Pt states shortn ess of breath NURY WALLACE blepage [facility] [address], [place], [address], 04/22/2021 12:21:24 03/11/2003/11/2021 pulmo nary funct ion [...] ) No observ ation record ed. miguelDarin [facility] Cardiovascula r [facility] [address], [place], [address], 05/03/2021 16:57:11 05/13/20 21 04/29/2021 trans -thor acic echoc ardio gram (TTE) (PROC ) No observ ation record ed. jacqui Amie [facility] Cardiovasla r [facility] [address], [place], [address], 05/14/2021 09:06:00 Result Notes None recorded. Problems Name Problem SNOMED Code Status Onset Date Resolution Date Notes Provider Name and Address Organization Details Recorded Time Obstruct bella sleep apnea syndrome 10801939 Active 2017 severe; AHI 40.5 2017 Aakash Awan MD [address] [place] [address], [address] , [facility] 19:02:02 Chronic atrial fibrilla tion 932617622 Active 2018 Aakash Awan MD [address] [place] [address], [address] , [facility] 9 16:33:35 Hyperten sive disorder 55279934 Active 2019 Nury Wallace, [address], [address] , [facility] 0 09:19:05 Diastoli c heart failure 431901026 Active 2019 Nury Wallace, [address], [address] , [facility] 0 09:20:40 Epilepsy 85695666 Active 2020 childhoo d Nury Wallace, [address], [address] , [facility] 1 10:24:46 COVID-19 692217190 Active 202005/05/21 Nury Wallace, [address], [address] , [facility] 1 15:06:45 Prediabe matt 665805596 Active 2021 A1c = 6.[address], LDN [address] [place], [address] , [facility] 2 10:01:32 Body mass index 40+ - severely obese 689494138 Active [address], LDN [address] [place], [address] , [facility] 2 10:01:44 Seminal vesiculi tis 87239105 Active 2008 Not Available [facility] 3 03:10:06 Disorder of male genital organ 60397119 Completed 04/11/2013 Not Available [facility] 3 02:03:54 Cellulit is and abscess of face 751308103 Completed 200604/11/2013 Not Available [facility] 3 02:03:46 Osteoart hritis of knee 785410268 Active 2002 Not Available [facility] 3 03:10:06 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 Not Available [facility] 3 03:10:06 Sensorin eural hearing loss 07826337 Active 2006 Not Available [facility] 3 03:10:06 Impacted cerumen 89146494 Completed 200104/11/2013 Not Available [facility] 3 02:02:11 Acute suppurat bella otitis media without spontane ous rupture of ear drum 81554807 Completed 200104/11/2013 Not Available [facility] 3 02:02:40 Joint pain in ankle and foot Completed 200704/11/2013 Not Available [facility] 3 02:01:25 Localize d, primary osteoart hritis 871374518 Active 2002 Not Available [facility] 3 03:10:06 Psychose xual dysfunct ion associat ed with inhibite d libido 430990747 Active 2005 Not Available [facility] 3 03:10:06 Knee pain Completed 200204/11/2013 Not Available [facility] 3 02:00:41 Acute conjunct ivitis 91401761 Completed 200504/11/2013 Not Available [facility] 3 02:02:28 Elevated blood-pr essure reading without diagnosi s of hyperten darrin 751477732 Completed 200506/21/2019 STANFORD Beavers [address] [place] [address], [address] , [facility] 09:18:58 Low back pain 144887443 Active Not Available [facility] 3 03:10:06 Pain in limb 90829095 Completed 200704/11/2013 Not Available [facility] 3 02:00:55 Torsion of testis 57302580 Active Not Available [facility] 3 03:10:06 Problem Notes None recorded. Procedures Surgical History Date Name Laterality Status Provider Name and Address Organization Details Recorded Time prevention-card iovascular risk reduction counseling completed SHAYLA Choudhury [facility] 08/13/2020 11:04:40 1 prevention-sendy al alcohol misuse screening completed SHAYLA Choudhury [facility] 08/13/2020 11:04:40 0 prevention-card iovascular risk reduction counseling completed Lizbeth Richter [facility] 07/11/2019 11:20:40 0 prevention-sendy al alcohol misuse screening completed Lizbeth Richter [facility] 07/11/2019 11:20:40 9 [address]347: Therapeutic Exercise completed Sheng Mccarthy, PT [address] [place], [address], [facility] [place]14[place]2018 07:23:17 9 Treatment and Advice completed Sheng Mccarthy, PT [address] [place], [id number], [facility] [place] 11/14/2018 07:06:14 9 [id number]: Therapeutic Exercise completed Sheng Mccarthy, PT [address] [place], [id number], [facility] [place] 11/09/2018 11:06:20 9 Treatment and Advice completed Sheng Mccarthy, PT [address] [place], [address], [facility] [place] 11/09/2018 11:05:58 9 [id number]: Therapeutic Exercise completed Sheng Mccarthy, PT [address] [place], [address], [facility] [place] 11/02/2018 11:07:46 9 Treatment and Advice completed Sheng Mccarthy, PT [address] [place], [address], [facility] 11/02[place]2018 11:01:20 9 Physical Activity Counselling completed Sheng Mccarthy, PT [address] [place], [address], [facility] 10/26/2018 10:31:25 9 [address]: PT Eval Low Complexity completed Sheng Mccarthy, PT [address] [place], [address], [facility] 10/26/2018 10:31:25 9 Treatment and Advice completed Sheng Mccarthy, PT [address] [place], [address], [facility] 10/26/2018 10:54:22 8 Post hospital/SNF follow-up/Trans itional Care completed Mary Lou Redd [facility] 10/13/2017 15:54:56 Imaging Results Imaging Date Name Status LastModified by Organization Details LastModified Time 03/04/2021 xr knee 4 or more views (left) completed [address] [facility] [address] [place] [address], [address], 03/04/2021 13:26:08 03/11/2021 PFT completed Information no t available 03/11/2021 10:23:38 03/11/2021 xr chest Pa and lateral 2 views completed [email or web address] [address] [place], [address], 04/22/2021 12:21:24 03/11/2021 pulmonary function test* completed Information not available 03/12/2021 12:08:50 02/26/2021 pulmonary function test* completed Information not available 03/12/2021 12:08:51 03/12/2021 electrocardiogram completed Informa tion not available 03/12/2021 12:04:45 04/29/2021 trans-thoracic echocardiogram (TTE) (PROC) completed [facility] [address], [place], [address], 05/03/2021 16:57:11 04/29/2021 trans-thoracic echocardiogram (TTE) (PROC) completed [email or web address] [facility] [address], [place], [address], 05/14/2021 09:06:00 Procedure Notes None recorded. Medical [...] Updated DateTime 1 177.8 cm 40.4 kg/m2 691659. 56 g 80 /min 102 mm[Hg] 74 mm[Hg] SHAYLA Choudhury [facility] 09:59:33 Date Recorded Oxygen saturation Oxygen saturation in Arterial blood by Pulse oximetry Provider Name and Address Organization Details Last Updated DateTime 02/26/2021 99 % 99 % STANFORD Beavers [address] [place] [address], [address], [facility] 02/26/2021 10:29:02 Date Recorded Body height Body mass index (BMI) Body weight Heart rate Systolic blood pressure Diastolic blood pressure Provider Name and Address Organization Details Last Updated DateTime 1 177.8 cm 39 kg/m2 207727. 12 g 72 /min 108 mm[Hg] 78 mm[Hg] Mili Buckley [facility] 1 12:04:48 Date Recorded Body height Body mass index (BMI) Body weight Heart rate Systolic blood pressure Diastolic blood pressure Provider Name and Address Organization Details Last Updated DateTime 1 177.8 cm 40.9 kg/m2 163155. 83 g 64 /min 106 mm[Hg] 78 mm[Hg] Mili Buckley [facility] 1 09:00:02 Date Recorded Body height Body temperature Provider N yoli and Address Organization Details Last Updated DateTime 05/06/2021 177.8 cm 98.9 [degF] Mili Buckley [facility] 05/06/2021 14:39:38 Date Recorded Body height Body mass index (BMI) Body weight Heart rate Systolic blood pressure Diastolic blood pressure Provider Name and Address Organization Details Last Updated DateTime 2 177.17 cm 41.5 kg/m2 923415. 01 g 72 /min 122 mm[Hg] 84 mm[Hg] Mili Buckley [facility] 2 10:24:50 Social History Question Answer Notes LastModified by Organization Details LastModified Time Tobacco Smoking Status Never Smoker Rare marijuana Not Available [facility] 10/15/2010 02:07:33 What Is Your Level Of [...] E-cigarettes Or Vape? 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 4 [email or web address] Information not available 07/11/2019 Are There Any [...] How Many Children Do You Have? 0 [email or web address] Information not available 07/11/2019 Do You Use [...] Used Smokeless Tobacco? Never Used Smokeless Tobacco [email or web address] Information not available 07/11/2019 How Much Tobacco Do You Smoke? No [email or web address] Information not available 07/11/2019 What Types Of Sporting Activities Do You Participate In? None Information not available 06/29/2018 General Stress Level Medium Information not available 08/13/2020 Do You Use Any Illicit Or Recreational Drugs? No Information not available 08/21/2021 Do You Use Sunscreen Routinely? Yes Information not available 06/29/2018 How Many Years Have You Smoked Tobacco? 0 [email or web address] Information not available 07/11/2019 Do You Or [...] Td(adult) unspecified formulation 6 completed Not Available [facility] 04/07/2011 05:21:29 Tdap 9 completed Not Available [facility] 06/09/2019 02:37:59 Td(adult) unspecified formulation 9 completed Marlys weber [facility] 10/05/2018 08:12:21 COVID-19, mRNA, LNP-S, PF, 30 mcg/0.3 mL dose 1 completed SHAYLA Choudhury [facility] 02/26/2021 09:55:38 COVID-19, mRNA, LNP-S, PF, 30 mcg/0.3 mL dose 1 completed SHAYLA Choudhury [facility] 02/26/2021 09:56:01 Past Encounters Encounter ID Performer Location Encounter Start Date Encounter Closed Date Diagnosis/Indication Diagnosis SNOMED-CT Code Diagnosis ICD10 Code Diagnosis Note [id number] [facility], OFFICE [address] [place] [address] 04/16/2002 10:58:35 06/12/2008 02:02:29 [id number] FP, [facility], OFFICE [address] [place] [address] 01/15/2003 09:59:23 06/12/2008 02:02:29 [id number] Radiology , [facility] [address] [place] [address] 01/15/2003 10:29:01 06/12/2008 02:02:29 [id number] Radiology , [facility] [address] [place] [address] 01/15/2003 00:00:00 06/12/2008 02:02:29 [id number] FP, [facility], OFFICE [address] [place] [address] 02/05/2003 13:27:50 02/06/2003 08:08:26 [id number] LAB - [facility] [address] [place] [address] 02/11/2003 08:27:33 02/11/2003 08:27:36 [id number] , [facility], OFFICE [address] [place] [address] 10/07/2005 14:47:01 06/12/2008 02:02:29 [id number] LAB - [facility] [address] [place] [address] 10/07/2005 15:39:32 10/07/2005 15:39:44 [id number] FP, [facility], OFFICE [address] [place] [address] 02/03/2006 09:00:30 02/03/2006 13:59:06 [id number] FP, [facility], OFFICE [address] [place] [address] 02/09/2006 10:00:36 02/10/2006 08:46:13 [id number] FP, [facility], OFFICE [address] [place] [address] 02/09/2006 10:00:36 02/10/2006 08:46:13 [id number] FP, [facility], OFF[address] [place] [address] 08/10/2006 09:01:47 08/11/2006 12:17:05 [id number] FP, [facility], OFFICE [address] [place] [address] 04/25/2007 08:43:18 06/12/2008 02:02:29 [id number] FP, [facility], OFFICE [address] [place] [address] 05/09/2007 14:18:55 06/12/2008 02:02:29 [id number] [facility], OFFICE [address] [facility] [place] [address] 06/28/2007 09:17:18 06/12/2008 02:02:29 [id number] [facility] [address] [facility] [id number] 06/28/2007 09:44:31 06/29/2007 09:24:43 [id number] [facility], OFFICE [address] [facility] [place] [address] 07/25/2008 14:42:45 07/29/2008 15:05:32 [id number] LAB - [facility] 70 [facility] [id number] 07/25/2008 15:46:39 07/25/2008 15:46:47 [id number] [facility], OFFICE [address] [facility] [place] [address] 12/15/2010 11:02:39 12/16/2010 08:57:36 [id number] [facility], OFFICE [address] [facility] [place] [address] 12/21/2010 14:11:01 12/22/2010 13:19:46 [id number] Physical Therapy, [facility] [place] [address] 12/23/2010 11:20:27 12/25/2010 08:01:42 [id number] Physical Therapy, [facility] 70 [place] [address] 12/25/2010 08:14:07 12/25/2010 09:34:56 [id number] Aakash Awan MD [facility], OFFICE [address] [facility] [place] [address] 09/29/2017 14:11:10 09/29/2017 15:30:09 Atrial fibrillation [id number] I48.91 [id number] MD MARY Pitt [facility], OFFICE [address] [facility] [place] [address] 10/13/2017 15:35:32 10/14/2017 09:10:50 Atrial fibrillation [id number] I48.91 [id number] MD MARY Pitt [facility], OFFICE [address] [facility] [place] [address] 11/15/2017 14:17:18 11/16/2017 16:35:37 Snoring 24321656 R06.83 Atrial fibrillation 4943 6004 I48.91 [id number] Aakash Awan MD , [facility], OFFICE [address] [place] [address] 06/29/2018 15:32:22 06/29/2018 17:02:06 Adult health examination 817373251 Z00.00 see Risk Assessment and Lifestyle Change Counseling section above Counseling 077101041 Z71 .9 Depression screening 171 922404 Z13.89 depression screening tool administer ed, entered into emr, scored and discussed, time greater than 7.5 minutes Active or passive immunization 502041952 Z23 Obstructiv e sleep apnea syndrome 56917737 G47.33 Localized, primary osteoarthritis 955854681 M19.91 Primary ma lignant neoplasm of testis 33462425 C62.90 Chronic at rial fibrillation 073357438 I48.2 Osteoarthr itis of knee 643268516 M17.9 [id number] MARU Waldron , [facility], OFFICE [address] [place] [address] 10/05/2018 07:42:52 10/05/2018 08:26:47 Chronic atrial fibrillation 371460032 I48.2 continue on Xarelto, not missing doses Dislocatio n of shoulder joint 314567814 S43.005A [id number] Sheng Mccarthy , PT Physical Therapy, [facility] [address] [place] [address] 10/26/2018 10:18:22 10/27/2018 08:18:10 Dislocation of shoulder joint 453936989 S43.005D 53 year old {{female m kyara*}} [...] Include: Therapeuti c exercise and manual therapy [id number] Sheng Mccarthy , PT Physical Therapy, [facility] [address] [place] [address] 11/02/2018 10:20:32 11/03/2018 08:25:19 Dislocation of shoulder joint 712593096 S43.005D Patient Goals: Be able to avoid [...] sufficient muscular endurance to meet functional demands. [id number] MARU Waldron FP, [facility], OFFICE [address] [place] [address] 11/09/2018 07:50:07 11/09/2018 08:31:02 Dislocation of shoulder joint 104463847 S43.005A resolving- continue PT Screening for malignant neoplasm of colon 318706402 Z12.11 will consult PCP [id number] Sheng Mccarthy , PT Physical Therapy, [facility] [address] [place] [address] 11/09/2018 10:13:22 11/09/2018 11:29:33 Dislocation of shoulder joint 438352675 S43.005D Patient Goals: Be able to avoid [...] sufficient muscular endurance to meet functional demands. [id number] Sheng Mccarthy , PT Physical Therapy, [facility] [address] [place] [address] 11/14/2018 06:58:27 11/14/2018 11:41:07 Dislocation of shoulder joint 717374454 S43.005D Patient Goals: Be able to avoid [...] sufficient muscular endurance to meet functional demands. [id number] MARU Waldron , [facility], OFFICE [address] [place] [address] 12/18/2018 16:12:19 12/19/2018 08:07:39 Screening for disorder 992579570 Z11.59 Screening for malignant neoplasm of colon 726056485 Z12.11 Referral for a DIRECT booked colonoscop y. This patient is a healthy ASA Class 1 or 2 patient (only mild systemic disease), or a STABLE, well controlled insulin dependent diabetic. They do not have serious cardiac disease ie AR/angiopl asty within 1 year, symptomati c CHF; renal failure with CKD 4 or 5; take Coumadin, Plavix, Aggrenox, etc. Chronic at rial fibrillation 871236736 I48.2 F/U w/ cardiology Sleep apnea 70871472 G47 .30 Pt to contact insurance company re coverage for cpap machine. Discussed nutrition. Consider nutritioni in future. [id number] STANFORD Beavers, [facility], OFFICE [address] [place] [address] 06/21/2019 08:50:11 06/21/2019 09:16:12 Chronic atrial fibrillation 599956434 I48.20 Taking Xarelto 20 mg 1 tablet daily. In care with with Amie Carvajal and [facility] , next appt. 10/2019. F/u at upcoming wellness exam. Diastolic heart failure 845186176 I50.30 Recent ECHO on 05/01 showed intact right and left systolic function. EF 60-65%. Right atrial dilation and right ventricle enlargemen t. Grade 1 diastolic dysfunctio n with trace MR. Hypertensive disorder 38 437756 I10 at goal , BP <140/90. Will continue taking Metoprolol Tartrate 100 mg tablet BID. F/u at upcoming wellness exam. Obstructiv e sleep apnea syndrome 50120001 G47.33 Has not picked up CPAP machine yet. In care with [facility]. Advised to f/u wit them VALERY. F/u at upcoming wellness exam. [id number] STANFORD Beavers , [facility], OFFICE [address] [place] [address] 07/11/2019 10:39:58 07/11/2019 12:07:24 Adult health examination 241085713 Z00.00 Colonoscop y 2018, repeat in 10 yrs. Counseling 904166648 Z71 .9 including cardiovasc ular risk reduction counseling Depression screening 171 685614 Z13.89 depression screening tool administer ed, entered into emr, scored and discussed, time greater than 7.5 minutes Screening for alcohol abuse 894150663 Z13.39 Scored 4. Screening for disorder 191116953 Z11.59 Gout 66286863 M10.9 R big toe. Will switch from NSAID to colchicine 1 tablet twice a day until sxs resolve. Will f/u if sxs persist or worsen. Chronic at rial fibrillation 261346763 I48.20 Taking Xarelto 20 mg 1 tablet daily. In care with with Amie Carvajal [facility] , next appt. 10/2019. F/u at upcoming wellness exam. Diastolic heart failure 858676608 I50.30 Recent ECHO on 05/01 showed intact right and left systolic function. EF 60-65%. Right atrial dilation and right ventricle enlargemen t. Grade 1 diastolic dysfunctio n with trace MR. Hypertensive disorder 38 054651 I10 at goal, BP <140/90. Will continue taking Metoprolol Tartrate 100 mg tablet BID. F/u at upcoming wellness exam. Obstructiv e sleep apnea syndrome 75266368 G47.33 Has not picked up CPAP machine yet. In care with [facility]. Advised to f/u wit them VALERY. 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 CT yealy for 10 yrs - no f/u needed. 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 In care with with Amie Carvajal and [facility] , recent appt. 04/2020 w/ ECHO. next appt. 10/2019. F/u at upcoming wellness exam. Obstructiv e sleep apnea syndrome 60104546 G47.33 Wearing CPAP machine nightly with improvemen t. Active or passive immunization 327124408 Z23 Diastolic heart failure 367993951 I50.30 Recent ECHO on 04/2020 showed minimal change from previous ECHO. EF 55-60%. Mild concentric hypertroph y left ventricula r , mild mitral regurgitat ion, and mild trace tricuspid regurgitat ion. BNP on 06/19 is 989. Hypertensive disorder 38 860811 I10 at goal, BP <130/80. Will continue taking Metoprolol Tartrate 100 mg tablet BID. Rx to pharmacy for BP kit. Advised to check BP 1-2 times a week and record readings to review at upcoming wellness. F/u at upcoming wellness exam. Mixed hyperlipidemia 267 721732 E78.2 ASCVD risk 9.7%, recommenda tion is moderate intensity statin. Patient agrees to plan - will start Rosuvastat in 10 mg 1 tablet daily. Dyspnea 192986580 R06.00 On exertion. Denies chest pain associated . Denies hx of asthma or COPD. Never Smoker. Will order stress test to be done at [facility] office. This PCP left VM at [facility], Dr. Gazra's office r/t ordering stress test. This PCP has not heard back. Would also consider PFT. Cough 04115578 R05 At night. Describes PND. PND vs GERD vs CHF. Flonase has not helped in past. Will try OTC allergy medication to see if sxs improve. If no improvemen t would consider treating for GERD. [id number] STANFORD Beavers , [facility], [address] [place] [address] 08/13/2020 11:00:24 08/14/2020 09:27:58 Adult health examination 918361313 Z00.00 Colonoscop y 2018, repeat in 10 yrs. UTD on Td. Counseling 997278567 Z71 .9 including cardivascu lar risk reduction counseling Depression screening 171 261125 Z13.31 depression screening tool administer ed, entered into emr, scored and discussed, time greater than 7.5 minutes Screening for alcohol abuse 277383991 Z13.39 Scored 4. Hypertensive disorder 38 316832 I10 at goal, BP <130/80. Will continue taking Metoprolol Tartrate 100 mg tablet BID. Rx to pharmacy for BP kit. Advised to check BP 1-2 times a week. Agreed to BP clinic w/ f/u. Obstructiv e sleep apnea syndrome 45313149 G47.33 Wearing CPAP machine nightly with improvemen t. Chronic at rial fibrillation 941647008 I48.20 Taking Xarelto 20 mg 1 tablet daily and Metoprolol 100 mg 1 tablet BID. In care with with Amie Carvajal and [facility] , recent appt. 04/2020 w/ ECHO. next appt. 10/2019. F/u at upcoming wellness exam. Active or passive immunization 194520641 Z23 Diastolic heart failure 090801396 I50.30 Recent ECHO on 04/2020 showed minimal change from previous ECHO. EF 55-60%. Mild concentric hypertroph y left ventricula r , mild mitral regurgitat ion, and mild trace tricuspid regurgitat ion. BNP on 06/19 is 989. Mixed hyperlipidemia 267 652528 E78.2 ASCVD risk 9.7%, recommenda tion is moderate intensity statin. Patient agrees to plan - will start Rosuvastat in 10 mg 1 tablet daily. Dyspnea 809118740 R06.00 On exertion. Denies chest pain associated . Denies hx of asthma or COPD. Never Smoker. Will order stress test to be done at [facility] office. This PCP left VM at [facility], Dr. Garza's office r/t ordering stress test. This PCP has not heard back. Would also consider PFT. Consulted with SE. Cough 29106998 R05 At night. Describes PND. PND vs [...] 4-6 weeks or sooner if sxs worsen. [id number] Marya Diaz , [facility], [address] [place] [address] 02/26/2021 09:39:16 02/27/2021 09:47:54 Obstructive sleep apnea syndrome 76753016 G47.33 Wearing CPAP machine nightly with improvemen t. Dyspnea 467975207 R06.00 Dyspnea/ap neaIn care w/ cardio, Dr. [...] in 1 mos. Chronic at rial fibrillation 668552537 I48.20 Taking Xarelto 20 mg 1 tablet daily and Metoprolol 100 mg 1 tablet BID. Still in A fib. In care with with Amie Carvajal and [facility] , recent appt. 04/2020 w/ ECHO. next appt. F/u at upcoming wellness exam. Diastolic heart failure 526594934 I50.30 Recent ECHO on 04/2020 showed minimal change from previous ECHO. EF 55-60%. Mild concentric hypertroph y left ventricula r , mild mitral regurgitat ion, and mild trace tricuspid regurgitat ion. Hypertensive disorder 38 807352 I10 at goal, BP <130/80. Will continue taking Metoprolol Tartrate 100 mg tablet BID. Rx to pharmacy for BP kit. Advised to check BP 1-2 times a week. Agreed to BP clinic w/ f/u. Localized, primary osteoarthritis 191711001 M19.91 Treated for arthritic gout at [facility] in early ight foot.Treat ment for 10 days. 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 CT yearly for 10 yrs - no f/u needed. [id number] [facility] [address] [place] [address] 03/04/2021 11:47:57 03/05/2021 09:09:[address] Hernandez requesting TSH. Central sl eep apnea syndrome 72668521 G47.[address] Hernandez. In care w/ David. PFT ordered. Has f/u in 4-6 weeks. Swelling o f knee joint 210388093 M25.469 Edema and tenderness in lower medial knee. occurred after kneeling to fix car on Tuesday. Worsening. Using crutches. Advised to seek care at [facility] walk-in clinic to expedite and consolidat e care. Patient agrees with plan. [id number] STANFORD Beavers [facility], OFFICE [address] [place] [address] 04/08/2021 08:44:30 04/23/2021 14:49:13 Obstructive sleep apnea syndrome 91043213 G47.33 Wearing CPAP machine nightly with joeymen t. Recently titrated up. Has f/u w/ sleep medicine in 2021. Central sl eep apnea syndrome 25402674 G47.31 CPAP machine was titrated up, feeling better. Has f/u w/ sleep medicine - May.In care w/ Dr. Clark, EKG showed incomplete bundle branch block. Chest x-ray normal. PFT showed moderate obstructio n.TSH normal.F/u w/ pulm. in April for possible neuromuscu lar testing, sniff test, and chest CT. Hypertensive disorder 38 422849 I10 at goal, BP <130/80. Will continue taking Metoprolol Tartrate 100 mg tablet BID. F/u at wellness.s Diastolic heart failure 811803651 I50.30 Recent ECHO on 04/2020 showed minimal change from previous ECHO. EF 55-60%. Mild concentric hypertroph y left ventricula r , mild mitral regurgitat ion, and mild trace tricuspid regurgitat ion. Chronic at rial fibrillation 516982633 I48.20 Taking Xarelto 20 mg 1 tablet daily and Metoprolol 100 mg 1 tablet BID. Still in A fib. In care with with Amie Carvajal and Reji [facility]vin [facility] , recent appt. 04/2020 w/ ECHO. next appt. F/u at upcoming wellness exam. [id number] STANFORD Beavers, [facility], [address] [place] [address] 05/06/2021 14:35:02 05/18/2021 10:05:53 COVID-19 857142850 U07.1 Rapid test positive on 05/05. Known [...] sent to nurse triage. Diastolic heart failure 606411419 I50.30 Recent ECHO on 04/2020 showed minimal change from previous ECHO. EF 55-60%. Mild concentric hypertroph y left ventricula r , mild mitral regurgitat ion, and mild trace tricuspid regurgitat ion. Hypertensive disorder 38 253843 I10 at goal, BP <130/80. Will continue taking Metoprolol Tartrate 100 mg tablet BID. F/u at wellness.s Obstructiv e sleep apnea syndrome 84537187 G47.33 Wearing CPAP machine nightly with improvemen t. Recently titrated up. Has f/u w/ sleep medicine in 2021. [id number] STANFORD Beavers, [facility], [address] [place] [address] 08/21/2021 10:08:56 09/01/2021 11:26:52 Adult health examination 221586042 Z00.00 Colonoscop y 2018, repeat in 10 yrs. UTD on Td. Counseling 018786732 Z71 .9 including cardiovasc ular risk reduction counseling Depression screening 171 704406 Z13.31 depression screening tool administer ed, entered into emr, scored and discussed, time greater than 7.5 minutes Screening for alcohol abuse 964249186 Z13.39 Scored 4. Obstructiv e sleep apnea syndrome 42519049 G47.33 Wearing CPAP machine nightly with improvemen t. Recently titrated up. Has f/u w/ sleep medicine soon. Chronic at rial fibrillation 046018827 I48.20 Taking Xarelto 20 mg 1 tablet daily and Metoprolol 100 mg 1 tablet BID. Still in A fib. In care with with Dr. Garza, Amie and [facility] , recent appt. 07/14/2021. COVID-19 [id number] U07.1 Rapid test positive on 05/05/21 Diastolic heart failure [id number] I50.30 In care w/ / Greg. EF 45-50%. Mild concentric hypertroph y left ventricula r , mild mitral regurgitat ion, and mild trace tricuspid regurgitat ion. Has upcoming ECHO and visit. Epilepsy [id number] G40.90 9 Childhood. Hypertensive disorder [id number] I10 at goal, BP <130/80. Will continue taking Metoprolol Tartrate 100 mg tablet BID. F/u in 3 mos Localized, primary osteoarthritis [id number] M19.91 Treated for arthritic gout at [facility] in early JanuaryR ight foot. 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 CT yearly for 10 yrs - no f/u needed. Prediabetes [id number] R7 3.03 A1c 6. Central sl eep apnea syndrome [id number] G47.31 CPAP machine was titrated up, feeling [...] Bradford Member ID Guarantor Name 02/26/2021 1 [facility] - DIRECT CONNECTORCARE TYPE I (HMO) [id number] Inder Aste [id number] 1 Inder Aste 03/04/2021 1 [facility] - DIRECT CONNECTORCARE TYPE I (HMO) [id number] Inder Aste [id number] 1 Inder Aste 04/08/2021 1 [facility] - DIRECT CONNECTORCARE TYPE I (HMO) [id number] Inder Aste [id number] 1 Inder Aste 05/06/2021 1 [facility] - DIRECT CONNECTORCARE TYPE I (HMO) [id number] Inder Aste [id number] 1 Inder Aste 08/21/2021 1 [facility] - DIRECT CONNECTORCARE TYPE I (HMO) [id number] Inder Aste [id number] 1 Inder Aste Notes Date Note Type Note Provider Name and Address Organization Details Recorded Time text/html Patient filed Social security disability on 01/23/21, would like pcp to send a record to [facility].Pt reports his breathing issue is restricting his [...] few days. Treated for arthritic gout at [facility] in early JanuaryRight foot.Treatment for 10 days. A FibCardioversion in 2018.Taking Xarelto 20 mg 1 tablet daily.In care with with Dr. Garza, Amie and [facility], last appt. 10/28, and recent stress test. Has f/u in 6 mos and in 1 year.Recent ECHO, no real changes.F/u in 6 mos.Denies chest/arm pain on exertion or palpitations. HyperlipidemiaRecently starting Rosuvastatin 10 mg 1 tablet daily.Tolerating medication well. 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 STANFORD Beavers [address] [place] [address], [phone], [facility] 02/26/2021 10:31:57 1 text/html kneeling under car - TuesdayW up and knee was swollenWorseningPain is moderate.Taking Ibuprofen.Moving worsens sxsUsing crutchesUnstable without crutchesDenies numbness or tingling. STANFORD Beavers [address] [place] [address], [phone], [facility] 03/04/2021 13:08:24 1 text/html F/u today on [...] few days. Treated for arthritic gout at [facility] in early JanuaryRight foot.Treatment for 10 days. A FibCardioversion in 2018.Taking Xarelto 20 mg 1 tablet daily.In care with with Alton Carvajalpden and [facility], last appt. 10/28, and recent stress test. Has f/u in 6 mos and in 1 year.Recent ECHO, no real changes.F/u in 6 mos.Denies chest/arm pain on exertion or palpitations. HyperlipidemiaRecently starting Rosuvastatin 10 mg 1 tablet daily.Tolerating medication well. 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 STANFORD Beavers [address] [place] [address], [place], [phone], [facility] 04/08/2021 09:19:15 1 text/html tested positive for [...] morning, has not used STANFORD Beavers [address] [place], [phone], [facility] 05/06/2021 15:09:30 2 text/html Risk Assessment and [...] like pcp to send a record to [facility].Pt reports his breathing issue is restricting his from getting works done. Hx of epilepsy grew out of it at age 17 or 18 y/o.Does not believe he has had sxs since. Reducing alcohol1-2 shots every few days. A FibCardioversion in 2018.Taking Xarelto 20 mg 1 tablet daily.In care with with Amie Carvajal and [facility], last appt. 10/28, and recent stress test. Has f/u in 6 mos and in 1 year.Recent ECHO, no real changes.F/u in 6 mos.Denies chest/arm pain on exertion or palpitations. [id number] 6 CAROLINA/central apneaRecently dx with severe CAROLINA by [facility].Started CPAP machine last year.Improving sleep at night - no longer waking up SOB.Has upcoming appointment for adjustments.In care w/ Dr. Clark, EKG showed incomplete bundle branch block. Chest x-ray normal. PFT showed moderate obstruction. A FibCardioversion in 2018.Taking Xarelto 20 mg 1 tablet daily.In care with with Amie Carvajal and [facility], last appt. 07/14/2021, recent stress test. Has f/u in 6 mos and in 1 year.Recent ECHO, no real changes.F/u in 6 mos.Denies chest/arm pain on exertion or palpitations. HyperlipidemiaRecently starting Rosuvastatin 10 mg 1 tablet daily.Tolerating medication well. 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 STANFORD Beavers [address] [place] [address], [phone], [facility] 08/21/2021 10:55:25
== END 2024-08-23 09:48 | disposition home or self-care (01) ==
PROVIDERS: PCP Family Medicine; Visit Provider Student in an Organized Health Care Education/Training Program
DX: M1A.09X0 Idiopathic chronic gout, multiple sites, without tophus (tophi) (principal); Z51.81 Encounter for therapeutic drug level monitoring; Z79.899 Other long term (current) drug therapy
CPT/HCPCS: 99213; G2211

== ENCOUNTER 2024-08-23 09:44 | Outpatient (REF) | payer MEDICARE, MEDICAID, SELFPAY ==
[2024-08-23 13:22] LABS: MANUAL DIFF FLAG NO
[2024-08-23 13:43] LABS: Basophils Absolute Auto 0.1 X10*3/uL (0.0-0.2); Basophils Percent Auto 1.5 % (0-2); Eosinophils Absolute Auto 0.4 X10*3/uL (0.0-0.4); Eosinophils Percent Auto 5.3 % (0-4); Hematocrit 44.3 % (42.0-52.0); Hemoglobin 15.1 g/dl (14.0-18.0); Imm Gran Abs Auto 0.06 X10*3/uL (0.00-0.03); Imm Gran Pct Auto 0.8 % (0.0-0.4); Lymphocytes Absolute Auto 1.3 X10*3/uL (1.2-4.9); Lymphocytes Percent Auto 17.2 % (20-40); Mean Corpuscular HGB Conc 34.1 g/dl (31.0-36.0); Mean Corpuscular Hemoglobin 34.1 pg (27.0-33.0); Mean Platelet Volume 10.5 fL (9.4-12.4); Monocytes Absolute Auto 0.9 X10*3/uL (0.1-1.2); Monocytes Percent Auto 12.2 % (2-11); Neutrophils Absolute Auto 4.6 x10*3/uL (2.0-8.3); Platelet Count 189 X10*3/uL (160-400); Red Blood Count 4.43 X10*6/uL (4.60-5.80); Red Cell Distribution Width 15.5 % (11.0-16.0); White Blood Count 7.3 X10*3/uL (4.8-10.8)
[2024-08-23 14:01] LABS: Alanine Aminotransferase 55 U/L (0-40); Albumin Level 4.3 g/dL (3.5-5.0); Alkaline Phosphatase 61 U/L (39-117); Anion Gap 10 (12-20); Aspartate Amino Transferase 33 U/L (5-37); Bilirubin Total 0.5 mg/dL (0.0-1.0); Blood Urea Nitrogen 23 mg/dL (9-16); C Reactive Protein 0.37 mg/dL (< or = 0.50); Calcium 9.5 mg/dL (8.4-10.2); Carbon Dioxide 26 mmol/L (22-29); Chloride 112 mmol/L (96-108); Estimated Glomerular Filt Rate > 60; Glucose Random 89 mg/dL (60-115); Potassium 4.7 mmol/L (3.3-5.1); Sodium 143 mmol/L (135-145); Total Protein 6.9 g/dL (6.5-8.0)
[2024-08-23 14:30] LABS: Erythrocyte Sedimentation Rate 6 MM/HR (0-15)
== END 2024-08-23 09:45 | disposition home or self-care (01) ==
LOC: HO.10HDL 09:44
PROVIDERS: Visit Provider Student in an Organized Health Care Education/Training Program
DX: M1A.09X0 Idiopathic chronic gout, multiple sites, without tophus (tophi) (principal)
CPT/HCPCS: 36415; 80053; 84550; 85025; 85652; 86140; 99212

== ENCOUNTER → 2024-09-25 08:40 | Outpatient (REF) | payer MEDICARE, MEDICAID, SELFPAY ==
--- NOTE | 2024-09-25 08:43 | CA_ITS ---
Transthoracic Echocardiogram Patient (Last, First, Middle): Inder Roberts, Gender: Male Date of : 1965 Age: 59 Procedure Date: 09/25/2024 Procedure Type: Transthoracic Echocardiogram Location: OP Height: 175.26 cm Weight: 122.47 kg BSA: 2.35 m2 Heart Rate: bpm BP: 110 / 60 mmHg Pure Culture Operator: SREEKANTH/HERMILO Referring MD: Erik Molina MD Symptoms: I48.0 - Paroxysmal atrial fibrillation Study Quality: Adequate with contrast ECG Rhythm: Sinus Conclusions: - The left ventricular systolic function is normal. The calculated ejection fraction is 57% by biplane method. - No obvious valvular pathology seen on this study. - There is mild dilatation of the ascending aorta measuring 4.00 cm. Findings Procedure Information Contrast agent, definity, is being given per protocol without apparent complications. Left Ventricle Normal left ventricular cavity size. The left ventricular systolic function is normal. The calculated ejection fraction is 57% by biplane method. There is no evidence of regional wall motion abnormalities. Diastolic function is normal for age. There is mild septal asymmetric hypertrophy. Right Ventricle Mildly increased right ventricular cavity size. There is normal right ventricular systolic function. Atria The left atrium is mildly dilated. The right atrium is moderately dilated. Aortic Valve There is a normal trileaflet aortic valve. There is no aortic valve stenosis. There is no aortic valve regurgitation. Mitral Valve The mitral valve appears normal. There is no mitral valve regurgitation. There is no mitral valve stenosis. Pulmonic Valve The pulmonic valve is likely normal. Tricuspid Valve There is trace tricuspid valve regurgitation. There is no evidence of pulmonary hypertension. Great Vessels There is mild dilatation of the ascending aorta measuring 4.00 cm. Venous The inferior vena cava is mildly dilated and collapses greater than 50% with inspiration. Pericardium/Pleural There is no evidence of pericardial effusion. Prior Study Comparison No significant change compared to prior study dated: 09/08/2023. Recommendations, Care & Conclusions No obvious valvular pathology seen on this study. Measurements 2D Linear Measurements IVSd: 1.03 0.6-0.9/0.6-1.0 cm LVIDd: 4.45 3.9-5.3/4.2-5.9 cm LVIDd Index: 1.89 2.4-3.2/2.2-3.1 cm/m2 LVIDs: 3.38 2.0-3.6 cm LVPWd: 0.92 0.7-1.1 cm LV Mass: 180.86 67-162/88-224 g LV Mass Index: 76.96 43-95/49-115 g/m2 LVOT Diam: 2.40 3.0+(-)1.3 cm 2D Systolic Function EF 4C: 51.60 >55% EF 2C: 62.60 >55% EF BiP: 57.30 >55% Mitral Valve MV Pk E: 0.77 MV PK A: 0.93 MV Decel Time: 285.00 E/A: 0.80 E'Lateral: 8.27 E'Medial: 6.85 E/E' Med: 11.20 E/E' Lat: 9.30 PHT: 83.00 MVA PHT: 2.65 Decel Rogers: 2.69 Aortic Valve AoV Pk Eduardo: 1.53 AoV Mn Eduardo: 1.09 AoV VTI: 0.40 AoV Pk Grad: 9.00 Aov Mn Grad: 5.00 PIPPA Cont.VTI: 3.35 LVOT LVOT Pk Eduardo: 1.17 LVOT Mn Eduardo: 0.71 LVOT VTI: 0.30 LVOT Pk Grad: 5.00 LVOT Mn Grad: 2.00 LVOT Diam: 2.40 LVOT Area: 4.52 Diastolic Function MV Pk E: 0.77 MV Pk A: 0.93 E/A: 0.80 E'Medial: 6.85 E/E' Med: 11.20 E' Laterial: 8.27 E/E' Lat: 9.30 Right Ventricle TAPSE (mm): 28.50 TVS' Eduardo: 12.60 Tricuspid Valve TR Pk Eduardo: 2.21 TR Pk Grad: 20.00 RA Press: 8.00 RVSP: 28.00 Great Vessels Aorta Sinus of Valsalva: 3.50 2.0-3.5 cm Ao Asc: 4.00 2.1-3.4 cm Updated in Other Vendor System with Status of Final Teddy Jewell MD electronically signed on 09/27/2024 12:26:57 PM with status of Final
--- OUTSIDE RECORDS SUMMARY | 2024-09-25 09:06 | XMS_ITS | Data Portability ---
Author Organization [facility], , [facility] Address [address] [place] [address] Care Team Providers Care Paint Tester Name Role Phone WALDO PANDYA Primary Care Provider SINTIA MARCANO Destination Coordinator Assessment Encounter Date Assessment Date Assessment LastModified by Organization Details LastModified Time 05/06/2021 05/06/2021 Patient agreed t o this visit via a secure telehealth platform due to the COVID -19 pandemic. Patient understands this is a scheduled visit and the usual procedures with regard to billing and confidentiality apply. Patient was notified that the provider location is [facility] Patient location: home During the visit the patient? s medical history and medical record were reviewed. The patient was notified to call our office for worsening or urgent symptoms. Not available 05/06/2021 15:09:26 Plan of Treatment Reminders Order Date Submit Date Provider Last Modified By Organization Details Last Modified Time Details Appointments None recorded. Lab TSH, serum or plasma 2020 [facility], [address] [place] [address], [address], 12:19:10 BMP, serum or plasma 2020 [facility], [address] [place] [address], [address], 14:13:16 lipid panel, serum 2020 [facility], [address] [place] [address], [address], 14:13:[address] [facility], [address] [facility], [place], [address], 12:48:40 Referral nutritionis t/dietitian referral - A1c 6 2021 [email or web address] Not available 11:36:53 orthopedic surgeon referral 2020 [email or web address] Not available 12:55:17 sleep medicine referral 2020 [facility], [address] [place], [address], 16:06:[address] referral - Worsening SOB. Episodes of apnea during the day. In care w/ cardiology, Dr. Garza. Unable to complete tasks d/t SOB. 2020 CLIVE Hernandez MD, [address] [place], [address], 11:02:56 neurologist referral - Episodes of apnea during day and night. Has [place] and wears CPAP. Daytime episodes occur while patient is focused on tasks, I forget to breath. Hx of childhood epilepsy. 2020 [email or web address] Alondra Valenzuela MD, [address] [place] [address] , [address], [address], 11:32:25 Procedures None recorded. Surgeries None recorded. Imaging None recorded. Medication Orders None recorded. Patient TargetsNo targets recorded. Patient Instructions Encounter Date Encounter Id Patient Instructions Last Modified By Organization Details Last Modified Time 02/26/2021 [id number] complete PFT* - with ABG's ATHENAFAX Not available 02/26/2021 11:32:20 08/21/2021 [id number] Prostate Cancer Screening using PSA was discussed. [...] sleep apnea syndrome Referring Physician: Nury Wallace [facility], Encounter Date: 02/26/2021 Sports Management Professor Referral for D yspnea Worsening SOB. Episodes of apnea during the day. In care w/ cardiology, Dr. Garza. Unable to complete tasks d/t SOB. Referring Physician: Nury Wallace [facility], Encounter Date: 02/26/2021 Neurologist Referral for Dys pnea Episodes of apnea during day and night. Has [place] and wears CPAP. Daytime episodes occur while patient is focused on tasks, I forget to breath. Hx of childhood epilepsy. Referring Physician: Nury Wallace [facility], Encounter Date: 02/26/2021 Orthopedic Surgeon Referral for Swelling of knee joint Referring Physician: Nury Wallace [facility], Encounter Date: 03/04/2021 Rake Operator/dietitian Refer ral for Prediabetes A1c 6 Referring Physician: Nury Wallace [facility], Encounter Date: 08/21/2021 Results Created Date Observation Date Name Description Value Unit Range Abnormal Flag Note LastModifiedBy Organization Detail LastModifiedTime 02/27/20 21 02/26/2021 CBC WBC 12.62 K/? ? ?L 4.23-9 .07 high Not Available [address], [address], 02/26/2021 12:48:40 02/27/20 21 02/26/2021 CBC RBC 4.77 M/? ? ?L 4.63-6 .08 Not Available [address], [address], 02/26/2021 12:48:40 02/27/20 21 02/26/2021 CBC HGB 15.0 g/dL 13.7-1 7.5 Not Available [address], [address], 02/26/2021 12:48:40 02/27/20 21 02/26/2021 CBC HCT 46.5 % 40.1-5 1.0 Not Available [address], [address], 02/26/2021 12:48:40 02/27/20 21 02/26/2021 CBC MCV 97.5 fL 79.0-9 2.2 high Not Available [address], [address], 02/26/2021 12:48:40 02/27/20 21 02/26/2021 CBC MCH 31.4 pg 25.7-3 2.2 Not Available [address], [address], 02/26/2021 12:48:40 02/27/20 21 02/26/2021 CBC MCHC 32.3 g/dL 32.3-3 6.5 Not Available [address], [address], 02/26/2021 12:48:40 02/27/20 21 02/26/2021 CBC plt 217 K/? ? ?L 163-33 7 Not Available [address], [address], 02/26/2021 12:48:40 02/27/20 21 02/26/2021 CBC MPV 10.3 fL 9.4-12 .4 Not Available [address], [address], 02/26/2021 12:48:40 02/27/2002/26/2021 CBC neut% 72.1 % 34.0-6 7.9 high Not Available [address], [address], 02/26/2021 12:48:40 02/27/2002/26/2021 CBC neut# 9.10 1.78-5 .38 high Not Available [address], [address], 02/26/2021 12:48:40 02/27/2002/26/2021 CBC lymph % 13.8 % 21.8-5 3.1 low Not Available [address], [address], 02/26/2021 12:48:40 02/27/2002/26/2021 CBC lymph # 1.74 K/? ? ?L 1.32-3 .57 Not Available [address], [address], 02/26/2021 12:48:40 02/27/2002/26/2021 CBC mono% 10.5 % 5.3-12 .2 Not Available [address], [address], 02/26/2021 12:48:40 02/27/2002/26/2021 CBC mono# 1.33 0.30-0 .82 high Not Available [address], [address], 02/26/2021 12:48:40 02/27/20 21 02/26/2021 CBC eo% 2.3 % 0.8-7. 0 Not Available [address], [address], 02/26/2021 12:48:40 02/27/20 21 02/26/2021 CBC eo# 0.29 0.04-0 .54 Not Available [address], [address], 02/26/2021 12:48:40 02/27/20 21 02/26/2021 CBC baso% 0.9 % 0.2-1. 2 Not Available [address], [address], 02/26/2021 12:48:40 02/27/20 21 02/26/2021 CBC baso# 0.11 0.00-0 .08 high Not Available [address], [address], 02/26/2021 12:48:40 02/27/20 21 02/26/2021 CBC RDW-CV 14.4 % 11.6-1 4.4 Not Available [address], [address], 02/26/2021 12:48:40 02/27/20 21 02/26/2021 CBC Ig% 0.400 % 0.000- 1.500 Ig % >0.5 Indic ates possi ble Left Shift Not Available [address], [address], 02/26/2021 12:48:40 02/27/20 21 02/26/2021 CBC Ig# 0.050 0.000- 0.093 Not Available [address], [address], 02/26/2021 12:48:40 02/27/20 21 02/26/2021 CBC NRBC% 0.0 % 0.0-0. 2 Not Available [address], [address], 02/26/2021 12:48:40 02/27/20 21 02/26/2021 CBC NRBC# 0.000 0.000- 0.012 Not Available [address], [address], 02/26/2021 12:48:40 02/27/20 21 02/26/2021 BASIC METAB OLIC PANEL glucose 92 mg/dL 70-100 Not Available [address], [address], 02/26/2021 14:13:16 02/27/20 21 02/26/2021 BASIC METAB OLIC PANEL BUN 16 mg/dL 7-18 Not Available [address], [address], 02/26/2021 14:13:16 02/27/20 21 02/26/2021 BASIC METAB OLIC PANEL creatinine 0.9 mg/dL 0.8-1. 3 Not Available [address], [address], 02/26/2021 14:13:16 02/27/20 21 02/26/2021 BASIC METAB OLIC PANEL B/C 17.8 ratio Not Available [address], [address], 02/26/2021 14:13:16 02/27/20 21 02/26/2021 BASIC METAB OLIC PANEL GFR 92.8 mL/mi n Recom merrill d GFR by the Natio nal Kidne y Found ation >60 mL/mi n/1.7 3m2 - Toshia l <60 mL/mi n/1.7 3m2 - Chron ic Kidne y Disea se <15 mL/mi n/1.7 3m2 - Kidne y Failu re Not Available [address], [address], 02/26/2021 14:13:16 02/27/20 21 02/26/2021 BASIC METAB OLIC PANEL sodium 139 mmol/ L 136-14 5 Not Available [address], [address], 02/26/2021 14:13:16 02/27/20 21 02/26/2021 BASIC METAB OLIC PANEL potassium 4.4 mmol/ L 3.5-5. 1 Not Available [address], [address], 02/26/2021 14:13:16 02/27/2002/26/2021 BASIC METAB OLIC PANEL chloride 102 mmol/ L 96-107 Not Available [address], [address], 02/26/2021 14:13:16 02/27/20 21 02/26/2021 BASIC METAB OLIC PANEL anion gap 12.7 5.0-15 .0 Not Available [address], [address], 02/26/2021 14:13:16 02/27/20 21 02/26/2021 BASIC METAB OLIC PANEL CO2 24 mmol/ L 21-32 Not Available [address], [address], 02/26/2021 14:13:16 02/27/20 21 02/26/2021 BASIC METAB OLIC PANEL calcium 9.3 mg/dL 8.5-10 .3 Not Available [address], [address], 02/26/2021 14:13:16 02/27/20 21 02/26/2021 LIPID PANEL cholesterol 149 mg/dL <200 mg/dl Nilda able 200-2 39 mg/dl Borde rline High >240 mg/dl High Not Available [address], [address], 02/26/2021 14:13:16 02/27/20 21 02/26/2021 LIPID PANEL triglyceride s 126 mg/dL <150 mg/dL Toshia l 150-1 99 mg/dL Borde rline High 200-4 99 mg/dL High >500 mg/dL Very High Not Available [address], [address], 02/26/2021 14:13:16 10/07/02/26/2021 LIPID PANEL direct HDL 40 mg/dL <40 mg/dl - Major Risk for CHD >60 mg/dl - Negat bella Risk for CHD Not Available [address], [address], 02/26/2021 14:13:16 02/27/20 21 02/26/2021 DIREC T [...] r is not johnnie jimenez. Not Available [address], [address], 02/26/2021 14:13:17 03/11/20 21 03/11/2021 ARTER IAL BLOOD GAS pH, arterial 7.43 7.35-7 .45 Not Available [facility] [address] [place] [address], [address], 03/11/2021 07:46:45 03/11/20 21 03/11/2021 ARTER IAL BLOOD GAS pCO2, arterial 35.00 mmHg 35.00- 45.00 Not Available [facility]) [address] [place] [address], [address], 03/11/2021 07:46:45 03/11/20 21 03/11/2021 ARTER IAL BLOOD GAS pO2, arterial 83.70 mmHg 80.00- 105.00 Not Available [facility]) [address] [place], [address], 03/11/2021 07:46:45 03/11/20 21 03/11/2021 ARTER IAL BLOOD GAS HCO3, unspecified 23 mmol/ L 22-26 Not Available [facility]) [address] [place] [address], [address], 03/11/2021 07:46:45 03/11/20 21 03/11/2021 ARTER IAL BLOOD GAS base deficit 1.2 mmol/ L 0.0-2. 0 Not Available [facility]) [address] [place] [address], [address], 03/11/2021 07:46:45 03/11/20 21 03/11/2021 ARTER IAL BLOOD GAS so2, unspecified 96.40 % 95.00- 98.00 Not Available [facility]) [address] [place] [address], [address], 03/11/2021 07:46:45 03/11/20 21 03/11/2021 ARTER IAL BLOOD GAS fo2hb blood gas 95.40 % 94.00- 100.00 Not Available [facility]) [address] [place] [address], [address], 03/11/2021 07:46:45 03/11/20 21 03/11/2021 ARTER IAL BLOOD GAS carboxy HGB 0.90 % 0-1.50 Not Available [facility]) [address] [place] [address], [address], 03/11/2021 07:46:45 03/11/20 21 03/11/2021 ARTER IAL BLOOD GAS methgb % 0.10 % 0-1.50 Not Available [facility]) [address] [place] [address], [address], 03/11/2021 07:46:45 03/11/20 21 03/11/2021 ARTER IAL BLOOD GAS carin's test POSITI VE Not Available [facility] [address] [place], [address], 03/11/2021 07:46:45 03/11/20 21 03/11/2021 ARTER IAL BLOOD GAS ABG site RIGHT RADIAL ARTERY Not Available [facility] [address] [place], [address], 03/11/2021 07:46:45 03/11/20 21 03/11/2021 ARTER IAL BLOOD GAS FiO2 21% FiO2/ L_min Not Available [facility] [address] [place], [address], 03/11/2021 07:46:45 03/11/20 21 03/11/2021 ARTER IAL BLOOD GAS oxygen liters/min RA Not Available [facility]) [address] [place], [address], 03/11/2021 07:46:45 03/16/20 21 03/16/2021 TSH TSH 0.98 uIU/m L 0.50-6 .00 The Ameri can Colle ge of Endoc rinol ogy and Ameri can Thyro id Assoc iatio n recom mend goal TSH value s betwe en 0.4-4 .0 mIU/m L. Not Available [address], [address], 03/16/2021 12:19:10 05/07/20 21 05/07/2021 SARS- COV-2 RNA (COVI D-19) , QUALI TATIV E NAAT sarscov2 POSITI VE negati ve abnormal This test has been autho rized by the FDA under an Emerg ency Use Autho rizat ion(E UA) for you by autho rized labs. Not Available [address], [address], 05/07/2021 14:23:28 07/30/19 22 07/29/2021 CBC WBC 7.65 K/? ? ?L 4.23-9 .07 Not Available [address], [address], 07/29/2021 11:16:50 07/30/19 22 07/29/2021 CBC RBC 4.83 M/? ? ?L 4.63-6 .08 Not Available [address], [address], 07/29/2021 11:16:50 07/30/19 22 07/29/2021 CBC HGB 15.1 g/dL 13.7-1 7.5 Not Available [address], [address], 07/29/2021 11:16:50 07/30/19 22 07/29/2021 CBC HCT 45.7 % 40.1-5 1.0 Not Available [address], [address], 07/29/2021 11:16:50 07/30/19 22 07/29/2021 CBC MCV 94.6 fL 79.0-9 2.2 high Not Available [address], [address], 07/29/2021 11:16:50 07/30/19 22 07/29/2021 CBC MCH 31.3 pg 25.7-3 2.2 Not Available [address], [address], 07/29/2021 11:16:50 07/30/19 22 07/29/2021 CBC MCHC 33.0 g/dL 32.3-3 6.5 Not Available [address], [address], 07/29/2021 11:16:50 07/30/19 22 07/29/2021 CBC plt 182 K/? ? ?L 163-33 7 Not Available [address], [address], 07/29/2021 11:16:50 07/30/19 22 07/29/2021 CBC MPV 10.1 fL 9.4-12 .4 Not Available [address], [address], 07/29/2021 11:16:50 07/30/19 22 07/29/2021 CBC neut% 61.5 % 34.0-6 7.9 Not Available [address], [address], 07/29/2021 11:16:50 07/30/19 22 07/29/2021 CBC neut# 4.70 1.78-5 .38 Not Available [address], [address], 07/29/2021 11:16:50 07/30/19 22 07/29/2021 CBC lymph % 22.6 % 21.8-5 3.1 Not Available [address], [address], 07/29/2021 11:16:50 07/30/19 22 07/29/2021 CBC lymph # 1.73 K/? ? ?L 1.32-3 .57 Not Available [address], [address], 07/29/2021 11:16:50 07/30/19 22 07/29/2021 CBC mono% 9.5 % 5.3-12 .2 Not Available [address], [address], 07/29/2021 11:16:50 07/30/19 22 07/29/2021 CBC mono# 0.73 0.30-0 .82 Not Available [address], [address], 07/29/2021 11:16:50 07/30/19 22 07/29/2021 CBC eo% 4.3 % 0.8-7. 0 Not Available [address], [address], 07/29/2021 11:16:50 07/30/19 22 07/29/2021 CBC eo# 0.33 0.04-0 .54 Not Available [address], [address], 07/29/2021 11:16:50 07/30/19 22 07/29/2021 CBC baso% 1.4 % 0.2-1. 2 high Not Available [address], [address], 07/29/2021 11:16:50 07/30/19 22 07/29/2021 CBC baso# 0.11 0.00-0 .08 high Not Available [address], [address], 07/29/2021 11:16:50 07/30/19 22 07/29/2021 CBC RDW-CV 14.4 % 11.6-1 4.4 Not Available [address], [address], 07/29/2021 11:16:50 07/30/19 22 07/29/2021 CBC Ig% 0.700 % 0.000- 1.500 Ig % >0.5 Indic ates possi ble Left Shift Not Available [address], [address], 07/29/2021 11:16:50 07/30/19 22 07/29/2021 CBC Ig# 0.050 0.000- 0.093 Not Available [address], [address], 07/29/2021 11:16:50 07/30/19 22 07/29/2021 CBC NRBC% 0.0 % 0.0-0. 2 Not Available [address], [address], 07/29/2021 11:16:50 07/30/19 22 07/29/2021 CBC NRBC# 0.000 0.000- 0.012 Not Available [address], [address], 07/29/2021 11:16:50 07/30/19 22 07/29/2021 HGB A1C [...] furth er confi rmati on Not Available [address], [address], 07/29/2021 11:52:09 07/30/19 22 07/29/2021 HGB A1C estimated average glucose 125.5 mg/dL Not Available [address], [address], 07/29/2021 11:52:09 07/30/19 22 07/29/2021 LIPID PANEL cholesterol 159 mg/dL <200 mg/dl Nilda able 200-2 39 mg/dl Borde rline High >240 mg/dl High Not Available [address], [address], 07/29/2021 14:35:40 07/30/19 22 07/29/2021 LIPID PANEL triglyceride s 164 mg/dL <150 mg/dL Toshia l 150-1 99 mg/dL Borde rline High 200-4 99 mg/dL High >500 mg/dL Very High Not Available [address], [address], 07/29/2021 14:35:40 07/30/19 22 07/29/2021 LIPID PANEL direct HDL 43 mg/dL <40 mg/dl - Major Risk for CHD >60 mg/dl - Negat bella Risk for CHD Not Available [address] [place], [address], 07/29/2021 14:35:40 07/30/19 22 07/29/2021 LDL - [...] r is not neces barbara. Not Available [address], [address], 07/29/2021 14:35:40 07/30/19 22 07/31/2021 NT PROBN [...] 05-10 . For addit ional infor prieto craney e refer to http: //[facility] alo elam.que stdia gnost ics.c om/fa q/FAQ (This link is being provi ded for infor demetrice barton/ educuche shultz purpo ses only. ) Not Available [facility] [address], [address], 07/31/2021 01:40:20 07/30/19 22 07/31/2021 COMP. METAB OLIC PANEL glucose 92 mg/dL 70-100 Not Available [address], [address], 07/31/2021 11:38:22 07/30/19 22 07/31/2021 COMP. METAB OLIC PANEL BUN 16 mg/dL 7-18 Not Available [address], [address], 07/31/2021 11:38:22 07/30/19 22 07/31/2021 COMP. METAB OLIC PANEL creatinine 0.9 mg/dL 0.8-1. 3 Not Available [address], [address], 07/31/2021 11:38:22 07/30/19 22 07/31/2021 COMP. METAB OLIC PANEL B/C 17.8 ratio Not Available [address], [address], 07/31/2021 11:38:22 07/30/19 22 07/31/2021 COMP. METAB [...] be used in pregn trevor. Not Available [address], [address], 07/31/2021 11:38:22 07/30/19 22 07/31/2021 COMP. METAB OLIC PANEL sodium 142 mmol/ L 136-14 5 Not Available [address], [address], 07/31/2021 11:38:22 07/30/19 22 07/31/2021 COMP. METAB OLIC PANEL potassium 4.5 mmol/ L 3.5-5. 1 HEMS= Speci men Sligh tly Hemol yzed. Chem Resul ts may be effec mercy. Not Available [address], [address], 07/31/2021 11:38:22 07/30/19 22 07/31/2021 COMP. METAB OLIC PANEL chloride 106 mmol/ L 96-107 Not Available [address], [address], 07/31/2021 11:38:22 07/30/19 22 07/31/2021 COMP. METAB OLIC PANEL anion gap 10.2 5.0-15 .0 Not Available [address], [address], 07/31/2021 11:38:22 07/30/19 22 07/31/2021 COMP. METAB OLIC PANEL CO2 26 mmol/ L 21-32 Not Available [address], [address], 07/31/2021 11:38:22 07/30/19 22 07/31/2021 COMP. METAB OLIC PANEL calcium 9.0 mg/dL 8.5-10 .3 Not Available [address], [address], 07/31/2021 11:38:22 07/30/19 22 07/31/2021 COMP. METAB OLIC PANEL total protein 7.0 g/dL 6.4-8. 2 Not Available [address], [address], 07/31/2021 11:38:22 07/30/19 22 07/31/2021 COMP. METAB OLIC PANEL albumin 3.7 g/dL 3.4-5. 0 Not Available [address], [address], 07/31/2021 11:38:22 07/30/19 22 07/31/2021 COMP. METAB OLIC PANEL globulin 3.3 g/dL Not Available [address], [address], 07/31/2021 11:38:22 07/30/19 22 07/31/2021 COMP. METAB OLIC PANEL A/G 1.1 ratio 0.8-2. 0 Not Available [address], [address], 07/31/2021 11:38:22 07/30/19 22 07/31/2021 COMP. METAB OLIC PANEL total bilirubin 0.60 mg/dL 0.00-1 .00 Not Available [address], [address], 07/31/2021 11:38:22 07/30/19 22 07/31/2021 COMP. METAB OLIC PANEL AST 18 U/L 0-37 Not Available [address], [address], 07/31/2021 11:38:22 07/30/19 22 07/31/2021 COMP. METAB OLIC PANEL ALT 29 U/L 6-63 Not Available [address], [place], [address], 07/31/2021 11:38:22 07/30/19 22 07/31/2021 COMP. METAB OLIC PANEL alk. phos. 71 U/L 50-136 Not Available [address], [place], [address], 07/31/2021 11:38:22 03/04/20 21 03/04/2021 xr knee 4 or more views (left ) This image report has been auto-f inaliz ed and has not been read by a Radiol ogist. Interp retati on has been includ ed in the [facility] er encoun ter note for this date of johanne bender. Final result NURY WALLACE [email or web address] [facility] [address] [facility], [place], [address], 03/04/2021 13:26:08 03/11/20 21 03/11/2021 PFT No [...] shortn ess of breath NURY WALLACE blepage [facility] [address], [place], [address], 04/22/2021 12:21:24 03/11/2003/11/2021 pulmo nary funct ion [...] ) No observ ation record ed. miguelDarin [facility] Cardiovascula r [facility] [address], [place], [address], 05/03/2021 16:57:11 05/13/20 21 04/29/2021 trans -thor acic echoc ardio gram (TTE) (PROC ) No observ ation record ed. jacqui Amie [facility] Cardiovasla r [facility] [address], [place], [address], 05/14/2021 09:06:00 Result Notes None recorded. Problems Name Problem SNOMED Code Status Onset Date Resolution Date Notes Provider Name and Address Organization Details Recorded Time Obstruct bella sleep apnea syndrome 75780722 Active 2017 severe; AHI 40.5 2017 Aakash Awan MD [address] [place] [address], [phone] , [facility] 8 19:02:02 Chronic atrial fibrilla tion 002551774 Active 2018 Aakash Awan MD [address] [place] [address], [phone] , [facility] 9 16:33:35 Hyperten sive disorder 69244349 Active 2019 Nury Wallace, [address], [address] , [facility] 0 09:19:05 Diastoli c heart failure 479108808 Active 2019 Nury Wallace, [address], [address] , [facility] 0 09:20:40 Epilepsy 25427233 Active 2020 childhoo d Nury Wallace, [address], [address] , [facility] 1 10:24:46 COVID-19 054078000 Active 202005/05/21 Nury Wallace, [address], [address] , [facility] 1 15:06:45 Prediabe matt 648033646 Active 2021 A1c = 6.[address], LDN [address] [place], [address] , [facility] 2 10:01:32 Body mass index 40+ - severely obese 475191982 Active [address], LDN [address] [place], [address] , [facility] 2 10:01:44 Seminal vesiculi tis 34979356 Active 2008 Not Available [facility] 3 03:10:06 Disorder of male genital organ 93474594 Completed 04/11/2013 Not Available [facility] 3 02:03:54 Cellulit is and abscess of face 861246087 Completed 200604/11/2013 Not Available [facility] 3 02:03:46 Osteoart hritis of knee 429683461 Active 2002 Not Available [facility] 3 03:10:06 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 2002 Not Available [facility] 3 03:10:06 Sensorin eural hearing loss 87928993 Active 2006 Not Available [facility] 3 03:10:06 Impacted cerumen 78138845 Completed 200104/11/2013 Not Available [facility] 3 02:02:11 Acute suppurat bella otitis media without spontane ous rupture of ear drum 21754029 Completed 200104/11/2013 Not Available [facility] 3 02:02:40 Joint pain in ankle and foot Completed 200704/11/2013 Not Available [facility] 3 02:01:25 Localize d, primary osteoart hritis 913277790 Active 2002 Not Available [facility] 3 03:10:06 Psychose xual dysfunct ion associat ed with inhibite d libido 415612883 Active 2005 Not Available [facility] 3 03:10:06 Knee pain Completed 200204/11/2013 Not Available [facility] 3 02:00:41 Acute conjunct ivitis 27700224 Completed 200504/11/2013 Not Available [facility] 3 02:02:28 Elevated blood-pr essure reading without diagnosi s of hyperten darrin 734345080 Completed 200506/21/2019 STANFORD Beavers [address] [place] [address], [address] , [facility] 0 09:18:58 Low back pain 712707700 Active Not Available [facility] 3 03:10:06 Pain in limb 37985117 Completed 200704/11/2013 Not Available [facility] 3 02:00:55 Torsion of testis 20450989 Active Not Available [facility] 3 03:10:06 Problem Notes None recorded. Procedures Surgical History Date Name Laterality Status Provider Name and Address Organization Details Recorded Time prevention-card iovascular risk reduction counseling completed SHAYLA Choudhury [facility] 08/13/2020 11:04:40 1 prevention-sendy al alcohol misuse screening completed SHAYLA Choudhury [facility] 08/13/2020 11:04:40 0 prevention-card iovascular risk reduction counseling completed Lizbeth Richter [facility] 07/11/2019 11:20:40 0 prevention-sendy al alcohol misuse screening completed Lizbeth Richter [facility] 07/11/2019 11:20:40 9 54400: Therapeutic Exercise completed Sheng Mccarthy, PT [address] [place], [id number], [facility] [place]/14/2018 07:23:17 9 Treatment and Advice completed Sheng Mccarthy, PT [address] [place], [id number], [facility] - [place] 11/14/2018 07:06:14 9 12716: Therapeutic Exercise completed Sheng Mccarthy, PT [address] [place], [address], [facility] [place] 11/09[place] 11:06:20 9 Treatment and Advice completed Sheng Mccarthy, PT [address] [place], [address], [facility] [place] 11/09/2018 11:05:58 9 45019: Therapeutic Exercise completed Sheng Mccarthy, PT [address] [place], [address], [facility] [place] 11/02/2018 11:07:46 9 Treatment and Advice completed Sheng Mccarthy, PT [address] [place], [address], [facility] [place] 11/02/2018 11:01:20 9 Physical Activity Counselling completed Sheng Mccarthy, PT [address] [place], [address], [facility] [place] 10/26/2018 10:31:25 9 12878: PT Eval Low Complexity completed Sheng Mccarthy, PT [address] [place], [address], [facility] [place] 10/26/2018 10:31:25 9 Treatment and Advice completed Sheng Mccarthy, PT [address] [place], [address], [facility] [place] 10/26/2018 10:54:22 8 Post hospital/SNF follow-up/Trans itional Care completed Mary Lou Redd [facility] 10/13/2017 15:54:56 Imaging Results Imaging Date Name Status LastModified by Organization Details LastModified Time 03/04/2021 xr knee 4 or more views (left) completed [address] [facility] [address] [place] [address], [address], 03/04/2021 13:26:08 03/11/2021 PFT completed Information no t available 03/11/2021 10:23:38 03/11/2021 xr chest Pa and lateral 2 views completed [email or web address] [facility] [address] [place], [address], 04/22/2021 12:21:24 03/11/2021 pulmonary function test* completed Information not available 03/12/2021 12:08:50 02/26/2021 pulmonary function test* completed Information not available 03/12/2021 12:08:51 03/12/2021 electrocardiogram completed Informa tion not available 03/12/2021 12:04:45 04/29/2021 trans-thoracic echocardiogram (TTE) (PROC) completed [facility] [address], [place], [address], 05/03/2021 16:57:11 04/29/2021 trans-thoracic echocardiogram (TTE) (PROC) completed jacqui [facility] [address], [place], [address], 05/14/2021 09:06:00 Procedure Notes None recorded. Medical [...] Updated DateTime 1 177.8 cm 40.4 kg/m2 812161. 56 g 80 /min 102 mm[Hg] 74 mm[Hg] SHAYLA Choudhury [facility] 09:59:33 Date Recorded Oxygen saturation Oxygen saturation in Arterial blood by Pulse oximetry Provider Name and Address Organization Details Last Updated DateTime 02/26/2021 99 % 99 % STANFORD Beavers [address] [place] [address], [address], [facility] 02/26/2021 10:29:02 Date Recorded Body height Body mass index (BMI) Body weight Heart rate Systolic blood pressure Diastolic blood pressure Provider Name and Address Organization Details Last Updated DateTime 1 177.8 cm 39 kg/m2 767651. 12 g 72 /min 108 mm[Hg] 78 mm[Hg] Mili Buckley [facility] 1 12:04:48 Date Recorded Body height Body mass index (BMI) Body weight Heart rate Systolic blood pressure Diastolic blood pressure Provider Name and Address Organization Details Last Updated DateTime 1 177.8 cm 40.9 kg/m2 984559. 83 g 64 /min 106 mm[Hg] 78 mm[Hg] Mili Buckley [facility] 1 09:00:02 Date Recorded Body height Body temperature Provider N yoli and Address Organization Details Last Updated DateTime 05/06/2021 177.8 cm 98.9 [degF] Mili Buckley [facility] 05/06/2021 14:39:38 Date Recorded Body height Body mass index (BMI) Body weight Heart rate Systolic blood pressure Diastolic blood pressure Provider Name and Address Organization Details Last Updated DateTime 2 177.17 cm 41.5 kg/m2 641867. 01 g 72 /min 122 mm[Hg] 84 mm[Hg] Mili Buckley [facility] 2 10:24:50 Social History Question Answer Notes LastModified by Organization Details LastModified Time Tobacco Smoking Status Never Smoker Rare marijuana Not Available [facility] 10/15/2010 02:07:33 What Is Your [...] E-cigarettes Or Vape? 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 4 Information not available 07/11/2019 Are There Any [...] How Many Children Do You Have? 0 [email or web address] Information not available 07/11/2019 Do You Use [...] Used Smokeless Tobacco? Never Used Smokeless Tobacco [email or web address] Information not available 07/11/2019 How Much Tobacco Do You Smoke? No [email or web address] Information not available 07/11/2019 What Types Of Sporting Activities Do You Participate In? None Information not available 06/29/2018 General Stress Level Medium Information not available 08/13/2020 Do You Use Any Illicit Or Recreational Drugs? No Information not available 08/21/2021 Do You Use Sunscreen Routinely? Yes Information not available 06/29/2018 How Many Years Have You Smoked Tobacco? 0 [email or web address] Information not available 07/11/2019 Do You Or [...] Td(adult) unspecified formulation 6 completed Not Available [facility] 04/07/2011 05:21:29 Tdap 9 completed Not Available [facility] hospital 06/09/2019 02:37:59 Td(adult) unspecified formulation 9 completed Marlys weber [facility] 10/05/2018 08:12:21 COVID-19, mRNA, LNP-S, PF, 30 mcg/0.3 mL dose 1 completed SHAYLA Choudhury [facility] 02/26/2021 09:55:38 COVID-19, mRNA, LNP-S, PF, 30 mcg/0.3 mL dose 1 completed SHAYLA Choudhury [facility] 02/26/2021 09:56:01 Past Encounters Encounter ID Performer Location Encounter Start Date Encounter Closed Date Diagnosis/Indication Diagnosis SNOMED-CT Code Diagnosis ICD10 Code Diagnosis Note [id number] Aakash Awan MD , [facility], [address] [place] [address] 04/16/2002 10:58:35 06/12/2008 02:02:29 [id number] Kayla Aguilar NP , [facility], [address] [place] [address] 01/15/2003 09:59:23 06/12/2008 02:02:29 [id number] [facility] RAD[facility] [employer] , [facility] [address] [place] [address] 01/15/2003 10:29:01 06/12/2008 02:02:29 [id number] [facility] RAD[facility] [employer] , [facility] [address] [place] [address] 01/15/2003 00:00:00 06/12/2008 02:02:29 [id number] MD MARY Pitt, [facility], [address] [place] [address] 02/05/2003 13:27:50 02/06/2003 08:08:26 [id number] [facility] - [address] [address] 02/11/2003 08:27:33 02/11/2003 08:27:36 [id number] MD MARY Pitt, [facility], [address] [place] [address] 10/07/2005 14:47:01 06/12/2008 02:02:29 [id number] [facility] - [address] [address] 10/07/2005 15:39:32 10/07/2005 15:39:44 [id number] MARU Stephens, [facility], [address] [place] [address] 02/03/2006 09:00:30 02/03/2006 13:59:06 [id number] MD MARY Pitt, [facility], [address] [place] [address] 02/09/2006 10:00:36 02/10/2006 08:46:13 [id number] MD MARY Pitt, [facility], [address] [place] [address] 02/09/2006 10:00:36 02/10/2006 08:46:13 [id number] MD MARY Pitt, [facility], [address] [place] [address] 08/10/2006 09:01:47 08/11/2006 12:17:05 [id number] MD MARY Pitt, [facility], [address] [place] [address] 04/25/2007 08:43:18 06/12/2008 02:02:29 [id number] MD MARY Pitt, [facility], [address] [place] [address] 05/09/2007 14:18:55 06/12/2008 02:02:29 [id number] An Mcmillan NP , [facility], [address] [place] [address] 06/28/2007 09:17:18 06/12/2008 02:02:29 [id number] [facility] RADIOLOGY [facility] [address] [place] [address] 06/28/2007 09:44:31 06/29/2007 09:24:43 [id number] Aakash Awan MD , [facility], [address] [place] [address] 07/25/2008 14:42:45 07/29/2008 15:05:32 [id number] [facility] - [facility] [address] [place] [address] 07/25/2008 15:46:39 07/25/2008 15:46:47 [id number] Coco Mcbride NP , [facility], [address] [place] [address] 12/15/2010 11:02:39 12/16/2010 08:57:36 [id number] MD MARY Pitt, [facility], [address] [place] [address] 12/21/2010 14:11:01 12/22/2010 13:19:46 [id number] Sheng Mccarthy , PT Physical Therapy, [facility] [address] [place] [address] 12/23/2010 11:20:27 12/25/2010 08:01:42 [id number] Sheng Mccarthy , PT Physical Therapy, [facility] [address] [place] [address] 12/25/2010 08:14:07 12/25/2010 09:34:56 [id number] MD MARY Pitt, [facility], [address] [place] [address] 09/29/2017 14:11:10 09/29/2017 15:30:09 Atrial fibrillation 01163891 I48.91 [id number] Aakash Awan MD , [facility], [address] [place] [address] 10/13/2017 15:35:32 10/14/2017 09:10:50 Atrial fibrillation 78395295 I48.91 [id number] Aakash Awan MD , [facility], [address] [place] [address] 11/15/2017 14:17:18 11/16/2017 16:35:37 Snoring 03001089 R06.83 Atrial fibrillation 4943 6004 I48.91 [id number] Aakash Awan MD , [facility], [address] [place] [address] 06/29/2018 15:32:22 06/29/2018 17:02:06 Adult health examination 129200144 Z00.00 see Risk Assessment and Lifestyle Change Counseling section above Counseling 589295484 Z71 .9 Depression screening 171 493131 Z13.89 depression screening tool administer ed, entered into emr, scored and discussed, time greater than 7.5 minutes Active or passive immunization 763201435 Z23 Obstructiv e sleep apnea syndrome 78211377 G47.33 Localized, primary osteoarthritis 397170295 M19.91 Primary ma lignant neoplasm of testis 21711820 C62.90 Chronic at rial fibrillation 436426397 I48.2 Osteoarthr itis of knee 790027416 M17.9 [id number] Adithya Rodríguez MD , [facility], [address] [place] [address] 10/05/2018 07:42:52 10/05/2018 08:26:47 Chronic atrial fibrillation 582125433 I48.2 continue on Xarelto, not missing doses Dislocatio n of shoulder joint 561817011 S43.005A [id number] Sheng Mccarthy , PT Physical Therapy, [facility] [address] [place] [address] 10/26/2018 10:18:22 10/27/2018 08:18:10 Dislocation of shoulder joint 662651719 S43.005D 53 year old {{female m kyara*}} [...] Include: Therapeuti c exercise and manual therapy [id number] Sheng Mccarthy , PT Physical Therapy, [address] [address] 11/02/2018 10:20:32 11/03/2018 08:25:19 Dislocation of shoulder joint 270929493 S43.005D Patient Goals: Be able to avoid [...] sufficient muscular endurance to meet functional demands. [id number] MARU Waldron , [facility], [address] [place] [address] 11/09/2018 07:50:07 11/09/2018 08:31:02 Dislocation of shoulder joint 461094514 S43.005A resolving- continue PT Screening for malignant neoplasm of colon 389286096 Z12.11 will consult PCP [id number] Sheng Mccarthy , PT Physical Therapy, [facility] [address] [place] [address] 11/09/2018 10:13:22 11/09/2018 11:29:33 Dislocation of shoulder joint 245683056 S43.005D Patient Goals: Be able to avoid [...] sufficient muscular endurance to meet functional demands. [id number] Sheng Mccarthy , PT Physical Therapy, [facility] [address] [place] [address] 11/14/2018 06:58:27 11/14/2018 11:41:07 Dislocation of shoulder joint 959039859 S43.005D Patient Goals: Be able to avoid [...] sufficient muscular endurance to meet functional demands. [id number] Adithya Rodríguez MD , [facility], [address] [place] [address] 12/18/2018 16:12:19 12/19/2018 08:07:39 Screening for disorder 025853614 Z11.59 Screening for malignant neoplasm of colon 876438712 Z12.11 Referral for a DIRECT booked colonoscop y. This patient is a healthy ASA Class 1 or 2 patient (only mild systemic disease), or a STABLE, well controlled insulin dependent diabetic. They do not have serious cardiac disease ie ID/angiopl asty within 1 year, symptomati c CHF; renal failure with CKD 4 or 5; take Coumadin, Plavix, Aggrenox, etc. Chronic at rial fibrillation 488084914 I48.2 F/U w/ cardiology Sleep apnea 04923526 G47 .30 Pt to contact insurance company re coverage for cpap machine. Discussed nutrition. Consider nutritioni st in future. [id number] Adithya Rodríguez MD , [facility], [address] [place] [address] 06/21/2019 08:50:11 06/21/2019 09:16:12 Chronic atrial fibrillation 098923751 I48.20 Taking Xarelto 20 mg 1 tablet daily. In care with [facility] Amie Car[facility]ajal [facility]. F/u at upcoming wellness exam. Diastolic heart failure 893798414 I50.30 Recent ECHO on 05/01 showed intact right and left systolic function. EF 60-65%. Right atrial dilation and right ventricle enlargemen t. Grade 1 diastolic dysfunctio n with trace MR. Hypertensive disorder 38 524132 I10 at goal , BP <140/90. Will continue taking Metoprolol Tartrate 100 mg tablet BID. F/u at upcoming wellness exam. Obstructiv e sleep apnea syndrome 95751437 G47.33 Has not picked up CPAP machine yet. In care with [facility]. Advised to f/u wit them VALERY. F/u at upcoming wellness exam. [id number] Adithya Rodríguez MD , [facility], [address] [place] [address] 07/11/2019 10:39:58 07/11/2019 12:07:24 Adult health examination 639340592 Z00.00 Colonoscop y 2019, repeat in 10 yrs. Counseling 377984505 Z71 .9 [facility] Depression screening 171 575189 Z13.89 depression screening tool administer ed, entered into emr, scored and discussed, time greater than 7.5 minutes Screening for alcohol abuse 271961342 Z13.39 Scored 4. Screening for disorder 127988862 Z11.59 Gout 13639404 M10.9 R big toe. Will switch from NSAID to colchicine 1 tablet twice a day until sxs resolve. Will f/u if sxs persist or worsen. Chronic at rial fibrillation 196226815 I48.20 Taking Xarelto 20 mg 1 tablet daily. In care with with Amie Carvajal [facility] , next appt. 10/2019. F/u at upcoming wellness exam. Diastolic heart failure 956382267 I50.30 Recent ECHO on 05/01 showed intact right and left systolic function. EF 60-65%. Right atrial dilation and right ventricle enlargemen t. Grade 1 diastolic dysfunctio n with trace MR. Hypertensive disorder 38 512210 I10 at goal, BP <140/90. Will continue taking Metoprolol Tartrate 100 mg tablet BID. F/u at upcoming wellness exam. Obstructiv e sleep apnea syndrome 09171151 G47.33 Has not picked up CPAP machine yet. In care with [facility]. Advised to f/u wit them VALERY. 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 CT yealy for 10 yrs - no f/u needed. 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 In care with with Amie Carvajal and [facility] , recent appt. 04/2020 w/ ECHO. next appt. 10/2019. F/u at upcoming wellness exam. Obstructiv e sleep apnea syndrome 25244319 G47.33 Wearing CPAP machine nightly with improvemen t. Active or passive immunization 148097501 Z23 Diastolic heart failure 978996783 I50.30 Recent ECHO on 04/2020 showed minimal change from previous ECHO. EF 55-60%. Mild concentric hypertroph y left ventricula r , mild mitral regurgitat ion, and mild trace tricuspid regurgitat ion. BNP on 06/19 is 989. Hypertensive disorder 38 912023 I10 at goal, BP <130/80. Will continue taking Metoprolol Tartrate 100 mg tablet BID. Rx to pharmacy for BP kit. Advised to check BP 1-2 times a week and record readings to review at upcoming wellness. F/u at upcoming wellness exam. Mixed hyperlipidemia 267 137305 E78.2 ASCVD risk 9.7%, recommenda tion is moderate intensity statin. Patient agrees to plan - will start Rosuvastat in 10 mg 1 tablet daily. Dyspnea 907207991 R06.00 On exertion. Denies chest pain associated . Denies hx of asthma or COPD. Never Smoker. [facility] Garza[facility] r/t ordering stress test. This PCP has not heard back. Would also consider PFT. Cough 61437882 R05 At night. Describes PND. PND vs GERD vs CHF. Flonase has not helped in past. Will try OTC allergy medication to see if sxs improve. If no improvemen t would consider treating for GERD. [id number] Aidthya Rodríguez MD , [facility], [address] [place] [address] 08/13/2020 11:00:24 08/14/2020 09:27:58 Adult health examination 335337843 Z00.00 Colonoscop y 2018, repeat in 10 yrs. UTD on Td. Counseling 120403288 Z71 .9 including cardivascu lar risk reduction counseling Depression screening 171 643026 Z13.31 depression screening tool administer ed, entered into emr, scored and discussed, time greater than 7.5 minutes Screening for alcohol abuse 602774172 Z13.39 Scored 4. Hypertensive disorder 38 762458 I10 at goal, BP <130/80. Will continue taking Metoprolol Tartrate 100 mg tablet BID. Rx to pharmacy for BP kit. Advised to check BP 1-2 times a week. Agreed to BP clinic w/ f/u. Obstructiv e sleep apnea syndrome 01557156 G47.33 Wearing CPAP machine nightly with improvemen t. Chronic at rial fibrillation 058126985 I48.20 Taking Xarelto 20 mg 1 tablet daily and Metoprolol 100 mg 1 tablet BID. In care with with Amie Carvajal and [facility] , recent appt. 04/2020 w/ ECHO. next appt. 10/2019. F/u at upcoming wellness exam. Active or passive immunization 382830502 Z23 Diastolic heart failure 309033123 I50.30 Recent ECHO on 04/2020 showed minimal change from previous ECHO. EF 55-60%. Mild concentric hypertroph y left ventricula r , mild mitral regurgitat ion, and mild trace tricuspid regurgitat ion. BNP on 06/19 is 989. Mixed hyperlipidemia 267 660084 E78.2 ASCVD risk 9.7%, recommenda tion is moderate intensity statin. Patient agrees to plan - will start Rosuvastat in 10 mg 1 tablet daily. Dyspnea 324637555 R06.00 On exertion. Denies chest pain associated . Denies hx of asthma or COPD. Never Smoker. Will order [facility] Garza[facility] office r/t ordering stress test. This PCP has not heard back. Would also consider PFT. Consulted with SE. Cough 45263969 R05 At night. Describes PND. PND vs [...] 4-6 weeks or sooner if sxs worsen. [id number] Adithya Rodríguez MD , [facility], [address] [place] [address] 02/26/2021 09:39:16 02/27/2021 09:47:54 Obstructive sleep apnea syndrome 92141973 G47.33 Wearing CPAP machine nightly with improvemen t. Dyspnea 745352435 R06.00 Dyspnea/ap neaIn care w/ cardio, Dr. [...] in 1 mos. Chronic at rial fibrillation 206025785 I48.20 Taking Xarelto 20 mg 1 tablet daily and Metoprolol 100 mg 1 tablet BID. Still in A fib. In care with with Amie Carvajal and [facility] , recent appt. 04/2020 w/ ECHO. next appt. F/u at upcoming wellness exam. Diastolic heart failure 574272188 I50.30 Recent ECHO on 04/2020 showed minimal change from previous ECHO. EF 55-60%. Mild concentric hypertroph y left ventricula r , mild mitral regurgitat ion, and mild trace tricuspid regurgitat ion. Hypertensive disorder 38 510963 I10 at goal, BP <130/80. Will continue taking Metoprolol Tartrate 100 mg tablet BID. Rx to pharmacy for BP kit. Advised to check BP 1-2 times a week. Agreed to BP clinic w/ f/u. Localized, primary osteoarthritis 746414575 M19.91 [facility] ight foot.Treat ment for 10 days. 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 CT yearly for 10 yrs - no f/u needed. [id number] Adithya Rodríguez MD , [facility], [address] [place] [address] 03/04/2021 11:47:57 03/05/2021 09:09:[address] Hernandez requesting TSH. Central sl eep apnea syndrome 26139241 G47.[address] Hernandez. In care w/ David. PFT ordered. Has f/u in 4-6 weeks. Swelling o f knee joint 061539033 M25.469 Edema and tenderness in lower medial knee. occurred after kneeling to fix car on Tuesday. Worsening. Using crutches. Advised to seek care at [facility] walk-in clinic to expedite and consolidat e care. Patient agrees with plan. [id number] Adithya Rodríguez MD , [facility], [address] [place] [address] 04/08/2021 08:44:30 04/23/2021 14:49:13 Obstructive sleep apnea syndrome 37288001 G47.33 Wearing CPAP machine nightly with improvemen t. Recently titrated up. Has f/u w/ sleep medicine in 2021. Central sl eep apnea syndrome 54983143 G47.31 CPAP machine was titrated up, feeling better. Has f/u w/ sleep medicine - May.In care w/ Dr. Clark, EKG showed incomplete bundle branch block. Chest x-ray normal. PFT showed moderate obstructio n.TSH normal.F/u w/ pulm. in April for possible neuromuscu lar testing, sniff test, and chest CT. Hypertensive disorder 38 698457 I10 at goal, BP <130/80. Will continue taking Metoprolol Tartrate 100 mg tablet BID. F/u at wellness.s Diastolic heart failure 588518214 I50.30 Recent ECHO on 04/2020 showed minimal change from previous ECHO. EF 55-60%. Mild concentric hypertroph y left ventricula r , mild mitral regurgitat ion, and mild trace tricuspid regurgitat ion. Chronic at rial fibrillation 398902428 I48.20 Taking Xarelto 20 mg 1 tablet daily and Metoprolol 100 mg 1 tablet BID. Still in A fib. In care with with Amie Carvajal and Reji Garvin [facility] , recent appt. 04/2020 w/ ECHO. next appt. F/u at upcoming wellness exam. [id number] Adithya Rodríguez MD , [facility], [address] [place] [address] 05/06/2021 14:35:02 05/18/2021 10:05:53 COVID-19 247899832 U07.1 Rapid test positive on 05/05. Known [...] sent to nurse triage. Diastolic heart failure 195422461 I50.30 Recent ECHO on 04/2020 showed minimal change from previous ECHO. EF 55-60%. Mild concentric hypertroph y left ventricula r , mild mitral regurgitat ion, and mild trace tricuspid regurgitat ion. Hypertensive disorder 38 924797 I10 at goal, BP <130/80. Will continue taking Metoprolol Tartrate 100 mg tablet BID. F/u at wellness.s Obstructiv e sleep apnea syndrome 58430563 G47.33 Wearing CPAP machine nightly with improvemen t. Recently titrated up. Has f/u w/ sleep medicine in 2021. [id number] Adithya Rodríguez MD , [facility], [address] [place] [address] 08/21/2021 10:08:56 09/01/2021 11:26:52 Adult health examination 896728590 Z00.00 Colonoscop y 2019, repeat in 10 yrs. UTD on Td. Counseling 107098964 Z71 .9 [facility] Depression screening 171 742321 Z13.31 depression screening tool administer ed, entered into emr, scored and discussed, time greater than 7.5 minutes Screening for alcohol abuse [id number] Z13.39 Scored 4. Obstructiv e sleep apnea syndrome [id number] G47.33 Wearing CPAP machine nightly with joeymen t. Recently titrated up. Has f/u w/ sleep medicine soon. Chronic at rial fibrillation [id number] I48.20 Taking Xarelto 20 mg 1 tablet daily and Metoprolol 100 mg 1 tablet BID. Still in A fib. In care with with Dr. Garza, Amie and [facility] , recent appt. 07/14/2021. COVID-19 [id number] U07.1 Rapid test positive on 05/05/21 Diastolic heart failure [id number] I50.30 In care w/ / Greg. EF 45-50%. Mild concentric hypertroph y left ventricula r , mild mitral regurgitat ion, and mild trace tricuspid regurgitat ion. Has upcoming ECHO and visit. Epilepsy [id number] G40.90 9 Childhood. Hypertensive disorder [id number] I10 at goal, BP <130/80. Will continue taking Metoprolol Tartrate 100 mg tablet BID. F/u in 3 mos Localized, primary osteoarthritis [id number] M19.91 Treated for arthritic gout at [facility] in early JanuaryR ight foot. 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 CT yearly for 10 yrs - no f/u needed. Prediabetes [id number] R7 3.03 A1c 6. Central sl eep apnea syndrome [id number] G47.31 CPAP machine was titrated up, feeling [...] Member ID Guarantor Name 02/26/2021 1 FORMERLY [facility] - DIRECT CONNECTORCARE TYPE I (HMO) [id number] Inder Aste [id number] 1 Inder Aste 03/04/2021 1 FORMERLY [facility] - DIRECT CONNECTORCARE TYPE I (HMO) [id number] Inder Aste [id number] 1 Inder Aste 04/08/2021 1 FORMERLY [facility] - DIRECT CONNECTORCARE TYPE I (HMO) [id number] Inder Aste [id number] 1 Inder Aste 05/06/2021 1 FORMERLY [facility] - DIRECT CONNECTORCARE TYPE I (HMO) [id number] Inder Aste [id number] 1 Inder Aste 08/21/2021 1 FORMERLY [facility] - DIRECT CONNECTORCARE TYPE I (HMO) [id number] Inder Aste [id number] 1 Inder Aste Notes Date Note Type Note Provider Name and Address Organization Details Recorded Time 1 text/html Patient filed Social security disability on [...] few days. Treated for arthritic gout at [facility] in early JanuaryRight foot.Treatment for 10 days. A FibCardioversion in 2018.Taking Xarelto 20 mg 1 tablet daily.In care with with mAie Carvajal and [facility], last appt. 10/28, and recent stress test. Has f/u in 6 mos and in 1 year.Recent ECHO, no real changes.F/u in 6 mos.Denies chest/arm pain on exertion or palpitations. HyperlipidemiaRecently starting Rosuvastatin 10 mg 1 tablet daily.Tolerating medication well. 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 STANFORD Beavers [address] [place], [phone], [facility] [place] 10:31:57 1 text/html kneeling under car - TuesdayWoke up and knee was swollenWorseningPain is moderate.Taking Ibuprofen.Moving worsens sxsUsing crutchesUnstable without crutchesDenies numbness or tingling. STANFORD Beavers [address] [place], [phone], [facility] [place] 03/04/2021 13:08:24 1 text/html F/u [...] few days. Treated for arthritic gout at [facility] in early JanuaryRight foot.Treatment for 10 days. A FibCardioversion in 2018.Taking Xarelto 20 mg 1 tablet daily.In care with with Amie Carvajal and [facility], last appt. 10/28, and recent stress test. Has f/u in 6 mos and in 1 year.Recent ECHO, no real changes.F/u in 6 mos.Denies chest/arm pain on exertion or palpitations. HyperlipidemiaRecently starting Rosuvastatin 10 mg 1 tablet daily.Tolerating medication well. 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 STANFORD Beavers [address] [place], [phone], [facility] [place] 04/08/2021 09:19:15 1 text/html tested [...] morning, has not used STANFORD Beavers [address] [place], [phone], [facility] [place] 05/06/2021 15:09:30 2 text/html Risk [...] daily.In care with with Amie Carvajal and [facility], last appt. 10/28, and recent stress test. Has f/u in 6 mos and in 1 year.Recent ECHO, no real changes.F/u in 6 mos.Denies chest/arm pain on exertion or palpitations. [id number] 6 [place]/central apneaRecently dx with severe [place] by [facility].Started CPAP machine last year.Improving sleep at night - no longer waking up SOB.Has upcoming appointment for adjustments.In care w/ Dr. Clark, EKG showed incomplete bundle branch block. Chest x-ray normal. PFT showed moderate obstruction. A FibCardioversion in 2018.Taking Xarelto 20 mg 1 tablet daily.In care with with Amie Carvajal and [facility], last appt. 07/14/2021, recent stress test. Has f/u in 6 mos and in 1 year.Recent ECHO, no real changes.F/u in 6 mos.Denies chest/arm pain on exertion or palpitations. HyperlipidemiaRecently starting Rosuvastatin 10 mg 1 tablet daily.Tolerating medication well. HTN - at goalRecently at goal at head of integrated media.Taking Metoprolol Tartrate 100 mg tablet BIDDoes not [...] pain.Colonoscopy 2018, repeat in 2028. STANFORD Beavers [address] [place] [address], [phone], [facility] 08/21/2021 10:55:25
== END ==
LOC: HO.CARD 08:40
PROVIDERS: PCP Family Medicine; Visit Provider Internal Medicine Cardiovascular Disease
DX: I48.0 Paroxysmal atrial fibrillation (principal)
CPT/HCPCS: 93306; Q9957

== ENCOUNTER → 2024-09-25 08:43 | Outpatient (BNV) | payer MEDICARE, MEDICAID, SELFPAY | PROVIDERS: PCP Family Medicine; Visit Provider Internal Medicine | DX: I42.2 Other hypertrophic cardiomyopathy (principal); I51.7 Cardiomegaly; I77.810 Thoracic aortic ectasia | CPT/HCPCS: 93306 ==

== ENCOUNTER 2024-10-01 08:40 | Outpatient (REF) | payer MEDICARE, MEDICAID, SELFPAY ==
[2024-10-01 10:41] LABS: Alanine Aminotransferase 37 U/L (0-40); Albumin Level 4.4 g/dL (3.5-5.0); Alkaline Phosphatase 59 U/L (39-117); Anion Gap 13 (12-20); Aspartate Amino Transferase 28 U/L (5-37); Bilirubin Total 0.5 mg/dL (0.0-1.0); Blood Urea Nitrogen 16 mg/dL (9-16); Calcium 9.4 mg/dL (8.4-10.2); Carbon Dioxide 24 mmol/L (22-29); Chloride 109 mmol/L (96-108); Estimated Glomerular Filt Rate > 60; Glucose Fasting 95 mg/dL (60-99); Potassium 4.2 mmol/L (3.3-5.1); Sodium 142 mmol/L (135-145); Total Protein 7.2 g/dL (6.5-8.0)
[2024-10-01 10:54] LABS: Prostate Specific Antigen Scr 0.17 ng/mL (<0.05-4.0)
[2024-10-01 10:58] LABS: Thyroid Stimulating Hormone 4.92 uIU/mL (0.32-4.0)
[2024-10-02 04:29] LABS: Triiodothyronine T3 Total 66 ng/dL (76-181)
== END 2024-10-01 08:41 | disposition home or self-care (01) ==
LOC: HO.LAB 08:40
PROVIDERS: PCP Family Medicine; Visit Provider Family Medicine
DX: Z00.00 Encounter for general adult medical examination without abnormal findings (principal); Z12.5 Encounter for screening for malignant neoplasm of prostate; E03.9 Hypothyroidism, unspecified
CPT/HCPCS: 36415; 80053; 84153; 84439; 84443; 84480

== ENCOUNTER 2024-10-10 10:58 | Outpatient (AMB) | payer MEDICARE, MEDICAID, SELFPAY ==
--- NOTE | 2024-10-10 11:12 | A.OFFPC_ITS ---
Vital Signs 10/10/24 11:17 Height 5 ft 9 in Weight 272 lb 8 oz BMI 40.2 BP 110/68 Blood Pressure Location Lt brachial Position Sitting Respiration 16 Pulse 52 Pulse Source Pulse Oximeter Temp 98.6 F Temp Source Temporal Artery Scan Pulse Oximetry (%) 95 Oxygen Delivery Method Room Air Intake Visit Reasons: f/u hypothyroidism, labs Intake Note: Inder presents in the office today for hypothyroidism and lab review. Allergies No Known Allergies Allergy (Verified 10/10/24 11:14) Medication List - Last Reconciled 10/10/24 by Gatito Magdaleno MD allopurinol 200 mg (2 x 100 mg) PO DAILY colchicine 0.6 mg PO DAILY dapagliflozin propanediol 10 mg PO DAILY 90 days dronedarone (Multaq) 400 mg PO BID levothyroxine 88 mcg PO DAILY 30 days lisinopril 5 mg PO DAILY 90 days metoprolol tartrate 50 mg PO ONCE rivaroxaban (Xarelto) 20 mg PO QPM rosuvastatin 20 mg PO DAILY 90 days Tobacco use date assessed: 10/10/24 Dental Screening Dental Screen Date: 10/10/24 Did you have a dental visit in the last 12 months?: Yes Did you have a dental problem in the last 6 months where you did not have access to dental care?: Yes Was dental information given to patient?: Patient has dentist HPI f/u hypothyroidism, labs HPI Details 59 y/o male presents to f/u HTN, hypothy roidism. Labs drawn 10/01/24. Reviewed labs with pt. TSH 4.92. Free T4 1.00. Total T3 66. Liver enzymes improved. AST 28. ALT 37. BP today 110/68, 52p. He is on lisinopril 5mg, metoprolol 50mg daily. Has been following up with rheumatology, sleep medicine for sleep apnea, gout. [facility] Medical History Paroxysmal atrial fibrillation Atrial fibrillation Sleep apnea Persistent atrial fibrillation Elevated liver enzymes Gout Testicular cancer CHF (congestive heart failure) Surgical History History of orchiectomy, unilateral Hx of colonoscopy Family History Mother CVD (cardiovascular disease) Father CVD (cardiovascular disease) Social History (Updated 10/10/24 @ 11:17 by Jodie Billings MA) Household Members Other:: Same partner- 17 years- Housing: House Alcohol intake: current Alcohol intake frequency: a few times a month Alcohol type: hard liquor Patient Tobacco Use Status: Former Tobacco user e-Cigarette/Vaping Use: Never Used Second Hand Smoke Exposure: No Use of substances other than those prescribed or required for medical reasons: Yes Substance Use Type: Marijuana service: No Current occupational status: unemployed and disabled 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 Al Hassan, Marlys Crocker, Jose Black and colleagues, with an educational craig from [employer]. Review of Systems Const Denies chills, Denies fatigue, Denies fever(s), Denies headache(s) and Denies weakness ENT Denies dizziness and Denies headache(s) Card Denies dyspnea Resp Denies cough, Denies dyspnea, Denies wheezing and Denies other (shortness of breath) Musc Denies numbness and Denies tingling Neuro Denies dizziness, Denies headache(s), Denies numbness, Denies tingling and Denies weakness Psych Denies anxiety and Denies depression Endo Denies fatigue Aller/Immun Denies wheezing Physical exam (Primary Care) Vital Signs: Last Vital Signs Temp 98.6 F 10/10/24 11:17 Pulse 52 10/10/24 11:17 Resp 16 10/10/24 11:17 BP 110/68 10/10/24 11:17 Pulse Ox 95 10/10/24 11:17 Oxygen Delivery Method Room Air 10/10/24 11:17 BMI result Body Mass Index 40.2 Tobacco/Smoking Status: Tobacco use Status Tobacco use date assessed 10/10/24 10/10/24 11:20 Patient Tobacco Use Status Former Tobacco user 10/10/24 11:17 e-Cigarette/Vaping Use Never Used 10/10/24 11:17 Thrive Assessment: Date of Thrive Assessment Date Thrive assessed 08/12/23 10/10/24 11:14 Const General: well developed; No acute distress Nutritional Appearance: well nourished Orientation/consciousness: patient oriented x3 HENMT Head: Yes normocephalic and Yes atraumatic Eyes General: appearance normal, both eyes and all related structures Pupils: Equal, round and reactive pupils present EOM: EOMs intact bilaterally Resp Effort & Inspection: normal respiratory effort Auscultation: clear to auscultation bilaterally Cardio Rate: regular rate Rhythm: regular rhythm Heart sounds: S1 normal heart sound present, S2 normal heart sound present, no gallops, no murmurs and no rubs Neuro General: patient oriented x3 and gait normal Cranial nerves: Yes Equal, round and reactive pupils present Psych Affect: normal affect Coding Level of Care Code Est Pt Level 4 (74309) Diagnoses Hypertension I10 Coronary artery disease I25.10 Hyperlipidemia E78.5 Hypothyroidism E03.9 Idiopathic chronic gout of multiple sites without tophus M1A.09X0 Chronicity: chronic Gout etiology: idiopathic Gout site: multiple sites Presence of tophus: without tophus Sleep apnea G47.30 Assessment & Plan Assessment & Plan (1) Hypertension: Code(s): I10 - Essential (primary) hypertension Category: Medical Plan: Blood?pressure?is?well?controlled.??Goal?is?less?than?130/80 Continue?current?medications (2) Coronary artery disease: Code(s): I25.10 - Atherosclerotic heart disease of [place] coronary artery without angina pectoris Category: Medical Plan: Stable Will?continue?good?blood?pressure?control Continue?rosuvastatin Follow-up?with?Cardiology?as?recommended (3) Hyperlipidemia: Code(s): E78.5 - Hyperlipidemia, unspecified Category: Medical Plan: As?above ,?continue?rosuvastatin (4) Hypothyroidism: Code(s): E03.9 - Hypothyroidism, unspecified Category: Medical Plan: TSH?trends?somewhat?high Will?increase?levothyroxine?slightly?to?88?mcg?daily Recheck?thyroid?hormone?levels?in?2?months (5) Gout: Code(s): M10.9 - Gout, unspecified Category: Medical Qualifiers: Chronicity: chronic Gout etiology: idiopathic Gout site: multiple sites Presence of tophus: without tophus Qualified Code(s): M1A.09X0 - Idiopathic chronic gout, multiple sites, without tophus (tophi) Plan: Now?on?allopurinol?and?he?notes?that?he?has?not?had?flare-up Continue?medication?and?follow-up?with?rheumatology?as?recommended (6) Sleep apnea: Code(s): G47.30 - Sleep apnea, unspecified Category: Medical Plan: Stable?on?CPAP Orders: Orders Free T4 (Free Thyroxine) Today Gatito Magdaleno MD E03.9 - Hypothyroidism, unspecified Thyroid Stimulating Hormone Today Gatito Magdaleno MD E03.9 - Hypothyroidism, unspecified Triiodothyronine T3 Total Today Gatito Magdaleno MD E03.9 - Hypothyroidism, unspecified Comprehensive Met. Panel Today Gatito Magdaleno MD E03.9 - Hypothyroidism, unspecified Medications: Changed From metoprolol tartrate 50 mg (1/2 x 100 mg) PO BID 90 days 90 tabs 1RF I50.9 - Heart failure, unspecified To metoprolol tartrate 50 mg PO ONCE I50.9 - Heart failure, unspecified Erik Molina MD From levothyroxine 75 mcg PO DAILY 30 days 30 tabs 2RF To levothyroxine 88 mcg PO DAILY 30 days 30 tabs 2RF Gatito Magdaleno MD
[2024-10-10 11:17] VITALS: BP 110/68; PULSE 52; RESP 16; TEMP 37; O2SAT 95; BMI 40.2
--- OUTSIDE RECORDS SUMMARY | 2024-10-10 12:22 | XMS_ITS | Data Portability ---
Author Organization [facility], , [facility] Address [address] [place] [address] Care Team Providers Care Inspector Outside Steam Distribution Name Role Phone WALDO PANDYA Primary Care Provider [phone] SINTIA MARCANO Lingo Cleaner Assessment Encounter Date Assessment Date Assessment LastModified by Organization Details LastModified Time 05/06/2021 05/06/2021 Patient agreed t o this visit via a secure telehealth platform due to the COVID -19 pandemic. Patient understands this is a scheduled visit and the usual procedures with regard to billing and confidentiality apply. Patient was notified that the provider location is [facility] [place] [facility] [place] location: [place] During the visit the patient? s medical history and medical record were reviewed. The patient was notified to call our office for worsening or urgent symptoms. Not available 05/06/2021 15:09:26 Plan of Treatment Reminders Order Date Submit Date Provider Last Modified By Organization Details Last Modified Time Details Appointments None recorded. Lab TSH, serum or plasma 2020 [facility], [address] [place] [address], [address], 12:19:10 BMP, serum or plasma 2020 [facility], [address] [place] [address], [address], 14:13:16 lipid panel, serum 2020 [facility], [address] [place] [address], [address], 14:13:[address] [facility], [address] [facility], [place], [address], 12:48:40 Referral nutritionis t/dietitian referral - A1c 6 2021 [email or web address] Not available 11:36:53 orthopedic surgeon referral 2020 [email or web address] Not available 12:55:17 sleep medicine referral 2020 [facility], [address] [place], [address], 16:06:[address] referral - Worsening SOB. Episodes of apnea during the day. In care w/ cardiology, Dr. Garza. Unable to complete tasks d/t SOB. 2020 CLIVE Hernandez MD, [address] [place], [address], 11:02:56 neurologist referral - Episodes of apnea during day and night. Has [place] and wears CPAP. Daytime episodes occur while patient is focused on tasks, I forget to breath. Hx of childhood epilepsy. 2020 [email or web address] Alondra Valenzuela MD, [address] [place] [address] , [address], [address], 11:32:25 Procedures None recorded. Surgeries None recorded. Imaging None recorded. Medication Orders None recorded. Patient TargetsNo targets recorded. Patient Instructions Encounter Date Encounter Id Patient Instructions Last Modified By Organization Details Last Modified Time 02/26/2021 [id number] complete PFT* - with ABG's ATHENAFAX Not available 02/26/2021 11:32:20 08/21/2021 [id number] Prostate Cancer Screening using PSA was discussed. [...] sleep apnea syndrome Referring Physician: Nury Wallace [facility], Encounter Date: 02/26/2021 Center Mgr Referral for D yspnea Worsening SOB. Episodes of apnea during the day. In care w/ cardiology, Dr. Garza. Unable to complete tasks d/t SOB. Referring Physician: Nury Wallace [facility], Encounter Date: 02/26/2021 Neurologist Referral for Dys pnea Episodes of apnea during day and night. Has [place] and wears CPAP. Daytime episodes occur while patient is focused on tasks, I forget to breath. Hx of childhood epilepsy. Referring Physician: Nury Wallace [facility], Encounter Date: 02/26/2021 Orthopedic Surgeon Referral for Swelling of knee joint Referring Physician: Nury Wallace [facility], Encounter Date: 03/04/2021 Parole Hearing Officer/dietitian Refer ral for Prediabetes A1c 6 Referring Physician: Nury Wallace [facility], Encounter Date: 08/21/2021 Results Created Date Observation Date Name Description Value Unit Range Abnormal Flag Note LastModifiedBy Organization Detail LastModifiedTime 02/27/20 21 02/26/2021 CBC WBC 12.62 K/? ? ?L 4.23-9 .07 high Not Available [address], [address], 02/26/2021 12:48:40 02/27/20 21 02/26/2021 CBC RBC 4.77 M/? ? ?L 4.63-6 .08 Not Available [address], [address], 02/26/2021 12:48:40 02/27/20 21 02/26/2021 CBC HGB 15.0 g/dL 13.7-1 7.5 Not Available [address], [address], 02/26/2021 12:48:40 02/27/20 21 02/26/2021 CBC HCT 46.5 % 40.1-5 1.0 Not Available [address], [address], 02/26/2021 12:48:40 02/27/20 21 02/26/2021 CBC MCV 97.5 fL 79.0-9 2.2 high Not Available [address], [address], 02/26/2021 12:48:40 02/27/20 21 02/26/2021 CBC MCH 31.4 pg 25.7-3 2.2 Not Available [address], [address], 02/26/2021 12:48:40 02/27/20 21 02/26/2021 CBC MCHC 32.3 g/dL 32.3-3 6.5 Not Available [address], [address], 02/26/2021 12:48:40 02/27/20 21 02/26/2021 CBC plt 217 K/? ? ?L 163-33 7 Not Available [address], [address], 02/26/2021 12:48:40 02/27/20 21 02/26/2021 CBC MPV 10.3 fL 9.4-12 .4 Not Available [address], [address], 02/26/2021 12:48:40 02/27/2002/26/2021 CBC neut% 72.1 % 34.0-6 7.9 high Not Available [address], [address], 02/26/2021 12:48:40 02/27/2002/26/2021 CBC neut# 9.10 1.78-5 .38 high Not Available [address], [address], 02/26/2021 12:48:40 02/27/2002/26/2021 CBC lymph % 13.8 % 21.8-5 3.1 low Not Available [address], [address], 02/26/2021 12:48:40 02/27/2002/26/2021 CBC lymph # 1.74 K/? ? ?L 1.32-3 .57 Not Available [address], [address], 02/26/2021 12:48:40 02/27/2002/26/2021 CBC mono% 10.5 % 5.3-12 .2 Not Available [address], [address], 02/26/2021 12:48:40 02/27/2002/26/2021 CBC mono# 1.33 0.30-0 .82 high Not Available [address], [address], 02/26/2021 12:48:40 02/27/20 21 02/26/2021 CBC eo% 2.3 % 0.8-7. 0 Not Available [address], [address], 02/26/2021 12:48:40 02/27/20 21 02/26/2021 CBC eo# 0.29 0.04-0 .54 Not Available [address], [address], 02/26/2021 12:48:40 02/27/20 21 02/26/2021 CBC baso% 0.9 % 0.2-1. 2 Not Available [address], [address], 02/26/2021 12:48:40 02/27/20 21 02/26/2021 CBC baso# 0.11 0.00-0 .08 high Not Available [address], [address], 02/26/2021 12:48:40 02/27/20 21 02/26/2021 CBC RDW-CV 14.4 % 11.6-1 4.4 Not Available [address], [address], 02/26/2021 12:48:40 02/27/20 21 02/26/2021 CBC Ig% 0.400 % 0.000- 1.500 Ig % >0.5 Indic ates possi ble Left Shift Not Available [address], [address], 02/26/2021 12:48:40 02/27/20 21 02/26/2021 CBC Ig# 0.050 0.000- 0.093 Not Available [address], [address], 02/26/2021 12:48:40 02/27/20 21 02/26/2021 CBC NRBC% 0.0 % 0.0-0. 2 Not Available [address], [address], 02/26/2021 12:48:40 02/27/20 21 02/26/2021 CBC NRBC# 0.000 0.000- 0.012 Not Available [address], [address], 02/26/2021 12:48:40 02/27/20 21 02/26/2021 BASIC METAB OLIC PANEL glucose 92 mg/dL 70-100 Not Available [address], [address], 02/26/2021 14:13:16 02/27/20 21 02/26/2021 BASIC METAB OLIC PANEL BUN 16 mg/dL 7-18 Not Available [address], [address], 02/26/2021 14:13:16 02/27/20 21 02/26/2021 BASIC METAB OLIC PANEL creatinine 0.9 mg/dL 0.8-1. 3 Not Available [address], [address], 02/26/2021 14:13:16 02/27/20 21 02/26/2021 BASIC METAB OLIC PANEL B/C 17.8 ratio Not Available [address], [address], 02/26/2021 14:13:16 02/27/20 21 02/26/2021 BASIC METAB OLIC PANEL GFR 92.8 mL/mi n Recom merrill d GFR by the Natio nal Kidne y Found ation >60 mL/mi n/1.7 3m2 - Toshia l <60 mL/mi n/1.7 3m2 - Chron ic Kidne y Disea se <15 mL/mi n/1.7 3m2 - Kidne y Failu re Not Available [address], [address], 02/26/2021 14:13:16 02/27/20 21 02/26/2021 BASIC METAB OLIC PANEL sodium 139 mmol/ L 136-14 5 Not Available [address], [address], 02/26/2021 14:13:16 02/27/20 21 02/26/2021 BASIC METAB OLIC PANEL potassium 4.4 mmol/ L 3.5-5. 1 Not Available [address], [address], 02/26/2021 14:13:16 02/27/2002/26/2021 BASIC METAB OLIC PANEL chloride 102 mmol/ L 96-107 Not Available [address], [address], 02/26/2021 14:13:16 02/27/20 21 02/26/2021 BASIC METAB OLIC PANEL anion gap 12.7 5.0-15 .0 Not Available [address], [address], 02/26/2021 14:13:16 02/27/20 21 02/26/2021 BASIC METAB OLIC PANEL CO2 24 mmol/ L 21-32 Not Available [address], [address], 02/26/2021 14:13:16 02/27/20 21 02/26/2021 BASIC METAB OLIC PANEL calcium 9.3 mg/dL 8.5-10 .3 Not Available [address], [address], 02/26/2021 14:13:16 02/27/20 21 02/26/2021 LIPID PANEL cholesterol 149 mg/dL <200 mg/dl Nilda able 200-2 39 mg/dl Borde rline High >240 mg/dl High Not Available [address], [address], 02/26/2021 14:13:16 02/27/20 21 02/26/2021 LIPID PANEL triglyceride s 126 mg/dL <150 mg/dL Toshia l 150-1 99 mg/dL Borde rline High 200-4 99 mg/dL High >500 mg/dL Very High Not Available [address], [address], 02/26/2021 14:13:16 10/07/02/26/2021 LIPID PANEL direct HDL 40 mg/dL <40 mg/dl - Major Risk for CHD >60 mg/dl - Negat bella Risk for CHD Not Available [address], [address], 02/26/2021 14:13:16 02/27/20 21 02/26/2021 DIREC T [...] r is not johnnie jimenez. Not Available [address], [address], 02/26/2021 14:13:17 03/11/20 21 03/11/2021 ARTER IAL BLOOD GAS pH, arterial 7.43 7.35-7 .45 Not Available [facility] [address] [place] [address], [address], 03/11/2021 07:46:45 03/11/20 21 03/11/2021 ARTER IAL BLOOD GAS pCO2, arterial 35.00 mmHg 35.00- 45.00 Not Available [facility] [address] [place] [address], [address], 03/11/2021 07:46:45 03/11/20 21 03/11/2021 ARTER IAL BLOOD GAS pO2, arterial 83.70 mmHg 80.00- 105.00 Not Available [facility] [address] [place], [address], 03/11/2021 07:46:45 03/11/20 21 03/11/2021 ARTER IAL BLOOD GAS HCO3, unspecified 23 mmol/ L 22-26 Not Available [facility]) [address] [place] [address], [address], 03/11/2021 07:46:45 03/11/20 21 03/11/2021 ARTER IAL BLOOD GAS base deficit 1.2 mmol/ L 0.0-2. 0 Not Available [facility]) [address] [place] [address], [address], 03/11/2021 07:46:45 03/11/20 21 03/11/2021 ARTER IAL BLOOD GAS so2, unspecified 96.40 % 95.00- 98.00 Not Available [facility] [address] [place] [address], [address], 03/11/2021 07:46:45 03/11/20 21 03/11/2021 ARTER IAL BLOOD GAS fo2hb blood gas 95.40 % 94.00- 100.00 Not Available [facility]) [address] [place] [address], [address], 03/11/2021 07:46:45 03/11/20 21 03/11/2021 ARTER IAL BLOOD GAS carboxy HGB 0.90 % 0-1.50 Not Available [facility] [address] [place] [address], [address], 03/11/2021 07:46:45 03/11/20 21 03/11/2021 ARTER IAL BLOOD GAS methgb % 0.10 % 0-1.50 Not Available [facility]) [address] [place] [address], [address], 03/11/2021 07:46:45 03/11/20 21 03/11/2021 ARTER IAL BLOOD GAS carin's test POSITI VE Not Available [facility] [address] [place], [address], 03/11/2021 07:46:45 03/11/20 21 03/11/2021 ARTER IAL BLOOD GAS ABG site RIGHT RADIAL ARTERY Not Available [facility] [address] [place], [address], 03/11/2021 07:46:45 03/11/20 21 03/11/2021 ARTER IAL BLOOD GAS FiO2 21% FiO2/ L_min Not Available [facility] [address] [place], [address], 03/11/2021 07:46:45 03/11/20 21 03/11/2021 ARTER IAL BLOOD GAS oxygen liters/min RA Not Available [facility]) [address] [place], [address], 03/11/2021 07:46:45 03/16/20 21 03/16/2021 TSH TSH 0.98 uIU/m L 0.50-6 .00 The Ameri can Colle ge of Endoc rinol ogy and Ameri can Thyro id Assoc iatio n recom mend goal TSH value s betwe en 0.4-4 .0 mIU/m L. Not Available [address], [address], 03/16/2021 12:19:10 05/07/20 21 05/07/2021 SARS- COV-2 RNA (COVI D-19) , QUALI TATIV E NAAT sarscov2 POSITI VE negati ve abnormal This test has been autho rized by the FDA under an Emerg ency Use Autho rizat ion(E UA) for you by autho rized labs. Not Available [address], [address], 05/07/2021 14:23:28 07/30/19 22 07/29/2021 CBC WBC 7.65 K/? ? ?L 4.23-9 .07 Not Available [address], [address], 07/29/2021 11:16:50 07/30/19 22 07/29/2021 CBC RBC 4.83 M/? ? ?L 4.63-6 .08 Not Available [address], [address], 07/29/2021 11:16:50 07/30/19 22 07/29/2021 CBC HGB 15.1 g/dL 13.7-1 7.5 Not Available [address], [address], 07/29/2021 11:16:50 07/30/19 22 07/29/2021 CBC HCT 45.7 % 40.1-5 1.0 Not Available [address], [address], 07/29/2021 11:16:50 07/30/19 22 07/29/2021 CBC MCV 94.6 fL 79.0-9 2.2 high Not Available [address], [address], 07/29/2021 11:16:50 07/30/19 22 07/29/2021 CBC MCH 31.3 pg 25.7-3 2.2 Not Available [address], [address], 07/29/2021 11:16:50 07/30/19 22 07/29/2021 CBC MCHC 33.0 g/dL 32.3-3 6.5 Not Available [address], [address], 07/29/2021 11:16:50 07/30/19 22 07/29/2021 CBC plt 182 K/? ? ?L 163-33 7 Not Available [address], [address], 07/29/2021 11:16:50 07/30/19 22 07/29/2021 CBC MPV 10.1 fL 9.4-12 .4 Not Available [address], [address], 07/29/2021 11:16:50 07/30/19 22 07/29/2021 CBC neut% 61.5 % 34.0-6 7.9 Not Available [address], [address], 07/29/2021 11:16:50 07/30/19 22 07/29/2021 CBC neut# 4.70 1.78-5 .38 Not Available [address], [address], 07/29/2021 11:16:50 07/30/19 22 07/29/2021 CBC lymph % 22.6 % 21.8-5 3.1 Not Available [address], [address], 07/29/2021 11:16:50 07/30/19 22 07/29/2021 CBC lymph # 1.73 K/? ? ?L 1.32-3 .57 Not Available [address], [address], 07/29/2021 11:16:50 07/30/19 22 07/29/2021 CBC mono% 9.5 % 5.3-12 .2 Not Available [address], [address], 07/29/2021 11:16:50 07/30/19 22 07/29/2021 CBC mono# 0.73 0.30-0 .82 Not Available [address], [address], 07/29/2021 11:16:50 07/30/19 22 07/29/2021 CBC eo% 4.3 % 0.8-7. 0 Not Available [address], [address], 07/29/2021 11:16:50 07/30/19 22 07/29/2021 CBC eo# 0.33 0.04-0 .54 Not Available [address], [address], 07/29/2021 11:16:50 07/30/19 22 07/29/2021 CBC baso% 1.4 % 0.2-1. 2 high Not Available [address], [address], 07/29/2021 11:16:50 07/30/19 22 07/29/2021 CBC baso# 0.11 0.00-0 .08 high Not Available [address], [address], 07/29/2021 11:16:50 07/30/19 22 07/29/2021 CBC RDW-CV 14.4 % 11.6-1 4.4 Not Available [address], [address], 07/29/2021 11:16:50 07/30/19 22 07/29/2021 CBC Ig% 0.700 % 0.000- 1.500 Ig % >0.5 Indic ates possi ble Left Shift Not Available [address], [address], 07/29/2021 11:16:50 07/30/19 22 07/29/2021 CBC Ig# 0.050 0.000- 0.093 Not Available [address], [address], 07/29/2021 11:16:50 07/30/19 22 07/29/2021 CBC NRBC% 0.0 % 0.0-0. 2 Not Available [address], [address], 07/29/2021 11:16:50 07/30/19 22 07/29/2021 CBC NRBC# 0.000 0.000- 0.012 Not Available [address], [address], 07/29/2021 11:16:50 07/30/19 22 07/29/2021 HGB A1C [...] furth er confi rmati on Not Available [address], [address], 07/29/2021 11:52:09 07/30/19 22 07/29/2021 HGB A1C estimated average glucose 125.5 mg/dL Not Available [address], [address], 07/29/2021 11:52:09 07/30/19 22 07/29/2021 LIPID PANEL cholesterol 159 mg/dL <200 mg/dl Nilda able 200-2 39 mg/dl Borde rline High >240 mg/dl High Not Available [address], [address], 07/29/2021 14:35:40 07/30/19 22 07/29/2021 LIPID PANEL triglyceride s 164 mg/dL <150 mg/dL Toshia l 150-1 99 mg/dL Borde rline High 200-4 99 mg/dL High >500 mg/dL Very High Not Available [address], [address], 07/29/2021 14:35:40 07/30/19 22 07/29/2021 LIPID PANEL direct HDL 43 mg/dL <40 mg/dl - Major Risk for CHD >60 mg/dl - Negat bella Risk for CHD Not Available [address] [place], [address], 07/29/2021 14:35:40 07/30/19 22 07/29/2021 LDL - [...] r is not neces barbara. Not Available [address], [address], 07/29/2021 14:35:40 07/30/19 22 07/31/2021 NT PROBN [...] infor prieto carney e refer to http: //[facility] alo elam.que stdia gnost ics.c om/fa q/FAQ (This link is being provi ded for infor demetrice barton/ educuche suhltz purpo ses only. ) Not Available [facility] [address], [address], 07/31/2021 01:40:20 07/30/19 22 07/31/2021 COMP. METAB OLIC PANEL glucose 92 mg/dL 70-100 Not Available [address], [address], 07/31/2021 11:38:22 07/30/19 22 07/31/2021 COMP. METAB OLIC PANEL BUN 16 mg/dL 7-18 Not Available [address], [address], 07/31/2021 11:38:22 07/30/19 22 07/31/2021 COMP. METAB OLIC PANEL creatinine 0.9 mg/dL 0.8-1. 3 Not Available [address], [address], 07/31/2021 11:38:22 07/30/19 22 07/31/2021 COMP. METAB OLIC PANEL B/C 17.8 ratio Not Available [address], [address], 07/31/2021 11:38:22 07/30/19 22 07/31/2021 COMP. METAB [...] be used in pregn trevor. Not Available [address], [address], 07/31/2021 11:38:22 07/30/19 22 07/31/2021 COMP. METAB OLIC PANEL sodium 142 mmol/ L 136-14 5 Not Available [address], [address], 07/31/2021 11:38:22 07/30/19 22 07/31/2021 COMP. METAB OLIC PANEL potassium 4.5 mmol/ L 3.5-5. 1 HEMS= Speci men Sligh tly Hemol yzed. Chem Resul ts may be effec mercy. Not Available [address], [address], 07/31/2021 11:38:22 07/30/19 22 07/31/2021 COMP. METAB OLIC PANEL chloride 106 mmol/ L 96-107 Not Available [address], [address], 07/31/2021 11:38:22 07/30/19 22 07/31/2021 COMP. METAB OLIC PANEL anion gap 10.2 5.0-15 .0 Not Available [address], [address], 07/31/2021 11:38:22 07/30/19 22 07/31/2021 COMP. METAB OLIC PANEL CO2 26 mmol/ L 21-32 Not Available [address], [address], 07/31/2021 11:38:22 07/30/19 22 07/31/2021 COMP. METAB OLIC PANEL calcium 9.0 mg/dL 8.5-10 .3 Not Available [address], [address], 07/31/2021 11:38:22 07/30/19 22 07/31/2021 COMP. METAB OLIC PANEL total protein 7.0 g/dL 6.4-8. 2 Not Available [address], [address], 07/31/2021 11:38:22 07/30/19 22 07/31/2021 COMP. METAB OLIC PANEL albumin 3.7 g/dL 3.4-5. 0 Not Available [address], [address], 07/31/2021 11:38:22 07/30/19 22 07/31/2021 COMP. METAB OLIC PANEL globulin 3.3 g/dL Not Available [address], [address], 07/31/2021 11:38:22 07/30/19 22 07/31/2021 COMP. METAB OLIC PANEL A/G 1.1 ratio 0.8-2. 0 Not Available [address], [address], 07/31/2021 11:38:22 07/30/19 22 07/31/2021 COMP. METAB OLIC PANEL total bilirubin 0.60 mg/dL 0.00-1 .00 Not Available [address], [address], 07/31/2021 11:38:22 07/30/19 22 07/31/2021 COMP. METAB OLIC PANEL AST 18 U/L 0-37 Not Available [address], [address], 07/31/2021 11:38:22 07/30/19 22 07/31/2021 COMP. METAB OLIC PANEL ALT 29 U/L 6-63 Not Available [address], [place], [address], 07/31/2021 11:38:22 07/30/19 22 07/31/2021 COMP. METAB OLIC PANEL alk. phos. 71 U/L 50-136 Not Available [address], [place], [address], 07/31/2021 11:38:22 03/04/20 21 03/04/2021 xr knee 4 or more views (left ) This image report has been auto-f inaliz ed and has not been read by a Radiol ogist. Interp retati on has been includ ed in the [facility] encoun ter note for this date of johanne bender. Final result NURY WALLACE [email or web address] [facility] [address] [facility], [place], [address], 03/04/2021 13:26:08 03/11/20 21 03/11/2021 PFT No [...] shortn ess of breath NURY WALLACE blepage [facility] [address], [place], [address], 04/22/2021 12:21:24 03/11/2003/11/2021 pulmo nary funct ion [...] ) No observ ation record ed. miguelDarin [facility] [address], [place], [address], 05/03/2021 16:57:11 05/13/20 21 04/29/2021 trans -thor acic echoc ardio gram (TTE) (PROC ) No observ ation record ed. jacqui Amie [facility] [address], [place], [address], 05/14/2021 09:06:00 Result Notes None recorded. Problems Name Problem SNOMED Code Status Onset Date Resolution Date Notes Provider Name and Address Organization Details Recorded Time Obstruct bella sleep apnea syndrome 05011339 Active 2017 severe; AHI 40.5 2017 Aakash Awan MD [address] [place] [address], [address] , [facility] 8 19:02:02 Chronic atrial fibrilla tion 029241158 Active 2018 Aakash Awan MD [address] [place] [address], [address] , [facility] 9 16:33:35 Hyperten sive disorder 11413606 Active 2019 Nury Wallace, [address], [address] , [facility] 0 09:19:05 Diastoli c heart failure 056541485 Active 2019 Nury Wallace, [address], [address] , [facility] 0 09:20:40 Epilepsy 12881841 Active 2020 childhoo d Nury Wallace, [address], [address] , [facility] 1 10:24:46 COVID-19 569096984 Active 202005/05/21 Nury Wallace, [address], [address] , [facility] 1 15:06:45 Prediabe matt 404202877 Active 2021 A1c = 6.[address], LDN [address] [place], [address] , [facility] 2 10:01:32 Body mass index 40+ - severely obese 089288903 Active [address], LDN [address] [place], [address] , [facility] 2 10:01:44 Seminal vesiculi tis 57961011 Active 2008 Not Available [facility] 3 03:10:06 Disorder of male genital organ 90072351 Completed 04/11/2013 Not Available [facility] 3 02:03:54 Cellulit is and abscess of face 163035870 Completed 200604/11/2013 Not Available [facility] 3 02:03:46 Osteoart hritis of knee 601714619 Active 2002 Not Available [facility] 3 03:10:06 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 Not Available [facility] 3 03:10:06 Sensorin eural hearing loss 57796349 Active 2006 Not Available [facility] 3 03:10:06 Impacted cerumen 94787690 Completed 200104/11/2013 Not Available [facility] 3 02:02:11 Acute suppurat bella otitis media without spontane ous rupture of ear drum 74783719 Completed 200104/11/2013 Not Available [facility] 3 02:02:40 Joint pain in ankle and foot Completed 200704/11/2013 Not Available [facility] 3 02:01:25 Localize d, primary osteoart hritis 662730185 Active 2002 Not Available [facility] 3 03:10:06 Psychose xual dysfunct ion associat ed with inhibite d libido 199986790 Active 2005 Not Available [facility] 3 03:10:06 Knee pain Completed 200204/11/2013 Not Available [facility] 3 02:00:41 Acute conjunct ivitis 20333560 Completed 200504/11/2013 Not Available [facility] 3 02:02:28 Elevated blood-pr essure reading without diagnosi s of hyperten darrin 619104960 Completed 200506/21/2019 STANFORD Beavers [address] [place] [address], [address] , [facility] 0 09:18:58 Low back pain 847318225 Active Not Available [facility] 3 03:10:06 Pain in limb 89146061 Completed 200704/11/2013 Not Available [facility] 3 02:00:55 Torsion of testis 60233442 Active Not Available [facility] 3 03:10:06 Problem Notes None recorded. Procedures Surgical History Date Name Laterality Status Provider Name and Address Organization Details Recorded Time prevention-card iovascular risk reduction counseling completed SHAYLA Choudhury [facility] 08/13/2020 11:04:40 1 prevention-sendy al alcohol misuse screening completed SHAYLA Choudhury [facility] 08/13/2020 11:04:40 0 prevention-card iovascular risk reduction counseling completed Lizbeth Richter [facility] 07/11/2019 11:20:40 0 prevention-sendy al alcohol misuse screening completed Lizbeth Richter [facility] 07/11/2019 11:20:40 9 [id number]: Therapeutic Exercise completed Sheng Mccarthy, PT [address] [place], [address], [facility] 11/14/2018 07:23:17 9 Treatment and Advice completed Sheng Mccarthy, PT [address] [place], [address], [facility] 11/14/2018 07:06:14 9 [id number]: Therapeutic Exercise completed Sheng Mccarthy, PT [address] [place], [address], [facility] 11/09/2018 11:06:20 9 Treatment and Advice completed Sheng Mccarthy, PT [address] [place], [address], [facility] [place] 11/09/2018 11:05:58 9 71627: Therapeutic Exercise completed Sheng Mccarthy, PT [address] [place], [address], [facility] [place] 11/02/2018 11:07:46 9 Treatment and Advice completed Sheng Mccarthy, PT [address] [place], [address], [facility] [place] 11/02/2018 11:01:20 9 Physical Activity Counselling completed Sheng Mccarthy, PT [address] [place], [address], [facility] [place] 10/26/2018 10:31:25 9 00829: PT Eval Low Complexity completed Sheng Mccarthy, PT [address] [place], [address], [facility] [place] 10/26/2018 10:31:25 9 Treatment and Advice completed Sheng Mccarthy, PT [address] [place], [address], [facility] [place] 10/26/2018 10:54:22 8 Post hospital/SNF follow-up/Trans itional Care completed Mary Lou Redd [facility] 10/13/2017 15:54:56 Imaging Results Imaging Date Name Status LastModified by Organization Details LastModified Time 03/04/2021 xr knee 4 or more views (left) completed [address] [facility] [address] [place] [address], [address], 03/04/2021 13:26:08 03/11/2021 PFT completed Information no t available 03/11/2021 10:23:38 03/11/2021 xr chest Pa and lateral 2 views completed bleinge [facility] [address] [place], [address], 04/22/2021 12:21:24 03/11/2021 pulmonary function test* completed Information not available 03/12/2021 12:08:50 02/26/2021 pulmonary function test* completed Information not available 03/12/2021 12:08:51 03/12/2021 electrocardiogram completed Informa tion not available 03/12/2021 12:04:45 04/29/2021 trans-thoracic echocardiogram (TTE) (PROC) completed [facility] [address], [place], [address], 05/03/2021 16:57:11 04/29/2021 trans-thoracic echocardiogram (TTE) (PROC) completed jacqui [facility] [address], [place], [address], 05/14/2021 09:06:00 Procedure Notes None recorded. Medical [...] Updated DateTime 1 177.8 cm 40.4 kg/m2 703738. 56 g 80 /min 102 mm[Hg] 74 mm[Hg] SHAYLA Choudhury [facility] 09:59:33 Date Recorded Oxygen saturation Oxygen saturation in Arterial blood by Pulse oximetry Provider Name and Address Organization Details Last Updated DateTime 02/26/2021 99 % 99 % STANFORD Beavers [address] [place] [address], [address], [facility] 02/26/2021 10:29:02 Date Recorded Body height Body mass index (BMI) Body weight Heart rate Systolic blood pressure Diastolic blood pressure Provider Name and Address Organization Details Last Updated DateTime 1 177.8 cm 39 kg/m2 304605. 12 g 72 /min 108 mm[Hg] 78 mm[Hg] Mili Buckley [facility] 1 12:04:48 Date Recorded Body height Body mass index (BMI) Body weight Heart rate Systolic blood pressure Diastolic blood pressure Provider Name and Address Organization Details Last Updated DateTime 1 177.8 cm 40.9 kg/m2 874336. 83 g 64 /min 106 mm[Hg] 78 mm[Hg] Mili Buckley [facility] 1 09:00:02 Date Recorded Body height Body temperature Provider N yoli and Address Organization Details Last Updated DateTime 05/06/2021 177.8 cm 98.9 [degF] Mili Buckley [facility] 05/06/2021 14:39:38 Date Recorded Body height Body mass index (BMI) Body weight Heart rate Systolic blood pressure Diastolic blood pressure Provider Name and Address Organization Details Last Updated DateTime 2 177.17 cm 41.5 kg/m2 847767. 01 g 72 /min 122 mm[Hg] 84 mm[Hg] Mili Buckley [facility] 2 10:24:50 Social History Question Answer Notes LastModified by Organizat ion Details LastModified Time Tobacco Smoking Status Never Smoker Rare marijuana Not Available [facility] 10/15/2010 02:07:33 Do You Wear A Helmet When Biking? No Information not available 08/13/2020 What Is Your Level Of Caffeine Consumption? Moderate 2 Cups Daily Information not available 08/21/2021 What Type Of Diet Are You Following? REGULAR Information not available 06/29/2018 Which Illicit Or Recreational Drugs Have You Used? Every Day MJ Information not available 08/21/2021 Education 10 [email or web address] Information not available 07/11/2019 How Many Days In The Past Year Have You Had A Heavy Drinking Consumption (4+ Female, 5+ Male)? 4 [email or web address] Information not available 07/11/2019 Are There Any [...] How Many Children Do You Have? 0 [email or web address] Information not available 07/11/2019 Do You Use Your Seat Belt Or Car Seat Routinely? Yes Information not available 08/21/2021 Seat Belts Used Routinely No Not [email or web address] Information not available 08/13/2020 Are You Sexually Active? Yes Monogamous [email or web address] Information not available 07/25/2008 Smoke Alarm In Home Yes Information not available 06/29/2018 Do You Have Smoke And Carbon Monoxide Detectors In Your Home? Yes Information not available 08/21/2021 Are You Passively Exposed To Smoke? No Information not available 08/21/2021 How Much Tobacco Do You Smoke? No [email or web address] Information not available 07/11/2019 What Types Of Sporting Activities Do You Participate In? None Information not available 06/29/2018 General Stress Level Medium Information not available 08/13/2020 Do You Use Sunscreen Routinely? Yes Information not available 06/29/2018 How Many Years Have You Smoked Tobacco? 0 [email or web address] Information not available 07/11/2019 How Many Days In The Past Year Have You Consumed 5 Or More Drinks? 0 Information not available 08/21/2021 Sex: Unknown Functional Status Question Answer Note LastModified by Organizat ion Details LastModified Time Do you use any illicit or recreational drugs? No Information not available 08/21/2021 Do you or have you ever used any other forms of tobacco or nicotine? No Information not available 08/21/2021 What is your level of alcohol consumption? Moderate 2 drink 3 timeds a week Information not available 08/21/2021 Do you or have you ever used smokeless tobacco? 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 Never used electronic cigarettes [email or web address] Information not available 07/11/2019 What is your exercise level? Occasional try [...] Td(adult) unspecified formulation 6 completed Not Available [facility] 04/07/2011 05:21:29 Tdap 9 completed Not Available [facility] 06/09/2019 02:37:59 Td(adult) unspecified formulation 9 completed Marlys weber [facility] 10/05/2018 08:12:21 COVID-19, mRNA, LNP-S, PF, 30 mcg/0.3 mL dose 1 completed SHAYLA Choudhury [facility] 02/26/2021 09:55:38 COVID-19, mRNA, LNP-S, PF, 30 mcg/0.3 mL dose 1 completed SHAYLA Choudhury [facility] 02/26/2021 09:56:01 Past Encounters Encounter ID Performer Location Encounter Start Date Encounter Closed Date Diagnosis/Indication Diagnosis SNOMED-CT Code Diagnosis ICD10 Code Diagnosis Note [id number] Aakash Awan MD , [facility], [address] [place] [address] 04/16/2002 10:58:35 06/12/2008 02:02:29 [id number] Kayla Aguilar NP , [facility], [address] [place] [address] 01/15/2003 09:59:23 06/12/2008 02:02:29 [id number] [facility] RADI[facility] Radiology , [facility] [address] [place] [address] 01/15/2003 10:29:01 06/12/2008 02:02:29 [id number] [facility] , [facility] [address] [place] [address] 01/15/2003 00:00:00 06/12/2008 02:02:29 [id number] MD MARY Pitt, [facility], [address] [place] [address] 02/05/2003 13:27:50 02/06/2003 08:08:26 [id number] [facility] - [address] [address] 02/11/2003 08:27:33 02/11/2003 08:27:36 [id number] MD MARY Pitt, [facility], [address] [place] [address] 10/07/2005 14:47:01 06/12/2008 02:02:29 [id number] [facility] - [address] [address] 10/07/2005 15:39:32 10/07/2005 15:39:44 [id number] MARU Stephens, [facility], [address] [place] [address] 02/03/2006 09:00:30 02/03/2006 13:59:06 [id number] MD MARY Pitt, [facility], [address] [place] [address] 02/09/2006 10:00:36 02/10/2006 08:46:13 [id number] MD MARY Pitt, [facility], [address] [place] [address] 02/09/2006 10:00:36 02/10/2006 08:46:13 [id number] MD MARY Pitt, [facility], [address] [place] [address] 08/10/2006 09:01:47 08/11/2006 12:17:05 [id number] MD MARY Pitt, [facility], [address] [place] [address] 04/25/2007 08:43:18 06/12/2008 02:02:29 [id number] MD MARY Pitt, [facility], [address] [place] [address] 05/09/2007 14:18:55 06/12/2008 02:02:29 [id number] An Mcmillan NP , [facility], [address] [place] [address] 06/28/2007 09:17:18 06/12/2008 02:02:29 [id number] [facility] RAD[facility] Technolog[facility] Radiology , [facility] [address] [place] [address] 06/28/2007 09:44:31 06/29/2007 09:24:43 [id number] Aakash Awan MD , [facility], [address] [place] [address] 07/25/2008 14:42:45 07/29/2008 15:05:32 [id number] [facility] - [facility] [address] [place] [address] 07/25/2008 15:46:39 07/25/2008 15:46:47 [id number] YELITZA Amaral, [facility], [address] [place] [address] 12/15/2010 11:02:39 12/16/2010 08:57:36 [id number] MD MARY Pitt, [facility], [address] [place] [address] 12/21/2010 14:11:01 12/22/2010 13:19:46 [id number] Sheng Mccarthy , PT Physical Therapy, [facility] [address] [place] [address] 12/23/2010 11:20:27 12/25/2010 08:01:42 [id number] Sheng Mccarthy , PT Physical Therapy, [facility] [address] [place] [address] 12/25/2010 08:14:07 12/25/2010 09:34:56 [id number] Aakash Awan MD , [facility], [address] [place] [address] 09/29/2017 14:11:10 09/29/2017 15:30:09 Atrial fibrillation 64915899 I48.91 [id number] Aakash Awan MD , [facility], [address] [place] [address] 10/13/2017 15:35:32 10/14/2017 09:10:50 Atrial fibrillation 39195134 I48.91 [id number] Aakash Awan MD , [facility], [address] [place] [address] 11/15/2017 14:17:18 11/16/2017 16:35:37 Snoring 96938863 R06.83 Atrial fibrillation 4943 6004 I48.91 [id number] Aakash Awan MD , [facility], [address] [place] [address] 06/29/2018 15:32:22 06/29/2018 17:02:06 Adult health examination 526519835 Z00.00 see Risk Assessment and Lifestyle Change Counseling section above Counseling 524783060 Z71 .9 Depression screening 171 207182 Z13.89 depression screening tool administer ed, entered into emr, scored and discussed, time greater than 7.5 minutes Active or passive immunization 386914611 Z23 Obstructiv e sleep apnea syndrome 62334256 G47.33 Localized, primary osteoarthritis 611053408 M19.91 Primary ma lignant neoplasm of testis 91289877 C62.90 Chronic at rial fibrillation 418988052 I48.2 Osteoarthr itis of knee 309833519 M17.9 [id number] Adithya Rodríguez MD , [facility], [address] [place] [address] 10/05/2018 07:42:52 10/05/2018 08:26:47 Chronic atrial fibrillation 846900673 I48.2 continue on Xarelto, not missing doses Dislocatio n of shoulder joint 213655525 S43.005A [id number] Sheng Mccarthy , PT Physical Therapy, [facility] [address] [place] [address] 10/26/2018 10:18:22 10/27/2018 08:18:10 Dislocation of shoulder joint 493203052 S43.005D 53 year old {{female m kyara*}} [...] Include: Therapeuti c exercise and manual therapy [id number] Sheng Mccarthy , PT Physical Therapy, [address] [address] 11/02/2018 10:20:32 11/03/2018 08:25:19 Dislocation of shoulder joint 588856824 S43.005D Patient Goals: Be able to avoid [...] sufficient muscular endurance to meet functional demands. [id number] MARU Walrdon , [facility], [address] [place] [address] 11/09/2018 07:50:07 11/09/2018 08:31:02 Dislocation of shoulder joint 865748022 S43.005A resolving- continue PT Screening for malignant neoplasm of colon 494378154 Z12.11 will consult PCP [id number] Sheng Mccarthy , PT Physical Therapy, [address] [address] 11/09/2018 10:13:22 11/09/2018 11:29:33 Dislocation of shoulder joint 059278829 S43.005D Patient Goals: Be able to avoid [...] sufficient muscular endurance to meet functional demands. [id number] Sheng Mccarthy , PT Physical Therapy, [facility] [address] [place] [address] 11/14/2018 06:58:27 11/14/2018 11:41:07 Dislocation of shoulder joint 229763392 S43.005D Patient Goals: Be able to avoid [...] sufficient muscular endurance to meet functional demands. [id number] Adithya Rodríguez MD , [facility], [address] [place] [address] 12/18/2018 16:12:19 12/19/2018 08:07:39 Screening for disorder 103400808 Z11.59 Screening for malignant neoplasm of colon 387770770 Z12.11 Referral for a DIRECT booked colonoscop y. This patient is a healthy ASA Class 1 or 2 patient (only mild systemic disease), or a STABLE, well controlled insulin dependent diabetic. They do not have serious cardiac disease ie NM/angiopl asty within 1 year, symptomati c CHF; renal failure with CKD 4 or 5; take Coumadin, Plavix, Aggrenox, etc. Chronic at rial fibrillation 203922280 I48.2 F/U w/ cardiology Sleep apnea 56153071 G47 .30 Pt to contact insurance company re coverage for cpap machine. Discussed nutrition. Consider nutritioni st in future. [id number] Adithya Rodríguez MD , [facility], [address] [place] [address] 06/21/2019 08:50:11 06/21/2019 09:16:12 Chronic atrial fibrillation 980858480 I48.20 Taking Xarelto 20 mg 1 tablet daily. In care with with Amie Carvajal and Reji Garvin [facility] , next appt. 10/2019. F/u at upcoming wellness exam. Diastolic heart failure 407006590 I50.30 Recent ECHO on 05/01 showed intact right and left systolic function. EF 60-65%. Right atrial dilation and right ventricle enlargemen t. Grade 1 diastolic dysfunctio n with trace MR. Hypertensive disorder 38 296582 I10 at goal , BP <140/90. Will continue taking Metoprolol Tartrate 100 mg tablet BID. F/u at upcoming wellness exam. Obstructiv e sleep apnea syndrome 36355238 G47.33 Has not picked up CPAP machine yet. In care with [facility] Medicine [facility]. Advised to f/u wit them [facility]. F/u at upcoming wellness exam. [id number] Adithya Rodríguez MD , [facility], [address] [place] [address] 07/11/2019 10:39:58 07/11/2019 12:07:24 Adult health examination 826261243 Z00.00 Colonoscop y 2019, repeat in 10 yrs. Counseling 683484736 Z71 .9 [facility] Depression screening 171 736387 Z13.89 depression screening tool administer ed, entered into emr, scored and discussed, time greater than 7.5 minutes Screening for alcohol abuse 897752632 Z13.39 Scored 4. Screening for disorder 030708043 Z11.59 Gout 13327530 M10.9 R big toe. Will switch from NSAID to colchicine 1 tablet twice a day until sxs resolve. Will f/u if sxs persist or worsen. Chronic at rial fibrillation 661687891 I48.20 Taking Xarelto 20 mg 1 tablet daily. In care with with Amie Carvajal and Reji Garvin [facility] , next appt. 10/2019. F/u at upcoming wellness exam. Diastolic heart failure 798708764 I50.30 Recent ECHO on 05/01 showed intact right and left systolic function. EF 60-65%. Right atrial dilation and right ventricle enlargemen t. Grade 1 diastolic dysfunctio n with trace MR. Hypertensive disorder 38 974790 I10 at goal, BP <140/90. Will continue taking Metoprolol Tartrate 100 mg tablet BID. F/u at upcoming wellness exam. Obstructiv e sleep apnea syndrome 36058698 G47.33 Has not picked up CPAP machine yet. In care with [facility]. Advised to f/u wit them [facility]. 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 CT yealy for 10 yrs - no f/u needed. 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 In care with with Amie Carvajal and [facility]ji Garvin [facility] , recent appt. 04/2020 w/ ECHO. next appt. 10/2019. F/u at upcoming wellness exam. Obstructiv e sleep apnea syndrome 68235557 G47.33 Wearing CPAP machine nightly with improvemen t. Active or passive immunization 829635429 Z23 Diastolic heart failure 983264244 I50.30 Recent ECHO on 04/2020 showed minimal change from previous ECHO. EF 55-60%. Mild concentric hypertroph y left ventricula r , mild mitral regurgitat ion, and mild trace tricuspid regurgitat ion. BNP on 06/19 is 989. Hypertensive disorder 38 524663 I10 at goal, BP <130/80. Will continue taking Metoprolol Tartrate 100 mg tablet BID. Rx to pharmacy for BP kit. Advised to check BP 1-2 times a week and record readings to review at upcoming wellness. F/u at upcoming wellness exam. Mixed hyperlipidemia 267 170157 E78.2 ASCVD risk 9.7%, recommenda tion is moderate intensity statin. Patient agrees to plan - will start Rosuvastat in 10 mg 1 tablet daily. Dyspnea 679937662 R06.00 On exertion. Denies chest pain associated . Denies hx of asthma or COPD. Never Smoker. Will order [facility] r/t ordering stress test. This PCP has not heard back. Would also consider PFT. Cough 22461999 R05 At night. Describes PND. PND vs GERD vs CHF. Flonase has not helped in past. Will try OTC allergy medication to see if sxs improve. If no improvemen t would consider treating for GERD. [id number] Adithya Rodríguez MD , [facility], [address] [place] [address] 08/13/2020 11:00:24 08/14/2020 09:27:58 Adult health examination 255929325 Z00.00 Colonoscop y 2018, repeat in 10 yrs. UTD on Td. Counseling 147549148 Z71 .9 including cardivasc[facility] lar risk reduction counseling Depression screening 171 584825 Z13.31 depression screening tool administer ed, entered into emr, scored and discussed, time greater than 7.5 minutes Screening for alcohol abuse 288581025 Z13.39 Scored 4. Hypertensive disorder 38 100558 I10 at goal, BP <130/80. Will continue taking Metoprolol Tartrate 100 mg tablet BID. Rx to pharmacy for BP kit. Advised to check BP 1-2 times a week. Agreed to BP clinic w/ f/u. Obstructiv e sleep apnea syndrome 54137084 G47.33 Wearing CPAP machine nightly with improvemen t. Chronic at rial fibrillation 338018182 I48.20 Taking Xarelto 20 mg 1 tablet daily and Metoprolol 100 mg 1 tablet BID. In care with with Amie Carvajal and [facility] , recent appt. 04/2020 w/ ECHO. next appt. 10/2019. F/u at upcoming wellness exam. Active or passive immunization 183600431 Z23 Diastolic heart failure 480764650 I50.30 Recent ECHO on 04/2020 showed minimal change from previous ECHO. EF 55-60%. Mild concentric hypertroph y left ventricula r , mild mitral regurgitat ion, and mild trace tricuspid regurgitat ion. BNP on 06/19 is 989. Mixed hyperlipidemia 267 088963 E78.2 ASCVD risk 9.7%, recommenda tion is moderate intensity statin. Patient agrees to plan - will start Rosuvastat in 10 mg 1 tablet daily. Dyspnea 146897372 R06.00 On exertion. Denies chest pain associated . Denies hx of asthma or COPD. Never Smoker. Will order [facility] This [facility] Garza's office r/t ordering stress test. This PCP has not heard back. Would also consider PFT. Consulted with [facility]. Cough 45300477 R05 At night. Describes PND. PND vs [...] 4-6 weeks or sooner if sxs worsen. [id number] Adithya Rodríguez MD , [facility], [address] [place] [address] 02/26/2021 09:39:16 02/27/2021 09:47:54 Obstructive sleep apnea syndrome 05839773 G47.33 Wearing CPAP machine nightly with improvemen t. Dyspnea 245352629 R06.00 Dyspnea/ap neaIn care w/ cardio, Dr. [...] in 1 mos. Chronic at rial fibrillation 264558098 I48.20 Taking Xarelto 20 mg 1 tablet daily and Metoprolol 100 mg 1 tablet BID. Still in A fib. In care with [facility]ie [facility]ajal [facility] 04[facility]2020 w/ ECHO. next appt. F/u at upcoming wellness exam. Diastolic heart failure 297992890 I50.30 Recent ECHO on 04/2020 showed minimal change from previous ECHO. EF 55-60%. Mild concentric hypertroph y left ventricula r , mild mitral regurgitat ion, and mild trace tricuspid regurgitat ion. Hypertensive disorder 38 834787 I10 at goal, BP <130/80. Will continue taking Metoprolol Tartrate 100 mg tablet BID. Rx to pharmacy for BP kit. Advised to check BP 1-2 times a week. Agreed to BP clinic w/ f/u. Localized, primary osteoarthritis 928087137 M19.91 [facility]ated [facility] JanuaryR ight foot.Treat ment for 10 days. 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 CT yearly for 10 yrs - no f/u needed. [id number] Adithya Rodríguez MD , [facility], [address] [place] [address] 03/04/2021 11:47:57 03/05/2021 09:09:[address] Hernandez requesting TSH. Central sl eep apnea syndrome 63604631 G47.[address] Hernandez. In care w/ David. PFT ordered. Has f/u in 4-6 weeks. Swelling o f knee joint 317072366 M25.469 Edema and tenderness in lower medial knee. occurred after kneeling to fix car on Tuesday. Worsening. Using crutches. Advised to seek care at [facility] walk-in clinic to expedite and consolidat e care. Patient agrees with plan. [id number] Adithya Rodríguez MD , [facility], [address] [place] [address] 04/08/2021 08:44:30 04/23/2021 14:49:13 Obstructive sleep apnea syndrome 79706326 G47.33 Wearing CPAP machine nightly with improvemen t. Recently titrated up. Has f/u w/ sleep medicine in 2021. Central sl eep apnea syndrome 95309707 G47.31 CPAP machine was titrated up, feeling better. Has f/u w/ sleep medicine - May.In care w/ Dr. Clark, EKG showed incomplete bundle branch block. Chest x-ray normal. PFT showed moderate obstructio n.TSH normal.F/u w/ pulm. in April for possible neuromuscu lar testing, sniff test, and chest CT. Hypertensive disorder 38 834206 I10 at goal, BP <130/80. Will continue taking Metoprolol Tartrate 100 mg tablet BID. F/u at wellness.s Diastolic heart failure 236129562 I50.30 Recent ECHO on 04/2020 showed minimal change from previous ECHO. EF 55-60%. Mild concentric hypertroph y left ventricula r , mild mitral regurgitat ion, and mild trace tricuspid regurgitat ion. Chronic at rial fibrillation 619825628 I48.20 Taking Xarelto 20 mg 1 tablet daily and Metoprolol 100 mg 1 tablet BID. Still in A fib. In care with with Amie Carvajal and [facility] , recent appt. 04/2020 w/ ECHO. next appt. F/u at upcoming wellness exam. [id number] Adithya Rodríguez MD , [facility], [address] [place] [address] 05/06/2021 14:35:02 05/18/2021 10:05:53 COVID-19 300176204 U07.1 Rapid test positive on 05/05. Known [...] sent to nurse triage. Diastolic heart failure 146273702 I50.30 Recent ECHO on 04/2020 showed minimal change from previous ECHO. EF 55-60%. Mild concentric hypertroph y left ventricula r , mild mitral regurgitat ion, and mild trace tricuspid regurgitat ion. Hypertensive disorder 38 824469 I10 at goal, BP <130/80. Will continue taking Metoprolol Tartrate 100 mg tablet BID. F/u at wellness.s Obstructiv e sleep apnea syndrome 56184114 G47.33 Wearing CPAP machine nightly with improvemen t. Recently titrated up. Has f/u w/ sleep medicine in 2021. [id number] Adithya Rodríguez MD , [facility] [facility] OFF[facility] [address] [place] [address] 08/21/2021 10:08:56 09/01/2021 11:26:52 Adult health examination [id number] Z00.00 Colonoscop y 2019, repeat in 10 yrs. UTD on Td. Counseling [id number] Z71 .9 including cardiovas ulhi risk reduction counseling Depression screening [id number] Z13.31 depression screening tool administer ed, entered into emr, scored and discussed, time greater than 7.5 minutes Screening for alcohol abuse [id number] Z13.39 Scored 4. Obstructiv e sleep apnea syndrome [id number] G47.33 Wearing CPAP machine nightly with joeymen t. Recently titrated up. Has f/u w/ sleep medicine soon. Chronic at rial fibrillation [id number] I48.20 Taking Xarelto 20 mg 1 tablet daily and Metoprolol 100 mg 1 tablet BID. Still in A fib. In care with with Dr. Garza, Amie [facility] , recent appt. 07/14/2021. COVID-19 [id number] U07.1 Rapid test positive on 05/05/21 Diastolic heart failure [id number] I50.30 In care w/ / Greg. EF 45-50%. Mild concentric hypertroph y left ventricula r , mild mitral regurgitat ion, and mild trace tricuspid regurgitat ion. Has upcoming ECHO and visit. Epilepsy [id number] G40.90 9 Childhood. Hypertensive disorder 38 [id number] I10 at goal, BP <130/80. Will continue taking Metoprolol Tartrate 100 mg tablet BID. F/u in 3 mos Localized, primary osteoarthritis [id number] M19.91 Treated for arthritic gout at [facility] in early JanuaryR ight foot. 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 CT yearly for 10 yrs - no f/u needed. Prediabetes 541299322 R7 3.03 A1c 6. Central sl eep apnea syndrome [id number] G47.31 CPAP machine was titrated up, feeling [...] [place] Member ID Guarantor Name 02/26/2021 1 [facility] - DIRECT CONNECTORCARE TYPE I (HMO) [id number] Inder Aste [id number] 1 Inder Aste 03/04/2021 1 [facility] - DIRECT CONNECTORCARE TYPE I (HMO) [id number] Inder Aste [id number] 1 Inder Aste 04/08/2021 1 [facility] - DIRECT CONNECTORCARE TYPE I (HMO) [id number] Inder Aste [id number] 1 Inder Aste 05/06/2021 1 [facility] - DIRECT CONNECTORCARE TYPE I (HMO) [id number] Inder Aste [id number] 1 Inder Aste 08/21/2021 1 [facility] - DIRECT CONNECTORCARE TYPE I (HMO) [id number] Inder Aste [id number] 1 Inder Aste Notes Date Note Type Note Provider Name and Address Organization Details Recorded Time text/html Patient filed Social security disability on 01/23/21, would like pcp to send a record to [facility].Pt reports his breathing issue is restricting his [...] few days. Treated for arthritic gout at [facility] in early JanuaryRight foot.Treatment for 10 days. A FibCardioversion in 2018.Taking Xarelto 20 mg 1 tablet daily.In care with with Amie Carvajal and [facility], last appt. 10/28, and recent stress test. Has f/u in 6 mos and in 1 year.Recent ECHO, no real changes.F/u in 6 mos.Denies chest/arm pain on exertion or palpitations. HyperlipidemiaRecently starting Rosuvastatin 10 mg 1 tablet daily.Tolerating medication well. 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 STANFORD Beavers [address] [place], [address], [facility] 02/26/2021 10:31:57 1 text/html kneeling under car - TuesdayWoke up and knee was swollenWorseningPain is moderate.Taking Ibuprofen.Moving worsens sxsUsing crutchesUnstable without crutchesDenies numbness or tingling. STANFORD Beavers [address] [place], [address], [facility] 03/04/2021 13:08:24 1 text/html F/u today on [...] like pcp to send a record to [facility].Pt reports his breathing issue is restricting his [...] few days. Treated for arthritic gout at [facility] in early JanuaryRight foot.Treatment for 10 days. A FibCardioversion in 2018.Taking Xarelto 20 mg 1 tablet daily.In care with with Amie Carvajal and [facility], last appt. 10/28, and recent stress test. Has f/u in 6 mos and in 1 year.Recent ECHO, no real changes.F/u in 6 mos.Denies chest/arm pain on exertion or palpitations. HyperlipidemiaRecently starting Rosuvastatin 10 mg 1 tablet daily.Tolerating medication well. 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 STANFORD Beavers [address] [place], [address], [facility] 04/08/2021 09:19:15 1 text/html tested positive for [...] morning, has not used [facility] [address] [place], [address], [facility] 05/06/2021 15:09:30 2 text/html Risk Assessment and [...] daily.In care with with Amie Carvajal and [facility], last appt. 10/28, and recent stress test. Has f/u in 6 mos and in 1 year.Recent ECHO, no real changes.F/u in 6 mos.Denies chest/arm pain on exertion or palpitations. [id number] 6 [place]/central apneaRecently dx with severe [place] by [facility].Started CPAP machine last year.Improving sleep at night - no longer waking up SOB.Has upcoming appointment for adjustments.In care w/ Dr. Clark, EKG showed incomplete bundle branch block. Chest x-ray normal. PFT showed moderate obstruction. A FibCardioversion in 2018.Taking Xarelto 20 mg 1 tablet daily.In care with with Amie Carvajal and [facility], last appt. 07/14/2021, recent stress test. Has f/u in 6 mos and in 1 year.Recent ECHO, no real changes.F/u in 6 mos.Denies chest/arm pain on exertion or palpitations. HyperlipidemiaRecently starting Rosuvastatin 10 mg 1 tablet daily.Tolerating medication well. 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 STANFORD Beavers [address] [place] [address], [phone], [facility] 08/21/2021 10:55:25
== END 2024-10-10 12:27 | disposition home or self-care (01) ==
LOC: HO.HMCFM 10:58
PROVIDERS: PCP Family Medicine; Visit Provider Family Medicine
DX: I10 Essential (primary) hypertension (principal); I25.10 Atherosclerotic heart disease of native coronary artery without angina pectoris; E78.5 Hyperlipidemia, unspecified; E03.9 Hypothyroidism, unspecified; M1A.09X0 Idiopathic chronic gout, multiple sites, without tophus (tophi); G47.30 Sleep apnea, unspecified

== ENCOUNTER → 2024-10-10 10:58 | Outpatient (BNVA) | payer MEDICARE, MEDICAID, SELFPAY | PROVIDERS: PCP Family Medicine; Visit Provider Family Medicine | DX: I10 Essential (primary) hypertension (principal); I25.10 Atherosclerotic heart disease of native coronary artery without angina pectoris; E78.5 Hyperlipidemia, unspecified; E03.9 Hypothyroidism, unspecified; G47.30 Sleep apnea, unspecified; M1A.09X0 Idiopathic chronic gout, multiple sites, without tophus (tophi) | CPT/HCPCS: 99212 ==

== ENCOUNTER 2024-12-14 07:46 | Outpatient (REF) | payer MEDICARE, MEDICAID, SELFPAY ==
--- OUTSIDE RECORDS SUMMARY | 2024-12-14 07:49 | XMS_ITS | Data Portability ---
Author Organization [facility], , [facility] Address [address] [place] [address] Care Team Providers Care Barrel Turner Name Role Phone WALDO PANDYA Primary Care Provider [phone] SINTIA MARCANO Cash Poster Assessment Encounter Date Assessment Date Assessment LastModified by Organization Details LastModified Time 05/06/2021 05/06/2021 Patient agreed t o this visit via a secure telehealth platform due to the COVID -19 pandemic. Patient understands this is a scheduled visit and the usual procedures with regard to billing and confidentiality apply. Patient was notified that the provider location is [facility] Patient location: home During the visit the patient s medical history and medical record were reviewed. The patient was notified to call our office for worsening or urgent symptoms. [email or web address] Not available 05/06/2021 15:09:26 Plan of Treatment Reminders Order Date Submit Date Provider Last Modified By Organization Details Last Modified Time Details Appointments None recorded. Lab TSH, serum or plasma 2020 [facility], [address] [place] [address], [address], 12:19:10 BMP, serum or plasma 2020 [facility], [address] [place] [address], [address], 14:13:16 lipid panel, serum 2020 [facility], [address] [place] [address], [address], 14:13:16 CBC 2020 [facility], [address], [place], [address], 12:48:40 Referral nutritionis t/dietitian referral - A1c 6 2021 [email or web address] Not available 11:36:53 orthopedic surgeon referral 2020 [email or web address] Not available 12:55:17 sleep medicine referral 2020 [facility], [address] [place], [address], 16:06:[address] referral - Worsening SOB. Episodes of apnea during the day. In care w/ cardiology, Dr. Garza. Unable to complete tasks d/t SOB. 2020 CLIVE Hernandez MD, [address] [place], [address], 11:02:56 neurologist referral - Episodes of apnea during day and night. Has [place] and wears CPAP. Daytime episodes occur while patient is focused on tasks, I forget to breath. Hx of childhood epilepsy. 2020 [email or web address] Alondra Valenzuela MD, [address] [place] [address] , [address], [address], 11:32:25 Procedures None recorded. Surgeries None recorded. Imaging None recorded. Medication Orders None recorded. Patient TargetsNo targets recorded. Patient Instructions Encounter Date Encounter Id Patient Instructions Last Modified By Organization Details Last Modified Time 02/26/2021 [id number] complete PFT* - with ABG's [email or web address] Not available 02/26/2021 11:32:20 08/21/2021 [id number] Prostate Cancer Screening using PSA was discussed. [...] apnea syndrome Referring Physician: Nury Wallace [facility], Encounter Date: 02/26/2021 Clean Room Operator Referral for D yspnea Worsening SOB. Episodes of apnea during the day. In care w/ cardiology, Dr. Garza. Unable to complete tasks d/t SOB. Referring Physician: Nury Wallace [facility], Encounter Date: 02/26/2021 Neurologist Referral for Dys pnea Episodes of apnea during day and night. Has [place] and wears CPAP. Daytime episodes occur while patient is focused on tasks, I forget to breath. Hx of childhood epilepsy. Referring Physician: Nury Wallace [facility], Encounter Date: 02/26/2021 Orthopedic Surgeon Referral for Swelling of knee joint Referring Physician: Nury Wallace [facility], Encounter Date: 03/04/2021 Electronic Gaming Device Supervisor/dietitian Refer ral for Prediabetes A1c 6 Referring Physician: Nury Wallace [facility], Encounter Date: 08/21/2021 Results Created Date Observation Date Name Description Value Unit Range Abnormal Flag Note LastModifiedBy Organization Detail LastModifiedTime 02/27/20 21 02/26/2021 CBC WBC 12.62 K/ L 4.23-9 .07 high Not Available [address], [address], 02/26/2021 12:48:40 02/27/20 21 02/26/2021 CBC RBC 4.77 M/ L 4.63-6 .08 Not Available [address], [address], 02/26/2021 12:48:40 02/27/20 21 02/26/2021 CBC HGB 15.0 g/dL 13.7-1 7.5 Not Available [address], [address], 02/26/2021 12:48:40 02/27/20 21 02/26/2021 CBC HCT 46.5 % 40.1-5 1.0 Not Available [address], [address], 02/26/2021 12:48:40 02/27/20 21 02/26/2021 CBC MCV 97.5 fL 79.0-9 2.2 high Not Available [address], [address], 02/26/2021 12:48:40 02/27/20 21 02/26/2021 CBC MCH 31.4 pg 25.7-3 2.2 Not Available [address], [address], 02/26/2021 12:48:40 02/27/20 21 02/26/2021 CBC MCHC 32.3 g/dL 32.3-3 6.5 Not Available [address], [address], 02/26/2021 12:48:40 02/27/2002/26/2021 CBC plt 217 K/ L 163-33 7 Not Available [address], [address], 02/26/2021 12:48:40 02/27/20 21 02/26/2021 CBC MPV 10.3 fL 9.4-12 .4 Not Available [address], [address], 02/26/2021 12:48:40 02/27/20 21 02/26/2021 CBC neut% 72.1 % 34.0-6 7.9 high Not Available [address], [address], 02/26/2021 12:48:40 02/27/20 21 02/26/2021 CBC neut# 9.10 1.78-5 .38 high Not Available [address], [address], 02/26/2021 12:48:40 02/27/20 21 02/26/2021 CBC lymph % 13.8 % 21.8-5 3.1 low Not Available [address], [address], 02/26/2021 12:48:40 02/27/20 21 02/26/2021 CBC lymph # 1.74 K/ L 1.32-3 .57 Not Available [address], [address], 02/26/2021 12:48:40 02/27/20 21 02/26/2021 CBC mono% 10.5 % 5.3-12 .2 Not Available [address], [address], 02/26/2021 12:48:40 02/27/20 21 02/26/2021 CBC mono# 1.33 0.30-0 .82 high Not Available [address], [address], 02/26/2021 12:48:40 02/27/20 21 02/26/2021 CBC eo% 2.3 % 0.8-7. 0 Not Available [address], [address], 02/26/2021 12:48:40 02/27/20 21 02/26/2021 CBC eo# 0.29 0.04-0 .54 Not Available [address], [address], 02/26/2021 12:48:40 02/27/20 21 02/26/2021 CBC baso% 0.9 % 0.2-1. 2 Not Available [address], [address], 02/26/2021 12:48:40 02/27/20 21 02/26/2021 CBC baso# 0.11 0.00-0 .08 high Not Available [address], [address], 02/26/2021 12:48:40 02/27/20 21 02/26/2021 CBC RDW-CV 14.4 % 11.6-1 4.4 Not Available [address], [address], 02/26/2021 12:48:40 02/27/20 21 02/26/2021 CBC Ig% 0.400 % 0.000- 1.500 Ig % >0.5 Indic ates possi ble Left Shift Not Available [address], [address], 02/26/2021 12:48:40 02/27/20 21 02/26/2021 CBC Ig# 0.050 0.000- 0.093 Not Available [address], [address], 02/26/2021 12:48:40 02/27/20 21 02/26/2021 CBC NRBC% 0.0 % 0.0-0. 2 Not Available [address], [address], 02/26/2021 12:48:40 02/27/20 21 02/26/2021 CBC NRBC# 0.000 0.000- 0.012 Not Available [address], [address], 02/26/2021 12:48:40 02/27/20 21 02/26/2021 BASIC METAB OLIC PANEL glucose 92 mg/dL 70-100 Not Available [address], [address], 02/26/2021 14:13:16 02/27/20 21 02/26/2021 BASIC METAB OLIC PANEL BUN 16 mg/dL 7-18 Not Available [address], [address], 02/26/2021 14:13:16 02/27/20 21 02/26/2021 BASIC METAB OLIC PANEL creatinine 0.9 mg/dL 0.8-1. 3 Not Available [address], [address], 02/26/2021 14:13:16 02/27/20 21 02/26/2021 BASIC METAB OLIC PANEL B/C 17.8 ratio Not Available [address], [address], 02/26/2021 14:13:16 02/27/20 21 02/26/2021 BASIC METAB OLIC PANEL GFR 92.8 mL/mi n Recom merrill d GFR by the Natio nal Kidne y Found ation >60 mL/mi n/1.7 3m2 - Toshia l <60 mL/mi n/1.7 3m2 - Chron ic Kidne y Disea se <15 mL/mi n/1.7 3m2 - Kidne y Failu re Not Available [address], [address], 02/26/2021 14:13:16 02/27/20 21 02/26/2021 BASIC METAB OLIC PANEL sodium 139 mmol/ L 136-14 5 Not Available [address], [address], 02/26/2021 14:13:16 02/27/20 21 02/26/2021 BASIC METAB OLIC PANEL potassium 4.4 mmol/ L 3.5-5. 1 Not Available [address], [address], 02/26/2021 14:13:16 02/27/20 21 02/26/2021 BASIC METAB OLIC PANEL chloride 102 mmol/ L 96-107 Not Available [address], [address], 02/26/2021 14:13:16 02/27/20 21 02/26/2021 BASIC METAB OLIC PANEL anion gap 12.7 5.0-15 .0 Not Available [address], [address], 02/26/2021 14:13:16 02/27/20 21 02/26/2021 BASIC METAB OLIC PANEL CO2 24 mmol/ L 21-32 Not Available [address], [address], 02/26/2021 14:13:16 02/27/20 21 02/26/2021 BASIC METAB OLIC PANEL calcium 9.3 mg/dL 8.5-10 .3 Not Available [address], [address], 02/26/2021 14:13:16 02/27/20 21 02/26/2021 LIPID PANEL cholesterol 149 mg/dL <200 mg/dl Nilda able 200-2 39 mg/dl Borde rline High >240 mg/dl High Not Available [address], [address], 02/26/2021 14:13:16 02/27/20 21 02/26/2021 LIPID PANEL triglyceride s 126 mg/dL <150 mg/dL Toshia l 150-1 99 mg/dL Borde rline High 200-4 99 mg/dL High >500 mg/dL Very High Not Available [address], [address], 02/26/2021 14:13:16 02/27/20 21 02/26/2021 LIPID PANEL direct HDL 40 mg/dL <40 mg/dl - Major Risk for CHD >60 mg/dl - Negat bella Risk for CHD Not Available [address], [address], 02/26/2021 14:13:16 02/27/20 21 02/26/2021 DIREC T LDL direct LDL 86 mg/dL RISK CATEG ORY LDL GOAL _ CHD or CHD Risk Equiv alent s <100 mg/dl (10-y ear risk >20%) 2+ Risk Facto rs <130 mg/dl (10-y ear risk <= 20%) 0-1 Risk Facto r <160 mg/dl [place] st all peopl e with 0-1 risk facto r have a 10 year risk <10%, thus 10 year risk asses ment in peopl e with 0-1 risk facto r is not neces barbara. Not Available [address], [address], 02/26/2021 14:13:17 03/11/20 21 03/11/2021 ARTER IAL BLOOD GAS pH, arterial 7.43 7.35-7 .45 Not Available [facility] [address] [place] [address], [address], 03/11/2021 07:46:45 03/11/20 21 03/11/2021 ARTER IAL BLOOD GAS pCO2, arterial 35.00 mmHg 35.00- 45.00 Not Available [facility] [address] [place], [address], 03/11/2021 07:46:45 03/11/20 21 03/11/2021 ARTER IAL BLOOD GAS pO2, arterial 83.70 mmHg 80.00- 105.00 Not Available [facility] [address] [place], [address], 03/11/2021 07:46:45 10/20/20 21 03/11/2021 ARTER IAL BLOOD GAS HCO3, unspecified 23 mmol/ L 22-26 Not Available [facility] [address] [place], [address], 03/11/2021 07:46:45 03/11/20 21 03/11/2021 ARTER IAL BLOOD GAS base deficit 1.2 mmol/ L 0.0-2. 0 Not Available [facility] [address] [place], [address], 03/11/2021 07:46:45 03/11/20 21 03/11/2021 ARTER IAL BLOOD GAS so2, unspecified 96.40 % 95.00- 98.00 Not Available [facility]) [address] [place] [address], [address], 03/11/2021 07:46:45 03/11/20 21 03/11/2021 ARTER IAL BLOOD GAS fo2hb blood gas 95.40 % 94.00- 100.00 Not Available [facility] [address] [place] [address], [address], 03/11/2021 07:46:45 03/11/20 21 03/11/2021 ARTER IAL BLOOD GAS carboxy HGB 0.90 % 0-1.50 Not Available [facility] [address] [place] [address], [address], 03/11/2021 07:46:45 03/11/20 21 03/11/2021 ARTER IAL BLOOD GAS methgb % 0.10 % 0-1.50 Not Available [facility]) [address] [place] [address], [address], 03/11/2021 07:46:45 03/11/20 21 03/11/2021 ARTER IAL BLOOD GAS carin's test POSITI VE Not Available [facility] [address] [place], [address], 03/11/2021 07:46:45 03/11/20 21 03/11/2021 ARTER IAL BLOOD GAS ABG site RIGHT RADIAL ARTERY Not Available [facility] [address] [place], [address], 03/11/2021 07:46:45 03/11/20 21 03/11/2021 ARTER IAL BLOOD GAS FiO2 21% FiO2/ L_min Not Available [facility] [address] [place], [address], 03/11/2021 07:46:45 03/11/20 21 03/11/2021 ARTER IAL BLOOD GAS oxygen liters/min RA Not Available [facility] ([facility]) [address] [place], [address], 03/11/2021 07:46:45 03/16/20 21 03/16/2021 TSH TSH 0.98 uIU/m L 0.50-6 .00 The Ameri can Colle ge of Endoc rinol ogy and Ameri can Thyro id Assoc iatio n recom mend goal TSH value s betwe en 0.4-4 .0 mIU/m L. Not Available [address], [address], 03/16/2021 12:19:10 05/07/20 21 05/07/2021 SARS- COV-2 RNA (COVI D-19) , QUALI TATIV E NAAT sarscov2 POSITI VE negati ve abnormal This test has been autho rized by the FDA under an Emerg ency Use Autho rizat ion(E UA) for you by autho rized labs. Not Available [address], [address], 05/07/2021 14:23:28 07/30/19 22 07/29/2021 CBC WBC 7.65 K/ L 4.23-9 .07 Not Available [address], [address], 07/29/2021 11:16:50 07/30/19 22 07/29/2021 CBC RBC 4.83 M/ L 4.63-6 .08 Not Available [address], [address], 07/29/2021 11:16:50 07/30/19 22 07/29/2021 CBC HGB 15.1 g/dL 13.7-1 7.5 Not Available [address], [address], 07/29/2021 11:16:50 07/30/19 22 07/29/2021 CBC HCT 45.7 % 40.1-5 1.0 Not Available [address], [address], 07/29/2021 11:16:50 07/30/19 22 07/29/2021 CBC MCV 94.6 fL 79.0-9 2.2 high Not Available [address], [address], 07/29/2021 11:16:50 07/30/19 22 07/29/2021 CBC MCH 31.3 pg 25.7-3 2.2 Not Available [address], [address], 07/29/2021 11:16:50 07/30/19 22 07/29/2021 CBC MCHC 33.0 g/dL 32.3-3 6.5 Not Available [address], [address], 07/29/2021 11:16:50 07/30/19 22 07/29/2021 CBC plt 182 K/ L 163-33 7 Not Available [address], [address], 07/29/2021 11:16:50 07/30/19 22 07/29/2021 CBC MPV 10.1 fL 9.4-12 .4 Not Available [address], [address], 07/29/2021 11:16:50 07/30/19 22 07/29/2021 CBC neut% 61.5 % 34.0-6 7.9 Not Available [address], [address], 07/29/2021 11:16:50 07/30/19 22 07/29/2021 CBC neut# 4.70 1.78-5 .38 Not Available [address], [address], 07/29/2021 11:16:50 07/30/19 22 07/29/2021 CBC lymph % 22.6 % 21.8-5 3.1 Not Available [address], [address], 07/29/2021 11:16:50 07/30/19 22 07/29/2021 CBC lymph # 1.73 K/ L 1.32-3 .57 Not Available [address], [address], 07/29/2021 11:16:50 07/30/19 22 07/29/2021 CBC mono% 9.5 % 5.3-12 .2 Not Available [address], [address], 07/29/2021 11:16:50 07/30/19 22 07/29/2021 CBC mono# 0.73 0.30-0 .82 Not Available [address], [address], 07/29/2021 11:16:50 07/30/19 22 07/29/2021 CBC eo% 4.3 % 0.8-7. 0 Not Available [address], [address], 07/29/2021 11:16:50 07/30/19 22 07/29/2021 CBC eo# 0.33 0.04-0 .54 Not Available [address], [address], 07/29/2021 11:16:50 07/30/19 22 07/29/2021 CBC baso% 1.4 % 0.2-1. 2 high Not Available [address], [address], 07/29/2021 11:16:50 07/30/19 22 07/29/2021 CBC baso# 0.11 0.00-0 .08 high Not Available [address], [address], 07/29/2021 11:16:50 07/30/19 22 07/29/2021 CBC RDW-CV 14.4 % 11.6-1 4.4 Not Available [address], [address], 07/29/2021 11:16:50 07/30/19 22 07/29/2021 CBC Ig% 0.700 % 0.000- 1.500 Ig % >0.5 Indic ates possi ble Left Shift Not Available [address], [address], 07/29/2021 11:16:50 07/30/19 22 07/29/2021 CBC Ig# 0.050 0.000- 0.093 Not Available [address], [address], 07/29/2021 11:16:50 07/30/19 22 07/29/2021 CBC NRBC% 0.0 % 0.0-0. 2 Not Available [address], [address], 07/29/2021 11:16:50 07/30/19 22 07/29/2021 CBC NRBC# 0.000 0.000- 0.012 Not Available [address], [address], 07/29/2021 11:16:50 07/30/19 22 07/29/2021 HGB A1C [...] furth er confi rmati on Not Available [address], [address], 07/29/2021 11:52:09 07/30/19 22 07/29/2021 HGB A1C estimated average glucose 125.5 mg/dL Not Available [address], [address], 07/29/2021 11:52:09 07/30/19 22 07/29/2021 LIPID PANEL cholesterol 159 mg/dL <200 mg/dl Nilda able 200-2 39 mg/dl Borde rline High >240 mg/dl High Not Available [address], [address], 07/29/2021 14:35:40 07/30/19 22 07/29/2021 LIPID PANEL triglyceride s 164 mg/dL <150 mg/dL Toshia l 150-1 99 mg/dL Borde rline High 200-4 99 mg/dL High >500 mg/dL Very High Not Available [address], [address], 07/29/2021 14:35:40 07/30/19 22 07/29/2021 LIPID PANEL direct HDL 43 mg/dL <40 mg/dl - Major Risk for CHD >60 mg/dl - Negat bella Risk for CHD Not Available [address], [address], 07/29/2021 14:35:40 07/30/19 22 07/29/2021 LDL - CALCU LATED LDL - calculated 83.2 RISK CATEG ORY LDL GOAL _ CHD or CHD Risk Equiv alent s <100 mg/dl (10-y ear risk >20%) 2+ Risk Facto rs <130 mg/dl (10-y ear risk <= 20%) 0-1 Risk Facto r <160 mg/dl Almo st all peopl e with 0-1 risk facto r have a 10 year risk <10%, thus 10 year risk asses ment in peopl e with 0-1 risk facto r is not necmac barbara. Not Available [address], [place], [address], 07/29/2021 14:35:40 07/30/19 22 07/31/2021 NT PROBN P nt probnp 880 pg/mL high For Heart Failu re (HF) diagn osis, refer ence range s in patie nts with dyspn ea are based on You albarran JL, et al., J Am Elvis Cardi ol. [...] pg/mL women ) are based on Roxana Roman al., J Am Elvis Cardi ol. 2007; 50:20 5-14. For patie nts with exist ing HF, the optim al risk categ ory cut point for HF progr essio n (<300 pg/mL ) is based on Lilian HERNANDEZ et al., Clin Bioch em. 2010; 43:14 05-10 . For addit ional infor prieto carney refer to http: //[facility] strange[facility] om/fa q/FAQ (This link is being provi ded for infor demetrice barton/ educa kevan l purpo ses only. ) Not Available [facility] [address] [place] [address], [address], 07/31/2021 01:40:20 07/30/19 22 07/31/2021 COMP. METAB OLIC PANEL glucose 92 mg/dL 70-100 Not Available [address], [address], 07/31/2021 11:38:22 07/30/19 22 07/31/2021 COMP. METAB OLIC PANEL BUN 16 mg/dL 7-18 Not Available [address], [address], 07/31/2021 11:38:22 07/30/19 22 07/31/2021 COMP. METAB OLIC PANEL creatinine 0.9 mg/dL 0.8-1. 3 Not Available [address], [address], 07/31/2021 11:38:22 07/30/19 22 07/31/2021 COMP. METAB OLIC PANEL B/C 17.8 ratio Not Available [address], [address], 07/31/2021 11:38:22 07/30/19 22 07/31/2021 COMP. METAB [...] borat ion (CKD- EPI) Equat ion (Isai r et. al 2020) as recom merrill d by the Natio nal Emmanuelle lott . eGFR is based on age, serum creat inine , and sex. CKD-E PI does not calcu late eGFR by race, does not apply to child ev (age <18 years ), and shoul d not be used in pregn trevor. Not Available [address], [address], 07/31/2021 11:38:22 07/30/19 22 07/31/2021 COMP. METAB OLIC PANEL sodium 142 mmol/ L 136-14 5 Not Available [address], [address], 07/31/2021 11:38:22 07/30/19 22 07/31/2021 COMP. METAB OLIC PANEL potassium 4.5 mmol/ L 3.5-5. 1 HEMS= Speci men Sligh tly Hemol yzed. Chem Resul ts may be effec mercy. Not Available [address], [address], 07/31/2021 11:38:22 07/30/19 22 07/31/2021 COMP. METAB OLIC PANEL chloride 106 mmol/ L 96-107 Not Available [address], [address], 07/31/2021 11:38:22 07/30/19 22 07/31/2021 COMP. METAB OLIC PANEL anion gap 10.2 5.0-15 .0 Not Available [address], [address], 07/31/2021 11:38:22 07/30/19 22 07/31/2021 COMP. METAB OLIC PANEL CO2 26 mmol/ L 21-32 Not Available [address], [address], 07/31/2021 11:38:22 07/30/19 22 07/31/2021 COMP. METAB OLIC PANEL calcium 9.0 mg/dL 8.5-10 .3 Not Available [address], [address], 07/31/2021 11:38:22 07/30/19 22 07/31/2021 COMP. METAB OLIC PANEL total protein 7.0 g/dL 6.4-8. 2 Not Available [address], [address], 07/31/2021 11:38:22 07/30/19 22 07/31/2021 COMP. METAB OLIC PANEL albumin 3.7 g/dL 3.4-5. 0 Not Available [address], [address], 07/31/2021 11:38:22 07/30/19 22 07/31/2021 COMP. METAB OLIC PANEL globulin 3.3 g/dL Not Available [address], [address], 07/31/2021 11:38:22 07/30/19 22 07/31/2021 COMP. METAB OLIC PANEL A/G 1.1 ratio 0.8-2. 0 Not Available [address], [address], 07/31/2021 11:38:22 07/30/19 22 07/31/2021 COMP. METAB OLIC PANEL total bilirubin 0.60 mg/dL 0.00-1 .00 Not Available [address], [address], 07/31/2021 11:38:22 07/30/19 22 07/31/2021 COMP. METAB OLIC PANEL AST 18 U/L 0-37 Not Available [address], [address], 07/31/2021 11:38:22 07/30/19 22 07/31/2021 COMP. METAB OLIC PANEL ALT 29 U/L 6-63 Not Available [address], [place], [address], 07/31/2021 11:38:22 07/30/19 22 07/31/2021 COMP. METAB OLIC PANEL alk. phos. 71 U/L 50-136 Not Available [address], [address], 07/31/2021 11:38:22 03/04/20 21 03/04/2021 xr knee 4 or more views (left ) This image report has been auto-f inaliz ed and has not been read by a Radiol ogist. Interp retati on has been includ ed in the provid er encoun ter note for this date of johanne licona Final result NURY DELEON BLISS [email or web address] [facility] [address] [place] [address], [address], 03/04/2021 13:26:08 03/11/20 21 03/11/2021 PFT No [...] Pt states shortn ess of breath NURY DELEON BLISS blepage [facility] [address] [place], [address], 04/22/2021 12:21:24 03/11/2003/11/2021 pulmo nary funct ion test* No observ ation record ed. [email or web address] Not Available 2020 12:08:50 03/11/2002/26/2021 pulmo nary funct ion test* No observ ation record ed. [email or web address] Not Available 2020 12:08:51 03/12/20 elect aubree sanchezgr am No observ ation record ed. [email or web address] Not Available 2020 12:04:45 05/01/2004/29/2021 trans -thor acic echoc ardio gram (TTE) (PROC ) No observ ation record ed. [email or web address] [facility] [address], [place], [address], 05/03/2021 16:57:11 05/13/2004/29/2021 trans -thor acic echoc ardio gram (TTE) (PROC ) No observ ation record ed. [email or web address] [facility] [address], [place], [address], 05/14/2021 09:06:00 Result Notes None recorded. Problems Name Problem SNOMED Code Status Onset Date Resolution Date Notes Provider Name and Address Organization Details Recorded Time Disorder of male genital organ 62571417 Completed 04/11/2013 Not Available [facility] 3 02:03:54 Low back pain 692116963 Active Not Available [facility] 3 03:10:06 Torsion of testis 82842702 Active Not Available [facility] 3 03:10:06 Impacted cerumen 77913853 Completed 200104/11/2013 Not Available [facility] 3 02:02:11 Acute suppurat bella otitis media without spontane ous rupture of ear drum 10488628 Completed 200104/11/2013 Not Available [facility] 3 02:02:40 Osteoart hritis of knee 967970861 Active 2002 Not Available [facility] 3 03:10:06 Localize d, primary osteoart hritis 366771741 Active 2002 Not Available [facility] 3 03:10:06 Knee pain Completed 200204/11/2013 Not Available [facility] 3 02:00:41 Primary malignan t neoplasm of testis 18293751 Active 2002 Not Available [facility] 3 03:10:06 Psychose xual dysfunct ion associat ed with inhibite d libido 333892186 Active 2005 Not Available [facility] 3 03:10:06 Acute conjunct ivitis 62892346 Completed 200504/11/2013 Not Available [facility] 3 02:02:28 Elevated blood-pr essure reading without diagnosi s of hyperten darrin 467281150 Completed 200506/21/2019 [place] Beavers [address] [place] [address], [id number] , [facility] 0 09:18:58 Sensorin eural hearing loss 13192190 Active 2006 Not Available [facility] 3 03:10:06 Cellulit is and abscess of face 806927390 Completed 200604/11/2013 [facility] Available [facility] 3 02:03:46 Joint pain in ankle and foot Completed 200704/11/2013 Not Available [facility] 3 02:01:25 Pain in limb 71089962 Completed 200704/11/2013 Not Available [facility] 3 02:00:55 Seminal vesiculi tis 45420551 Active 2008 Not Available [facility] 3 03:10:06 Obstruct bella sleep apnea syndrome 65752307 Active 2017 severe; AHI 40.5 2017 Aakash Awan MD [address] [place], [address] , [facility] 8 19:02:02 Chronic atrial fibrilla tion 139838745 Active 2018 Aakash Awan MD [address] [place] [address], [address] , [facility] 9 16:33:35 Hyperten sive disorder 86634298 Active 2019 Nury Wallace, [address], [address] , [facility] 0 09:19:05 Diastoli c heart failure 000732582 Active 2019 Nury Wallace, [address], [address] , [facility] 0 09:20:40 Epilepsy 00341656 Active 2020 childhoo d Nury Wallace, [address], [address] , [facility] 1 10:24:46 COVID-19 967502160 Active 202005/05/21 Nury Wallace, [address], [address] , [facility] 1 15:06:45 Prediabe matt 049832868 Active 2021 A1c = 6.[address], LDN [address] [place] [address], [address] , [facility] [place] [facility] 10:01:32 Body mass index 40+ - severely obese [id number] Active [address], LDN [address] [place] [address], [address] , [facility] 10:01:44 Problem Notes None recorded. Procedures Surgical History Date Name Laterality Status Provider Name and Address Organization Details Recorded Time 1 prevention-card iovascular risk reduction counseling completed SHAYLA Choudhury [facility] 08/13/2020 11:04:40 1 prevention-sendy cain alcohol misuse screening completed SHAYLA Choudhury [facility] 08/13/2020 11:04:40 0 prevention-card iovascular risk reduction counseling completed Lizbeth [facility] 07/11/2019 11:20:40 0 prevention-sendy al alcohol misuse screening completed Lizbeth [facility] 07/11/2019 11:20:40 9 63941: Therapeutic Exercise completed Sheng Mccarthy, PT [address] [place], [address], [facility] 11/14/2018 07:23:17 9 Treatment and Advice completed Sheng Mccarthy, PT [address] [place], [address], [facility] 11/14/2018 07:06:14 9 40395: Therapeutic Exercise completed Sheng Mccarthy, PT [address] [place], [address], [facility] 11/09/2018 11:06:20 9 Treatment and Advice completed Sheng Mccarthy, PT [address] [place], [address], [facility] 11/09/2018 11:05:58 9 07690: Therapeutic Exercise completed Sheng Mccarthy, PT [address] [place], [address], [facility] 11/02/2018 11:07:46 9 Treatment and Advice completed Sheng Mccarthy, PT [address] [place], [address], [facility] 11/02/2018 11:01:20 9 Physical Activity Counselling completed Sheng Mccarthy, PT [address] [place], [address], [facility] 10/26/2018 10:31:25 9 90453: PT Eval Low Complexity completed Sheng Mccarthy, PT [address] [place], [address], [facility] 10/26/2018 10:31:25 9 Treatment and Advice completed Sheng Mccarthy PT [address] [facility], [place], [address], [place] [facility] 10/26/2018 10:54:22 8 Post hospital/SNF follow-up/Trans itional Care completed [facility] [place] [place] 10/13/2017 15:54:56 Imaging Results None recorded. Procedure Notes None recorded. Medical Equipment None [...] 04/08 completed did not help much - 02/26/21M S Not Available Not Available Not Available albuterol sulfate HFA 90 mcg/actua tion aerosol inhaler INHALE 2 PUFFS BY MOUTH EVERY 4 HOURS 04/08 completed did not help much - 02/26/21M S Not Available Not Available Not Available [...] index (BMI) Body weight Heart rate Systolic And Diastolic Provider Name and Address Organization Details Last Updated DateTime 08/21/2021 177.17 cm 41.5 kg/m2 506555.0 1 g 72 /min 122/84 mm[Hg] SHAYLA Choudhury [facility] 08/21/2021 10:24:50 Date Recorded Oxygen saturation Oxygen saturation in Arterial blood by Pulse oximetry Provider Name and Address Organization Details Last Updated DateTime 02/26/2021 99 % 99 % STANFORD Beavers [address] [place] [address], [phone], [facility] 02/26/2021 10:29:02 Date Recorded Body height Body mass index (BMI) Body weight Heart rate Systolic And Diastolic Provider Name and Address Organization Details Last Updated DateTime 02/26/2021 177.8 cm 40.4 kg/m2 276534.5 6 g 80 /min 102/74 mm[Hg] Mili Rocaar [facility] 02/26/2021 09:59:33 Date Recorded Body height Body mass index (BMI) Body weight Heart rate Systolic And Diastolic Provider Name and Address Organization Details Last Updated DateTime 03/04/2021 177.8 cm 39 kg/m2 653955.1 2 g 72 /min 108/78 mm[Hg] Mili Buckley [facility] 03/04/2021 12:04:48 Date Recorded Body height Body mass index (BMI) Body weight Heart rate Systolic And Diastolic Provider Name and Address Organization Details Last Updated DateTime 04/08/2021 177.8 cm 40.9 kg/m2 380628.8 3 g 64 /min 106/78 mm[Hg] Mili Rocayong [facility] 04/08/2021 09:00:02 Date Recorded Body height Body temperature Provider N yoli and Address Organization Details Last Updated DateTime 05/06/2021 177.8 cm 98.9 [degF] Mili Buckley [facility] 05/06/2021 14:39:38 Social History Question Answer Notes LastModified by Organizat ion Details LastModified Time Tobacco Smoking Status Never Smoker Rare marijuana Not Available [employer] 10/15/2010 02:07:33 Do You Wear A Helmet When Biking? No Information not available 08/13/2020 What Is Your Level Of Caffeine Consumption? Moderate 2 Cups Daily Information not available 08/21/2021 What Type Of Diet Are You Following? REGULAR Information not available 06/29/2018 Which Illicit Or Recreational Drugs Have You Used? Every Day MJ Information not available 08/21/2021 Education 10 [email or web address] Information not available 07/11/2019 How Many Days In The Past Year Have You Had A Heavy Drinking Consumption (4+ Female, 5+ Male)? 4 [email or web address] Information not available 07/11/2019 Are There Any [...] How Many Children Do You Have? 0 [email or web address] Information not available 07/11/2019 Do You Use [...] How Much Tobacco Do You Smoke? No [email or web address] Information not available 07/11/2019 What Types Of Sporting Activities Do You Participate In? None Information not available 06/29/2018 General Stress Level Medium Information not available 08/13/2020 Do You Use Sunscreen Routinely? Yes Information not available 06/29/2018 How Many Years Have You Smoked Tobacco? 0 [email or web address] Information not available 07/11/2019 How Many Days In The Past Year Have You Consumed 5 Or More Drinks? 0 Information not available 08/21/2021 Sex: Unknown Functional Status Question Answer Note LastModified by Organizat ion Details LastModified Time Do you use any illicit or recreational drugs? [email or web address] Information not available 08/21/2021 Do you or have you ever used any other forms of tobacco or nicotine? No Information not available 08/21/2021 What is your level of alcohol consumption? Moderate 2 drink 3 timeds a week Information not available 08/21/2021 Do you or have you ever used smokeless tobacco? 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 Never used electronic cigarettes [email or web address] Information not available 07/11/2019 What is your [...] Td(adult) unspecified formulation 6 completed Not Available [facility] 04/07/2011 05:21:29 Tdap 9 completed Not Available [facility] 06/09/2019 02:37:59 Td(adult) unspecified formulation 9 completed Marlys weber [facility] 10/05/2018 08:12:21 COVID-19, mRNA, LNP-S, PF, 30 mcg/0.3 mL dose 1 completed SHAYLA Choudhury [facility] 02/26/2021 09:55:38 COVID-19, mRNA, LNP-S, PF, 30 mcg/0.3 mL dose 1 completed SHAYLA Choudhury [facility] 02/26/2021 09:56:01 Past Encounters Encounter ID Performer Location Encounter Start Date Encounter Closed Date Diagnosis/Indication Diagnosis SNOMED-CT Code Diagnosis ICD10 Code Diagnosis Note [id number] Aakash Awan MD , [facility], OFF[address] [place] [address] 04/16/2002 10:58:35 06/12/2008 02:02:29 [id number] Kayla Aguilar NP , [facility], OFFICE [address] [place] [address] 01/15/2003 09:59:23 06/12/2008 02:02:[id number] [facility] RAD[facility]OLOG[facility] [employer] [facility] , [facility] [address] [place] [address] 01/15/2003 10:29:01 06/12/2008 02:02:[id number] [facility] , [facility] [address] [place] [address] 01/15/2003 00:00:00 06/12/2008 02:02:29 [id number] Aakash Awan MD , [facility], OFFICE [address] [place] [address] 02/05/2003 13:27:50 02/06/2003 08:08:26 [id number] [facility] - [address] [address] 02/11/2003 08:27:33 02/11/2003 08:27:36 [id number] MD MARY Pitt, [facility], OFFICE [address] [place] [address] 10/07/2005 14:47:01 06/12/2008 02:02:29 [id number] [facility] - [address] [address] 10/07/2005 15:39:32 10/07/2005 15:39:44 [id number] MARU Stephens, [facility], OFF[address] [place] [address] 02/03/2006 09:00:30 02/03/2006 13:59:06 [id number] MD MARY Pitt, [facility], OFF[address] [place] [address] 02/09/2006 10:00:36 02/10/2006 08:46:13 [id number] MD MARY Pitt, [facility], OFFICE [address] [place] [address] 02/09/2006 10:00:36 02/10/2006 08:46:13 [id number] MD MARY Pitt, [facility], OFFICE [address] [place] [address] 08/10/2006 09:01:47 08/11/2006 12:17:05 [id number] MD MARY Pitt, [facility], OFFICE [address] [place] [address] 04/25/2007 08:43:18 06/12/2008 02:02:29 [id number] MD MARY Pitt, [facility], OFF[address] [place] [address] 05/09/2007 14:18:55 06/12/2008 02:02:29 [id number] An Mcmillan NP , [facility], [address] [place] [address] 06/28/2007 09:17:18 06/12/2008 02:02:[id number] [facility] RADIOLOGY Technolog[address] st Radiology , [facility] [address] [place] [address] 06/28/2007 09:44:31 06/29/2007 09:24:43 [id number] Aakash Awan MD , [facility], OFF[address] [place] [address] 07/25/2008 14:42:45 07/29/2008 15:05:32 [id number] [facility] - [facility] [address] [place] [address] 07/25/2008 15:46:39 07/25/2008 15:46:47 [id number] Coco Mcbride NP , [facility], OFF[address] [place] [address] 12/15/2010 11:02:39 12/16/2010 08:57:36 [id number] MD MARY Pitt, [facility], OFF[address] [place] [address] 12/21/2010 14:11:01 12/22/2010 13:19:46 [id number] Sheng Mccarthy , PT Physical Therapy, [facility] [address] [place] [address] 12/23/2010 11:20:27 12/25/2010 08:01:42 [id number] Sheng Mccarthy , PT Physical Therapy, [facility] [address] [place] [address] 12/25/2010 08:14:07 12/25/2010 09:34:56 [id number] Aakash Awan MD , [facility], OFF[address] [place] [address] 09/29/2017 14:11:10 09/29/2017 15:30:09 Atrial fibrillation 71854396 I48.91 [id number] Aakash Awan MD , [facility], OFFICE [address] [place] [address] 10/13/2017 15:35:32 10/14/2017 09:10:50 Atrial fibrillation 40707800 I48.91 [id number] Aakash Awan MD , [facility], OFFICE [address] [place] [address] 11/15/2017 14:17:18 11/16/2017 16:35:37 Snoring 90032560 R06.83 Atrial fibrillation 4943 6004 I48.91 [id number] Aakash Awan MD , [facility], OFF[address] [place] [address] 06/29/2018 15:32:22 06/29/2018 17:02:06 Adult health examination 013356226 Z00.00 see Risk Assessment and Lifestyle Change Counseling section above Counseling 657363115 Z71 .9 Depression screening 171 764802 Z13.89 depression screening tool administer ed, entered into emr, scored and discussed, time greater than 7.5 minutes Active or passive immunization 065882647 Z23 Obstructiv e sleep apnea syndrome 81650371 G47.33 Localized, primary osteoarthritis 811947017 M19.91 Primary ma lignant neoplasm of testis 42941891 C62.90 Chronic at rial fibrillation 750538911 I48.2 Osteoarthr itis of knee 244264558 M17.9 [id number] Adithya Rodríguez MD , [facility], OFFICE [address] [place] [address] 10/05/2018 07:42:52 10/05/2018 08:26:47 Chronic atrial fibrillation 740923353 I48.2 continue on Xarelto, not missing doses Dislocatio n of shoulder joint 885672918 S43.005A [id number] Sheng Mccarthy , PT Physical Therapy, [address] [address] 10/26/2018 10:18:22 10/27/2018 08:18:10 Dislocation of shoulder joint 723120214 S43.005D 53 year old male with findings most consistent with acute left shoulder dislocatio n on 09/28/2018 . [...] has significan t functional limitation in their activities of daily living and work capacity. Skilled physical therapy is needed to safely [...] active, passive and resisted motions of the shoulder. 2. Demonstrat e sufficient muscular endurance to meet functional demands. Treatment Plan: Patient to return for 8 visits over 12 weeks. We expect significan t change in pain, impairment and function in this time frame. Treatment to Include: Therapeuti c exercise and manual therapy [id number] Sheng Mccarthy , PT Physical Therapy, [address] [address] 11/02/2018 10:20:32 11/03/2018 08:25:19 Dislocation of shoulder joint 191482565 S43.005D Patient Goals: Be able to avoid subsequent non-trauma tic dislocatio n. Be able to reach, push, pull, lift and carry with his left arm for ADLs and work without limitation s due to shoulder pain, stiffness or recurrent instabilit y.. Clinical Goals: 1. Demonstrat e symmetric pain free active, passive and resisted motions of the shoulder. 2. Demonstrat e sufficient muscular endurance to meet functional demands. [id number] MARU Waldron , [facility], OFF[address] [place] [address] 11/09/2018 07:50:07 11/09/2018 08:31:02 Dislocation of shoulder joint 941555503 S43.005A resolving- continue PT Screening for malignant neoplasm of colon 728729879 Z12.11 will consult PCP [id number] Sheng Mccarthy , PT Physical Therapy, [facility] [address] [place] [address] 11/09/2018 10:13:22 11/09/2018 11:29:33 Dislocation of shoulder joint 548041164 S43.005D Patient Goals: Be able to avoid subsequent non-trauma tic dislocatio n. Be able to reach, push, pull, lift and carry with his left arm for ADLs and work without limitation s due to shoulder pain, stiffness or recurrent instabilit y.. Clinical Goals: 1. Demonstrat e symmetric pain free active, passive and resisted motions of the shoulder. 2. Demonstrat e sufficient muscular endurance to meet functional demands. [id number] Sheng Mccarthy , PT Physical Therapy, [facility] [address] [place] [address] 11/14/2018 06:58:27 11/14/2018 11:41:07 Dislocation of shoulder joint 433541231 S43.005D Patient Goals: Be able to avoid subsequent non-trauma tic dislocatio n. Be able to reach, push, pull, lift and carry with his left arm for ADLs and work without limitation s due to shoulder pain, stiffness or recurrent instabilit y.. Clinical Goals: 1. Demonstrat e symmetric pain free active, passive and resisted motions of the shoulder. 2. Demonstrat e sufficient muscular endurance to meet functional demands. [id number] Adithya Rodríguez MD , [facility], [address] [place] [address] 12/18/2018 16:12:19 12/19/2018 08:07:39 Screening for disorder 121900026 Z11.59 Screening for malignant neoplasm of colon 159440165 Z12.11 Referral for a DIRECT booked colonoscop y. This patient is a healthy ASA Class 1 or 2 patient (only mild systemic disease), or a STABLE, well controlled insulin dependent diabetic. They do not have serious cardiac disease ie IL/angiopl asty within 1 year, symptomati c CHF; renal failure with CKD 4 or 5; take Coumadin, Plavix, Aggrenox, etc. Chronic at rial fibrillation 595886889 I48.2 F/U w/ cardiology Sleep apnea 23694107 G47 .30 Pt to contact insurance company re coverage for cpap machine. Discussed nutrition. Consider nutritioni st in future. [id number] Adithya Rodríguez MD , [facility], OFF[address] [place] [address] 06/21/2019 08:50:11 06/21/2019 09:16:12 Chronic atrial fibrillation 289467604 I48.20 Taking Xarelto 20 mg 1 tablet daily. In care with with Amie Carvajal and [facility] , next appt. 10/2019. F/u at upcoming wellness exam. Diastolic heart failure 072913404 I50.30 Recent ECHO on 05/01 showed intact right and left systolic function. EF 60-65%. Right atrial dilation and right ventricle enlargemen t. Grade 1 diastolic dysfunctio n with trace MR. Hypertensive disorder 38 283072 I10 at goal , BP <140/90. Will continue taking Metoprolol Tartrate 100 mg tablet BID. F/u at upcoming wellness exam. Obstructiv e sleep apnea syndrome 18136917 G47.33 Has not picked up CPAP machine yet. In care with [facility] Medicine Services. Advised to f/u wit them VALERY. F/u at upcoming wellness exam. [id number] Adithya Rodríguez MD , [facility], OFFICE [address] [place] [address] 07/11/2019 10:39:58 07/11/2019 12:07:24 Adult health examination 504601742 Z00.00 Colonoscop y 2019, repeat in 10 yrs. Counseling 724432905 Z71 .9 including cardiovasc ular risk reduction counseling Depression screening 171 070675 Z13.89 depression screening tool administer ed, entered into emr, scored and discussed, time greater than 7.5 minutes Screening for alcohol abuse 495748001 Z13.39 Scored 4. Screening for disorder 119882165 Z11.59 Gout 51486410 M10.9 R big toe. Will switch from NSAID to colchicine 1 tablet twice a day until sxs resolve. Will f/u if sxs persist or worsen. Chronic at rial fibrillation 987222821 I48.20 Taking Xarelto 20 mg 1 tablet daily. In care with with Amie Carvajal [facility] next appt. 10/2019. F/u at upcoming wellness exam. Diastolic heart failure 440118004 I50.30 Recent ECHO on 05/01 showed intact right and left systolic function. EF 60-65%. Right atrial dilation and right ventricle enlargemen t. Grade 1 diastolic dysfunctio n with trace MR. Hypertensive disorder 38 220113 I10 at goal, BP <140/90. Will continue taking Metoprolol Tartrate 100 mg tablet BID. F/u at upcoming wellness exam. Obstructiv e sleep apnea syndrome 61186211 G47.33 Has not picked up CPAP machine yet. In care with [facility]. Advised to f/u wit them VALERY. 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 CT yealy for 10 yrs - no f/u needed. 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, [address] [place] [address] 06/26/2020 08:43:01 06/27/2020 14:43:57 Chronic atrial fibrillation 065754254 I48.20 Taking Xarelto 20 mg 1 tablet daily and Metoprolol 100 mg 1 tablet BID. In care with with Amie Carvajal and Reji [facility] , recent appt. 04/2020 w/ ECHO. next appt. 10/2019. F/u at upcoming wellness exam. Obstructiv e sleep apnea syndrome 90742667 G47.33 Wearing CPAP machine nightly with improvemen t. Active or passive immunization 859848470 Z23 Diastolic heart failure 705448310 I50.30 Recent ECHO on 04/2020 showed minimal change from previous ECHO. EF 55-60%. Mild concentric hypertroph y left ventricula r , mild mitral regurgitat ion, and mild trace tricuspid regurgitat ion. BNP on 06/19 is 989. Hypertensive disorder 38 541982 I10 at goal, BP <130/80. Will continue taking Metoprolol Tartrate 100 mg tablet BID. Rx to pharmacy for BP kit. Advised to check BP 1-2 times a week and record readings to review at upcoming wellness. F/u at upcoming wellness exam. Mixed hyperlipidemia 267 123095 E78.2 ASCVD risk 9.7%, recommenda tion is moderate intensity statin. Patient agrees to plan - will start Rosuvastat in 10 mg 1 tablet daily. Dyspnea 299789587 R06.00 On exertion. Denies chest pain associated . Denies hx of asthma or COPD. Never Smoker. [facility] This PCP left VM at [facility], Dr. Garza's office r/t ordering stress test. This PCP has not heard back. Would also consider PFT. Cough 08445346 R05 At night. Describes PND. PND vs GERD vs CHF. Flonase has not helped in past. Will try OTC allergy medication to see if sxs improve. If no improvemen t would consider treating for GERD. [id number] Adithya Rodríguez MD , [facility], [address] [place] [address] 08/13/2020 11:00:24 08/14/2020 09:27:58 Adult health examination 042801087 Z00.00 Colonoscop y 2018, repeat in 10 yrs. UTD on Td. Counseling 416728394 Z71 .9 including cardivascu lar risk reduction counseling Depression screening 171 673613 Z13.31 depression screening tool administer ed, entered into emr, scored and discussed, time greater than 7.5 minutes Screening for alcohol abuse 616071408 Z13.39 Scored 4. Hypertensive disorder 38 981850 I10 at goal, BP <130/80. Will continue taking Metoprolol Tartrate 100 mg tablet BID. Rx to pharmacy for BP kit. Advised to check BP 1-2 times a week. Agreed to BP clinic w/ f/u. Obstructiv e sleep apnea syndrome 78928317 G47.33 Wearing CPAP machine nightly with improvemen t. Chronic at rial fibrillation 573140996 I48.20 Taking Xarelto 20 mg 1 tablet daily and Metoprolol 100 mg 1 tablet BID. In care with [facility]ie [facility]al [facility]2020 w/ ECHO. next appt. 10/2019. F/u at upcoming wellness exam. Active or passive immunization 987736503 Z23 Diastolic heart failure 085846029 I50.30 Recent ECHO on 04/2020 showed minimal change from previous ECHO. EF 55-60%. Mild concentric hypertroph y left ventricula r , mild mitral regurgitat ion, and mild trace tricuspid regurgitat ion. BNP on 06/19 is 989. Mixed hyperlipidemia 267 963883 E78.2 ASCVD risk 9.7%, recommenda tion is moderate intensity statin. Patient agrees to plan - will start Rosuvastat in 10 mg 1 tablet daily. Dyspnea 732157235 R06.00 On exertion. Denies chest pain associated . Denies hx of asthma or COPD. Never Smoker. [facility] This PCP left VM at [facility], Dr. Garza's office r/t ordering stress test. This PCP has not heard back. Would also consider PFT. Consulted with SE. Cough 82860394 R05 At night. Describes PND. PND vs [...] 4-6 weeks or sooner if sxs worsen. [id number] Adithya Rodríguez MD , [facility], [address] [place] [address] 02/26/2021 09:39:16 02/27/2021 09:47:54 Obstructive sleep apnea syndrome 77891007 G47.33 Wearing CPAP machine nightly with improvemen t. Dyspnea 630895193 R06.00 Dyspnea/ap neaIn care w/ cardio, Dr. [...] in 1 mos. Chronic at rial fibrillation 225328201 I48.20 Taking Xarelto 20 mg 1 tablet daily and Metoprolol 100 mg 1 tablet BID. Still in A fib. In care with with Dr. Garza, Amie and Reji Garvin [facility] , recent appt. 04/2020 w/ ECHO. next appt. F/u at upcoming wellness exam. Diastolic heart failure 083088981 I50.30 Recent ECHO on 04/2020 showed minimal change from previous ECHO. EF 55-60%. Mild concentric hypertroph y left ventricula r , mild mitral regurgitat ion, and mild trace tricuspid regurgitat ion. Hypertensive disorder 38 565978 I10 at goal, BP <130/80. Will continue taking Metoprolol Tartrate 100 mg tablet BID. Rx to pharmacy for BP kit. Advised to check BP 1-2 times a week. Agreed to BP clinic w/ f/u. Localized, primary osteoarthritis 794736047 M19.91 Treated for arthritic gout at [facility] in early ight foot.Treat ment for 10 days. 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 CT yearly for 10 yrs - no f/u needed. [id number] Adithya Rodríguez MD , [facility], [address] [place] [address] 03/04/2021 11:47:57 03/05/2021 09:09:18 Fatigue 00560903 R53.83 Dr. Hernandez requesting TSH. Central sl eep apnea syndrome 42683916 G47.[address] Hernandez. In care w/ David. PFT ordered. Has f/u in 4-6 weeks. Swelling o f knee joint 359025776 M25.469 Edema and tenderness in lower medial knee. occurred after kneeling to fix car on Tuesday. Worsening. Using crutches. Advised to seek care at [facility] walk-in clinic to expedite and consolidat e care. Patient agrees with plan. [id number] Adithya Rodríguez MD , [facility], [address] [place] [address] 04/08/2021 08:44:30 04/23/2021 14:49:13 Obstructive sleep apnea syndrome 24754035 G47.33 Wearing CPAP machine nightly with improvemen t. Recently titrated up. Has f/u w/ sleep medicine in 2021. Central sl eep apnea syndrome [id number] G47.31 CPAP machine was titrated up, feeling better. Has f/u w/ sleep medicine - May.In care w/ Dr. Clark, EKG showed incomplete bundle branch block. Chest x-ray normal. PFT showed moderate obstructio n.TSH normal.F/u w/ pulm. in April for possible neuromuscu lar testing, sniff test, and chest CT. Hypertensive disorder 38 327640 I10 at goal, BP <130/80. Will continue taking Metoprolol Tartrate 100 mg tablet BID. F/u at wellness.s Diastolic heart failure [id number] I50.30 Recent ECHO on 04/2020 showed minimal change from previous ECHO. EF 55-60%. Mild concentric hypertroph y left ventricula r , mild mitral regurgitat ion, and mild trace tricuspid regurgitat ion. Chronic at rial fibrillation 528063861 I48.20 Taking Xarelto 20 mg 1 tablet daily and Metoprolol 100 mg 1 tablet BID. Still in A fib. In care with with Amie Carvajal and [facility] , recent appt. 04/2020 w/ ECHO. next appt. F/u at upcoming wellness exam. [id number] Adithya Rodríguez MD , [facility], [address] [place] [address] 05/06/2021 14:35:02 05/18/2021 10:05:53 COVID-19 [id number] U07.1 Rapid test positive on 05/05. Known [...] sent to nurse triage. Diastolic heart failure [id number] I50.30 Recent ECHO on 04/2020 showed minimal change from previous ECHO. EF 55-60%. Mild concentric hypertroph y left ventricula r , mild mitral regurgitat ion, and mild trace tricuspid regurgitat ion. Hypertensive disorder 38 539849 I10 at goal, BP <130/80. Will continue taking Metoprolol Tartrate 100 mg tablet BID. F/u at wellness.s Obstructiv e sleep apnea syndrome 20023257 G47.33 Wearing CPAP machine nightly with improvemen t. Recently titrated up. Has f/u w/ sleep medicine in 2021. [id number] Adithya Rodríguez MD , [facility], [address] [place] [address] 08/21/2021 10:08:56 09/01/2021 11:26:52 Adult health examination 850923433 Z00.00 Colonoscop y 2018, repeat in 10 yrs. UTD on Td. Counseling [id number] Z71 .9 including cardiovas ular risk reduction counseling Depression screening 171 237683 Z13.31 depression screening tool administer ed, entered into emr, scored and discussed, time greater than 7.5 minutes Screening for alcohol abuse 855596112 Z13.39 Scored 4. Obstructiv e sleep apnea syndrome 28032229 G47.33 Wearing CPAP machine nightly with joeymen t. Recently titrated up. Has f/u w/ sleep medicine soon. Chronic at rial fibrillation 739570865 I48.20 Taking Xarelto 20 mg 1 tablet daily and Metoprolol 100 mg 1 tablet BID. Still in A fib. In care with with Dr. Garza, Amie and [facility] , recent appt. 07/14/2021. COVID-19 [id number] U07.1 Rapid test positive on 05/05/21 Diastolic heart failure 486859531 I50.30 In care w/ / Greg. EF 45-50%. Mild concentric hypertroph y left ventricula r , mild mitral regurgitat ion, and mild trace tricuspid regurgitat ion. Has upcoming ECHO and visit. Epilepsy 47843153 G40.90 9 Childhood. Hypertensive disorder 38 720833 I10 at goal, BP <130/80. Will continue taking Metoprolol Tartrate 100 mg tablet BID. F/u in 3 mos Localized, primary osteoarthritis 141903406 M19.91 Treated for arthritic gout at [facility] in early JanuaryR ight foot. 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 CT yearly for 10 yrs - no f/u needed. Prediabetes 422863340 R7 3.03 A1c 6. Central sl eep apnea syndrome 23987359 G47.31 CPAP machine was titrated up, feeling [...] Recorded Advance Directives Directive None Recorded Payers Insurance Date Sequence Insurance Name Policy Number Policy Bradford Covered Member ID Bradford Member ID Guarantor Name 11/08/2018 [facility] - Ticket [employer]ANCE [employer] Rajesh Don Inder Aste 10/13/2017 1 *SELF PAY* Ke robert Aste 12/25/2010 1 [place] [id number] Inder Aste [id number] Inder Aste 12/25/2010 1 [place] [facility] [facility] (HMO) [id number] Inder F Aste [id number] Inder Aste 04/25/2007 1 *SELF PAY* Ke robert Aste 12/25/2010 1 [facility] [id number] Inder Aste [id number] Inder Aste 12/25/2010 1 [facility] (O) [id number] Inder F Aste [id number] Inder Aste 10/13/2017 1 [facility] Inder Aste [id number] Inder Aste 11/30/2021 1 [facility] - DIRECT CONNECTORCARE TYPE I (HMO) [id number] Inder Aste [id number] Inder Aste 11/15/2017 1 *SELF PAY* Ke robert Aste 10/13/2017 1 [facility] - DIRECT CONNECTORCARE TYPE I (HMO) Inder Aste [id number] Inder Aste Notes Date Note Type Note Provider Name and Address Organization Details Recorded Time 1 text/html ROS as noted in the HPI Patient filed Social security disability on 01/23/21, would like pcp to send a record to [facility].Pt reports his breathing issue is restricting his [...] few days. Treated for arthritic gout at [facility] in early JanuaryRight foot.Treatment for 10 days. A FibCardioversion in 2018.Taking Xarelto 20 mg 1 tablet daily.In care with with Amie Carvajal and [facility], last appt. 10/28, and recent stress test. Has f/u in 6 mos and in 1 year.Recent ECHO, no real changes.F/u in 6 mos.Denies chest/arm pain on exertion or palpitations. HyperlipidemiaRecently starting Rosuvastatin 10 mg 1 tablet daily.Tolerating medication well. 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 STANFORD Beavers [address] [place], [address], [facility] 02/26/2021 10:31:57 1 text/html ROS as noted in the HPI kneeling under car - up and knee was swollenWorseningPain is moderate.Taking Ibuprofen.Moving worsens sxsUsing crutchesUnstable without crutchesDenies numbness or tingling. STANFORD Beavers [address] [place], [address], [facility] 03/04/2021 13:08:24 1 text/html ROS as noted in the HPI F/u today on knee pain and central [...] like pcp to send a record to [facility].Pt reports his breathing issue is restricting his [...] few days. Treated for arthritic gout at [facility] in early JanuaryRight foot.Treatment for 10 days. A FibCardioversion in 2018.Taking Xarelto 20 mg 1 tablet daily.In care with with Alton Carvajalpden and [facility], last appt. 10/28, and recent stress test. Has f/u in 6 mos and in 1 year.Recent ECHO, no real changes.F/u in 6 mos.Denies chest/arm pain on exertion or palpitations. HyperlipidemiaRecently starting Rosuvastatin 10 mg 1 tablet daily.Tolerating medication well. 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 STANF[facility] Bea[facility] [address] [place], [address], [facility] 04/08/2021 09:19:15 1 text/html ROS as noted in the HPI tested positive for covid yesterday. pt reports [...] morning, has not used [facility] [address] [place], [address], [facility] 05/06/2021 15:09:30 2 text/html Risk Assessment and Lifestyle Change Counseling 50-64Reported by PatientRisk AssessmenFor coronary artery disease risk assessment, patient reportsfamily history of coronary artery diseaseandpersonal history coronary artery disease. For breast cancer risk assessment, patient reportsno family history of breast cancerandno history of breast cancer or dcis. For colon cancer risk assessment, patient reportsno family history of colon polyps or cancerandno history of adenomatous colon polyps. For lung cancer risk assessment, patient reportsnever smokedandno asbestos exposure. For fracture risk assessment, patient reportsno unexplained fracture. For cognitive/behavioral risk assessment, patient reportsno personal history of mental illnessandno family history of mental illness. For safety risk assessment, patient reportsno evidence of abuse/neglect.Diet CounselingFor diet, patient reportscounseled about eating a diet low in trans and saturated fats and high in fiber, fruits and vegetablesanddiscussed the value of a mediterranean diet , and eating more fruits and vegetables.Physical Activity CounselingForexercise counseling:, patient reportsdiscussed the importance of daily physical activityanddiscussed the importance of weight bearing exercise.Safety Counseling:For safety, patient reportscounseled about home safety including use of smoke detectors, co detectors, keeping home water temperature less than 120andcounseled about use of seat belts. VMG HypertensionReported by Patient Physical Exam/MaleReported by PatientROS as noted in the HPI 56 y/o male presents for wellness exam. Patient filed Social security disability on 01/23/21, would like pcp to send a record to [facility].Pt reports his breathing issue is restricting his from getting works done. Hx of epilepsy grew out of it at age 17 or 18 y/o.Does not believe he has had sxs since. Reducing alcohol1-2 shots every few days. A FibCardioversion in 2018.Taking Xarelto 20 mg 1 tablet daily.In care with with Amie Carvajal and [facility], last appt. 10/28, and recent stress test. Has f/u in 6 mos and in 1 year.Recent ECHO, no real changes.F/u in 6 mos.Denies chest/arm pain on exertion or palpitations. UnnmentqryffhC4p 6 [place]/central apneaRecently dx with severe [place] by [facility].Started CPAP machine last year.Improving sleep at night - no longer waking up SOB.Has upcoming appointment for adjustments.In care w/ Dr. Clark, EKG showed incomplete bundle branch block. Chest x-ray normal. PFT showed moderate obstruction. A FibCardioversion in 2018.Taking Xarelto 20 mg 1 tablet daily.In care with with Amie Carvajal and [facility], last appt. 07/14/2021, recent stress test. Has f/u in 6 mos and in 1 year.Recent ECHO, no real changes.F/u in 6 mos.Denies chest/arm pain on exertion or palpitations. HyperlipidemiaRecently starting Rosuvastatin 10 mg 1 tablet daily.Tolerating medication well. 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 [facility] Beavers [address] [place] [address], [place], [address], [facility] 08/21/2021 10:55:25
[2024-12-14 11:39] LABS: Albumin Level 4.5 g/dL (3.5-5.0); Alkaline Phosphatase 55 U/L (39-117); Anion Gap 11 (12-20); Aspartate Amino Transferase 30 U/L (5-37); Blood Urea Nitrogen 17 mg/dL (9-16); Calcium 9.2 mg/dL (8.4-10.2); Carbon Dioxide 29 mmol/L (22-29); Chloride 106 mmol/L (96-108); Estimated Glomerular Filt Rate > 60; Potassium 4.1 mmol/L (3.3-5.1); Sodium 142 mmol/L (135-145); Total Protein 6.9 g/dL (6.5-8.0)
[2024-12-14 11:49] LABS: Alanine Aminotransferase 28 U/L (0-40)
[2024-12-14 11:58] LABS: Free T4 (Free Thyroxine) 0.95 ng/dL (0.71-1.85); Thyroid Stimulating Hormone 3.50 uIU/mL (0.32-4.0)
== END 2024-12-14 07:47 | disposition home or self-care (01) ==
LOC: HO.WFDLDS 07:46
PROVIDERS: Visit Provider Family Medicine
DX: E03.9 Hypothyroidism, unspecified (principal)
CPT/HCPCS: 36415; 80053; 84439; 84443; 84480

== ENCOUNTER 2024-12-21 09:22 | Outpatient (AMB) | payer MEDICARE, MEDICAID, SELFPAY ==
--- OUTSIDE RECORDS SUMMARY | 2024-12-21 09:35 | XMS_ITS | Encounter Summary ---
Author Organization [facility] Address [address] [facility] [address] [place] [address] Phone Care Team Providers Care Hand Sander Name Role Phone Nury Wallace CNP Primary Care Provider Adithya Rodríguez MD Primary Care Provider Adelina Gloria DO Primary Care Provider [phone] Nas Garza MD Unavailable [phone] Paul Olmos MD Unavailable Gatito Magdaleno MD Primary Care Provider Encounter Details Date Type Department Care Team (Late st Contact Info) Description 03/04/2021 Transcribe Orders [facility] PFT Lab [address] [place], [place] [phone] Nury Wallace CNP [address] [place] [address] [phone] [email or web address] Social History Tobacco Use Types Packs/Day Years Used Date Smoking Tobacco: Never Smokeless Tobacco: Never Alcohol Use Standard Drinks/Week Comments Yes 0 (1 standard drink = 0.6 oz pur e alcohol) 6 per week Sex and Gender Information Value Date Recorded Sex Assigned at Male 09/28/2018 3:51 PM EDT Legal Sex Male 9:42 PM EDT Gender Identity Male 09/28/2018 3:51 PM EDT Sexual Orientation Straight 09/28/2018 3: 51 PM EDT documented as of this encounter Plan of Treatment Not on file documented as of this encounter Visit Diagnoses Not on filedocumented in this encounter Care Teams Hand Sander Relationship Specialty Start Date End Date Nury Wallace, SUPERVISOR ROAD ADMINISTRATOR [address] [place] [address] PCP - General Family Medicine 03/03/21 04/27/21 Adithya Rodríguez MD [address] [place] [address] PCP - General Family Medicine 04/28/21 05/06/21 Adelina Gloria DO [address] [place] [address]40 PCP - General Family Medicine 05/07/21 11/06/23 Gatito Magdaleno MD [address] [place] [address] PCP - General Family Medicine 11/07/23 Nas Garza MD [address] [place] [address] Cardiology 05/07/21 Paul Olmos MD [address] [place] [address] Gastroenterology 05/07/21 documented as of this encounter Additional Source Comments The information contained in this document represents components of the legal health record. It is not the complete legal health record.[facility]
--- NOTE | 2024-12-21 10:06 | A.OFFPC_ITS ---
Vital Signs 12/21/24 10:08 Height 5 ft 9 in Weight 275 lb BMI 40.6 BP 130/68 Blood Pressure Location Lt brachial Position Sitting Respiration 16 Pulse 53 Pulse Source Pulse Oximeter Temp 98.3 F Temp Source Oral Pulse Oximetry (%) 95 Oxygen Delivery Method Room Air Intake Visit Reasons: f/u hypothyroidism, labs Intake Note: patient is scheduled to follow up on lab results Clinical Operations Consultant Required: No Allergies No Known Allergies Allergy (Verified 12/21/24 10:07) Medication List - Last Reconciled 12/21/24 by Gatito Magdaleno MD allopurinol 200 mg (2 x 100 mg) PO DAILY colchicine 0.6 mg PO DAILY dronedarone (Multaq) 400 mg PO BID levothyroxine 88 mcg PO DAILY 90 days lisinopril 5 mg PO DAILY 90 days metoprolol tartrate 50 mg PO ONCE rivaroxaban (Xarelto) 20 mg PO QPM rosuvastatin 20 mg PO DAILY 90 days Tobacco use date assessed: 10/10/24 Dental Screening Dental Screen Date: 10/10/24 HPI f/u hypothyroidism, labs HPI Details 59 y/o male presents to f/u hypothyroidi . Had increased levothyroxine from 75 mcg daily to 88 mcg daily. Labs drawn 12/14/24. Reviewed labs with pt. Liver enzymes are fine. TSH improved from 4.92 to 3.50 uIU/mL. Free T4 0.95. Total T3 low at 71. Blood pressure today 130/68, 53p. He is on lisinopril 5mg daily. Reports back pain. [facility] Medical History Paroxysmal atrial fibrillation Atrial fibrillation Sleep apnea Persistent atrial fibrillation Elevated liver enzymes Gout Testicular cancer CHF (congestive heart failure) Surgical History History of orchiectomy, unilateral Hx of colonoscopy Family History Mother CVD (cardiovascular disease) Father CVD (cardiovascular disease) Social History (Updated 10/10/24 @ 11:17 by Jodie Billings MA) Household Members Other:: Same partner- 17 years- Housing: House Alcohol intake: current Alcohol intake frequency: a few times a month Alcohol type: hard liquor Patient Tobacco Use Status: Former Tobacco user e-Cigarette/Vaping Use: Never Used Second Hand Smoke Exposure: No Substance Use Type: Marijuana service: No Current occupational status: unemployed and disabled 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 Al Hassan, Marlys Crocker, Jose Black and colleagues, with an educational craig from [employer]. Review of Systems Const Denies chills, Denies fatigue, Denies fever(s), Denies headache(s) and Denies weakness ENT Denies dizziness and Denies headache(s) Card Denies dyspnea Resp Denies cough, Denies dyspnea, Denies wheezing and Denies other (shortness of breath) Musc Reports back pain, Denies numbness and Denies tingling Neuro Denies dizziness, Denies headache(s), Denies numbness, Denies tingling and Denies weakness Psych Denies anxiety and Denies depression Endo Denies fatigue Aller/Immun Denies wheezing Physical exam (Primary Care) Vital Signs: Last Vital Signs Temp 98.3 F 12/21/24 10:08 Pulse 53 12/21/24 10:08 Resp 16 12/21/24 10:08 BP 130/68 12/21/24 10:08 Pulse Ox 95 12/21/24 10:08 Oxygen Delivery Method Room Air 12/21/24 10:08 BMI result Body Mass Index 40.6 Tobacco/Smoking Status: Tobacco use Status Tobacco use date assessed 10/10/24 12/21/24 10:11 Patient Tobacco Use Status Former Tobacco user 12/21/24 10:11 e-Cigarette/Vaping Use Never Used 12/21/24 10:11 Thrive Assessment: Date of Thrive Assessment Date Thrive assessed 08/12/23 12/21/24 10:11 Const General: well developed; No acute distress Nutritional Appearance: well nourished Orientation/consciousness: patient oriented x3 HENMT Head: Yes normocephalic and Yes atraumatic Eyes General: appearance normal, both eyes and all related structures Pupils: Equal, round and reactive pupils present EOM: EOMs intact bilaterally Resp Effort & Inspection: normal respiratory effort Neuro General: patient oriented x3 and gait normal Cranial nerves: Yes Equal, round and reactive pupils present Psych Affect: normal affect Coding Level of Care Code Est Pt Level 4 (95166) Diagnoses Hypothyroidism E03.9 Hypertension I10 Coronary artery disease I25.10 Back pain M54.9 Assessment & Plan Assessment & Plan (1) Hypothyroidism: Code(s): E03.9 - Hypothyroidism, unspecified Category: Medical Plan: TSH and T4 now back in normal range Continue levothyroxine 88 mcg daily Will continue to monitor (2) Hypertension: Code(s): I10 - Essential (primary) hypertension Category: Medical Plan: Blood pressure is borderline/fairly well controlled. Goal is less than 130/80 Continue current medications Watch salt and sodium Continue working at weight loss (3) Coronary artery disease: Code(s): I25.10 - Atherosclerotic heart disease of [place] coronary artery without angina pectoris Category: Medical Plan: Currently stable Continue rosuvastatin and good blood pressure control. Follow-up with Cardiology as recommended (4) Back pain: Code(s): M54.9 - Dorsalgia, unspecified Category: Medical Plan: Likely muscle strain Encouraged improved body mechanics Avoiding NSAIDs due to Xarelto. He can use Tylenol He can use topicals such as Aspercreme Ice/heat Will give him a short course of muscle relaxant Start physical therapy If worsening or not improving, will check imaging and consider referral to Ortho Orders: Orders PT Evaluation and Treatment Today M54.9 - Dorsalgia, unspecified Medications: New cyclobenzaprine 10 mg PO BID PRN 20 tabs 0RF muscle spasm 10 days
[2024-12-21 10:08] VITALS: BP 130/68; PULSE 53; RESP 16; TEMP 36.8; O2SAT 95; BMI 40.6
== END 2024-12-21 10:33 | disposition home or self-care (01) ==
LOC: HO.HMCFM 09:23
PROVIDERS: PCP Family Medicine; Visit Provider Family Medicine
DX: E03.9 Hypothyroidism, unspecified (principal); I10 Essential (primary) hypertension; I25.10 Atherosclerotic heart disease of native coronary artery without angina pectoris; M54.9 Dorsalgia, unspecified

== ENCOUNTER → 2024-12-21 09:22 | Outpatient (BNVA) | payer MEDICARE, MEDICAID, SELFPAY | PROVIDERS: PCP Family Medicine; Visit Provider Family Medicine | DX: E03.9 Hypothyroidism, unspecified (principal); I10 Essential (primary) hypertension; I25.10 Atherosclerotic heart disease of native coronary artery without angina pectoris; M54.9 Dorsalgia, unspecified | CPT/HCPCS: 99212 ==

== ENCOUNTER 2025-01-02 08:13 | Outpatient (AMB) | payer MEDICARE, MEDICAID, SELFPAY ==
--- OUTSIDE RECORDS SUMMARY | 2025-01-02 08:19 | XMS_ITS | Encounter Summary ---
Author Organization [facility] Address [address] [facility] [address] [place] [address] Phone Care Team Providers Care Ultrasound Tester Name Role Phone Nury Wallace CNP Primary Care Provider Adithya Rodríguez MD Primary Care Provider Adelina Gloria DO Primary Care Provider Nas Garza MD Unavailable [phone] Paul Olmos MD Unavailable Gatito Magdaleno MD Primary Care Provider Encounter Details Date Type Department Care Team (Late st Contact Info) Description 03/04/2021 Transcribe Orders [facility] PFT Lab [address] [place], [place] [phone] Nury Wallace CNP [address] [place] [address] [phone] [email or web address] Social History Tobacco Use Types Packs/Day [...] on filedocumented in this encounter Care Teams Ultrasound Tester Relationship Specialty Start Date End Date Nury Wallace, THERMITE WELDER [address] [place] [address] PCP - General Family Medicine 03/03/21 04/27/21 Adithya Rodríguez MD [address] [place] [address] PCP - General Family Medicine 04/28/21 05/06/21 Adelina Gloria DO [address] [place] [address] PCP - General Family Medicine 05/07/21 11/06/23 Gatito Magdaleno MD [address] [place] [address] PCP - General Family Medicine 11/07/23 Nas Garza MD [address] [place] [address] Cardiology 05/07/21 Paul Olmos MD [address] [place] [address] Gastroenterology 05/07/21 documented as of this encounter Additional Source Comments The information contained in this document represents components of the legal health record. It is not the complete legal health record.[facility]
[2025-01-02 08:26] VITALS: BP 124/80; PULSE 53; BMI 40.7
--- NOTE | 2025-01-02 08:26 | A.OFFVIS_ITS ---
Vital Signs 01/02/25 08:26 Height 5 ft 9 in Weight 275 lb 9.245 oz BMI 40.7 BP 124/80 Blood Pressure Location Lt brachial Position Sitting Pulse 53 Intake Visit Reasons: 6 mth f/up Intake Note: 6 month with ekg feeling good [employer] Required: No Allergies No Known Allergies Allergy (Verified 12/21/24 10:07) Medication List - Last Reconciled 01/02/25 by Erik Molina MD allopurinol 200 mg (2 x 100 mg) PO DAILY colchicine 0.6 mg PO DAILY cyclobenzaprine 10 mg PO BID PRN 10 days dronedarone (Multaq) 400 mg PO BID levothyroxine 88 mcg PO DAILY 90 days lisinopril 5 mg PO DAILY 90 days metoprolol tartrate 50 mg PO BID rivaroxaban (Xarelto) 20 mg PO QPM rosuvastatin 20 mg PO DAILY 90 days HPI Comments Details: Inder comes for follow-up. He said he has been doing well from cardiac perspective. He said he has significant issues with back pain currently and also continues to have issues with central sleep apnea. Currently following with sleep specialist in [place]. Using CPAP regularly. He has not had any exertional chest pain or shortness of breath. Denies any orthopnea, PND, leg edema, weight gain. He has not noticed any irregular heartbeat or prolonged palpitations. Taking his medications. No bleeding issues or neurologic events. [facility] Medical History Paroxysmal atrial fibrillation Atrial fibrillation Sleep apnea Persistent atrial fibrillation Elevated liver enzymes Gout Testicular cancer CHF (congestive heart failure) Surgical History History of orchiectomy, unilateral Hx of colonoscopy Family History Mother CVD (cardiovascular disease) Father CVD (cardiovascular disease) Social History Household Members Other:: Same partner- 17 years- Housing: House Alcohol intake: current Alcohol intake frequency: a few times a month Alcohol type: hard liquor Patient Tobacco Use Status: Former Tobacco user e-Cigarette/Vaping Use: Never Used Second Hand Smoke Exposure: No Substance Use Type: Marijuana service: No Current occupational status: unemployed and disabled 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 Current occupational exposures/hazards: No Cognitive needs: No Hearing needs: No Vision needs: No Review of Systems Const Denies chills, Denies fatigue, Denies fever(s), Denies frequent falls, Denies weakness, Denies weight gain and Denies weight loss ENT Denies dizziness Card Denies chest pain, Denies leg edema, Denies lightheadedness, Denies palpitations, Denies dyspnea, Denies dyspnea on exertion, Denies orthopnea and Denies other (loss of consciousness) Resp Denies cough, Denies dyspnea and Denies dyspnea on exertion GI Denies hematochezia and Denies change in stool character Musc Denies abnormal gait, Denies muscle weakness, Denies numbness, Denies radiating pain into limb and Denies tingling Neuro Denies Abnormal speech present, Denies abnormal gait, Denies dizziness, Denies frequent falls, Denies numbness, Denies tingling and Denies weakness Endo Denies fatigue and Denies palpitations Physical Exam Vital Signs: Last Vital Signs Pulse 53 01/02/25 08:26 BP 124/80 01/02/25 08:26 BMI result Body Mass Index 40.7 Const General: cooperative, comfortable, no acute distress, alert and awake Nutritional Appearance: obese morbidly obese Orientation/consciousness: patient oriented x3 Limitations: no limitations HEENT Head: Yes normocephalic and Yes atraumatic Neck Neck: Yes trachea midline, Yes supple and Yes no JVD Chest Chest palpation & inspection: normal inspection of the chest Resp Effort & Inspection: normal respiratory effort Auscultation: clear to auscultation bilaterally Cardio Jugular venous distension: no JVD Palpation: normal PMI Rate: bradycardic Rhythm: regular rhythm Heart sounds: S1 normal heart sound present, S2 normal heart sound present, no click, no gallops, no murmurs and no rubs GI Inspection: Yes obesity Auscultation: normal bowel sounds Skin General skin exam: no rashes or lesions noted Neuro General: patient oriented x3 and no focal motor deficits Speech: No Abnormal speech present Extrem General: Yes no clubbing, cyanosis or edema Office Procedures EKG Details: EKG shows normal sinus rhythm with low-voltage QRS with incomplete right bundle- branch block and poor R-wave progression most likely lead placement with nonspecific T-wave changes [id number], Complete Assessment & Plan Assessment & Plan (1) Paroxysmal atrial fibrillation: Code(s): I48.0 - Paroxysmal atrial fibrillation Category: Medical Plan: Paroxysmal atrial fibrillation without any obvious clinical recurrence. He is currently tolerating Multaq therapy. Has done well with rhythm management with resolution of his symptoms. Continue rhythm control approach with current Multaq as well as metoprolol therapy. I have recommended him to pursue some form of monitoring and he is interested in pursuing EKGs sensor and perform EKGs on a daily basis. I think this is a good idea as this will lead to early detection of atrial fibrillation and treatment. Continue full oral anticoagulation, currently on Xarelto 20 mg daily. Semi annual renal function test should be pursued. Continue use of CPAP therapy. (2) CHF (congestive heart failure): Code(s): I50.9 - Heart failure, unspecified Category: Medical Plan: Heart failure in the setting of atrial fibrillation. Clinically doing well at this point time. Continue rhythm control approach. Clinically euvolemic and well compensated. No indication for diuretic regimen. Continue aggressive blood pressure control which is currently well optimized. Target goal blood pressure less than 130/84. Advised to call me with any worsening symptoms. Continue CPAP therapy. (3) Coronary artery disease: Code(s): I25.10 - Atherosclerotic heart disease of [place] coronary artery without angina pectoris Category: Medical Plan: CAD nonobstructive. Currently on Xarelto and therefore would avoid aspirin therapy. Continue statin therapy with target goal LDL less than 70 mg/dL. Blood pressure is well optimized. Encouraged to continue to participate in regular physical activity and weight loss program. Will follow up in the clinic in 3 months for EKG in 6 months with me. Thank you for allowing me to partake in his care Coding Level of Care Code Est Pt Level 4 (50960) Complex EM visit Add On G2211 Diagnoses Paroxysmal atrial fibrillation I48.0 CHF (congestive heart failure) I50.9 Coronary artery disease I25.10 CPT Codes EKG - CPT: 87923-[id number], Complete ([id number])
== END 2025-01-02 08:55 | disposition home or self-care (01) ==
LOC: HO.HCS 08:14
PROVIDERS: PCP Family Medicine; Visit Provider Internal Medicine Cardiovascular Disease
DX: I48.0 Paroxysmal atrial fibrillation (principal); I50.9 Heart failure, unspecified; I25.10 Atherosclerotic heart disease of native coronary artery without angina pectoris
CPT/HCPCS: 93010; 99214; G2211

== ENCOUNTER → 2025-01-02 08:13 | Outpatient (BNVA) | payer MEDICARE, MEDICAID, SELFPAY | PROVIDERS: PCP Family Medicine; Visit Provider Internal Medicine Cardiovascular Disease | DX: I25.10 Atherosclerotic heart disease of native coronary artery without angina pectoris (principal); I48.0 Paroxysmal atrial fibrillation; I50.9 Heart failure, unspecified; R00.1 Bradycardia, unspecified; I45.19 Other right bundle-branch block; R94.31 Abnormal electrocardiogram [ECG] [EKG] | CPT/HCPCS: 93005; 99212 ==

== ENCOUNTER 2025-01-07 08:56 | Outpatient (AMB) | payer MEDICARE, MEDICAID, SELFPAY ==
--- NOTE | 2025-01-07 09:05 | A.OFFVIS_ITS ---
Intake Vital Signs 01/07/25 09:07 Height 5 ft 9 in Weight 276 lb 2 oz BMI 40.8 BP 118/72 Blood Pressure Location Lt brachial Position Sitting Respiration 12 Pulse 55 Pulse Source Pulse Oximeter Temp 97.2 F Temp Source Oral Pulse Oximetry (%) 96 Oxygen Delivery Method Room Air Intake Visit Reasons: Wellness Exam / Dr. Chelsea escalera Intake Note: AWV [employer] Required: No Allergies No Known Allergies Allergy (Verified 01/07/25 09:21) Medication List - Last Reconciled 01/07/25 by Adelina Vázquez, [facility]- allopurinol 200 mg (2 x 100 mg) PO DAILY colchicine 0.6 mg PO DAILY cyclobenzaprine 10 mg PO BID PRN 10 days dronedarone (Multaq) 400 mg PO BID levothyroxine 88 mcg PO DAILY 90 days lisinopril 5 mg PO DAILY 90 days metoprolol tartrate 50 mg PO BID rivaroxaban (Xarelto) 20 mg PO QPM rosuvastatin 20 mg PO DAILY 90 days Do you need a note to return to daycare/school/sports/work: No HPI HPI Comments History of Present Illness Details Here today for AWV. The Medicare Annual Wellness Visit (AWV) is a yearly appointment with a health professional to identify health risks and help reduce them and to create or update a personalized prevention plan. During a Medicare AWV, health professionals should also review any current opioid prescriptions, detect any cognitive impairment, and establish or update medical and family history. 59 y/o M AAA, CHF, CAD, HTN, Hypothyroid , PAF, [place] on CPAP SurgHx: Y FHx: Y SocHx: Y Health Maintenance: See scanned preventative medicine assessment with personalized health plan and screening schedule Colon 2019 [facility], report requested Tdap 2019 PSA 09/2024 AAA screen: NA EKG: done today Labs 12/14/24 [place] of Care: as documented in chart Visual Acuity: glasses for reading; last exam > 1 year ago Hearing Screening: mild hearing loss bilat; declined fu at this time. ACP: HCP (Nette), Has a living will at home. Reports states DNR Dietary/Nutrition/Exercise Edu provided: Y During the course of the visit the patient was educated and counseled about appropriate screening and preventative services. Patient instructions were provided to the patient in written or electronic format. I have reviewed and verified the above information History of Present Illness - The patient is a 59-year-old male pres enting for an annual Medicare wellness visit. - History of gout, treated with allopuri nol and colchicine. - Diagnosed with atrial fibrillation, CA D, hypertension, and CHF. Medications include Multac, lisinopril, metoprolol, Xarelto, and rosuvastatin. - Hypothyroidism managed with levothyrox ine, labs reviewed recently. - Chronic back pain managed with cyclobe nzaprine. - Sleep apnea treated with CPAP. - Denied significant hearing or visual i mpairments. Family History - Both mother and uncle had heart attack s. - Father , did not specify cause . 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 - On disability due to heart issues, mariel ble to work or breathe normally without assistance. - In a long-term relationship with Lucy elam for 22 years, acts as healthcare proxy. - Declines routine vaccinations, had COV ID vaccination, declines further hearing or vision tests. Health Maintenance - Tetanus vaccination received in 2019. - History of COVID vaccination. - Plans for cholesterol and prostate scr eening discussed. - Declined pneumococcal vaccine, recent shingles diagnosis delaying shingles vaccine. Review of Systems - Cardiovascular: Denies chest pain or p alpitations. - Respiratory: Reports CPAP use for slee p apnea, improvement in breathing. - Musculoskeletal: Reports chronic back pain, improved with medication. - Endocrine: Denies symptoms of hypo/hyp erthyroidism post-medication adjustment. - Neurological: Denies cognitive impairm ent but engaged in memory testing. Physical Exam General: Well developed, well nourished, in no acute distress. Appears stated age. Head: Normocephalic, atraumatic. Eyes: Pupils are equal, round and reactive to light and accommodation. Conjunctivae are clear. Vision grossly normal. Ears: TMs clear AU, EACS WNL. Nose: Patent, without discharge. Neck: Supple, no adenopathy or thyromegaly. Breast: Edu on SBE Lungs: Clear to auscultation bilaterally. No rales, rhonchi or wheeze noted. Good air flow in all palm Heart: Regular rate and rhythm. No murmurs, click, rubs or gallops are noted. Abdomen: Bowel sounds present in all quadrants. The abdomen is soft, nontender, with no masses or organomegaly noted. No hernias are noted. : Deferred. Reviewed SOPHIA & recommendations Pulses: Peripheral pulses are equal and palpable bilaterally, hairless, skin intact. Extremities: No clubbing, cyanosis nor edema is noted. Neurologic: Gait and station normal. Cranial Nerves 2-12 intact. Motor strength grossly symmetrical and intact. No sensory loss. Balance normal. Cognitive screening performed 03/19 Skin: No rashes, ulcers, or lesions noted. Turgor is good. Skin color is good. Hair and nails are without abnormalities. Psych: Normal eye contact, affect and mood appropriate, and normal interactions. Patient is alert and appropriate to context. Discussion Notes I discussed with the patient the importance of monitoring his chronic conditions, including coronary artery disease, congestive heart failure, and atrial fibrillation, as well as the management strategies for gout and hypothyroidism. Advised continuation of current medications and scheduled cholesterol and prostate screenings. Discussed health maintenance, emphasized importance of regular follow-ups and possible screening updates if desired. Patient opted out of additional hearing and vision assessments. Provided advice on advanced directives, with a Do Not Resuscitate preference expressed. Patient was given time to ask questions. All questions were answered to their satisfaction. Assessment and Plan 1. Atrial Fibrillation - Continue Multac and Xarelto. 2. Coronary Artery Disease - Maintain rosuvastatin, check cholester ol. 3. Hypertension - Continue lisinopril and metoprolol. 4. Congestive Heart Failure - Continue current regimen. - Care as per Cards 5. Gout - Maintain allopurinol and colchicine. 6. Hypothyroidism - euthyroid, cont levothyroxine 7. Chronic Back Pain - Continue cyclobenzaprine. 8. Sleep Apnea - Use CPAP consistently. 9. Health Maintenance - Complete cholesterol and prostate test s. 10. Cognitive impairment 03/19 on 6 CI T. Offered and declined further workup. Declined all vaccines. Advised to fu with PCP for chronic diseases in 3-6 months Labs will be mailed to him once completed. Patient Instructions - Continue all current medications & car e w/ Team - Use CPAP machine nightly. - Complete cholesterol and prostate scre enings today. - Maintain follow-up appointments with c ardiology. Consent Patient was informed and verbally consented to the use of an ambient scribe for clinic note documentation during this visit. An additional 30 minutes was spent addressing the problem(s) noted at todays visit. This includes time spent before the visit reviewing the chart, time spent during the visit, and time spent after the visit on documentation reviewing laboratory results, diagnostic imaging, medications, performing a medically necessary evaluation, counseling on diagnoses, care coordination, ordering appropriate tests, ordering appropriate medications, review of tests performed by other providers, reporting test results with the patient, communication with other healthcare providers. [facility] Medical History Paroxysmal atrial fibrillation Atrial fibrillation Sleep apnea Persistent atrial fibrillation Elevated liver enzymes Gout Testicular cancer CHF (congestive heart failure) Surgical History History of orchiectomy, unilateral Hx of colonoscopy Family History Mother CVD (cardiovascular disease) Father CVD (cardiovascular disease) Social History Household Members Other:: Same partner- 17 years- Housing: House Alcohol intake: current Alcohol intake frequency: a few times a month Alcohol type: hard liquor Patient Tobacco Use Status: Former Tobacco user e-Cigarette/Vaping Use: Never Used Second Hand Smoke Exposure: No Substance Use Type: Marijuana service: No Current occupational status: unemployed and disabled 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 Current occupational exposures/hazards: No Cognitive needs: No Hearing needs: No Vision needs: No Questionnaire Medicare Wellness Checkup What is your age?: 65-69 What gender do you identify with?: male During the past 4 weeks, how much have you been bothered by emotional problems such as feeling anxious, depressed, irritable, sad or downhearted, and blue?: not at all During the past 4 weeks, has your physical & emotional health limited your social activities with family, friends, neighbors, or groups?: not at all During the past 4 weeks, was someone available to help you if you needed & wanted help?: yes, as much as I wanted During the past 4 weeks, what was the hardest physical activity you could do for at least 2 minutes?: light Can you get to places out of walking distance without help? (For eg., can you travel alone on buses, taxis or drive your car?): Yes Can you go shopping for groceries or clothes without someone's help?: Yes Can you prepare your own meals?: Yes Can you do your housework without help?: Yes Because of any health problems, do you need the help of another person with your personal care needs such as eating, bathing, dressing or getting around the house?: No Can you handle your own money without help?: Yes During the past 4 weeks, how would you rate your health in general?: good During the past 4 weeks how have things been going for you?: pretty well Are you having difficulties driving your car?: no Do you always fasten your seat belt when you are in a car?: yes, usually During past 4 weeks, have you been bothered by the following: never: Falling or dizzy when standing up, Sexual problems?, Trouble eating well?, Teeth or denture problems?, Problems using the telephone? and Tiredness or fatigue? Have you fallen 2 or more times in the past year?: No Are you afraid of falling?: No Are you a smoker?: no During the past 4 weeks, how many drinks of wine, beer, or other alcoholic beverages did you have?: no alcohol at all Do you exercise for about 20 minutes 3 or more times a week?: no, I usually do not exercise this much Have you been given information to help with the following?: no: Hazards in your house that might hurt you? and no: Keeping track of your medications? How often do you have trouble taking medicines the way you have been told to take them?: I always take medicine as prescribed How confident are you that you can control & manage most of your health problems?: very confident What is your race?: White Activity of Daily Living Bathing - sponge bath, tub bath or shower: receives no assistance (gets in/out by self, if usual bathing means Dressing - getting clothes from closets & drawers, including inner/outer garments & fasteners.: gets clothes & gets completely dressed without help Toileting - going to the 'toilet room' for urine/bowel elimination & cleaning self/arranging clothes: goes to toilet room, cleans self, arranges clothes without help Transfer: moves in & out of bed and chair without help (may use support object) Continence: controls urination/bowel movements completely by self Feeding: feeds self without help Total Score: 0 Information obtained from: patient Using telephone: independent Traveling: independent Shopping: independent Preparing meals: independent Housework: independent Taking medicine: independent Managing money: independent PHQ-9 Over the last 2 weeks, how often have you been bothered by any of the following problems? 1. Little interest or pleasure in doing things: not at all 2. Feeling down, depressed, or hopeless: not at all 3. Trouble falling or staying asleep, or sleeping too much: not at all 4. Feeling tired or having little energy: not at all 5. Poor appetite or overeating: not at all 6. Feeling bad about yourself - or that you are a failure or have let yourself or your family down: not at all 7. Trouble concentrating on things, such as reading the newspaper or watching television: not at all 8. Moving or speaking so slowly that other people could have noticed. Or the opposite - being so fidgety or restless that you have been moving around a lot more than usual: not at all 9. Thoughts that you would be better off or of hurting yourself in some way: not at all Total score: 0 Depression Screening Interpretation: Negative Depression Screening Done: Yes 72439 - PHQ-9 Billing: Yes Source: Developed by Drs. Al Hassan, Marlys Crocker, Jose Black and colleagues, with an educational craig from [employer]. Physical Exam Vital Signs: Last Vital Signs Temp 97.2 F 01/07/25 09:07 Pulse 55 01/07/25 09:07 Resp 12 01/07/25 09:07 BP 118/72 01/07/25 09:07 Pulse Ox 96 01/07/25 09:07 Oxygen Delivery Method Room Air 01/07/25 09:07 BMI result Body Mass Index 40.8 Office Procedures EKG [id number], Complete Vision Screening Right Eye: 20/40 Left Eye: 20/40 Bilateral: 20/25 Color: Pass 85711 - Vision Screening Assessment & Plan Assessment & Plan (1) Encounter for subsequent annual wellness visit (AWV) in Medicare patient: Onset Date: ~01/07/25 Code(s): Z00.00 - Encounter for general adult medical examination without abnormal findings (2) Hypertension: Code(s): I10 - Essential (primary) hypertension Qualifiers: Hypertension type: primary hypertension Qualified Code(s): I10 - Essential (primary) hypertension (3) CHF (congestive heart failure): Code(s): I50.9 - Heart failure, unspecified Qualifiers: Heart failure type: other Qualified Code(s): I50.9 - Heart failure, unspecified (4) Coronary artery disease: Code(s): I25.10 - Atherosclerotic heart disease of [place] coronary artery without angina pectoris Qualifiers: Coronary Disease-Associated Artery/Lesion type: [place] artery [place] vs. transplanted heart: [place] heart Associated angina: unspecified whether angina present Qualified Code(s): I25.10 - Atherosclerotic heart disease of [place] coronary artery without angina pectoris (5) Paroxysmal atrial fibrillation: Code(s): I48.0 - Paroxysmal atrial fibrillation (6) Hyperlipidemia: Code(s): E78.5 - Hyperlipidemia, unspecified Qualifiers: Hyperlipidemia type: mixed hyperlipidemia Qualified Code(s): E78.2 - Mixed hyperlipidemia (7) AAA (abdominal aortic aneurysm): Code(s): I71.40 - Abdominal aortic aneurysm, without rupture, unspecified Qualifiers: Abdominal aorta location: infrarenal aorta Presence of rupture: without rupture Qualified Code(s): I71.43 - Infrarenal abdominal aortic aneurysm, without rupture (8) Hypothyroidism: Code(s): E03.9 - Hypothyroidism, unspecified Qualifiers: Hypothyroidism type: other Qualified Code(s): E03.8 - Other specified hypothyroidism (9) Obesity, morbid, BMI 40.0-49.9: Code(s): E66.01 - Morbid (severe) obesity due to excess calories (10) Sleep apnea: Code(s): G47.30 - Sleep apnea, unspecified Qualifiers: Sleep apnea type: other type Qualified Code(s): G47.39 - Other sleep apnea (11) Screening for prostate cancer: Code(s): Z12.5 - Encounter for screening for malignant neoplasm of prostate (12) ACP (advance care planning): Code(s): Z71.89 - Other specified counseling (13) Immunization counseling: Code(s): Z71.85 - Encounter for immunization safety counseling (14) Cognitive impairment: Code(s): R41.89 - Other symptoms and signs involving cognitive functions and awareness Plan . Orders: Orders Prostate Specific Antigen Scr Today I25.10 - Atherosclerotic heart disease of [place] coronary artery without angina pectoris, Z12.5 - Encounter for screening for malignant neoplasm of prostate Lipid Panel Today I25.10 - Atherosclerotic heart disease of [place] coronary artery without angina pectoris, Z12.5 - Encounter for screening for malignant neoplasm of prostate Patient Instructions: Health screenings for men You should visit your health care provider regularly, even if you feel healthy. The purpose of these visits is to: Screen for medical issues Assess your risk for future medical problems Encourage a healthy lifestyle Update vaccinations and other preventive care services Help you get to know your provider in case of an illness Information Even if you feel fine, you should still see your provider for regular checkups. These visits can help you avoid problems in the future. For example, the only way to find out if you have high blood pressure is to have it checked regularly. High blood sugar and high cholesterol level also may not have any symptoms in the early stages. Simple blood tests can check for these conditions. There are specific times when you should see your provider or receive specific health screenings. The [place] Preventive Services Task Force publishes a list of recommended screenings. Below are screening guidelines for men ages 40 to 64. BLOOD PRESSURE SCREENING Have your blood pressure checked at least once every year. Watch for blood pressure screenings in your area. Ask your provider if you can stop in to have your blood pressure checked. Ask your provider if you need your blood pressure checked more often if: You have diabetes, heart disease, kidney problems, or are overweight or have certain other health conditions You have a first-degree relative with high blood pressure You are Black Your blood pressure top number is from 120 to 129 mm Hg, or the bottom number is from 70 to 79 mm Hg If the top number is 130 mm Hg or greater or the bottom number is 80 mm Hg or greater, this is considered stage 1 hypertension. Schedule an appointment with your provider to learn how you can lower your blood pressure. Effects of age on blood pressure CHOLESTEROL SCREENING Cholesterol screening should begin at age 35 for men with no known risk factors for coronary heart disease. Repeat cholesterol screening should take place: Every 5 years for men with normal cholesterol levels More often if changes occur in lifestyle (including weight gain and diet) More often if you have diabetes, heart disease, kidney problems, or certain other conditions COLORECTAL CANCER SCREENING If you are under age 45, talk to your provider about getting screened. You may need to be screened if you have a strong family history of colon cancer or polyps. Screening may also be considered if you have risk factors such as a history of inflammatory bowel disease or polyps. If you are age 45 to 75, you should be screened for colorectal cancer. There are several screening tests available: A stool-based fecal occult blood (gFOBT) or fecal immunochemical test (FIT) every year A stool sDNA test every 1 to 3 years Flexible sigmoidoscopy every 5 years or every 10 years with stool testing FIT done every year CT colonography (virtual colonoscopy) every 5 years Colonoscopy every 10 years You may need a colonoscopy more often if you have risk factors for colorectal cancer, such as: Ulcerative colitis A personal or family history of colorectal cancer A history of growths in your colon called adenomatous polyps DENTAL EXAM Go to the dentist once or twice every year for an exam and cleaning. Your dentist will evaluate if you have a need for more frequent visits. DIABETES SCREENING All adults who do not have risk factors for diabetes should be screened starting at age 35 and repeated every 3 years. If you have other risk factors for diabetes, such as a first degree relative with diabetes, overweight or obesity, high blood pressure, prediabetes, or a history of heart disease, you may be tested more often. If you are overweight and have other risk factors, such as high blood pressure and are planning to become , screening is recommended. EYE EXAM Have an eye exam every 2 to 4 years ages 40 to 54 and every 1 to 3 years ages 55 to 64. Your provider may recommend more frequent eye exams if you have vision problems or glaucoma risk. Have an eye exam that includes an examination of your retina (back of your eye) at least every year if you have diabetes. IMMUNIZATIONS Commonly needed vaccines include: Flu shot: get one every year COVID-19 vaccine: ask your provider what is best for you Tetanus-diphtheria and acellular pertussis (Tdap) vaccine: have as one of your tetanus-diphtheria vaccines if you did not receive it as an adolescent Tetanus-diphtheria: have a booster (or Tdap) every 10 years Varicella vaccine: receive 2 doses if you never had chickenpox or the varicella vaccine and were born in 1980 or after Hepatitis B vaccine: receive 2, 3, or 4 doses, depending on your exact c ircumstances, if you did not receive these as a child or adolescent, until age 59 Shingles (herpes zoster) vaccine: at or after age 50 Ask your provider if you should receive other immunizations, especially if you have certain medical conditions, such as diabetes or are at increased risk for some diseases such as pneumonia. INFECTIOUS DISEASE SCREENING Screening for hepatitis C: all adults ages 18 to 79 should get a one-time test for hepatitis C. Screening for human immunodeficiency virus (HIV): all people ages 15 to 65 should get a one-time test for HIV. Depending on your lifestyle and medical history, you may need to be screened for infections such as syphilis, chlamydia, and other infections. LUNG CANCER SCREENING You should have an annual screening for lung cancer with low-dose computed tomography (LDCT) if: You are age 50 to 80 years AND You have a 20 pack-year smoking history AND You currently smoke or have quit within the past 15 years OSTEOPOROSIS SCREENING If you are age 50 to 64 and have risk factors for osteoporosis, you should discuss screening with your provider. Risk factors can include long-term steroid use, low body weight, smoking, heavy alcohol use, having a fracture after age 50, or a family history of hip fracture or osteoporosis. Osteoporosis PHYSICAL EXAM All adults should visit their provider from time to time, even if they are healthy. The purpose of these visits is to: Screen for diseases Assess risk of future medical problems Encourage a healthy lifestyle Update vaccinations and other preventive care services Maintain a relationship with a provider in case of an illness Your height, weight, and body mass index (BMI) should be checked at every exam. During your exam, your provider may ask you about: Depression and anxiety Diet and exercise Alcohol and tobacco use Safety, such as use of seat belts and smoke detectors Your medicines and risk for interactions PROSTATE CANCER SCREENING If you're 55 through 69 years old, before having the test, talk to your provider about the pros and cons of having a PSA test. Ask about: Whether screening decreases your chance of dying from prostate cancer. Whether there is any harm from prostate cancer screening, such as side effects from testing or overtreatment of cancer when discovered. Whether you have a higher risk of prostate cancer than others. If you are age 55 or younger, screening is not generally recommended. You should talk with your provider about if you have a higher risk for prostate cancer. Risk factors include: Having a family history of prostate cancer (especially a brother or father) Being If you choose to be tested, the PSA blood test is repeated over time (yearly or less often), though the best frequency is not known. Prostate examinations are no longer routinely done on men with no symptoms. Prostate cancer SKIN EXAM Your provider may check your skin for signs of skin cancer, especially if you're at high risk. People at high risk include those who have had skin cancer before, have close relatives with skin cancer, or have a weakened immune system. TESTICULAR EXAM The [place] Preventive Services Task Force (USPSTF) now recommends against performing testicular self-exams. Doing testicular self-exams has been shown to have little to no benefit. Quality Reporting (2019) Adult ([facility] 138//) Smoking risk assessment performed?: Yes Patient Tobacco Use Status: Former Tobacco user Depression screening performed: Yes Screen Results: Yes Negative screen Systolic BP not done?: No Diastolic BP not done?: No BMI screening not done: No BMI High - Follow Up: Yes High-plan Sexual Activity Screening ([facility] 153) Sexually active?: Yes Immunizations ([facility] 147, 117) Annual Influenza Vaccine: No Measles Antibody Test: No Mumps Antibody Test: No Rubella Antibody Test: No Varicella Antibody Test: No Anti Hepatitis A IgG Antigen test: No Anti Hepatitis B Virus Surface Ab test: No Fall Risk Screening ([facility] 139) Last assessed Fall Risk: 01/07/25 Fall risk assessment: No Falls in past year Dementia Assessment ([facility] 149) Cognitive assessment recorded: Yes Assessment of cognition with standardized tool: Yes Depression/Bipolar (159/160/161/177) PHQ-9: Total score: 0 Ophthalmol:Cataracts Visual Acuity (133) Visual acuity exam performed: Yes (as noted ) Coding Level of Care Code Medicare Subsequent (G0439) Est Pt Level 4 (95868) Diagnoses Encounter for subsequent annual wellness visit (AWV) in Medicare patient Z00.00 Primary hypertension I10 Hypertension type: primary hypertension Other congestive heart failure I50.9 Heart failure type: other Coronary artery disease involving [place] coronary artery of [place] heart, unspecified whether angina present I25.10 Coronary Disease-Associated Artery/Lesion type: [place] artery [place] vs. transplanted heart: [place] heart Associated angina: unspecified whether angina present Paroxysmal atrial fibrillation I48.0 Mixed hyperlipidemia E78.2 Hyperlipidemia type: mixed hyperlipidemia Infrarenal abdominal aortic aneurysm (AAA) without rupture I71.43 Abdominal aorta location: infrarenal aorta Presence of rupture: without rupture Other specified hypothyroidism E03.8 Hypothyroidism type: other Obesity, morbid, BMI 40.0-49.9 E66.01 Other sleep apnea G47.39 Sleep apnea type: other type Screening for prostate cancer Z12.5 ACP (advance care planning) Z71.89 Immunization counseling Z71.85 Cognitive impairment R41.89 CPT Codes Advance Care Planning - Time spent: 1-15 minutes, not on file ([id number]) EKG - CPT: 39192-Xasjkgdmnckwavyff, Complete ([id number]) Vision Screening - Vision Screenin - Vision Screening ([id number]) Additional Codes PHQ-9 - 08005 - PHQ-9 Billing: Yes ([id number]) Advance Care Planning Advance Care Planning discussion: Exists, not on file Date of discussion: 01/07/25 Who was present: self Forms completed: Health Care Proxy, MOLST and Living will Time spent: 1-15 minutes, not on file Actual minutes spent: 5
[2025-01-07 09:07] VITALS: BP 118/72; PULSE 55; RESP 12; TEMP 36.2; O2SAT 96; BMI 40.8
--- OUTSIDE RECORDS SUMMARY | 2025-01-07 09:27 | XMS_ITS | Encounter Summary ---
Author Organization [facility] Address [address] [facility] [address] [place] [address] Phone Care Team Providers Care Credit Department Manager Name Role Phone Nury Wallace CNP Primary Care Provider Adithya Rodríguez MD Primary Care Provider [phone] Adelina Gloria DO Primary Care Provider [phone] Nas Garza MD Unavailable [phone] Paul Olmos MD Unavailable Gatito Magdaleno MD Primary Care Provider Encounter Details Date Type Department Care Team (Late st Contact Info) Description 03/04/2021 Transcribe Orders [facility] PFT Lab [address] [place] [address] Nury Wallace CNP [address] [place], [place] [id number] [email or web address] Social History Tobacco Use Types Packs/Day Years [...] on filedocumented in this encounter Care Teams Credit Department Manager Relationship Specialty Start Date End Date Nury Wallace CNP [address] [place] [address] PCP - General Family Medicine 03/03/21 04/27/21 Adithya Rodríguez MD [address] [place] [address] PCP - General Family Medicine 04/28/21 05/06/21 Adelina Gloria DO [address] [place] [address] PCP - General Family Medicine 05/07/21 11/06/23 Gatito Magdaleno MD [address] [place] [address] PCP - General Family Medicine 11/07/23 Nas Garza MD [address] [place] [address] Cardiology 05/07/21 Paul Olmos MD [address] [place] [address] Gastroenterology 05/07/21 documented as of this encounter Additional Source Comments The information contained in this document represents components of the legal health record. It is not the complete legal health record.[facility]
== END 2025-01-07 09:49 | disposition home or self-care (01) ==
LOC: HO.HMCFM 08:57
PROVIDERS: PCP Family Medicine; Visit Provider Nurse Practitioner Family
DX: Z00.00 Encounter for general adult medical examination without abnormal findings (principal); I11.0 Hypertensive heart disease with heart failure; I50.9 Heart failure, unspecified; I48.0 Paroxysmal atrial fibrillation; E66.01 Morbid (severe) obesity due to excess calories; Z68.41 Body mass index [BMI] 40.0-44.9, adult; I25.10 Atherosclerotic heart disease of native coronary artery without angina pectoris; E78.2 Mixed hyperlipidemia; I71.43 Infrarenal abdominal aortic aneurysm, without rupture; E03.8 Other specified hypothyroidism; G47.39 Other sleep apnea; Z01.00 Encounter for examination of eyes and vision without abnormal findings

== ENCOUNTER → 2025-01-07 08:56 | Outpatient (BNVA) | payer MEDICARE, MEDICAID, SELFPAY | PROVIDERS: PCP Family Medicine; Visit Provider Nurse Practitioner Family | DX: Z00.00 Encounter for general adult medical examination without abnormal findings (principal); I11.0 Hypertensive heart disease with heart failure; I50.9 Heart failure, unspecified; I25.10 Atherosclerotic heart disease of native coronary artery without angina pectoris; I48.0 Paroxysmal atrial fibrillation; E78.2 Mixed hyperlipidemia; E03.8 Other specified hypothyroidism; I71.43 Infrarenal abdominal aortic aneurysm, without rupture; E66.01 Morbid (severe) obesity due to excess calories; Z68.41 Body mass index [BMI] 40.0-44.9, adult; G47.39 Other sleep apnea; R41.89 Other symptoms and signs involving cognitive functions and awareness; Z71.89 Other specified counseling; Z71.3 Dietary counseling and surveillance | CPT/HCPCS: 93005; 96127; 99212 ==

== ENCOUNTER 2025-01-09 07:57 | Outpatient (REF) | payer MEDICARE, MEDICAID, SELFPAY ==
--- OUTSIDE RECORDS SUMMARY | 2025-01-09 08:00 | XMS_ITS | Encounter Summary ---
Author Organization [facility] Address [address] [facility] [address] [place] [address] Phone Care Team Providers Care Port Traffic Manager Name Role Phone Nury Wallace CNP Primary Care Provider Adithya Rodríguez MD Primary Care Provider Adelina Gloria DO Primary Care Provider [phone] Nas Garza MD Unavailable [phone] Paul Olmos MD Unavailable Gatito Magdaleno MD Primary Care Provider Encounter Details Date Type Department Care Team (Late st Contact Info) Description 03/04/2021 Transcribe Orders [facility] PFT Lab [address] [place] [address] Nury Wallace CNP [address] [place], [place] [phone] [email or web address] Social History Tobacco Use Types Packs/Day Years [...] on filedocumented in this encounter Care Teams Port Traffic Manager Relationship Specialty Start Date End Date Nury Wallace CNP [address] [place] [address] PCP - General Family Medicine 03/03/21 04/27/21 Adithya Rodríguez MD [address] [place] [address] PCP - General Family Medicine 04/28/21 05/06/21 Adelina Gloria DO [address] [place] [address] PCP - General Family Medicine 05/07/21 11/06/23 Gatito Magdaleno MD [address] [place] [address] PCP - General Family Medicine 11/07/23 Nas Gazra MD [address] [place] [address] Cardiology 05/07/21 Paul Olmos MD [address] [place] [address] Gastroenterology 05/07/21 documented as of this encounter Additional Source Comments The information contained in this document represents components of the legal health record. It is not the complete legal health record.[facility]
[2025-01-09 11:14] LABS: Appearance Urine Clear; Glucose Urine UA Negative (Negative); PH 6.0 (5.0-9.0); Specific Gravity - Urine 1.020 (1.005-1.025)
[2025-01-09 11:36] LABS: Alanine Aminotransferase 31 U/L (0-40); Albumin Level 4.5 g/dL (3.5-5.0); Alkaline Phosphatase 60 U/L (39-117); Anion Gap 12 (12-20); Aspartate Amino Transferase 38 U/L (5-37); Blood Urea Nitrogen 17 mg/dL (9-16); Calcium 9.0 mg/dL (8.4-10.2); Carbon Dioxide 27 mmol/L (22-29); Chloride 105 mmol/L (96-108); Cholesterol 135 mg/dL (<200); Estimated Glomerular Filt Rate > 60; HDL Cholesterol 43 mg/dL (>40); Potassium 3.9 mmol/L (3.3-5.1); Sodium 140 mmol/L (135-145); Total Protein 7.1 g/dL (6.5-8.0); Triglycerides 154 mg/dL (<150)
[2025-01-09 11:50] LABS: Microalbum/Creatinine Ratio Ur 5.3 ug/mg cr (<30)
== END 2025-01-09 07:58 | disposition home or self-care (01) ==
LOC: HO.WFDLDS 07:57
PROVIDERS: Referring Provider Nurse Practitioner Family; Visit Provider Family Medicine
DX: Z00.00 Encounter for general adult medical examination without abnormal findings (principal); I25.10 Atherosclerotic heart disease of native coronary artery without angina pectoris; I10 Essential (primary) hypertension; Z12.5 Encounter for screening for malignant neoplasm of prostate
CPT/HCPCS: 36415; 80053; 80061; 81003; 82043; 82570; 84153

== ENCOUNTER 2025-02-19 08:09 | Outpatient (REF) | payer MEDICARE, MEDICAID, SELFPAY ==
--- OUTSIDE RECORDS SUMMARY | 2025-02-19 08:26 | XMS_ITS | Encounter Summary ---
Author Organization [facility] Address [address] [place] [address] [place] [address] Phone Care Team Providers Care Applied Behavior Science Specialist Name Role Phone Aakash Awan MD Primary Care Provider Nury Wallace [facility] Primary Care Provider Adithya Rodríguez MD Primary Care Provider [phone] Adelina Gloria DO Primary Care Provider Nas Garza MD Unavailable [phone] Paul Olmos MD Unavailable Gatito Magdaleno MD Primary Care Provider Reason for Referral * Consultation (Within 3 days (urgent)) - Closed Specialty Diagnoses / Procedures Referred By Contac t Referred To Contact Pulmonary Disease Aakash Awan MD Phone: tel: fax: mailto:[email or web address] Phone: tel: Referral ID Status Reason Start Date Expiration Date Visits Re quested Visits Authorized [id number] Closed 02/27/2021 02/27/2022 1 1 * Consultation (Elective) - Denied Specialty Diagnoses / Procedures Referred By Contac t Referred To Contact Pulmonary Disease Aakash Awan MD Phone: tel: fax: mailto:[email or web address] [address] [place] [address] Phone: tel: Referral ID Status Reason Start Date Expiration Date Visits Re quested Visits Authorized [id number] Denied 02/27/2021 02/27/2022 1 1 Encounter Details Date Type Department Care Team (Late st Contact Info) Description 02/27/2021 Transcribe Orders [facility] [place] Allergy [facility] Critical Care Medicine [address] [place] [address] Aakash Awan MD [address] [place] [address] [email or web address] Social History Tobacco Use Types Packs/Day Years [...] as of this encounter Plan of Treatment Scheduled Referrals Name Type Priority Associated Diagnoses Order Schedule Ambulatory referral to [facility] Pulmonology Outpatient Referral Routine Ordered: 02/27/2021 Ambulatory referral to [facility] Pulmonology Outpatient Referral Routine Ordered: 02/27/2021 documented as of this encounter Visit Diagnoses Not on filedocumented in this encounter Care Teams Applied Behavior Science Specialist Relationship Specialty Start Date End Date Aakash Awan MD [address] [place] [address] [email or web address] PCP - General Family Medicine 09/28/18 03/02/21 Nury Wallace CNP 10 [place] [address] PCP - General Family Medicine 03/03/21 04/27/21 Adithya Rodríguez MD [address] [place] [address] [email or web address] PCP - General Family Medicine 04/28/21 05/06/21 Adelina Gloria DO [address] [place] [address] PCP - General Family Medicine 05/07/21 11/06/23 Gatito Magdaleno MD [address] [place] [address] PCP - General Family Medicine 11/07/23 Nas Garza MD [address] [place] [address] Cardiology 05/07/21 Paul Olmos MD [address] [place] [address] Gastroenterology 05/07/21 documented as of this encounter Additional Source Comments The information contained in this document represents components of the legal health record. It is not the complete legal health record.[facility]
--- OUTSIDE RECORDS SUMMARY | 2025-02-19 08:26 | XMS_ITS | Clinical Summary ---
Author Organization [facility] Address [address] [facility] [address] [place] [address] Phone Care Team Providers Care Cadet Deck Name Role Phone Nas Garza MD Unavailable [phone] Paul Olmos MD Unavailable Gatito Magdaleno MD Primary Care Provider Allergies No known active allergies Medications rivaroxaban (XARELTO) 20 mg Tab Take 20 mg by mouth daily. Active metoprolol tartrate (LOPRESSOR) 100 MG tablet Take 100 mg by mouth 2 (two) times a day. Active acetaminophen (TYLENOL) 500 MG tablet 1 Active umeclidinium-vi lanteroL (ANORO ELLIPTA) 62.5-25 mcg/actuation diskus inhaler Inhale 1 puff into the lungs daily. 1 each 5 1 Active Additional Information Patient not taking.Reported on 11/07/2023 torsemide (DEMADEX) 20 MG tablet Take 20 mg by mouth daily. 2 Active rosuvastatin (CRESTOR) 20 MG tablet Take 1 tablet by mouth every morning. 4 Active lisinopril (PRINIVIL,ZESTR IL) 5 MG tablet Take 1 tablet by mouth every morning. 4 Active levothyroxine (SYNTHROID, LEVOTHROID) 75 MCG tablet Take 1 tablet by mouth every morning. 4 Active FARXIGA 10 mg tablet Take 1 tablet by mouth every morning. 4 Active colchicine (COLCRYS) 0.6 mg tablet TAKE 2 TABLETS BY MOUTH DAILY X1 WEEK THEN DECREASE TO 1 TABLET DAILY 4 Active amiodarone (PACERONE) 200 MG tablet Take 1 tablet by mouth every morning. 4 Active allopurinol (ZYLOPRIM) 100 MG tablet Take 200 mg by mouth every morning. 4 Active cetirizine (ZYRTEC) 10 MG tablet Take 1 tablet by mouth every morning. 4 Active Active Problems Problem Noted Date Diagnosed Date Diastolic heart failure 05/07/2021 Assessment & Plan (11/10/2023 12:33 AM EDT): Will prefer rhythm control with ablation. Hypertension 05/07/2021 Assessment & Plan (11/10/2023 12:33 AM EDT): Continue medications Dyspnea on exertion 03/03/2021 Assessment & Plan (08/27/2021 8:32 AM EDT): Gradually progressive dyspnea on exertion, etiology remains unclear. Walk with stairs today without excess tachycardia, max heart rate 120, and no desaturations. He recalls symptoms starting after diagnosis of atrial fibrillation. Question if could be related to Lopressor. Other etiologies could include tracheobronchomalacia given obesity and sleep apnea. RECOMMENDATION: Obtain chest CT with inspiratory and expiratory views to evaluate for dynamic airway collapse We will reach out to processing technologist, Dr. Garza, if would be reasonable for short trial of alternative rate control agent to determine if the Lopressor is indeed contributing to his dyspnea. Assessment & Plan (04/28/2021 4:21 PM EST): Chronic and mildly progressive dyspnea on exertion of unclear etiology. Given weight gain, certainly deconditioning may be playing a role. PFTs with evidence of hyperinflation, air trapping and increased airway resistance measurements despite what would be expected an element of restriction given the patient's abdominal obesity. He has multiple occupational exposures would certainly put him at risk for obstructive airway disease. Recommend a 1 month trial of combined LABA/LAMA with Anoro Ellipta. Weight loss encouraged. Patient reports scheduled for follow-up echocardiogram within the next month, will request results. Follow-up in the spring. Assessment & Plan (03/03/2021 10:52 AM EDT): Chronic but gradually progressive dyspnea on exertion with reported extensive and unremarkable cardiac work-up. Lung exam clear though cannot rule out diaphragmatic dysfunction given limitations from body habitus. Other causes in the differential could include occupational induced COPD or interstitial lung disease, metabolic causes such as thyroid disease or myopathy, both of which should be unlikely, autonomic dysfunction or referred dyspnea such as due to atypical GERD. RECOMMENDATION: Obtain baseline chest x-ray to evaluate lung parenchyma and diaphragms. If evidence for elevation of diaphragms, would proceed with sniff testing. If any lung parenchymal abnormalities, would also obtain contrast chest CT. Await findings from pulmonary function studies. Consider neuromuscular testing pending results. TSH if not previously obtained. Pending results of above, will determine next steps. Atrial fibrillation 03/02/2019 Assessment & Plan (11/10/2023 12:32 AM EDT): We had a detailed discussion with the patient with regards to rhythm control with medication versus rhythm control with ablation. Patient at this point opted for rhythm control with ablation. Risk and benefits of the procedure were discussed in detail. 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 Not on natalia e 09/17/2022 Are you concerned about learning? Not on file 09/17/2022 No 09/17/2022 No 09/17/2022 Digital Access Answer Date Recorded No 10/16/2022 No 10/16/2022 No 10/16/2022 Reliable internet access at home? Not on file 10/16/2022 Device with a working camera? Not on file Sex and Gender Information Value Date Recorded Sex Assigned at Male 09/28/2018 3:51 PM EDT Legal Sex Male 9:42 PM EDT Gender Identity Male 09/28/2018 3:51 PM EDT Sexual Orientation Straight 09/28/2018 3: 51 PM EDT Last Filed Vital Signs Vital Sign Reading Time Taken Comments Blood Pressure 148/90 11/07/2023 3:36 PM EDT Pulse 55 11/07/2023 3:36 PM EDT Temperature 36.3 C (97.4 F) 08/27/2021 7:56 AM EDT Respiratory Rate 16 03/02/2019 1:28 PM EDT Oxygen Saturation 97% 08/27/2021 7:56 AM EDT Inhaled Oxygen Concentration - - Weight 128.8 kg (284 lb) 11/07/2023 3:36 PM EDT Height 180.3 cm (5' 10.98 ) 11/07/2023 3:36 PM E DT Body Mass Index 39.63 11/07/2023 3:36 PM EDT Plan of Treatment Health Maintenance Due Date Last Done Comments ALT LEVEL (ALANINE AMINOTRANSFERASE) 1965 CREATININE LEVEL 1964 LIPID PANEL 1964 POTASSIUM LEVEL 1964 TSH LEVEL 1964 DEPRESSION SCREENING 1976 HEPATITIS C SCREENING 1982 HIV ONE-TIME SCREENING (18-65 YEARS) 1982 SCREENING FOR DIABETES 1999 COLOGUARD 2009 FIT TEST 2009 FOBT 2009 SIGMOIDOSCOPY 2009 VIRTUAL COLONOSCOPY 2009 PNEUMOCOCCAL VACCINES (50+ years) (1 of 1 - PCV) 2014 ZOSTER VACCINES (1 of 2) 2014 BLOOD PRESSURE 05/08/2024 11/07/2023 RSV VACCINE (1 - Risk 60-74 years 1-dose series) 2024 INFLUENZA VACCINE (#1) 2024 COVID-19 VACCINE (3 - 2024- season) 2025 10/13/2020, 09/22/2020 Adult Td,Tdap Booster 09/29/2028 09/29/2018 , 09/28/2018, 06/29/2018, Additional history exists COLONOSCOPY 03/02/2029 03/02/2019 COLORECTAL CANCER SCREENING 03/02/2029 SMOKING STATUS SCREENING (Once After 26 Yrs) Completed 08/27/2021 HEPATITIS A VACCINES Aged Out No long er eligible based on patient's age to complete this topic HIB VACCINES Aged Out No longer eligi ble based on patient's age to complete this topic MENINGOCOCCAL VACCINES (ACWY) Aged Out No longer eligible based on patient's age to complete this topic MENINGOCOCCAL VACCINES (B) Aged Out N o longer eligible based on patient's age to complete this topic Medical Devices Not on file Procedures Procedure Name Priority Date/Time Associated Diagnosis Comments ENDOSCOPY, COLON 03/02/2019 12:4 3 PM EDT from Last 3 Months or Most Recently Relevant to Health Maintenance Results * ENDOSCOPY, COLON (03/02/2019 12:43 PM EDT) Narrative Transcriptions Camilo Javed MD - 03/02/2019 12:43 PM EDT Patient Name: Inder Roberts Attending MD:: CAMILO JAVED MD Procedure Date: 03/02/2019 12:43PM Date of : 1965 Age: 53 Admit Type: Outpatient Gender: Male Room: [place] [address] Referring MD: CAMILO NAVA MD Exam Type: Colonoscopy Indications: Screening for colorectal malignant neoplasm, This isthe patient's first colonoscopy Medications: Monitored Anesthesia Care Procedure: Informed consent was obtained from the patient after discussion of the indications, limitations,alternatives, benefits, and risks of the procedure. Risksspecifically discussed include but are not limited to medication reactions, missed lesions, bleeding, perforation, orthe need for emergent surgery. Throughout the procedure, the patient's blood pressure, pulse, end-tidal CO2, and oxygen saturations were monitored continuously. The Olympus adult variable colonoscope CF-[id number] #7 was introduced through the anus and advanced to the cecum, identified by appendiceal orifice and ileocecal valve.The colonoscopy was technically difficult and complex dueto a redundant colon, significant looping and the patient's body habitus. Successful completion of the procedurewas aided by applying abdominal pressure. The patient tolerated the procedure fairly well. The quality of the bowel preparation was evaluated using the BBPS (Landrum Bowel Preparation Scale) with scores of: Right Colon =2 (minor amount of residual staining, small fragments of stool and/or opaque liquid, but mucosa seen well), Transverse Colon = 2 (minor amount of residualstaining, small fragments of stool and/or opaque liquid, butmucosa seen well) and Left Colon = 2 (minor amount of residual staining, small fragments of stool and/or opaqueliquid, but mucosa seen well). The total BBPS score equals 6.The quality of the bowel preparation was good. Complications: No immediate complications. Estimated blood loss:None. Findings: The perianal and digital rectal examinations werenormal. Pertinent negatives include normal sphincter tone. The hepatic flexure and ascending colon were moderately redundant. A moderate amount of liquid stool was found in theentire colon, making visualization difficult. Retroflexion in the right colon was performed. The exam was otherwise without abnormality on directand retroflexion views. Impression: - Redundant colon. - Stool in the entire examined colon. - The examination was otherwise normal on direct and retroflexion views. - No specimens collected. Recommendation: - Repeat colonoscopy in 10 years for screeningpurposes. - Resume Xarelto (rivaroxaban) at prior dose today. CAMILO JAVED MD 03/02/2019 1:13:37 PM This report has been signed electronically. Number of Addenda: 0 Note Initiated On: 03/02/2019 12:43 PM Procedure Code(s): --- Professional --- 27113, Colonoscopy, flexible; diagnostic, including collection of specimen(s) by brushing or washing, when performed (separateprocedure) --- Technical --- 96467, Colonoscopy, flexible; diagnostic, including collection of specimen(s) by brushing or washing, when performed (separateprocedure) Diagnosis Code(s): --- Professional --- Z12.11, Encounter for screening for malignant neoplasm of colon --- Technical --- Z12.11, Encounter for screening for malignant neoplasm of colon CPT copyright 2018 [employer]. All rights reserved. The codes documented in this report are preliminary and upon sharepoint admin reviewmay be revised to meet current compliance requirements. [address] [place] [address] Camilo Nava MD GI PROCEDURE ORDERABLES Final R esult from Last 3 Months or Most Recently Relevant to Health Maintenance Insurance MEDICARE PART A & B [facility] MEDICARE PART A & [place] [facility] [place] [employer] Care Teams Cadet Deck Relationship Specialty Start Date End Date Gatito Magdaleno MD [address] [place] [address] PCP - General Family Medicine 11/07/23 Nas Garza MD [address] [place] [address] [email or web address] Cardiology 05/07/21 Paul Olmos MD [address] [place] [address] [email or web address] Gastroenterology 05/07/21 Additional Source Comments The information contained in this document represents components of the legal health record. It is not the complete legal health record.[facility]
--- OUTSIDE RECORDS SUMMARY | 2025-02-19 08:26 | XMS_ITS | Encounter Summary ---
Author Organization [facility] Address [address] [place] [address] [place] [address] Phone Care Team Providers Care Lead Database Administrator Name Role Phone Adelina Gloria DO Primary Care Provider [phone] Nas Garza MD Unavailable [phone] Paul Olmos MD Unavailable Gatito Magdaleno MD Primary Care Provider Encounter Details Date Type Department Care Team (Late st Contact [facility]) Description 08/27/2021 Procedure Pass [facility], Ct Scan - [address] [address] Social History Tobacco Use Types Packs/Day Years [...] on filedocumented in this encounter Care Teams Lead Database Administrator Relationship Specialty Start Date End Date Adelina Gloria DO PCP - General Family Medicine 05/07/21 11/06/23 Gatito Magdaleno MD [address] [place] [address] PCP - General Family Medicine 11/07/23 Nas Garza MD [address] [place] [address] Cardiology 05/07/21 Paul Olmos MD [address] [place] [address] [email or web address] Gastroenterology 05/07/21 documented as of this encounter Additional Source Comments The information contained in this document represents components of the legal health record. It is not the complete legal health record.[facility]
--- OUTSIDE RECORDS SUMMARY | 2025-02-19 08:26 | XMS_ITS | Encounter Summary ---
Author Organization [facility] Address [address] [facility] [address] [place] [address] Phone Care Team Providers Care Furnace Builder Name Role Phone Nury Wallace CNP Primary Care Provider Adithya Rodríguez MD Primary Care Provider Adelina Gloria DO Primary Care Provider [phone] Nas Garza MD Unavailable [phone] Paul Olmos MD Unavailable Gatito Magdaleno MD Primary Care Provider Encounter Details Date Type Department Care Team (Late st Contact Info) Description 03/04/2021 Transcribe Orders [facility] PFT Lab 30 [place] [address] Nury Wallace CNP 10 [place], [place] [id number] [email or web address] Social History Tobacco Use Types Packs/Day Years [...] on filedocumented in this encounter Care Teams Furnace Builder Relationship Specialty Start Date End Date Nury Wallace CNP [address] [place] [address] PCP - General Family Medicine 03/03/21 04/27/21 Adithya Rodríguez MD [address] [place] [address] PCP - General Family Medicine 04/28/21 05/06/21 Adelina Gloria DO [address] [place] [address] PCP - General Family Medicine 05/07/21 11/06/23 Gatito Magdaleno MD [address] [place] [address] PCP - General Family Medicine 11/07/23 Nas Garza MD [address] [place] [address] Cardiology 05/07/21 Paul Olmos MD [address] [place] [address] Gastroenterology 05/07/21 documented as of this encounter Additional Source Comments The information contained in this document represents components of the legal health record. It is not the complete legal health record.[facility]
--- OUTSIDE RECORDS SUMMARY | 2025-02-19 08:26 | XMS_ITS | Encounter Summary ---
Author Organization [facility] Address [address] [place] [address] [place] [address] Phone Care Team Providers Care Social Studies Department Chair Name Role Phone Aakash Awan MD Primary Care Provider Nury Wallace CNP Primary Care Provider Adithya Rodríguez MD Primary Care Provider Adelina Gloria DO Primary Care Provider [phone] Nas Garza MD Unavailable [phone] Paul Olmos MD Unavailable Gatito Magdaleno MD Primary Care Provider Encounter Details Date Type Department Care Team (Latest Contact Info) Description 08/27/2020 Transcribe Orders Virtual Department 30 [place] [address] Nury Wallace, PADDING GLUER 10 [place], [place] [phone] Dyspnea on exertion (Primary Dx); Cough; Wheeze Social History Tobacco Use Types Packs/Day Years [...] documented as of this encounter Visit Diagnoses Diagnosis Dyspnea on exertion- Primary Other dyspnea and respiratory abnormality Cough Wheeze Wheezing documented in this encounter Care Teams Social Studies Department Chair Relationship Specialty Start Date End Date Aakash Awan MD [address] [place] [address] [email or web address] PCP - General Family Medicine 09/28/18 03/02/21 Nury Wallace CNP [address] [place] [address] PCP - General Family Medicine 03/03/21 04/27/21 Adithya Rodríguez MD [address] [place] [address] 569[address] PCP - General Family Medicine 04/28/21 05/06/21 Adelina Gloria DO [address] [place] [address] 47[address] PCP - General Family Medicine 05/07/21 11/06/23 Gatito Magdaleno MD [address] [place] [address] PCP - General Family Medicine 11/07/23 Nas Garza MD [address] [place] [address] Cardiology 05/07/21 Paul Olmos MD [address] [place] [address] Gastroenterology 05/07/21 documented as of this encounter Additional Source Comments The information contained in this document represents components of the legal health record. It is not the complete legal health record.[facility]
[2025-02-19 11:34] LABS: MANUAL DIFF FLAG NO
[2025-02-19 11:42] LABS: Hematocrit 40.9 % (42.0-52.0); Hemoglobin 13.7 g/dl (14.0-18.0); Imm Gran Abs Auto 0.04 X10*3/uL (0.00-0.03); Imm Gran Pct Auto 0.7 % (0.0-0.4); Lymphocytes Absolute Auto 1.2 X10*3/uL (1.2-4.9); Mean Corpuscular HGB Conc 33.5 g/dl (31.0-36.0); Mean Corpuscular Hemoglobin 33.6 pg (27.0-33.0); Mean Corpuscular Volume 100.2 fL (80.0-98.0); NRBC Abs Auto 0.000 X10*3/uL (0.0-0.012); NRBC Pct Auto 0.0 /100WBC (0.0-0.2); Platelet Count 169 X10*3/uL (160-400); Red Blood Count 4.08 X10*6/uL (4.60-5.80); White Blood Count 5.9 X10*3/uL (4.8-10.8)
[2025-02-19 12:07] LABS: Alanine Aminotransferase 29 U/L (0-40); Albumin Level 4.4 g/dL (3.5-5.0); Alkaline Phosphatase 52 U/L (39-117); Anion Gap 12 (12-20); Aspartate Amino Transferase 32 U/L (5-37); Blood Urea Nitrogen 16 mg/dL (9-16); Calcium 9.4 mg/dL (8.4-10.2); Carbon Dioxide 27 mmol/L (22-29); Chloride 106 mmol/L (96-108); Cholesterol 144 mg/dL (<200); Estimated Glomerular Filt Rate > 60; HDL Cholesterol 44 mg/dL (>40); Potassium 4.3 mmol/L (3.3-5.1); Sodium 141 mmol/L (135-145); Total Protein 7.0 g/dL (6.5-8.0); Triglycerides 159 mg/dL (<150); Uric Acid 4.2 mg/dL (3.4-7.0)
== END 2025-02-19 08:10 | disposition home or self-care (01) ==
LOC: HO.WFDLDS 08:09
PROVIDERS: Referring Provider Student in an Organized Health Care Education/Training Program; Visit Provider Nurse Practitioner Family
DX: Z12.5 Encounter for screening for malignant neoplasm of prostate (principal); M1A.09X0 Idiopathic chronic gout, multiple sites, without tophus (tophi); I25.10 Atherosclerotic heart disease of native coronary artery without angina pectoris
CPT/HCPCS: 36415; 80053; 80061; 84550; 85025; 85652; 86140

== ENCOUNTER 2025-03-22 13:38 | Outpatient (REF) | payer MEDICARE, MEDICAID, SELFPAY ==
--- OUTSIDE RECORDS SUMMARY | 2025-03-22 14:34 | XMS_ITS | Encounter Summary ---
Author Organization [facility] Address [address] [place] [address] [place] [address] Phone Care Team Providers Care Heel Painter Name Role Phone Aakash Awan MD Primary Care Provider Nury Wallace [facility] Primary Care Provider Adithya Rodríguez MD Primary Care Provider Adelina Gloria DO Primary Care Provider Nas Garza MD Unavailable [phone] Paul Olmos MD Unavailable Gatito Magdaleno MD Primary Care Provider Reason for Referral * Consultation (Within 3 days (urgent)) - Closed Specialty Diagnoses / Procedures Referred By Contac t Referred To Contact Pulmonary Disease Aakash Awan MD Phone: tel: fax: mailto:[email or web address] [address] [address] Phone: tel: Referral ID Status Reason Start Date Expiration Date Visits Re quested Visits Authorized [id number] Closed 02/27/2021 02/27/2022 1 1 * Consultation (Elective) - Denied Specialty Diagnoses / Procedures Referred By Contac t Referred To Contact Pulmonary Disease Aakash Awan MD Phone: tel: fax: mailto:[email or web address] [address] [place] [address] Phone: tel: Referral ID Status Reason Start Date Expiration Date Visits Re quested Visits Authorized [id number] Denied 02/27/2021 02/27/2022 1 1 Encounter Details Date Type Department Care Team (Late st Contact Info) Description 02/27/2021 Transcribe Orders [facility] Pulmonary, Allergy and Critical Care Medicine 10 [place] [address] Aakash Awan MD [address] [place] [address] [email or web address] Social History Tobacco Use Types Packs/Day Years [...] Associated Diagnoses Order Schedule Ambulatory referral to [facility] Pulmonology Outpatient Referral Routine Ordered: 02/27/2021 Ambulatory referral to [facility] Pulmonology Outpatient Referral Routine Ordered: 02/27/2021 documented as of this encounter Visit Diagnoses Not on filedocumented in this encounter Care Teams Heel Painter Relationship Specialty Start Date End Date Aakash Awan MD [address] [place] [address] [email or web address] PCP - General Family Medicine 09/28/18 03/02/21 Nury Wallace CNP 10 [place] [address] PCP - General Family Medicine 03/03/21 04/27/21 Adithya Rodríguez MD [address] [place] [address] [email or web address] PCP - General Family Medicine 04/28/21 05/06/21 Adelina Gloria DO [address] [place] [address] [email or web address] PCP - General Family Medicine 05/07/21 11/06/23 Gatito Magdaleno MD [address] [place] [address] PCP - General Family Medicine 11/07/23 Nas Garza MD [address] [place] [address] [email or web address] Cardiology 05/07/21 Paul Olmos MD [address] [place] [address] [email or web address] Gastroenterology 05/07/21 documented as of this encounter Additional Source Comments The information contained in this document represents components of the legal health record. It is not the complete legal health record.[facility]
--- OUTSIDE RECORDS SUMMARY | 2025-03-22 14:34 | XMS_ITS | Encounter Summary ---
Author Organization [facility] Address [address] [place] [address] [place] [address] Phone Care Team Providers Care Streetcar Repairer Name Role Phone Aakash Awan MD Primary Care Provider Nury Wallace TEXTILE SCREEN PRINTER Primary Care Provider Adithya Rodríguez MD Primary Care Provider Adelina Gloria DO Primary Care Provider Nas Garza MD Unavailable [phone] Paul Olmos MD Unavailable Gatito Magdaleno MD Primary Care Provider Encounter Details Date Type Department Care Team (Latest Contact Info) Description 08/27/2020 Transcribe Orders Virtual Department 30 [place] [address] Nury Wallace, TEXTILE SCREEN PRINTER 10 [place], [place] [phone] Dyspnea on exertion (Primary Dx); Cough; Wheeze [...] Wheezing documented in this encounter Care Teams Streetcar Repairer Relationship Specialty Start Date End Date Aakash Awan MD [address] [place] [address] [email or web address] PCP - General Family Medicine 09/28/18 03/02/21 Nury Walalce CNP [address] [place] [address] PCP - General Family Medicine 03/03/21 04/27/21 Adithya Rodríguez MD [address] [place] [address] PCP - General Family Medicine 04/28/21 05/06/21 Adelina Gloria DO [address] [place] [address] PCP - General Family Medicine 05/07/21 11/06/23 Gatito Magdaleno MD [address] [place] [address] PCP - General Family Medicine 11/07/23 Nas Garaz MD [address] [place] [address] Cardiology 05/07/21 Paul Olmos MD [address] [place] [address] Gastroenterology 05/07/21 documented as of this encounter Additional Source Comments The information contained in this document represents components of the legal health record. It is not the complete legal health record.[facility]
--- OUTSIDE RECORDS SUMMARY | 2025-03-22 14:34 | XMS_ITS | Encounter Summary ---
Author Organization [facility] Address [address] [facility] [address] [place] [address] Phone Care Team Providers Care Business Objects Report Developer Name Role Phone Nury Wallace CNP Primary Care Provider Adithya Rodríguez MD Primary Care Provider Adelina Gloria DO Primary Care Provider [phone] Nas Garza MD Unavailable [phone] Paul Olmos MD Unavailable Gatito Magdaleno MD Primary Care Provider Encounter Details Date Type Department Care Team (Late st Contact Info) Description 03/04/2021 Transcribe Orders [facility] PFT Lab 30 [place] [address] Nury Wallace CNP 10 [place], [place] [phone] [email or web address] Social History Tobacco Use Types Packs/Day Years [...] on filedocumented in this encounter Care Teams Business Objects Report Developer Relationship Specialty Start Date End Date Nury Wallace CNP [address] [place] [address] PCP - General Family Medicine 03/03/21 04/27/21 Adithya Rodríguez MD [address] [place] [address] PCP - General Family Medicine 04/28/21 05/06/21 Adelina Gloria DO [address] [place] [address] PCP - General Family Medicine 05/07/21 11/06/23 Gatito Magdaleno MD [address] [place] [address] PCP - General Family Medicine 11/07/23 Nas Garza MD [address] [place] [address] Cardiology 05/07/21 Paul Olmos MD [address] [place] [address] Gastroenterology 05/07/21 documented as of this encounter Additional Source Comments The information contained in this document represents components of the legal health record. It is not the complete legal health record.[facility]
--- OUTSIDE RECORDS SUMMARY | 2025-03-22 14:34 | XMS_ITS | Clinical Summary ---
Author Organization [facility] Address [address] [facility] [address] [place] [address] Phone Care Team Providers Care Customer Sales Specialist Name Role Phone Nas Garza MD Unavailable [phone] Paul Olmos MD Unavailable Gatito Magdaleno [...] airway collapse We will reach out to spinneret cleaner, Dr. Garza, if would be reasonable for [...] years) (1 of 1 - PCV) 2014 RSV VACCINE (1 - Risk 50-74 years 1-dose series) 2014 ZOSTER VACCINES (1 of 2) 2014 BLOOD PRESSURE 05/08/2024 11/07/2023 INFLUENZA VACCINE (#1) 2024 COVID-19 VACCINE ( - 2024- season) 2025 10/13/2020, 09/22/2020 Adult [...] 53 Admit Type: Outpatient Gender: Male Room: [place] [address] Referring MD: CAMILO NAVA MD Exam Type: [...] monitored continuously. The Olympus adult variable colonoscope CF-[id number] #7 was introduced through the anus and advanced to the cecum, identified by appendiceal orifice and ileocecal valve.The colonoscopy was technically difficult and complex dueto a redundant colon, significant looping and the patient's body habitus. Successful completion of the procedurewas aided by applying abdominal pressure. The patient tolerated the procedure fairly well. The quality of the bowel preparation was evaluated using the BBPS (Casey Bowel Preparation Scale) with scores of: Right [...] 12:43 PM Procedure Code(s): --- Professional --- 58656, Colonoscopy, flexible; diagnostic, including collection of specimen(s) by brushing or washing, when performed (separateprocedure) --- Technical --- 80315, Colonoscopy, flexible; diagnostic, including collection of specimen(s) by brushing or washing, when performed (separateprocedure) Diagnosis Code(s): --- Professional --- Z12.11, Encounter for screening for malignant neoplasm of colon --- Technical --- Z12.11, Encounter for screening for malignant neoplasm of colon CPT copyright 2018 [employer]. All rights reserved. The codes documented in this report are preliminary and upon certified professional midwife reviewmay be revised to meet current compliance requirements. [address] [place] [address] Camilo Nava MD GI PROCEDURE ORDERABLES Final R esult from Last 3 Months or Most Recently Relevant to Health Maintenance Insurance MEDICARE PART A & B [facility] MEDICARE PART A & B [place] [facility] [place] A [place] B [facility] Care Teams Customer Sales Specialist Relationship Specialty Start Date End Date Gatito Magdaleno MD [address] [address] PCP - General Family Medicine 11/07/23 Nas Garza MD [address] [place] [address] [email or web address] Cardiology 05/07/21 Paul Olmos MD [address] [place] [address] [email or web address] Gastroenterology 05/07/21 Additional Source Comments The information contained in this document represents components of the legal health record. It is not the complete legal health record.[facility]
--- OUTSIDE RECORDS SUMMARY | 2025-03-22 14:34 | XMS_ITS | Encounter Summary ---
Author Organization [facility] Address [address] [place] [address] [place] [address] Phone Care Team Providers Care Real Estate Leasing Manager Name Role Phone Aakash Awan MD Primary Care Provider [phone] Nury Wallace JEWEL GAUGER Primary Care Provider Adithya Rodríguez MD Primary Care Provider Adelina Gloria DO Primary Care Provider Nas Garza MD Unavailable [phone] Paul Olmos MD Unavailable Gatito Magdaleno MD Primary Care Provider Encounter Details Date Type Department Care Team (Late st Contact Info) Description 03/02/2019 Procedure Pass [facility] Endoscopy Admitting Dept Virtual Department [address] [place] [address] Social History Tobacco Use Types Packs/Day Years [...] on filedocumented in this encounter Care Teams Real Estate Leasing Manager Relationship Specialty Start Date End Date Aakash Awan MD [address] [place] [address] [email or web address] PCP - General Family Medicine 09/28/18 03/02/21 Nury Wallace CNP 10 [place] [address] PCP - General Family Medicine 03/03/21 04/27/21 Adithya Rodríguez MD [address] [place] [address] PCP - General Family Medicine 04/28/21 05/06/21 Adelina Gloria DO [address] [place] [address] PCP - General Family Medicine 05/07/21 11/06/23 Gatito Magdaleno MD [address] [place] [address] PCP - General Family Medicine 11/07/23 Nas Garza MD [address] [place] [address] Cardiology 05/07/21 Paul Olmos MD [address] [place] [address] Gastroenterology 05/07/21 documented as of this encounter Additional Source Comments The information contained in this document represents components of the legal health record. It is not the complete legal health record.[facility]
--- OUTSIDE RECORDS SUMMARY | 2025-03-22 14:34 | XMS_ITS | Encounter Summary ---
Author Organization [facility] Address [address] [place] [address] [place] [address] Phone Care Team Providers Care Data Coder Operator Name Role Phone Adelina Gloria DO Primary Care Provider Nas Garza MD Unavailable [phone] Paul Olmos MD Unavailable Gatito Magdaleno MD Primary Care Provider Encounter Details Date Type Department Care Team (Late st Contact Info) Description 08/27/2021 Procedure Pass [facility] Scan - [address] [address] Social History Tobacco Use Types Packs/Day Years [...] on filedocumented in this encounter Care Teams Data Coder Operator Relationship Specialty Start Date End Date Adelina Gloria DO PCP - General Family Medicine 05/07/21 11/06/23 Gatito Magdaleno MD [address] [place] [address] PCP - General Family Medicine 11/07/23 Nas Garza MD [address] [place] [address] Cardiology 05/07/21 Paul Olmos MD [address] [place] [address] Gastroenterology 05/07/21 documented as of this encounter Additional Source Comments The information contained in this document represents components of the legal health record. It is not the complete legal health record.[facility]
[2025-03-22 18:04] LABS: MANUAL DIFF FLAG NO
[2025-03-22 18:17] LABS: Hematocrit 42.5 % (42.0-52.0); Hemoglobin 14.0 g/dl (14.0-18.0); Imm Gran Abs Auto 0.05 X10*3/uL (0.00-0.03); Imm Gran Pct Auto 0.6 % (0.0-0.4); Lymphocytes Absolute Auto 1.6 X10*3/uL (1.2-4.9); Mean Corpuscular HGB Conc 32.9 g/dl (31.0-36.0); Mean Corpuscular Hemoglobin 33.3 pg (27.0-33.0); Mean Corpuscular Volume 101.0 fL (80.0-98.0); NRBC Abs Auto 0.000 X10*3/uL (0.0-0.012); NRBC Pct Auto 0.0 /100WBC (0.0-0.2); Platelet Count 190 X10*3/uL (160-400); Red Blood Count 4.21 X10*6/uL (4.60-5.80); Reticulocytes Absolute 0.108 X10*6/uL (0.026-0.095); White Blood Count 8.4 X10*3/uL (4.8-10.8)
[2025-03-22 18:40] LABS: Alanine Aminotransferase 28 U/L (0-40); Albumin Level 4.5 g/dL (3.5-5.0); Alkaline Phosphatase 58 U/L (39-117); Anion Gap 13 (12-20); Aspartate Amino Transferase 21 U/L (5-37); Blood Urea Nitrogen 19 mg/dL (9-16); Calcium 9.6 mg/dL (8.4-10.2); Carbon Dioxide 25 mmol/L (22-29); Chloride 107 mmol/L (96-108); Estimated Glomerular Filt Rate > 60; Iron 85 mcg/dL (45-160); Percent Iron Saturation 26 % (15-50); Potassium 4.1 mmol/L (3.3-5.1); Sodium 141 mmol/L (135-145); Total Iron Binding Capacity 327 mcg/dL (228-428); Total Protein 7.4 g/dL (6.5-8.0); Unsaturated Iron Binding 242 ug/dL
[2025-03-22 18:41] LABS: Free T4 (Free Thyroxine) 1.14 ng/dL (0.71-1.85); Thyroid Stimulating Hormone 3.32 uIU/mL (0.32-4.0)
== END 2025-03-22 13:39 | disposition home or self-care (01) ==
LOC: HO.WFDLDS 13:38
PROVIDERS: Visit Provider Family Medicine
DX: Z00.00 Encounter for general adult medical examination without abnormal findings (principal); E03.9 Hypothyroidism, unspecified; D64.9 Anemia, unspecified
CPT/HCPCS: 36415; 80053; 83540; 84439; 84443; 84480; 85025; 85045

== ENCOUNTER 2025-03-25 11:46 | Outpatient (AMB) | payer MEDICARE, MEDICAID, SELFPAY ==
--- NOTE | 2025-03-25 12:09 | MHC.PC.OV ---
Vital Signs 03/25/25 12:17 Height 5 ft 9 in Weight 283 lb BMI 41.8 BP 104/60 Blood Pressure Location Rt brachial Position Sitting Respiration 16 Pulse 56 Pulse Source Pulse Oximeter Temp 98.6 F Temp Source Oral Pulse Oximetry (%) 95 Oxygen Delivery Method Room Air Intake Visit Reasons: 3-4 months routine complex fu winino Torres Intake Note: patient is scheduled to follow up for his a-fib and lab review Machine Operator Assistant Required: No Allergies No Known Allergies Allergy (Verified 03/25/25 12:15) Tobacco use date assessed: 10/10/24 Dental Screening Dental Screen Date: 10/10/24 HPI 3-4 months routine complex fu winino Torres HPI Details 59 y/o male presents to f/u chronic conditions. Labs drawn 03/22/25. Reviewed labs with pt. Mild anemia has been improving. Fasting glucose 114. Liver enzymes within normal range. Blood pressure today 104/60, 56p. He is on lisinopril 5mg, metoprolol 50mg b.i.d. Had been following up with Dr. Molina, Cardiology. Reports ongoing L shoulder pain. Already improving. [facility] Medical History Paroxysmal atrial fibrillation Atrial fibrillation Sleep apnea Persistent atrial fibrillation Elevated liver enzymes Gout Testicular cancer CHF (congestive heart failure) Surgical History History of orchiectomy, unilateral Hx of colonoscopy Family History Mother CVD (cardiovascular disease) Father CVD (cardiovascular disease) Social History Household Members Other:: Same partner- 17 years- Housing: House Alcohol intake: current Alcohol intake frequency: a few times a month Alcohol type: hard liquor Patient Tobacco Use Status: Former Tobacco user e-Cigarette/Vaping Use: Never Used Second Hand Smoke Exposure: No Substance Use Type: Marijuana service: No Current occupational status: unemployed and disabled 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 Al Hassan, Marlys Crocker, Jose Black and colleagues, with an educational craig from [employer]. Physical exam (Primary Care) Vital Signs: Last Vital Signs Temp 98.6 F 03/25/25 12:17 Pulse 56 03/25/25 12:17 Resp 16 03/25/25 12:17 BP 104/60 03/25/25 12:17 Pulse Ox 95 03/25/25 12:17 Oxygen Delivery Method Room Air 03/25/25 12:17 BMI result Body Mass Index 41.8 Tobacco/Smoking Status: Tobacco use Status Tobacco use date assessed 10/10/24 03/25/25 12:10 Patient Tobacco Use Status Former Tobacco user 03/25/25 12:10 e-Cigarette/Vaping Use Never Used 03/25/25 12:10 Thrive Assessment: Date of Thrive Assessment Date Thrive assessed 08/12/23 03/25/25 12:10 Coding Level of Care Code Est Pt Level 4 (87147) Diagnoses Primary hypertension I10 Hypertension type: primary hypertension Elevated fasting glucose R73.01 Other specified hypothyroidism E03.8 Hypothyroidism type: other Anemia D64.9 Shoulder pain M25.519 Coronary artery disease involving [place] coronary artery of [place] heart, unspecified whether angina present I25.10 Associated angina: unspecified whether angina present Coronary Disease-Associated Artery/Lesion type: [place] artery [place] vs. transplanted heart: [place] heart Paroxysmal atrial fibrillation I48.0 Assessment & Plan Assessment & Plan (1) Hypertension: Code(s): I10 - Essential (primary) hypertension Category: Medical Qualifiers: Hypertension type: primary hypertension Qualified Code(s): I10 - Essential (primary) hypertension Plan: Blood pressure is well controlled. Goal is less than 130/80 Continue current medication (2) Elevated fasting glucose: Code(s): R73.01 - Impaired fasting glucose Category: Medical Plan: A1c 5.5%, Upper range of normal. Working on diet low in sugars and starches (3) Hypothyroidism: Code(s): E03.9 - Hypothyroidism, unspecified Category: Medical Qualifiers: Hypothyroidism type: other Qualified Code(s): E03.8 - Other specified hypothyroidism Plan: Thyroid hormone levels all within normal range. Continue levothyroxine as prescribed (4) Anemia: Code(s): D64.9 - Anemia, unspecified Category: Medical Plan: Mild anemia which has resolved. No bleeding Will continue to monitor (5) Shoulder pain: Code(s): M25.519 - Pain in unspecified shoulder Category: Medical Plan: Complaint of left shoulder pain while putting on a back pack Already improving. He will let me know if worsens or is not resolving. (6) Coronary artery disease: Code(s): I25.10 - Atherosclerotic heart disease of [place] coronary artery without angina pectoris Category: Medical Qualifiers: Associated angina: unspecified whether angina present Coronary Disease-Associated Artery/Lesion type: [place] artery [place] vs. transplanted heart: [place] heart Qualified Code(s): I25.10 - Atherosclerotic heart disease of [place] coronary artery without angina pectoris (7) Paroxysmal atrial fibrillation: Code(s): I48.0 - Paroxysmal atrial fibrillation Category: Medical Plan History of coronary artery disease as well as paroxysmal atrial fibrillation. He is on metoprolol and Xarelto. Rate is well controlled. He had discussed an at home school lunch monitor. Does not have this - he has an upcoming appointment cardiology and they can discuss again. Orders: Orders AMB Hemoglobin A1c Today R73.01 - Impaired fasting glucose Referrals Rheumatology Referral M19.90 - Unspecified osteoarthritis, unspecified site, M1A.09X0 - Idiopathic chronic gout, multiple sites, without tophus (tophi)
[2025-03-25 12:17] VITALS: BP 104/60; PULSE 56; RESP 16; TEMP 37; O2SAT 95; BMI 41.8
--- OUTSIDE RECORDS SUMMARY | 2025-03-25 15:00 | XMS_ITS | Encounter Summary ---
Author Organization [facility] Address [address] [place] [address] [place] [address] Phone Care Team Providers Care Traveling Clerk Name Role Phone Aakash Awan MD Primary Care Provider Nury Wallace OIL FIELD TECHNICIAN Primary Care Provider Adithya Rodríguez MD Primary Care Provider [phone] Adelina Gloria DO Primary Care Provider [phone] Nas Garza MD Unavailable [phone] Paul Olmos MD Unavailable Gatito Magdaleno MD Primary Care Provider Encounter Details Date Type Department Care Team (Latest Contact Info) Description 08/27/2020 Transcribe Orders Virtual Department [address] [place] [address] Nury Wallace, OIL FIELD TECHNICIAN [address] [place], [place] [id number] Dyspnea on exertion (Primary Dx); Cough; Wheeze [...] Wheezing documented in this encounter Care Teams Traveling Clerk Relationship Specialty Start Date End Date Aakash Awan MD [address] [place] [phone] [email or web address] PCP - General Family Medicine 09/28/18 03/02/21 Nury Wallace CNP [address] [place] [address] PCP - General Family Medicine 03/03/21 04/27/21 Adithya Rodríguez MD [address] [place] [address] PCP - General Family Medicine 04/28/21 05/06/21 Adelina Gloria DO [address] [place] [address] PCP - General Family Medicine 05/07/21 11/06/23 Gatito Magdaleno MD [address] [place] [address] PCP - General Family Medicine 11/07/23 Nas Garza MD [address] [place] [address] Cardiology 05/07/21 Paul Olmos MD [address] [place] [address] Gastroenterology 05/07/21 documented as of this encounter Additional Source Comments The information contained in this document represents components of the legal health record. It is not the complete legal health record.[facility]
--- OUTSIDE RECORDS SUMMARY | 2025-03-25 15:00 | XMS_ITS | Encounter Summary ---
Author Organization [facility] Address [address] [facility] [address] [place] [phone] Phone Care Team Providers Care Hairspring Fabrication Supervisor Name Role Phone Nury Wallace CNP Primary Care Provider Adithya Rodríguez MD Primary Care Provider [phone] Adelina Gloria DO Primary Care Provider [phone] Nas Garza MD Unavailable [phone] Paul Olmos MD Unavailable Gatito Magdaleno MD Primary Care Provider Encounter Details Date Type Department Care Team (Late st Contact Info) Description 03/04/2021 Transcribe Orders [facility] P[facility] [address] [place] [address] Nury Wallace CNP [address] [place], [place] [phone] [email or web address] Social History Tobacco Use Types Packs/Day Years [...] on filedocumented in this encounter Care Teams Hairspring Fabrication Supervisor Relationship Specialty Start Date End Date Nury Wallace CNP [address] [place] [address] PCP - General Family Medicine 03/03/21 04/27/21 Adithya Rodríguez MD [address] [place] [address] PCP - General Family Medicine 04/28/21 05/06/21 Adelina Gloria DO [address] [place] [address] PCP - General Family Medicine 05/07/21 11/06/23 Gatito Magdaleno MD [address] [place] [address] PCP - General Family Medicine 11/07/23 Nas Garza MD [address] [place] [address] Cardiology 05/07/21 Paul Olmos MD [address] [place] [address] Gastroenterology 05/07/21 documented as of this encounter Additional Source Comments The information contained in this document represents components of the legal health record. It is not the complete legal health record.[facility]
--- OUTSIDE RECORDS SUMMARY | 2025-03-25 15:00 | XMS_ITS | Encounter Summary ---
Author Organization [facility] Address [address] [place] [address] [place] [address] Phone Care Team Providers Care Manager Laboratory Name Role Phone Adelina Gloria DO Primary Care Provider Nas Garza MD Unavailable [phone] Paul Olmos MD Unavailable Gatito Magdaleno MD Primary Care Provider Encounter Details Date Type Department Care Team (Late st Contact Info) Description 08/27/2021 Procedure Pass [facility], Ct Scan - [address] [address] Social History Tobacco Use Types Packs/Day Years [...] on filedocumented in this encounter Care Teams Manager Laboratory Relationship Specialty Start Date End Date Adelina Gloria DO PCP - General Family Medicine 05/07/21 11/06/23 Gatito Magdaleno MD [address] [place] [address] PCP - General Family Medicine 11/07/23 Nas Garza MD [address] [place] [address] Cardiology 05/07/21 Paul Olmos MD [address] [place] [address] Gastroenterology 05/07/21 documented as of this encounter Additional Source Comments The information contained in this document represents components of the legal health record. It is not the complete legal health record.[facility]
--- OUTSIDE RECORDS SUMMARY | 2025-03-25 15:00 | XMS_ITS | Encounter Summary ---
Author Organization [facility] Address [address] [place] [address] [place] [address] Phone Care Team Providers Care Gas Pipe Layer Name Role Phone Aakash Awan MD Primary Care Provider Nury Wallace [facility] Primary Care Provider Adithya Rodríguez MD Primary Care Provider Adelina Gloria DO Primary Care Provider Nas Garza MD Unavailable [phone] Paul Olmos MD Unavailable Gatito Magdaleno MD Primary Care Provider Reason for Referral * Consultation (Within 3 days (urgent)) - Closed Specialty Diagnoses / Procedures Referred By Contac t Referred To Contact Pulmonary Disease Aakash Awan MD Phone: tel: fax: mailto:[email or web address] [address] [address] Phone: tel: Referral ID Status Reason Start Date Expiration Date Visits Re quested Visits Authorized [id number] Closed 02/27/2021 02/27/2022 1 1 * Consultation (Elective) - Denied Specialty Diagnoses / Procedures Referred By Contac t Referred To Contact Pulmonary Disease Aakash Awan MD Phone: tel: fax: mailto:[email or web address] [address] [place] [address] Phone: tel: Referral ID Status Reason Start Date Expiration Date Visits Re quested Visits Authorized [id number] Denied 02/27/2021 02/27/2022 1 1 Encounter Details Date Type Department Care Team (Late st Contact Info) Description 02/27/2021 Transcribe Orders [facility] Pulmonary, Allergy and Critical Care Medicine 10 [place] [address] Aakash Awan MD [address] [place] [address] [email or web address] Social History Tobacco Use Types Packs/Day Years [...] Associated Diagnoses Order Schedule Ambulatory referral to [facility] Pulmonology Outpatient Referral Routine Ordered: 02/27/2021 Ambulatory referral to [facility] Pulmonology Outpatient Referral Routine Ordered: 02/27/2021 documented as of this encounter Visit Diagnoses Not on filedocumented in this encounter Care Teams Gas Pipe Layer Relationship Specialty Start Date End Date Aakash Awan MD [address] [place] [address] [email or web address] PCP - General Family Medicine 09/28/18 03/02/21 Nury Wallace CNP 10 [place] [address] PCP - General Family Medicine 03/03/21 04/27/21 Adithya Rodríguez MD [address] [place] [address] [email or web address] PCP - General Family Medicine 04/28/21 05/06/21 Adelina Gloria DO [address] [place] [phone] [email or web address] PCP - General Family Medicine 05/07/21 11/06/23 Gatito Magdaleno MD [address] [place] [address] PCP - General Family Medicine 11/07/23 Nas Garza MD [address] [place] [address] [email or web address] Cardiology 05/07/21 Paul Olmos MD [address] [place] [address] [email or web address] Gastroenterology 05/07/21 documented as of this encounter Additional Source Comments The information contained in this document represents components of the legal health record. It is not the complete legal health record.[facility]
--- OUTSIDE RECORDS SUMMARY | 2025-03-25 15:00 | XMS_ITS | Encounter Summary ---
Author Organization [facility] Address [address] [place] [address] [place] [address] Phone Care Team Providers Care Dot Compliance Manager Name Role Phone Aakash Awan MD Primary Care Provider Nury Wallace MOTOR COACH SUPERVISOR Primary Care Provider Adithya Rodríguez MD Primary Care Provider Adelina Gloria DO Primary Care Provider Nas Garza MD Unavailable [phone] Paul Olmos MD Unavailable Gatito Magdaleno MD Primary Care Provider Encounter Details Date Type Department Care Team (Late st Contact Info) Description 03/02/2019 Procedure Pass [facility] Endoscopy Admitting Dept Virtual Department [address] [place] [phone] Social History Tobacco Use Types Packs/Day Years [...] on filedocumented in this encounter Care Teams Dot Compliance Manager Relationship Specialty Start Date End Date Aakash Awan MD [address] [place] [address] [email or web address] PCP - General Family Medicine 09/28/18 03/02/21 Nury Wallace CNP [address] [place] [address] PCP - General Family Medicine 03/03/21 04/27/21 Adithya Rodríguez MD [address] [place] [address] PCP - General Family Medicine 04/28/21 05/06/21 Adelina Gloria DO [address] [place] [address] PCP - General Family Medicine 05/07/21 11/06/23 Gatito Magdaleno MD [address] [place] [address] PCP - General Family Medicine 11/07/23 Nas Garza MD [address] [place] [address] Cardiology 05/07/21 Paul Olmos MD [address] [place] [address] Gastroenterology 05/07/21 documented as of this encounter Additional Source Comments The information contained in this document represents components of the legal health record. It is not the complete legal health record.[facility]
--- OUTSIDE RECORDS SUMMARY | 2025-03-25 15:01 | XMS_ITS | Clinical Summary ---
Author Organization [facility] Address [address] [facility] [address] [place] [address] Phone Care Team Providers Care Director Summer Sessions Name Role Phone Nas Garza MD Unavailable [phone] Paul Olmos MD Unavailable Gatito Magdaleno [...] airway collapse We will reach out to supercharge repair supervisor, Dr. Garza, if would be reasonable for [...] 54 Admit Type: Outpatient Gender: Male Room: [place] [address] Referring MD: CAMILO NAVA MD Exam Type: [...] monitored continuously. The Olympus adult variable colonoscope [id number] #7 was introduced through the anus and advanced to the cecum, identified by appendiceal orifice and ileocecal valve.The colonoscopy was technically difficult and complex dueto a redundant colon, significant looping and the patient's body habitus. Successful completion of the procedurewas aided by applying abdominal pressure. The patient tolerated the procedure fairly well. The quality of the bowel preparation was evaluated using the BBPS ([place] Bowel Preparation Scale) with scores of: Right [...] 12:43 PM Procedure Code(s): --- Professional --- 41975, Colonoscopy, flexible; diagnostic, including collection of specimen(s) by brushing or washing, when performed (separateprocedure) --- Technical --- 15601, Colonoscopy, flexible; diagnostic, including collection of specimen(s) by brushing or washing, when performed (separateprocedure) Diagnosis Code(s): --- Professional --- Z12.11, Encounter for screening for malignant neoplasm of colon --- Technical --- Z12.11, Encounter for screening for malignant neoplasm of colon CPT copyright 2018 [employer]. All rights reserved. The codes documented in this report are preliminary and upon reo asset manager reviewmay be revised to meet current compliance requirements. [address] [place] [address] Camilo Nava MD GI PROCEDURE ORDERABLES Final R esult from Last 3 Months or Most Recently Relevant to Health Maintenance Insurance MEDICARE PART A & B [facility] MEDICARE PART A & B [place] [facility] [place] B [facility] Care Teams Director Summer Sessions Relationship Specialty Start Date End Date Gatito Magdaleno MD [address] [address] PCP - General Family Medicine 11/07/23 Nas Garza MD [address] [place] [address] [email or web address] Cardiology 05/07/21 Paul Olmos MD [address] [place] [address] [email or web address] Gastroenterology 05/07/21 Additional Source Comments The information contained in this document represents components of the legal health record. It is not the complete legal health record.[facility]
== END 2025-03-25 12:48 | disposition home or self-care (01) ==
LOC: HO.HMCFM 11:46
PROVIDERS: PCP Family Medicine; Visit Provider Family Medicine
DX: I10 Essential (primary) hypertension (principal); R73.01 Impaired fasting glucose; E03.8 Other specified hypothyroidism; D64.9 Anemia, unspecified; M25.519 Pain in unspecified shoulder; I25.10 Atherosclerotic heart disease of native coronary artery without angina pectoris; I48.0 Paroxysmal atrial fibrillation

== ENCOUNTER → 2025-03-25 11:46 | Outpatient (BNVA) | payer MEDICARE, MEDICAID, SELFPAY | PROVIDERS: PCP Family Medicine; Visit Provider Family Medicine | DX: I10 Essential (primary) hypertension (principal); R73.01 Impaired fasting glucose; E03.8 Other specified hypothyroidism; D64.9 Anemia, unspecified; I25.10 Atherosclerotic heart disease of native coronary artery without angina pectoris; I48.0 Paroxysmal atrial fibrillation | CPT/HCPCS: 83036; 99212 ==